=== PATIENT | female | born 1940 | race Caucasian/White ===

== ENCOUNTER 2016-09-26 12:45 | Emergency (ER) | payer MEDICARE, OTHER ==
[~2016-09-26] VITALS: Ht 157.5 cm; Wt 79.5 kg
[~2016-09-26 12:45] MED LIST: ALBU17I INH; ALBU1AER INH; ASPI325T PO; ATOR40TA49 PO; CLOP75 PO; CYMB30CA PO; FAMO20TA2 PO; FENO1TAB76 PO; FERR324T4 PO; FURO80 PO; GABA300C3 PO; LANTINJ SQ; LEVO150T7 PO; MECL-62 PO; METO25TA6 PO; MIRA1TAB PO; NORC7.5T PO; SPIR25TA PO; VALI5TAB PO; VITA500015 PO
[2016-09-26 12:47] VITALS: BP 140/80; PULSE 107; RESP 28; TEMP 98.1; O2SAT 88
[2016-09-26] MEDS ORDERED: MORPHINE SULFATE 4 MG/ML INJ IV PUSH ONE ×2 (14:00→15:30)
[2016-09-26] MEDS ORDERED: KETOROLAC TROMETHAMINE 30 MG/ML (IVP) VIAL IV PUSH ONE (14:00)
--- NOTE | 2016-09-26 14:38 | PD ---
HPI Chief Complaint: Pain: Acute or Chronic Time Seen by Provider: 13:34 Travel History International Travel<30 days: No Contact w/Intl Traveler<30days: No Traveled to known affect area: No History of Present Illness HPI This 76-year-old woman who presents to the emergency department complaining of right leg pain, right ankle pain. She states she is a history of back pain that radiated in her legs before, she also has restless leg syndrome that gives her pains in her legs. She states she woke up this morning with severe pain in her right ankle, right leg, reading all the way up to her hip. No trauma. No recent injury. Feels different than her previous similar symptoms. She otherwise had been feeling generally well and healthy. History Past Medical History Narrative Medical COPD CVA Hypertension Diabetes Hyperlipidemia RLS Hypothyroidism Menopausal: Yes Social History Alcohol Use: No Tobacco Use: Yes (08/08 PPD) Allergies-Medications (Allergen,Severity, Reaction): Coded Allergies: Penicillin (Verified Allergy, Severe, Swelling, 09/26/16) *MDRO Multi-Drug Resistant Organism (Verified Adverse Reaction, Unknown, ) ESBL+E.Coli (urine-03/28/16), 04/2016 Reported Meds & Prescriptions Reported Meds & Active Scripts Active Reported Vitamin D3 (Cholecalciferol) 5,000 Unit Tab 5,000 Units PO WEEKLY Lasix 80 Mg Tab (Furosemide) 80 Mg Tab 80 Mg PO DAILY Ventolin Hfa (Albuterol Sulfate) 108 Mcg/Act Aer 2 Puff INH Q4HR PRN Mirapex (Pramipexole Dihydrochloride) 1 Mg Tab 1 Mg PO Q6HR Tricor (Fenofibrate) 48 Mg Tab 48 Mg PO DAILY Ferrous Sulfate 325 Mg Tab 325 Mg PO DAILY Aspirin 325 mg (Aspirin) 325 Mg Tab 325 Mg PO DAILY Toprol XL (Metoprolol Succinate) 25 Mg Abdoulaye 25 Mg PO DAILY [place]ora 7.5-325 mg (Hydrocodone-Acetaminophen 7.5-325 mg) 1 Tab 1.5 Tab PO Q6H PRN Lipitor 40 Mg Tab (Atorvastatin Calcium) 40 Mg Tab 40 Mg PO DAILY Valium (Diazepam) 5 Mg Tab 5 Mg PO TID Cymbalta (Duloxetine HCl) 30 Mg Cap 30 Mg PO DAILY Proair Hfa (Albuterol Sulfate) 8.5 Gm Aero 2 Puff INH QID * SHAKE WELL BEFORE USE * Levothyroxine 150 mcg (Levothyroxine Sodium) 150 Mcg Tab 150 Mcg PO DAILY Meclizine Hcl (Meclizine HCl) 25 Mg Tab 25 Mg PO DAILY PRN Spironolactone 25 Mg Tab 25 Mg PO DAILY Lantus Solostar Pen (Insulin Glargine) 100 Units/Ml Pen SQ BID PRN Gabapentin 300 Mg Cap 300 Mg PO BID Famotidine 20 Mg Tab 20 Mg PO HS Plavix (Clopidogrel Bisulfate) 75 Mg Tab 75 Mg PO DAILY Review of Systems Except as stated in HPI: all other systems reviewed are Neg Physical Exam Narrative GENERAL: Well-appearing 76-year-old woman, no acute distress. SKIN: Warm and dry. CARDIOVASCULAR: Regular rate and rhythm. No murmur appreciated. RESPIRATORY: No accessory muscle use. Clear to auscultation. Breath sounds equal bilaterally. GASTROINTESTINAL: Abdomen soft, non-tender, nondistended. Hepatic and splenic margins not palpable. MUSCULOSKELETAL: No obvious deformities. No clubbing. There is no edema. There is no calf pain. She is mild diffuse allodynia throughout the bottom leg , especially around the ankle. There is good pulses. The foot is warm and well perfused. Data Data Last Documented VS Vital Signs Date Time Temp Pulse Resp B/P Pulse Ox O2 Delivery O2 Flow Rate FiO2 09/26/16 12:47 98.1 107 28 140/80 88 Nasal Cannula Orders Us Leg Venous Doppler (09/26/16 ) Morphine Inj (Morphine Inj) (09/26/16 14:00) Ketorolac Inj (Toradol Inj) (09/26/16 14:00) [facility] Medical Decision Making Medical Screen Exam Complete: Yes Emergency Medical Condition: Yes Medical Record Reviewed: Yes Interpretation(s) My review of ultrasound: Negative Differential Diagnosis Radiculopathy, vascular occlusion, DVT, shingles, DVT, other Narrative Course Medical decision making INITIAL: This 76-year-old woman presents to the emergency department complaining of right leg pain. Leg is normal appearance. Is no evidence of injury. Appears well perfused without evidence of acute arterial insufficiency. Doubt DVT we will check ultrasound. Suspect due to radiculopathy, early shingles, or pain from her restless leg syndrome. She has a lot of chronic pain syndromes already. We'll recommend outpatient follow-up supportive treatment. FINAL: Ultrasound is negative. Patient has a lot of chronic pain to begin with. I don't see evidence of arterial insufficiency which should be the only other concern. Suspect radiculopathy. Recommend outpatient follow-up. Diagnosis Primary Impression: Right leg pain Additional Instructions: Continue current medications. Albeit primary doctor in the next 2-4 days. Return to the emergency department for any new or worsening symptoms. Disposition: 01 DISCHARGE HOME Condition: Stable Chava Batista MD Sep 26, 2016 14:38
--- NOTE | 2016-09-26 15:17 | RADRPT ---
EXAM DATE/TIME: 09/26/2016 14:14 [facility] COMPARISON: No previous studies available for comparison. INDICATIONS : Right leg pain. MEDICAL HISTORY : Hypercholesterolemia. Hypertension. Chronic obstructive pulmonary disease. Hiatal hernia. CVA. Deg enerative disk disease. GERD. SURGICAL HISTORY : Appendectomy. Cholecystectomy. Hysterectomy. Bladder surgery. Carpal tunnel surgery. ENCOUNTER: Initial ACUITY: 1 day PAIN SCORE: 10/10 LOCATION: Right leg. TECHNIQUE: Venous ultrasound of the leg was performed from the inguinal ligament to the proximal calf. Real-dianna e, color Doppler and spectral tracing, compression and augmentation techniques were used. FINDINGS: There is normal compressibility of the deep venous system from the inguinal region to the proximal ca lf. No echogenic clot is seen in the lumen of the common femoral, femoral, popliteal, and posterior tibial veins. There is a normal response of the venous system to proximal and distal augmentation an d respiration. Iliac vein open and patent CONCLUSION: Normal examination. No evidence DVT Pedro Mayberry MD on September 26, 2016 at 15:15 Board Certified Radiologist. This report was verified electronically.
== END 2016-09-26 17:18 | disposition home or self-care (01) ==
LOC: NEPC 12:45
DX: M79.604 Pain in right leg (principal)
CPT/HCPCS: 93971; 96374; 96375; 96376; 99284; J1885; J2270

== ENCOUNTER 2016-11-26 10:12 | Emergency (ER) | payer MEDICARE, OTHER ==
[~2016-11-26] VITALS: Ht 160 cm; Wt 81.5 kg
[2016-11-26 10:15] VITALS: BP 139/68; PULSE 81; RESP 18; TEMP 97.7; O2SAT 95
[2016-11-26 10:51] VITALS: O2SAT 94
[2016-11-26 11:00] VITALS: BP 134/65; PULSE 77; RESP 16; O2SAT 94
[2016-11-26] MEDS ORDERED: SODIUM CHLORIDE 0.9% FLUSH 10 ML FLUSH IVF PRN (11:15)
[2016-11-26] MEDS: NITROGLYCERIN 0.4 MG SL 25 TABS/BTL SL SCH ×3 (11:17→11:25)
--- NOTE | 2016-11-26 11:17 | PD ---
HPI Chief Complaint: Chest Pain Time Seen by Provider: 11:12 Travel History International Travel<30 days: No Contact w/Intl Traveler<30days: No Traveled to known affect area: No History of Present Illness HPI Patient comes in complaining of substernal chest pain she describes as squeezing like in nature that began this morning. Patient reports associated shortness of breath. Patient states she had similar happen approximately week ago when she was in [place] and signed out from the hospital AMA secondary to having to take care of someone else. Patient states they recommended a stress test at that time however she did not have this done. Patient states she last had a cardiac catheter approximately 2 years ago in [place] and was told everything was cleaned but does not have a nsh teacher here locally. Patient denies any associated nausea, vomiting, numbness or tingling anywhere, headache , or diaphoresis. Patient states she does take a full strength aspirin daily and she took it this morning. Patient reports chest pain began this morning it was coming and going however now it is more constant. Patient also complaining of left knee pain after her leg gave out on her yesterday causing her to land on her left knee. Patient has pain is throbbing aching like in nature without radiation. Pain is worse with palpation and walking. Patient has applied ice to this that helped with the swelling. PFSH Past Medical History Hx Anticoagulant Therapy: Yes Arthritis: Yes Asthma: Yes Heart Rhythm Problems: No Cancer: No Cardiovascular Problems: Yes (A-FIB, HTN ) High Cholesterol: Yes Chest Pain: No Congestive Heart Failure: No COPD: Yes Cerebrovascular Accident: Yes (CVA X 3) Diabetes: Yes Patient Takes Glucophage: Yes Diminished Hearing: No Endocrine: Yes Gastrointestinal Disorders: Yes GERD: Yes Genitourinary: No Hiatal Hernia: Yes Hypertension: Yes Immune Disorder: No Musculoskeletal: Yes (DEGENERATIVE DISK DISEASE, stenosis) Neurologic: Yes Psychiatric: No Reproductive: No Respiratory: Yes (COPD) Migraines: No Seizures: Yes (20 years ago) Sleep Apnea: No Thyroid Disease: Yes Ulcer: No Menopausal: Yes Past Surgical History AICD: No Appendectomy: Yes Arteriovenous Shunt: No Cholecystectomy: Yes Genitourinary Surgery: Yes (BLADDER SURGURY) Hysterectomy: Yes Insulin Pump: No Joint Replacement: Yes (neck ) Neurologic Surgery: Yes (NECK AND BACK FUSIONS) Pacemaker: No Social History Alcohol Use: No Tobacco Use: Yes (08/08 PPD) Substance Use: No Allergies-Medications (Allergen,Severity, Reaction): Coded Allergies: Penicillin (Verified Allergy, Severe, Swelling, 11/26/16) *MDRO Multi-Drug Resistant Organism (Verified Adverse Reaction, Unknown, ) ESBL+E.Coli (urine-03/28/16), 04/2016 Reported Meds & Prescriptions Reported Meds & Active Scripts Active Reported Lantus Inj (Insulin Glargine) 100 Unit/Ml Inj SQ BIDAC PER SLIDING SCALE Aldactone (Spironolactone) 25 Mg Tab 25 Mg PO DAILY Metformin (Metformin HCl) 500 Mg Tab 500 Mg PO BID With meals [place] (Hydrocodone-Acetaminophen) 7.5-325 mg Tab 1.5 Tab PO Q6H PRN Tramadol (Tramadol HCl) 50 Mg Tab 50 Mg PO BID PRN Omeprazole 20 Mg Tab 20 Mg PO DAILY Lasix (Furosemide) 40 Mg Tab 80 Mg PO DAILY PRN Anoro Ellipta Inh (Umeclidinium/Vilanterol) 62.5-25 Mcg/Act Aero 1 Puff INH DAILY Levothyroxine (Levothyroxine Sodium) 150 Mcg Tab 150 Mcg PO DAILY Gabapentin 300 Mg Cap 300 Mg PO BID Mirapex (Pramipexole Dihydrochloride) 1 Mg Tab 1 Mg PO Q6HR Tricor (Fenofibrate) 48 Mg Tab 48 Mg PO DAILY Tke with food. Pepcid (Famotidine) 20 Mg Tab 20 Mg PO HS Valium (Diazepam) 5 Mg Tab 5 Mg PO TID PRN Cymbalta DR (Duloxetine HCl) 60 Mg Capdr 60 Mg PO BID Aspirin 325 Mg Tab 325 Mg PO DAILY Review of Systems Except as stated in HPI: all other systems reviewed are Neg Physical Exam Narrative GENERAL: Well-developed, overly nourished, in no acute distress, and non-ill appearing. SKIN: Focused skin assessment warm and dry. Patient is a contusion noted over the left anterior knee with some soft tissue swelling is tender to palpation. There is no crepitus. HEAD: Atraumatic. Normocephalic. EYES: Pupils equal and round. EOMI. No scleral icterus. No injection or drainage. ENT: No nasal bleeding or discharge. Mucous membranes pink and moist. NECK: Trachea midline. No JVD. Supple. No nuclear rigidity. CARDIOVASCULAR: Regular rate and rhythm. No murmur appreciated. Dorsal pulses 2+, intact, and equal bilaterally. Capillary refill less than 2 seconds. RESPIRATORY: No accessory muscle use. No respiratory distress. Clear to auscultation. Breath sounds equal bilaterally. GASTROINTESTINAL: Abdomen soft, non-tender, nondistended. Hepatic and splenic margins not palpable. Normal bowel sounds 4. No pulsatile mass. MUSCULOSKELETAL: No obvious deformities. No clubbing. No cyanosis. No edema. Full range of motion. Knee: Negative patellar apprehension, varus and valgus maneuvers, anterior draw test, and Mejia test. Pulses equal BL distal to injury. Capillary refill less than 2 seconds distal to injury and equal BL. FROM distal to injury and equal BL. Strength distal to injury equal BL. NV intact distal to injury. Dorsal pulses equal BL. Sensation equal BL 1st web space. Patient reports tenderness to palpation over left anterior knee. NEUROLOGICAL: Awake and alert. No obvious cranial nerve deficits. Motor grossly within normal limits. Normal speech. PSYCHIATRIC: Appropriate mood and affect; insight and judgment normal. Data Data Last Documented VS Vital Signs Date Time Temp Pulse Resp B/P Pulse Ox O2 Delivery O2 Flow Rate FiO2 11/26/16 13:00 72 19 92/55 94 Nasal Cannula 3 11/26/16 10:15 97.7 Orders Electrocardiogram (11/26/16 ) Basic Metabolic Panel (Bmp) (11/26/16 11:11) Ckmb (Isoenzyme) Profile (11/26/16 11:11) Complete Blood Count With Diff (11/26/16 11:11) Magnesium (Mg) (11/26/16 11:11) Prothrombin Time / Inr (Pt) (11/26/16 11:11) Act Partial Throm Time (Ptt) (11/26/16 11:11) Troponin I (11/26/16 11:11) Chest, Single Ap (11/26/16 11:11) Ecg Monitoring (11/26/16 11:11) Bilateral Bp Monitoring (11/26/16 11:11) Iv Access Insert/Monitor (11/26/16 11:11) Oximetry (11/26/16 11:11) Oxygen Administration (11/26/16 11:11) Sodium Chloride 0.9% Flush (Ns Flush) (11/26/16 11:15) Nitroglycerin Sl (Nitrostat Sl) (11/26/16 11:15) Knee, Complete (4vws) (11/26/16 ) Ice/Cold Pack (11/26/16 11:20) CKMB (11/26/16 11:15) CKMB% (11/26/16 11:15) Splint Or Brace Apply/Monitor (11/26/16 12:20) Electrocardiogram (11/26/16 12:43) Ckmb (Isoenzyme) Profile (11/26/16 12:43) Troponin I (11/26/16 12:43) CKMB (11/26/16 14:15) CKMB% (11/26/16 14:15) Labs Laboratory Tests Test 11/26/16 11/26/16 11:15 14:15 White Blood Count 8.4 TH/MM3 Red Blood Count 4.12 MIL/MM3 Hemoglobin 11.4 GM/DL Hematocrit 34.8 % Mean Corpuscular Volume 84.4 FL Mean Corpuscular Hemoglobin 27.8 PG Mean Corpuscular Hemoglobin 32.9 % Concent Red Cell Distribution Width 19.7 % Platelet Count 318 TH/MM3 Mean Platelet Volume 6.9 FL Neutrophils (%) (Auto) 74.2 % Lymphocytes (%) (Auto) 16.1 % Monocytes (%) (Auto) 7.0 % Eosinophils (%) (Auto) 2.2 % Basophils (%) (Auto) 0.5 % Neutrophils # (Auto) 6.2 TH/MM3 Lymphocytes # (Auto) 1.4 TH/MM3 Monocytes # (Auto) 0.6 TH/MM3 Eosinophils # (Auto) 0.2 TH/MM3 Basophils # (Auto) 0.0 TH/MM3 CBC Comment DIFF FINAL Differential Comment Prothrombin Time 10.0 SEC Prothromb Time International 0.9 RATIO Ratio Activated Partial 24.7 SEC Thromboplast Time Sodium Level 134 MEQ/L Potassium Level 4.2 MEQ/L Chloride Level 94 MEQ/L Carbon Dioxide Level 31.7 MEQ/L Anion Gap 8 MEQ/L Blood Urea Nitrogen 15 MG/DL Creatinine 0.77 MG/DL Estimat Glomerular Filtration 73 ML/MIN Rate Random Glucose 152 MG/DL Calcium Level 9.5 MG/DL Magnesium Level 1.9 MG/DL Total Creatine Kinase 340 U/L 274 U/L Creatine Kinase MB 3.2 NG/ML 2.8 NG/ML Creatine Kinase MB % 0.9 % 1.0 % Troponin I LESS THAN 0.02 LESS THAN 0.02 NG/ML NG/ML MDM Medical Decision Making Medical Screen Exam Complete: Yes Emergency Medical Condition: Yes Medical Record Reviewed: Yes Interpretation(s) EKG reviewed by Dr. Cuadra shows normal sinus rhythm with ventricular rate of 83. No STEMI. Repeat EKG reviewed by Dr. Cuadra shows normal sinus rhythm with ventricular rate of 68. No STEMI. Differential Diagnosis Acute coronary syndrome, angina, pneumonia, electrolyte abnormality, fracture, contusion, other Narrative Course 1144 patient reassessed report improvement of chest pain with nitroglycerin. Patient seen and examined. Initial laboratory and radiological studies were obtained and reviewed. EKG was reviewed by Dr. Cuadra. Patient reports taking a full strength aspirin this morning was not given additional emergency department. Patient was given nitroglycerin patient reports improvement of her chest pain. Paul wrap was placed secondary to left knee contusion. Patient instructed to follow up with orthopedics or primary care for this as an outpatient and given warnings for vascular compromise. Discussed patient with Dr. Cuadra, who recommends repeating cardiac enzymes and if remains negative patient can be discharged home for outpatient follow-up this patient has a reported cardiac catheter of approximately 2 years ago that was reportedly clean and was just stressed in May that was negative. The patient appears to have suffered a contusion of the extremity. There is no clinical evidence to suspect bony injury by exam. Radiographic examination revealed no fracture seen at this time. The patient has full range of motion on active and passive motions. There is no significant edema. There is no proximal or distal joint effusion. The distal extremity appears neurovascularly intact, without evidence of neurovascular injury nor compartment syndrome. Tendon exam also was intact. The patient was discharged on pain medication instructions and given warnings for vascular compromise. The patient is to follow up with their regular physician or Orthopedics. The patient agrees with plan. The patients chest pain by history and evaluation appears noncardiac, nor noncardiopulmonary in etiology. Evaluation revealed no evidence of cardiac involvement at this time. There is no clinical evidence to suggest thoracic aortic aneurysm or pathology, nor evidence to suggest pulmonary embolism, pericarditis, pneumothorax, nor pneumonia at this time. The patient has minimal risk factors for cardiac disease, pulmonary embolism or aortic disease. Clinical suspicion was discussed with patient and the patient was referred to and instructed to follow up with Cardiology for potential outpatient evaluation. I discussed this management with the patient and the patient understands the importance or acute follow up with cardiology for outpatient stress testing. The patient was instructed to return at any time if chest pain recurs, persists, changes or worsens in anyway while awaiting follow up. The patient agreed with plan. Patient in no obvious distress upon re-evaluation. All pertinent laboratory/ Radiology result(s) discussed with patient. Discussed patient with Dr. Cuadra prior discharge, who is in agreement with plan of care and disposition. Any questions/concerns in reference to patient diagnosis/ condition discussed and clarified prior to patient's discharge. Reinforced sheer importance of close follow up with patient's primary physician or primary care clinic. Instructed patient to return to ED immediately, if symptoms return/ worsen. Pt showed understanding of above instructions. Further instructions and recommendations were detailed in discharge paperwork. Pt ambulated without difficulty out of ED at discharge. Diagnosis Primary Impression: Chest pain Qualified Code: R07.9 - Chest pain, unspecified type Additional Impression: Contusion of left knee, initial encounter Referrals: Cody Leonardo MD Patient Instructions: Chest Pain (ED), Contusion in Adults (ED), General Instructions Additional Instructions: Follow-up with your primary care physician and/or a nsh teacher this week for reevaluation of your chest pain. Follow-up through primary care doctor and/or an orthopedic for reevaluation of left knee contusion. Apply ice to knee 20 minutes per hour as needed for pain and swelling. Use [id number] Tylenol as needed for pain. Follow instructions on the packing. Wear Paul wrap for comfort. Return to the emergency department if symptoms get worse. Disposition: 01 DISCHARGE HOME Condition: Stable Nikhil Ndiaye Nov 26, 2016 11:17
[2016-11-26 11:43] LABS: AUTOMATED NEUTROPHIL # 6.2 TH/MM3 (1.8-7.7); BASOPHIL % 0.5 % (0.0-2.0); EOSINOPHIL # 0.2 TH/MM3 (0-0.4); EOSINOPHIL % 2.2 % (0.0-4.0); HEMATOCRIT 34.8 % (35.0-46.0); HEMO FLAGS DIFF FINAL; LYMPH % 16.1 % (9.0-44.0); LYMPHOCYTE # 1.4 TH/MM3 (1.0-4.8); MEAN CELL VOLUME 84.4 FL (80.0-100.0); MEAN CORPUSCULAR HEMOGLOBIN 27.8 PG (27.0-34.0); MEAN CORPUSCULAR HGB CONC 32.9 % (32.0-36.0); NEUT % 74.2 % (16.0-70.0); PLATELET COUNT 318 TH/MM3 (150-450); RED BLOOD COUNT 4.12 MIL/MM3 (4.00-5.30); RED CELL DISTRIBUTION WIDTH 19.7 % (11.6-17.2); WHITE BLOOD COUNT 8.4 TH/MM3 (4.0-11.0)
[2016-11-26 11:54] LABS: APTT (PATIENT) 24.7 SEC (24.3-30.1); INTERNATIONAL NORMALIZED RATIO 0.9 RATIO
--- NOTE | 2016-11-26 11:56 | RADRPT ---
EXAM DATE/TIME: 11/26/2016 11:25 [facility] COMPARISON: KNEE LEFT COMPLETE (4VWS), December 22, 2015, 18:23. INDICATIONS : Pain and swelling after fall last night at home. MEDICAL HISTORY : None. SURGICAL HISTORY : None. ENCOUNTER: Initial ACUITY: 1 day PAIN SCORE: 6/10 LOCATION: Left knee FINDINGS: Four view examination of the left knee demonstrates no evidence of fracture or dislocation. There is diffuse osteopenia. The articular surfaces are intact. The suprapatellar soft tissues have a normal configuration. There is soft tissue swelling over the anterior and medial knee. CONCLUSION: Soft tissue swelling with no acute fracture or malalignment. Jim Sierra MD on November 26, 2016 at 11:54 Board Certified Radiologist. This report was verified electronically.
[2016-11-26 12:05] LABS: ANION GAP 8 MEQ/L (5-15); BICARBONATE 31.7 MEQ/L (21.0-32.0); BLOOD UREA NITROGEN 15 MG/DL (7-18); CHLORIDE 94 MEQ/L (98-107); GLOMERULAR FILTRATION RATE 73 ML/MIN (>89); MAGNESIUM 1.9 MG/DL (1.5-2.5); POTASSIUM 4.2 MEQ/L (3.5-5.1); SODIUM (NA) 134 MEQ/L (136-145)
[2016-11-26 12:09] LABS: CREATINE KINASE 340 U/L (26-192)
[2016-11-26] MEDS ORDERED: GABA300C5 PO (12:18)
[2016-11-26] MEDS ORDERED: PRAM1 PO (12:18)
[2016-11-26] MEDS ORDERED: OMEP20TA PO (12:18)
[2016-11-26] MEDS ORDERED: FENO1TAB76 PO (12:18)
[2016-11-26] MEDS ORDERED: FAMO1TAB37 PO (12:18)
[2016-11-26] MEDS ORDERED: CYMB60CA PO (12:18)
[2016-11-26] MEDS ORDERED: ASPI325T PO (12:18)
[2016-11-26] MEDS ORDERED: DIAZ5 PO (12:18)
[2016-11-26] MEDS ORDERED: UMEC1AER INH (12:18)
[2016-11-26] MEDS ORDERED: LEVO150T7 PO (12:18)
[2016-11-26] MEDS ORDERED: FURO1TAB60 PO (12:18)
[2016-11-26 12:21] LABS: CKMB 3.2 NG/ML (0.5-3.6)
[2016-11-26] MEDS ORDERED: HYDR-3288 PO (12:26)
[2016-11-26] MEDS ORDERED: TRAM50TA PO (12:26)
[2016-11-26] MEDS ORDERED: LANTUS2P SQ (12:26)
[2016-11-26] MEDS ORDERED: SPIR25 PO (12:26)
[2016-11-26] MEDS ORDERED: METF500T PO (12:26)
--- NOTE | 2016-11-26 12:36 | RADRPT ---
EXAM DATE/TIME: 11/26/2016 11:30 [facility] COMPARISON: CHEST SINGLE AP, May 22, 2016, 10:58. INDICATIONS : Chest pain. MEDICAL HISTORY : Chronic obstructive pulmonary disease. Myocardial infarction. SURGICAL HISTORY : None. ENCOUNTER: Initial ACUITY: 1 day PAIN SCORE: 7/10 LOCATION: Bilateral chest FINDINGS: A single view of the chest demonstrates cardiomegaly with bibasilar densities. Increase in pulmonary vascularity. No pleural effusions. No pneumothorax Osseous structures are intact. CONCLUSION: Cardiomegaly with bibasilar densities likely atelectasis. Increase in pulmonary vascularity. Darren Omalley MD on November 26, 2016 at 12:33 Board Certified Radiologist. This report was verified electronically.
[2016-11-26 13:00] VITALS: BP 92/55; PULSE 72; RESP 19; O2SAT 94
[2016-11-26 14:48] LABS: CREATINE KINASE 274 U/L (26-192)
[2016-11-26 15:01] LABS: CKMB 2.8 NG/ML (0.5-3.6)
--- NOTE | 2016-11-27 09:02 | EKG ---
Date Performed: 11/26/2016 Time Performed: 14:17:04 PTAGE: 76 years EKG: Sinus rhythm NORMAL ECG PREVIOUS TRACING : 11/26/2016 10.36 No significant change from previous tracing noted. DOCTOR: Nikhil Vicente Interpretating Date/Time 11/27/2016 09:01:14
--- NOTE | 2016-11-27 13:07 | EKG ---
Date Performed: 11/26/2016 Time Performed: 10:36:25 PTAGE: 76 years EKG: Sinus rhythm NORMAL ECG PREVIOUS TRACING : 05/22/2016 23.52 No significant change from previous tracing noted. DOCTOR: Nikhil Vicente Interpretating Date/Time 11/27/2016 13:05:46
== END 2016-11-26 16:56 | disposition home or self-care (01) ==
LOC: NEPC 10:12
DX: R07.9 Chest pain, unspecified (principal); S80.02XA Contusion of left knee, initial encounter; I10 Essential (primary) hypertension; I48.91 Unspecified atrial fibrillation; E11.9 Type 2 diabetes mellitus without complications; J44.9 Chronic obstructive pulmonary disease, unspecified; F17.210 Nicotine dependence, cigarettes, uncomplicated; W18.39XA Other fall on same level, initial encounter; Y93.9 Activity, unspecified; Y92.009 Unspecified place in unspecified non-institutional (private) residence as the place of occurrence of the external cause; Z79.4 Long term (current) use of insulin; I25.2 Old myocardial infarction
CPT/HCPCS: 71010; 73564; 80048; 82550; 82552; 83735; 84484; 85025; 85610; 85730; 93005

== ENCOUNTER 2017-02-28 11:08 | Observation (INO) | payer MEDICARE, OTHER ==
[~2017-02-28] VITALS: Ht 170.2 cm; Wt 84.0 kg
[~2017-02-28 11:08] MED LIST changes: -ALBU17I INH; -ALBU1AER INH; -ATOR40TA49 PO; -CLOP75 PO; -CYMB30CA PO; +CYMB60CA PO; +DIAZ5 PO; +FAMO1TAB37 PO; -FAMO20TA2 PO; -FERR324T4 PO; +FURO1TAB60 PO; -FURO80 PO; -GABA300C3 PO; +GABA300C5 PO; +HYDR-3288 PO; -LANTINJ SQ; +LANTUS2P SQ; -MECL-62 PO; +METF500T PO; -METO25TA6 PO; -MIRA1TAB PO; -NORC7.5T PO; +OMEP20TA PO; +PRAM1 PO; +SPIR25 PO; -SPIR25TA PO; +TRAM50TA PO; +UMEC1AER INH; -VALI5TAB PO; -VITA500015 PO
[2017-02-28 11:15] VITALS: BP 122/56; PULSE 83; RESP 16; TEMP 98; O2SAT 96
[2017-02-28] MEDS ORDERED: SODIUM CHLORIDE 0.9% FLUSH 10 ML FLUSH IVF PRN (11:15)
[2017-02-28] MEDS ORDERED: ASPIRIN 325 MG TAB PO ONE (11:15)
[2017-02-28 11:20] VITALS: O2SAT 96
[2017-02-28 11:27] VITALS: BP 117/59; PULSE 81
--- NOTE | 2017-02-28 12:00 | RADRPT ---
EXAM DATE/TIME: 02/28/2017 11:32 [facility] COMPARISON: CHEST SINGLE AP, November 26, 2016, 11:30. INDICATIONS : Chest pain. Short of breath. MEDICAL HISTORY : Chronic obstructive pulmonary disease. Myocardial infarction. SURGICAL HISTORY : Fusion, cervical. ENCOUNTER: Subsequent ACUITY: 2 days PAIN SCORE: 4/10 LOCATION: Bilateral chest FINDINGS: The heart is stable. Mild increased interstitial markings are noted consistent with acute or chronic interstitial disease. Minimal bibasilar fibrotic scarring and/or atelectasis is also noted. Surgic al clips are noted within the left paratracheal region of the lower neck. Mild degenerative changes are noted throughout the thoracic spine. Hardware is noted within the cervical spine status post fus ion. CONCLUSION: 1. Scattered increased interstitial markings consistent with acute or chronic interstitial disease. 2. Minimal bibasilar atelectasis and/or fibrotic scarring. 3. Mild degenerative changes throughout the thoracic spine. Dilan Loza MD on February 28, 2017 at 11:50 Board Certified Radiologist. This report was verified electronically.
[2017-02-28 12:01] LABS: AUTOMATED NEUTROPHIL # 6.6 TH/MM3 (1.8-7.7); BASOPHIL # 0.1 TH/MM3 (0-0.2); BASOPHIL % 0.9 % (0.0-2.0); EOSINOPHIL # 0.2 TH/MM3 (0-0.4); EOSINOPHIL % 2.3 % (0.0-4.0); HEMATOCRIT 30.4 % (35.0-46.0); HEMO FLAGS DIFF FINAL; LYMPH % 18.2 % (9.0-44.0); LYMPHOCYTE # 1.6 TH/MM3 (1.0-4.8); MEAN CELL VOLUME 86.1 FL (80.0-100.0); MEAN CORPUSCULAR HEMOGLOBIN 28.4 PG (27.0-34.0); MONO % 6.2 % (0.0-8.0); NEUT % 72.4 % (16.0-70.0); PLATELET COUNT 348 TH/MM3 (150-450); RED BLOOD COUNT 3.53 MIL/MM3 (4.00-5.30); RED CELL DISTRIBUTION WIDTH 15.7 % (11.6-17.2); WHITE BLOOD COUNT 9.1 TH/MM3 (4.0-11.0)
[2017-02-28 12:03] LABS: INTERNATIONAL NORMALIZED RATIO 0.9 RATIO; PROTHROMBIN TIME - PATIENT 10.1 SEC (9.8-11.6)
--- NOTE | 2017-02-28 12:06 | PD ---
HPI Chief Complaint: Chest Pain Time Seen by Provider: 12:02 Travel History International Travel<30 days: No Contact w/Intl Traveler<30days: No Traveled to known affect area: No History of Present Illness HPI 76-year-old female that presents to the ED for evaluation of chest pain on the left side. Per patient she's had this since yesterday. Per patient he went away yesterday. Per patient today she was doing physical therapy and before she was about to start she developed this sharp pain that is pressure-like. Per patient she does have a history of heart disease but she's never had any stents or CABG. She does have a history of COPD and a full history of smoking. History of hypertension. Pain per patient is currently 3 out of 10. Initially was 6 out of 10 and she was given nitroglycerin as well as aspirin. No fevers chills or sweats. Per patient she does get short of breath than she usually uses oxygen at home from her COPD. She denies any traumas to the chest. No cough or runny nose. No abdominal pain. No nausea or vomiting. No other medical issues. PFSH Past Medical History Hx Anticoagulant Therapy: Yes Arthritis: Yes Asthma: Yes Heart Rhythm Problems: No Cancer: No Cardiovascular Problems: Yes (HTN) High Cholesterol: Yes Chest Pain: No Congestive Heart Failure: No COPD: Yes Cerebrovascular Accident: Yes (CVA X 3) Diabetes: Yes Patient Takes Glucophage: Yes Diminished Hearing: No Endocrine: Yes Gastrointestinal Disorders: Yes GERD: Yes Genitourinary: No Headaches: No Hiatal Hernia: Yes Hypertension: Yes Immune Disorder: No Musculoskeletal: Yes (DEGENERATIVE DISK DISEASE, stenosis) Neurologic: Yes Psychiatric: No Reproductive: No Respiratory: Yes (COPD) Migraines: No Pneumonia: Yes Seizures: Yes (20 years ago) Sleep Apnea: No Thyroid Disease: Yes Ulcer: No Tetanus Vaccination: < 5 Years Influenza Vaccination: Yes ?: Not Menopausal: Yes Past Surgical History AICD: No Appendectomy: Yes Arteriovenous Shunt: No Cholecystectomy: Yes Genitourinary Surgery: Yes (BLADDER SURGURY) Hysterectomy: Yes Insulin Pump: No Joint Replacement: Yes (neck ) Neurologic Surgery: Yes (NECK AND BACK FUSIONS) Pacemaker: No Social History Alcohol Use: No Tobacco Use: Yes (08/08 PPD) Substance Use: No Allergies-Medications (Allergen,Severity, Reaction): Coded Allergies: Penicillin (Verified Allergy, Severe, Swelling, 02/28/17) *MDRO Multi-Drug Resistant Organism (Verified Adverse Reaction, Unknown, ) ESBL+E.Coli (urine-03/28/16), 04/2016 Reported Meds & Prescriptions Reported Meds & Active Scripts Active Reported Lantus Inj (Insulin Glargine) 100 Unit/Ml Inj SQ BIDAC PER SLIDING SCALE Aldactone (Spironolactone) 25 Mg Tab 25 Mg PO DAILY Metformin (Metformin HCl) 500 Mg Tab 500 Mg PO BID With meals Shell (Hydrocodone-Acetaminophen) 7.5-325 mg Tab 1 Tab PO Q6H PRN Tramadol (Tramadol HCl) 50 Mg Tab 50 Mg PO BID PRN Omeprazole 20 Mg Tab 20 Mg PO DAILY Lasix (Furosemide) 40 Mg Tab 80 Mg PO DAILY PRN Anoro Ellipta Inh (Umeclidinium/Vilanterol) 62.5-25 Mcg/Act Aero 1 Puff INH DAILY Levothyroxine (Levothyroxine Sodium) 150 Mcg Tab 150 Mcg PO DAILY Gabapentin 300 Mg Cap 300 Mg PO BID Mirapex (Pramipexole Dihydrochloride) 1 Mg Tab 1 Mg PO Q6HR Tricor (Fenofibrate) 48 Mg Tab 48 Mg PO DAILY Tke with food. Pepcid (Famotidine) 20 Mg Tab 20 Mg PO HS Valium (Diazepam) 5 Mg Tab 5 Mg PO TID PRN Cymbalta DR (Duloxetine HCl) 60 Mg Capdr 60 Mg PO BID Aspirin 325 Mg Tab 325 Mg PO DAILY Review of Systems Except as stated in HPI: all other systems reviewed are Neg Physical Exam Narrative GENERAL: SKIN: Warm and dry. HEAD: Atraumatic. Normocephalic. EYES: Pupils equal and round. No scleral icterus. No injection or drainage. ENT: No nasal bleeding or discharge. Mucous membranes pink and moist. Tongue is midline. No uvula deviation. NECK: Trachea midline. No JVD. CARDIOVASCULAR: Regular rate and rhythm. No murmurs, S3, S4. RESPIRATORY: No accessory muscle use. Clear to auscultation. Breath sounds equal bilaterally. GASTROINTESTINAL: Abdomen soft, non-tender, nondistended. Hepatic and splenic margins not palpable. MUSCULOSKELETAL: Extremities without clubbing, cyanosis, or edema. No obvious deformities. Full range of motion of the upper and lower extremities bilaterally. 2+ pulses bilaterally. NEUROLOGICAL: Awake and alert. No obvious cranial nerve deficits. Motor grossly within normal limits. Five out of 5 muscle strength in the arms and legs. Normal speech. PSYCHIATRIC: Appropriate mood and affect; insight and judgment normal. Data Data Last Documented VS Vital Signs Date Time Temp Pulse Resp B/P Pulse Ox O2 Delivery O2 Flow Rate FiO2 02/28/17 11:27 81 117/59 02/28/17 11:20 96 Nasal Cannula 2 02/28/17 11:15 98.0 16 Orders Electrocardiogram (02/28/17 11:12) Basic Metabolic Panel (Bmp) (02/28/17 11:12) Ckmb (Isoenzyme) Profile (02/28/17 11:12) Complete Blood Count With Diff (02/28/17 11:12) Magnesium (Mg) (02/28/17 11:12) Prothrombin Time / Inr (Pt) (02/28/17 11:12) Act Partial Throm Time (Ptt) (02/28/17 11:12) Troponin I (02/28/17 11:12) Lipase (02/28/17 11:12) Chest, Single Ap (02/28/17 11:12) Ecg Monitoring (02/28/17 11:12) Bilateral Bp Monitoring (02/28/17 11:12) Iv Access Insert/Monitor (02/28/17 11:12) Oximetry (02/28/17 11:12) Oxygen Administration (02/28/17 11:12) Aspirin (Aspirin) (02/28/17 11:15) Sodium Chloride 0.9% Flush (Ns Flush) (02/28/17 11:15) Thyroid Stimulating Hormone (02/28/17 11:23) B-Type Natriuretic Peptide (02/28/17 11:56) Admit Order (Ed Use Only) (02/28/17 12:47) Labs Laboratory Tests Test 02/28/17 11:23 White Blood Count 9.1 TH/MM3 Red Blood Count 3.53 MIL/MM3 Hemoglobin 10.0 GM/DL Hematocrit 30.4 % Mean Corpuscular Volume 86.1 FL Mean Corpuscular Hemoglobin 28.4 PG Mean Corpuscular Hemoglobin 33.0 % Concent Red Cell Distribution Width 15.7 % Platelet Count 348 TH/MM3 Mean Platelet Volume 6.9 FL Neutrophils (%) (Auto) 72.4 % Lymphocytes (%) (Auto) 18.2 % Monocytes (%) (Auto) 6.2 % Eosinophils (%) (Auto) 2.3 % Basophils (%) (Auto) 0.9 % Neutrophils # (Auto) 6.6 TH/MM3 Lymphocytes # (Auto) 1.6 TH/MM3 Monocytes # (Auto) 0.6 TH/MM3 Eosinophils # (Auto) 0.2 TH/MM3 Basophils # (Auto) 0.1 TH/MM3 CBC Comment DIFF FINAL Differential Comment Prothrombin Time 10.1 SEC Prothromb Time International 0.9 RATIO Ratio Activated Partial 25.0 SEC Thromboplast Time Sodium Level 135 MEQ/L Potassium Level 3.9 MEQ/L Chloride Level 96 MEQ/L Carbon Dioxide Level 30.3 MEQ/L Anion Gap 9 MEQ/L Blood Urea Nitrogen 16 MG/DL Creatinine 0.62 MG/DL Estimat Glomerular Filtration 94 ML/MIN Rate Random Glucose 176 MG/DL Calcium Level 9.3 MG/DL Magnesium Level 1.8 MG/DL Total Creatine Kinase 82 U/L Troponin I LESS THAN 0.02 NG/ML Lipase 121 U/L Thyroid Stimulating Hormone 5.560 uIU/ML 3rd Gen [facility] Medical Decision Making Medical Screen Exam Complete: Yes Emergency Medical Condition: Yes Medical Record Reviewed: Yes Interpretation(s) EKG shows sinus rhythm with no sign of acute ischemia or arrhythmia.Read by me and attending CBC & BMP Diagram 02/28/17 11:23 Troponin and CK-MB negative. CXR negative for acute disease Lipase WNL TSH elevated Differential Diagnosis Chest pain versus ACS versus a typical chest pain versus pneumonia versus CHF versus COPD Narrative Course 76-year-old female that presents to the ED for evaluation of left-sided chest pain. Patient was properly examined and was found to have signs and symptoms consistent with appears to be chest pain. Unclear to this time. She does have risk factors for cardiac disease. Patient has risk factors including diabetes, or history of smoking, hypertension and high cholesterol. At this time I recommend labs and imaging. Labs and imaging showed no sign of acute disease other than slightly elevated TSH. Patient still complains of some chest discomfort. She does have risk factors. I think is reasonable for the patient to be admitted for chest pain center rule out. She agrees with this plan. Patient was admitted to the chest pain center. Case discussed in my attending agrees with plan. Procedures EKG Prior to Arrival: Yes Diagnosis Primary Impression: Chest pain in adult Admitting Information Admitting Physician Requests: Observation Rasta Heath Feb 28, 2017 12:06
[2017-02-28 12:09] LABS: ANION GAP 9 MEQ/L (5-15); BICARBONATE 30.3 MEQ/L (21.0-32.0); BLOOD UREA NITROGEN 16 MG/DL (7-18); CHLORIDE 96 MEQ/L (98-107); GLOMERULAR FILTRATION RATE 94 ML/MIN (>89); MAGNESIUM 1.8 MG/DL (1.5-2.5); POTASSIUM 3.9 MEQ/L (3.5-5.1); SODIUM (NA) 135 MEQ/L (136-145)
[2017-02-28 12:10] LABS: CREATINE KINASE 82 U/L (26-192)
--- NOTE | 2017-02-28 12:35 | EKG ---
Date Performed: 02/28/2017 Time Performed: 11:20:43 PTAGE: 76 years EKG: Sinus rhythm NONSPECIFIC T-WAVE ABNORMALITY BORDERLINE ECG PREVIOUS TRACING : 11/26/2016 14.17 DOCTOR: Keon Givens Interpretating Date/Time 02/28/2017 12:34:36
[2017-02-28 13:00] VITALS: BP 111/55; PULSE 79; RESP 18; O2SAT 97
[2017-02-28] MEDS ORDERED: PRAMIPEXOLE DIHYDROCHLORIDE 0.25 MG TAB PO ONE (13:00)
[2017-02-28] MEDS ORDERED: ACETAMINOPHEN/HYDROcodone 325 MG/7.5 MG TAB PO ONE (13:00)
[2017-02-28] MEDS ORDERED: ACETAMINOPHEN/HYDROcodone 325 MG/7.5 MG TAB PO PRN (13:45)
[2017-02-28] MEDS ORDERED: SODIUM CHLORIDE 0.9% FLUSH 5 ML FLUSH IVF PRN (13:45)
[2017-02-28] MEDS ORDERED: DEXTROSE 50% IN WATER 50 ML VIAL(D50) IV PRN (13:45)
[2017-02-28] MEDS ORDERED: RESP: ALBUTEROL 2.5 MG/IPRATROPIUM 0.5 MG NEB (PRN) INH (13:45)
[2017-02-28] MEDS ORDERED: ONDANSETRON HCL 4 MG/2 ML VIAL IV PRN (13:45)
[2017-02-28] MEDS ORDERED: FENOFIBRATE 48 MG TAB PO SCH (13:45)
[2017-02-28] MEDS ORDERED: SPIRONOLACTONE 25 MG TAB PO SCH (13:45)
[2017-02-28] MEDS ORDERED: GLUCAGON 1 MG/ML VIAL IM/SQ PRN (13:45)
[2017-02-28] MEDS ORDERED: ACETAMINOPHEN 500 MG CPLT PO PRN (13:45)
[2017-02-28] MEDS ORDERED: GABAPENTIN 300 MG CAP PO SCH (13:45)
[2017-02-28] MEDS ORDERED: PANTOPRAZOLE SOD 20 MG DELAYED RELEASE TAB PO SCH (13:45)
[2017-02-28] MEDS ORDERED: DULoxetine HCl DR 60 MG CAP PO SCH (13:45)
[2017-02-28] MEDS ORDERED: DIAZEPAM 5 MG TAB PO PRN (13:45)
[2017-02-28 14:00] VITALS: BP 117/59; PULSE 73; RESP 16; O2SAT 97
[2017-02-28 15:20] LABS: CREATINE KINASE 85 U/L (26-192)
--- NOTE | 2017-02-28 15:31 | HHI.HP ---
HPI Primary Care Physician No Primary Care Physician Chief Complaint Chest pain History of Present Illness This is a 76-year-old female that presents to the ED to evaluate chest discomfort. She has had a chest pressure that she is noticed with movement that began last night. She states that when she lies down it will go away rather quickly but whenever she starts to do anything it will reoccur. She is chronically short of breath with her COPD but notes that has been a little worsened. No nausea or diaphoresis. Patient states that she has had a few cardiac catheterizations. States she was told that she had a vessel with 20% blockage however she was placed on medication when she had a repeat cardiac catheterization 3 years ago in [place] the blockage was no longer present. She states that she was told her arteries were good. Cannot recall recent stress testing but upon reviewing her records she had a nonischemic Lexiscan May 2016. Review of Systems General: Patient denies fevers, chills recent, and recent travel HEENT: Patient denies headache, sore throat, difficulty swallowing. Cardiovascular: Has the chest discomfort as mentioned above. Denies sensation of heart beating rapidly or irregularly. No syncope. Denies diaphoresis. Respiratory: She is chronically short of breath but felt that it was worse. Denies inspirational chest discomfort. Denies coughing wheezing or hemoptysis. GI: Patient denies nausea, vomiting, diarrhea, abdominal pain, bloody stools. Musculoskeletal: Patient denies joint pain or edema. Denies calf pain or edema. Neurovascular: Patient denies numbness, tingling, weakness in extremities. Denies headache. Endocrine: Denies polyuria and polydipsia. Hematologic: Denies easy bruising. Skin: Denies rash or itching. Past Family Social History Allergies: Coded Allergies: Penicillin (Verified Allergy, Severe, Swelling, 02/28/17) *MDRO Multi-Drug Resistant Organism (Verified Adverse Reaction, Unknown, ) ESBL+E.Coli (urine-03/28/16), 04/2016 Past Medical History CAD, hypertension, diabetes, hyperlipidemia, COPD and is O2 dependent. Tobacco abuse. Past Surgical History Heart catheterizations without interventions. Neck and back fusions. Hysterectomy. Bladder suspension. Appendectomy. Reported Medications Reported Meds & Active Scripts Active Reported Lantus Inj (Insulin Glargine) 100 Unit/Ml Inj SQ BIDAC PER SLIDING SCALE Aldactone (Spironolactone) 25 Mg Tab 25 Mg PO DAILY Metformin (Metformin HCl) 500 Mg Tab 500 Mg PO BID With meals Wilbur (Hydrocodone-Acetaminophen) 7.5-325 mg Tab 1 Tab PO Q6H PRN Tramadol (Tramadol HCl) 50 Mg Tab 50 Mg PO BID PRN Omeprazole 20 Mg Tab 20 Mg PO DAILY Lasix (Furosemide) 40 Mg Tab 80 Mg PO DAILY PRN Anoro Ellipta Inh (Umeclidinium/Vilanterol) 62.5-25 Mcg/Act Aero 1 Puff INH DAILY Levothyroxine (Levothyroxine Sodium) 150 Mcg Tab 150 Mcg PO DAILY Gabapentin 300 Mg Cap 300 Mg PO BID Mirapex (Pramipexole Dihydrochloride) 1 Mg Tab 1 Mg PO Q6HR Tricor (Fenofibrate) 48 Mg Tab 48 Mg PO DAILY Tke with food. Valium (Diazepam) 5 Mg Tab 5 Mg PO TID PRN Cymbalta DR (Duloxetine HCl) 60 Mg Capdr 60 Mg PO BID Aspirin 325 Mg Tab 325 Mg PO DAILY Active Ordered Medications Current Medications Medications (Trade) Dose Ordered Sig/Britney Route Start Time Stop Time Status Last Admin (Aspirin) 325 mg DAILY PO 03/01/17 09:00 (Valium) 5 mg TID PRN PO 02/28/17 13:45 (Cymbalta Dr) 60 mg BID PO 02/28/17 13:45 (Tricor) 48 mg DAILY PO 02/28/17 13:45 (Neurontin) 300 mg BID PO 02/28/17 13:45 (Wilbur 7.5-325 Mg) 1 tab Q6H PRN PO 02/28/17 13:45 (Synthroid) 150 mcg DAILY@06 PO 03/01/17 06:00 (Mirapex) 1 mg Q6HR PO 02/28/17 18:00 (Aldactone) 25 mg DAILY PO 02/28/17 13:45 (Protonix) 20 mg DAILY PO 02/28/17 13:45 (NS Flush) 2 ml UNSCH PRN IVF 02/28/17 13:45 (NS Flush) 2 ml BID IVF 02/28/17 21:00 (Tylenol) 500 mg Q4H PRN PO 02/28/17 13:45 (Zofran Inj) 4 mg Q6H PRN IV 7/27/17 13:45 (D50w (Vial) Inj) 25 ml UNSCH PRN IV 02/28/17 13:45 (Glucagon Inj) 1 mg UNSCH PRN IM/SQ 02/28/17 13:45 Family History Denies family history of CAD. Social History Patient continues to smoke one quarter pack of cigarettes daily and has done so for the last 6 months but prior that she smoked between one half to one pack of cigarettes daily for 50 years. Denies alcohol or illicit drugs. Physical Exam Vital Signs Vital Signs Date Time Temp Pulse Resp B/P Pulse Ox O2 Delivery O2 Flow Rate FiO2 02/28/17 14:00 73 16 117/59 97 02/28/17 13:00 79 18 111/55 97 Nasal Cannula 2 02/28/17 11:27 81 117/59 02/28/17 11:20 96 Nasal Cannula 2 02/28/17 11:15 122/56 02/28/17 11:15 98.0 83 16 122/56 96 Physical Exam GENERAL: This is a well-nourished, well-developed patient, in no apparent distress. Patient speaks in clear complete sentences. Patient is pleasant. HEENT: Head is atraumatic and normocephalic. Neck is supple without lymphadenopathy and trachea is midline. No JVD or carotid bruits. CARDIOVASCULAR: Regular rate and rhythm without murmurs, gallops, or rubs. RESPIRATORY: There is some scattered wheezing. Breath sounds equal bilaterally. No rales or rhonchi. Chest wall is tender. No use of accessory muscles. GASTROINTESTINAL: Abdomen is nontender, nondistended. Abdomen soft. No obvious pulsatile mass or bruit. No CVA tenderness. Strong femoral pulses bilaterally. Normal bowel sounds in all quadrants. MUSCULOSKELETAL: Patient is moving upper and lower extremities freely. No calf tenderness or edema, no Homans sign. Strong pulses in upper and lower extremities. NEUROLOGICAL: Patient is alert and oriented. Cranial nerves 2-12 are grossly intact. No focal deficits and speech is clear. SKIN: No rash and turgor is normal. Laboratory Laboratory Tests Test 02/28/17 02/28/17 11:23 14:15 White Blood Count 9.1 Red Blood Count 3.53 Hemoglobin 10.0 Hematocrit 30.4 Mean Corpuscular Volume 86.1 Mean Corpuscular Hemoglobin 28.4 Mean Corpuscular Hemoglobin 33.0 Concent Red Cell Distribution Width 15.7 Platelet Count 348 Mean Platelet Volume 6.9 Neutrophils (%) (Auto) 72.4 Lymphocytes (%) (Auto) 18.2 Monocytes (%) (Auto) 6.2 Eosinophils (%) (Auto) 2.3 Basophils (%) (Auto) 0.9 Neutrophils # (Auto) 6.6 Lymphocytes # (Auto) 1.6 Monocytes # (Auto) 0.6 Eosinophils # (Auto) 0.2 Basophils # (Auto) 0.1 CBC Comment DIFF FINAL Differential Comment Prothrombin Time 10.1 Prothromb Time International 0.9 Ratio Activated Partial 25.0 Thromboplast Time Sodium Level 135 Potassium Level 3.9 Chloride Level 96 Carbon Dioxide Level 30.3 Anion Gap 9 Blood Urea Nitrogen 16 Creatinine 0.62 Estimat Glomerular Filtration 94 Rate Random Glucose 176 Calcium Level 9.3 Magnesium Level 1.8 Total Creatine Kinase 82 85 Troponin I LESS THAN 0.02 LESS THAN 0.02 B-Type Natriuretic Peptide 15 Lipase 121 Thyroid Stimulating Hormone 5.560 3rd Gen Result Diagram: 02/28/17 1123 02/28/17 1123 Imaging Chest x-ray has been read by radiologist as 1 scattered increased interstitial markings consistent with acute or chronic interstitial disease. #2 minimal by basilar atelectasis and/or fibrotic scarring. #3 mild degenerative changes throughout the thoracic spine. Course Initial EKG has sinus rhythm without significant ST segment depressions or elevations. Assessment and Plan Assessment and Plan * Chest pain: Patient will continue to have serial cardiac enzymes and EKGs for ruling out purposes. She will be seen by Dr. Cartagena cardiology in the chest pain center and likely undergo a Lexiscan in the morning if ruled out. She'll be discharged home if stress test is nonischemic. * COPD: Patient needs to quit smoking. Have DuoNeb when necessary. Resume her medication at discharge. * Tobacco abuse: Patient has been counseled on the importance of smoking cessation. * Hypertension: Currently not on medication for hypertension. Will have Catapres when necessary. * Hyperlipidemia: Continue current medication. Diabetes: Patient will be on sliding scale insulin coverage but resume her medication at discharge. * CAD: Patient states that she was told she has coronary disease. This will be reassessed with stress testing. * Hypothyroidism: Continue current medication. * Restless leg syndrome: Continue current medication. Patient is stable at this time. She is agreeable to this plan. Jagdish Gupta Feb 28, 2017 15:30
[2017-02-28] MEDS ORDERED: INSULIN ASPART SUPPLEMENTAL SCALE SQ SCH (16:00)
[2017-02-28 16:18] VITALS: BP 131/65; PULSE 81; RESP 18; TEMP 98; O2SAT 97
--- NOTE | 2017-02-28 17:26 | HHI.DCPOC ---
Discharge Care Plan Diagnosis: (1) Chest pain (2) Hypertension (3) Hyperlipidemia (4) DM (diabetes mellitus) (5) COPD (chronic obstructive pulmonary disease) (6) Tobacco abuse (7) Hypothyroidism (8) GERD (gastroesophageal reflux disease) Goals to Promote Your Health * To prevent worsening of your condition and complications * To maintain your health at the optimal level Directions to Meet Your Goals Take your medications as prescribed Follow your dietary instruction Follow activity as directed Keep your appointments as scheduled Take your immunizations and boosters as scheduled If your symptoms worsen call your PCP, if no PCP go to Urgent Care Center or Emergency Room Smoking is Dangerous to Your Health. Avoid second hand smoke Call the 24-hour hour crisis hotline for domestic abuse at Jagdish Gupta Feb 28, 2017 17:26
--- NOTE | 2017-02-28 17:28 | EKG ---
Date Performed: 02/28/2017 Time Performed: 14:10:15 PTAGE: 76 years EKG: Sinus rhythm NONSPECIFIC T-WAVE ABNORMALITY BORDERLINE ECG Since PREVIOUS TRACING , no significant change noted PREVIOUS TRACIN02/28/2017 11.20 DOCTOR: Julissa Cartagena Interpretating Date/Time 02/28/2017 17:26:39
[2017-02-28] MEDS ORDERED: PRAMIPEXOLE DIHYDROCHLORIDE 1 MG TAB PO SCH (18:00)
[2017-02-28] MEDS ORDERED: SODIUM CHLORIDE 0.9% FLUSH 5 ML FLUSH IVF SCH (21:00)
[2017-03-01] MEDS ORDERED: LEVOTHYROXINE SODIUM 150 MCG TAB PO SCH (06:00)
[2017-03-01] MEDS ORDERED: ASPIRIN 325 MG TAB PO SCH (09:00)
== END 2017-02-28 19:58 | disposition home or self-care (01) ==
LOC: NEPE 11:08 → NEDA 12:48 → NEPHCDU 15:06
PROVIDERS: ADMIT Internal Medicine Interventional Cardiology; ATTEND Internal Medicine Interventional Cardiology
DX: R07.89 Other chest pain (principal); J44.9 Chronic obstructive pulmonary disease, unspecified; I25.10 Atherosclerotic heart disease of native coronary artery without angina pectoris; E11.9 Type 2 diabetes mellitus without complications; E78.5 Hyperlipidemia, unspecified; E03.9 Hypothyroidism, unspecified; G25.81 Restless legs syndrome; I10 Essential (primary) hypertension; K21.9 Gastro-esophageal reflux disease without esophagitis; M19.90 Unspecified osteoarthritis, unspecified site; Z99.81 Dependence on supplemental oxygen; Z79.4 Long term (current) use of insulin; Z79.84 Long term (current) use of oral hypoglycemic drugs; Z79.899 Other long term (current) drug therapy; Z79.82 Long term (current) use of aspirin; F17.200 Nicotine dependence, unspecified, uncomplicated; Z71.6 Tobacco abuse counseling; Z79.01 Long term (current) use of anticoagulants; Z86.73 Personal history of transient ischemic attack (TIA), and cerebral infarction without residual deficits
CPT/HCPCS: 71010; 80048; 82550; 83690; 83735; 83880; 84443; 84484; 85025; 85610; 85730; 93005; 99285; G0378

== ENCOUNTER 2017-04-19 19:51 | Inpatient (IN) | payer MEDICARE, OTHER ==
[~2017-04-19] VITALS: Ht 154.9 cm; Wt 84.1 kg
[~2017-04-19 19:51] MED LIST changes: -FAMO1TAB37 PO
[2017-04-19] MEDS ORDERED: SIMV80TA PO (20:09)
[2017-04-19 20:10] VITALS: BP 119/58; PULSE 71; RESP 18; TEMP 98.2; O2SAT 91
[2017-04-19] MEDS ORDERED: RESP: ALBUTEROL 2.5 MG/IPRATROPIUM 0.5 MG NEB (SCH) NEB ONE (20:30)
[2017-04-19 20:47] VITALS: O2SAT 94
[2017-04-19] MEDS: SODIUM CHLORIDE 0.9% FLUSH 10 ML FLUSH IVF PRN (20:50)
[2017-04-19 21:16] LABS: APTT (PATIENT) 25.2 SEC (24.3-30.1); INTERNATIONAL NORMALIZED RATIO 0.9 RATIO; PROTHROMBIN TIME - PATIENT 10.1 SEC (9.8-11.6)
[2017-04-19 21:18] LABS: ANION GAP 8 MEQ/L (5-15); AST (GOT) 16 U/L (15-37); BICARBONATE 35.9 MEQ/L (21.0-32.0); BLOOD UREA NITROGEN 12 MG/DL (7-18); CHLORIDE 89 MEQ/L (98-107); GLOMERULAR FILTRATION RATE 63 ML/MIN (>89); POTASSIUM 3.3 MEQ/L (3.5-5.1); SODIUM (NA) 133 MEQ/L (136-145)
[2017-04-19 21:19] LABS: ALT (GPT) 24 U/L (10-53)
[2017-04-19 21:23] LABS: ALKALINE PHOSPHATASE 90 U/L (45-117); CREATINE KINASE 168 U/L (26-192); TOTAL BILIRUBIN ADULT 0.2 MG/DL (0.2-1.0)
--- NOTE | 2017-04-19 21:29 | RADRPT ---
EXAM DATE/TIME: 04/19/2017 20:59 [facility] COMPARISON: CHEST SINGLE AP, February 28, 2017, 11:32. INDICATIONS : Shortness of Breath. Midsternal chest pains MEDICAL HISTORY : Chronic obstructive pulmonary disease. Myocardial infarction SURGICAL HISTORY : Cervical Fusion ENCOUNTER: Initial ACUITY: 1 day PAIN SCORE: 0/10 LOCATION: Bilateral chest FINDINGS: There is left base consolidation with a probable small left pleural effusion. Similar findings were s een previously. Trace right base atelectasis noted but the right lung is otherwise clear. No pneumoth orax. Mild cardiomegaly is stable. CONCLUSION: Mild left base consolidation. Mild compensated cardiomegaly. Prosper Sweeney MD on April 19, 2017 at 21:26 Board Certified Radiologist. This report was verified electronically.
[2017-04-19 21:35] LABS: CKMB 1.9 NG/ML (0.5-3.6)
--- NOTE | 2017-04-19 21:40 | PD ---
HPI Chief Complaint: General Weakness Time Seen by Provider: 20:17 Travel History International Travel<30 days: No Contact w/Intl Traveler<30days: No Traveled to known affect area: No History of Present Illness HPI Patient is a 76 year old female with history of COPD, on home oxygen, who comes in complaining of generalized weakness. She says this has been going on for a few days and getting worse to the point where she cannot even walk around her house. She says she feels chest tightness going up into her neck. She denies fever or chills. She reports a 30 pound weight gain in the past 3 weeks and she feels like her abdomen is bloated. She says that her doctor came to her house today and told her that her blood pressure was low. She has been having issues with her BP going up and down. She did take 80mg Lasix today due to the bloating in her stomach. She denies nausea or abdominal pain. PFSH Past Medical History Hx Anticoagulant Therapy: Yes Arthritis: Yes Asthma: Yes Heart Rhythm Problems: No Cancer: No Cardiovascular Problems: Yes High Cholesterol: Yes Chest Pain: No Congestive Heart Failure: No COPD: Yes Cerebrovascular Accident: Yes (CVA X 3) Diabetes: Yes Patient Takes Glucophage: Yes Diminished Hearing: No Endocrine: Yes Gastrointestinal Disorders: Yes GERD: Yes Genitourinary: No Headaches: No Hiatal Hernia: Yes Hypertension: Yes Immune Disorder: No Musculoskeletal: Yes (DEGENERATIVE DISK DISEASE, stenosis) Neurologic: Yes Psychiatric: No Reproductive: No Respiratory: Yes Migraines: No Pneumonia: Yes Seizures: Yes (20 years ago) Sleep Apnea: No Thyroid Disease: Yes Ulcer: No Menopausal: Yes Past Surgical History Abdominal Surgery: Yes (LAP ) AICD: No Appendectomy: Yes Arteriovenous Shunt: No Cholecystectomy: Yes Genitourinary Surgery: Yes (BLADDER SURGERY) Hysterectomy: Yes Insulin Pump: No Joint Replacement: Yes Neurologic Surgery: Yes (NECK AND BACK FUSIONS) Pacemaker: No Social History Alcohol Use: No Tobacco Use: Yes (08/08 PPD) Substance Use: No Allergies-Medications (Allergen,Severity, Reaction): Coded Allergies: penicillin G (Unverified Allergy, Severe, Swelling, 04/19/17) *MDRO Multi-Drug Resistant Organism (Verified Adverse Reaction, Unknown, ) ESBL+E.Coli (urine-03/28/16), 04/2016 Reported Meds & Prescriptions Reported Meds & Active Scripts Active Reported Simvastatin 80 Mg Tab 80 Mg PO DAILY Lantus Inj (Insulin Glargine) 100 Unit/Ml Inj SQ BIDAC PER SLIDING SCALE Aldactone (Spironolactone) 25 Mg Tab 25 Mg PO DAILY Metformin (Metformin HCl) 500 Mg Tab 500 Mg PO BID With meals Keenes (Hydrocodone-Acetaminophen) 7.5-325 mg Tab 1 Tab PO Q6H PRN Tramadol (Tramadol HCl) 50 Mg Tab 50 Mg PO BID PRN Omeprazole 20 Mg Tab 20 Mg PO DAILY Lasix (Furosemide) 40 Mg Tab 80 Mg PO DAILY PRN Anoro Ellipta Inh (Umeclidinium/Vilanterol) 62.5-25 Mcg/Act Aero 1 Puff INH DAILY Levothyroxine (Levothyroxine Sodium) 150 Mcg Tab 180 Mcg PO DAILY Gabapentin 300 Mg Cap 300 Mg PO BID Mirapex (Pramipexole Dihydrochloride) 1 Mg Tab 1 Mg PO Q6HR Tricor (Fenofibrate) 48 Mg Tab 48 Mg PO DAILY Tke with food. Valium (Diazepam) 5 Mg Tab 5 Mg PO TID PRN Cymbalta DR (Duloxetine HCl) 60 Mg Capdr 60 Mg PO BID Aspirin 325 Mg Tab 325 Mg PO DAILY Review of Systems Except as stated in HPI: all other systems reviewed are Neg General / Constitutional: No: Fever, Chills Eyes: No: Blurred Vision HENT: No: Headaches, Lightheadedness Respiratory: Positive: Shortness of Breath Gastrointestinal: No: Nausea, Vomiting Genitourinary: No: Dysuria Musculoskeletal: No: Edema Skin: No Rash, No Change in Pigmentation Neurologic: Positive: Weakness, No: Dizziness Physical Exam Narrative GENERAL: Awake and alert, in no acute distress. SKIN: Focused skin assessment warm/dry. HEAD: Atraumatic. Normocephalic. EYES: Pupils equal and round. No scleral icterus. ENT: No nasal bleeding or discharge. Mucous membranes pink and moist. NECK: Trachea midline. No JVD. CARDIOVASCULAR: Regular rate and rhythm. No murmur appreciated. RESPIRATORY: No accessory muscle use. mild crackles at the left base. Breath sounds equal bilaterally. GASTROINTESTINAL: Abdomen soft, non-tender, nondistended. MUSCULOSKELETAL: No obvious deformities. No clubbing. No cyanosis. No edema. NEUROLOGICAL: Awake and alert. No obvious cranial nerve deficits. Motor grossly within normal limits. Normal speech. PSYCHIATRIC: Appropriate mood and affect; insight and judgment normal. Data Data Last Documented VS Vital Signs Date Time Temp Pulse Resp B/P (MAP) Pulse Ox O2 Delivery O2 Flow Rate FiO2 04/19/17 20:47 94 Nasal Cannula 3.00 04/19/17 20:10 98.2 71 18 119/58 (78) Orders Orders Complete Blood Count With Diff (04/19/17 20:18) Comprehensive Metabolic Panel (04/19/17 20:18) B-Type Natriuretic Peptide (04/19/17 20:18) Act Partial Throm Time (Ptt) (04/19/17 20:18) Prothrombin Time / Inr (Pt) (04/19/17 20:18) Ckmb (Isoenzyme) Profile (04/19/17 20:18) Troponin I (04/19/17 20:18) Urinalysis - C+S If Indicated (04/19/17 20:18) Iv Access Insert/Monitor (04/19/17 20:18) Electrocardiogram (04/19/17 20:18) Ecg Monitoring (04/19/17 20:18) Oximetry (04/19/17 20:18) Oxygen Administration (04/19/17 20:18) Chest, Single Ap (04/19/17 20:18) Sodium Chloride 0.9% Flush (Ns Flush) (04/19/17 20:30) Albuterol-Ipratropium Neb (Duoneb Neb) (04/19/17 20:30) CKMB (04/19/17 20:25) CKMB% (04/19/17 20:25) Cefepime Inj (Maxipime Inj) (04/19/17 23:15) Levofloxacin 750 Mg Premix Inj (Levaquin (04/19/17 23:15) Labs Laboratory Tests Test 04/19/17 20:25 04/19/17 22:30 Prothrombin Time 10.1 SEC Prothromb Time International Ratio 0.9 RATIO Activated Partial Thromboplast Time 25.2 SEC Blood Urea Nitrogen 12 MG/DL Creatinine 0.87 MG/DL Random Glucose 164 MG/DL Total Protein 7.2 GM/DL Albumin 3.4 GM/DL Calcium Level 9.4 MG/DL Alkaline Phosphatase 90 U/L Aspartate Amino Transf (AST/SGOT) 16 U/L Alanine Aminotransferase (ALT/SGPT) 24 U/L Total Bilirubin 0.2 MG/DL Sodium Level 133 MEQ/L Potassium Level 3.3 MEQ/L Chloride Level 89 MEQ/L Carbon Dioxide Level 35.9 MEQ/L Anion Gap 8 MEQ/L Estimat Glomerular Filtration Rate 63 ML/MIN Total Creatine Kinase 168 U/L Creatine Kinase MB 1.9 NG/ML Troponin I LESS THAN 0.02 NG/ML B-Type Natriuretic Peptide 3 PG/ML White Blood Count 7.9 TH/MM3 Red Blood Count 3.72 MIL/MM3 Hemoglobin 10.2 GM/DL Hematocrit 31.3 % Mean Corpuscular Volume 84.1 FL Mean Corpuscular Hemoglobin 27.5 PG Mean Corpuscular Hemoglobin Concent 32.7 % Red Cell Distribution Width 16.2 % Platelet Count 330 TH/MM3 Mean Platelet Volume 6.5 FL Neutrophils (%) (Auto) 66.8 % Lymphocytes (%) (Auto) 21.5 % Monocytes (%) (Auto) 7.9 % Eosinophils (%) (Auto) 3.2 % Basophils (%) (Auto) 0.6 % Neutrophils # (Auto) 5.3 TH/MM3 Lymphocytes # (Auto) 1.7 TH/MM3 Monocytes # (Auto) 0.6 TH/MM3 Eosinophils # (Auto) 0.2 TH/MM3 Basophils # (Auto) 0.0 TH/MM3 CBC Comment DIFF FINAL Differential Comment MDM Medical Decision Making Medical Screen Exam Complete: Yes Emergency Medical Condition: Yes Medical Record Reviewed: Yes Interpretation(s) ECG shows NSR at 68, no ST elevation, normal intervals Differential Diagnosis CHF vs COPD vs ACS vs pneumonia Narrative Course Patient is a 76 year old female who comes in complaining of chest tightness and SOB. Exam shows crackles at the left base of her lung. IV established, labs sent, patient connected to the electronic device monitor. Given one duoneb. CXR obtained shows a left sided opacity. Given Cefepime and Levaquin. Troponin is negative. Patient will be admitted for further management. Diagnosis Primary Impression: Pneumonia Qualified Codes: J18.1 - Lobar pneumonia, unspecified organism Additional Impression: Chest pain in adult Admitting Information Admitting Physician Requests: Admit Condition: Stable Dixie Kim MD Apr 19, 2017 21:40
[2017-04-19 22:00] VITALS: BP 119/63; PULSE 70; RESP 16; O2SAT 93
[2017-04-19 22:52] LABS: AUTOMATED NEUTROPHIL # 5.3 TH/MM3 (1.8-7.7); BASOPHIL % 0.6 % (0.0-2.0); EOSINOPHIL # 0.2 TH/MM3 (0-0.4); EOSINOPHIL % 3.2 % (0.0-4.0); HEMATOCRIT 31.3 % (35.0-46.0); HEMO FLAGS DIFF FINAL; LYMPH % 21.5 % (9.0-44.0); LYMPHOCYTE # 1.7 TH/MM3 (1.0-4.8); MEAN CELL VOLUME 84.1 FL (80.0-100.0); MEAN CORPUSCULAR HEMOGLOBIN 27.5 PG (27.0-34.0); MEAN CORPUSCULAR HGB CONC 32.7 % (32.0-36.0); MONO % 7.9 % (0.0-8.0); NEUT % 66.8 % (16.0-70.0); PLATELET COUNT 330 TH/MM3 (150-450); RED BLOOD COUNT 3.72 MIL/MM3 (4.00-5.30); RED CELL DISTRIBUTION WIDTH 16.2 % (11.6-17.2); WHITE BLOOD COUNT 7.9 TH/MM3 (4.0-11.0)
[2017-04-19 23:00] VITALS: BP 108/52; PULSE 64; RESP 16; O2SAT 92
[2017-04-19] MEDS ORDERED: LEVOFLOXACIN 750 MG PREMIX INJ 150 ML IV SCH (23:15)
[2017-04-19] MEDS ORDERED: CEFEPIME INJ 1,000 MG in SODIUM CHLORIDE 0.9% INJ 100 ML IV ONE (23:15)
--- NOTE | 2017-04-19 23:53 | HHI.HP ---
[facility] Phys[facility] Unknown Admission Diagnosis Pneumonia, Chest Pain Diagnoses: (1) Chest pain Diagnosis: Principal (2) PNA (pneumonia) Diagnosis: Principal (3) COPD (chronic obstructive pulmonary disease) Diagnosis: Principal (4) Generalized weakness Diagnosis: Principal (5) Hypokalemia Diagnosis: Principal (6) DM (diabetes mellitus) Diagnosis: Principal (7) Tobacco abuse Diagnosis: Principal Travel History International Travel<30 Days: No Contact w/Intl Traveler <30 Da: No Traveled to Known Affected Are: No History of Present Illness This is a 76-year-old female with a PMH of HTN, Hyperlipidemia, COPD, O2 Dependent, h/o CVA, DM and Tobacco Abuse who is brought here by EMS secondary to complaints of SOB and generalized weakness x3 days. Denies fever, chills or cough. Reports increasing difficulty w/ ambulation secondary to SOB in addition to intermittent episodes of chest pain. On arrival, BP 119/58, HR 71, O2 sat 91% on 3L NC, Afebrile. CBC essentially unremarkable. K+ 3.3. GFR 63. Trop negative. INR 0.9. CXR with mild left base consolidation. S/p Levaquin /Cefepime and DuoNeb in ER w/ some improvement. Review of Systems Except as stated in HPI: all other systems reviewed are Neg ROS: 14 point review of systems otherwise negative. Past Family Social History Past Medical History PMH: HTN, Hyperlipidemia, COPD, O2 Dependent, h/o CVA, DM and Tobacco Abuse Past Surgical History PAST SURGICAL HISTORY: Cholecystectomy, Appendectomy, Bladder Surgery, Hysterectomy, Joint Replacement, Neck/Back Fusion Allergies: Coded Allergies: penicillin G (Unverified Allergy, Severe, Swelling, 04/19/17) *MDRO Multi-Drug Resistant Organism (Verified Adverse Reaction, Unknown, ) ESBL+E.Coli (urine-03/28/16), 04/2016 Family History PAST FAMILY HISTORY: Reviewed, positive for DM. Social History PAST SOCIAL HISTORY: Negative for alcohol or drugs. Positive for tobacco. Physical Exam Vital Signs Vital Signs Date Time Temp Pulse Resp B/P (MAP) Pulse Ox O2 Delivery O2 Flow Rate FiO2 04/19/17 20:47 94 Nasal Cannula 3.00 04/19/17 20:29 91 Nasal Cannula 3.00 04/19/17 20:28 92 Nasal Cannula 3.00 04/19/17 20:10 98.2 71 18 119/58 (78) 91 Physical Exam PE: GENERAL: Elderly white female in no acute distress. HEENT: PERRLA, EOMI. No scleral icterus or conjunctival pallor. No lid lag or facial droop. CARDIOVASCULAR: Regular rate and rhythm. No obvious murmurs to auscultation. No chest tenderness to palpation. RESPIRATORY: No obvious rhonchi, occasional wheezing. Clear to auscultation. Breath sounds equal bilaterally. GASTROINTESTINAL: Abdomen soft, non-tender, nondistended. BS normal. MUSCULOSKELETAL: Extremities without clubbing, cyanosis, or edema. No obvious deformities. NEUROLOGICAL: Awake, alert and oriented x4. No focal neurologic deficits. Moving both upper and lower extremities spontaneously. Laboratory Laboratory Tests Test 04/19/17 20:25 04/19/17 22:30 Prothrombin Time 10.1 Prothromb Time International Ratio 0.9 Activated Partial Thromboplast Time 25.2 Blood Urea Nitrogen 12 Creatinine 0.87 Random Glucose 164 Total Protein 7.2 Albumin 3.4 Calcium Level 9.4 Alkaline Phosphatase 90 Aspartate Amino Transf (AST/SGOT) 16 Alanine Aminotransferase (ALT/SGPT) 24 Total Bilirubin 0.2 Sodium Level 133 Potassium Level 3.3 Chloride Level 89 Carbon Dioxide Level 35.9 Anion Gap 8 Estimat Glomerular Filtration Rate 63 Total Creatine Kinase 168 Creatine Kinase MB 1.9 Troponin I LESS THAN 0.02 B-Type Natriuretic Peptide 3 White Blood Count 7.9 Red Blood Count 3.72 Hemoglobin 10.2 Hematocrit 31.3 Mean Corpuscular Volume 84.1 Mean Corpuscular Hemoglobin 27.5 Mean Corpuscular Hemoglobin Concent 32.7 Red Cell Distribution Width 16.2 Platelet Count 330 Mean Platelet Volume 6.5 Neutrophils (%) (Auto) 66.8 Lymphocytes (%) (Auto) 21.5 Monocytes (%) (Auto) 7.9 Eosinophils (%) (Auto) 3.2 Basophils (%) (Auto) 0.6 Neutrophils # (Auto) 5.3 Lymphocytes # (Auto) 1.7 Monocytes # (Auto) 0.6 Eosinophils # (Auto) 0.2 Basophils # (Auto) 0.0 CBC Comment DIFF FINAL Differential Comment Result Diagram: 04/19/17222904/19/172024 Caprini VTE Risk Assessment Caprini VTE Risk Assessment: Mod/High Risk (score >= 2) Caprini Risk Assessment Model Point Value = 1 Point Value = 2 Point Value = 3 Point Value = 5 Age 41-60 Minor surgery BMI > 25 kg/m2 Swollen legs Varicose veins or History of unexplained or recurrent spontaneous Oral contraceptives or hormone replacement Sepsis (< 1 month) Serious lung disease, including pneumonia (< 1 month) Abnormal pulmonary function Acute myocardial infarction Congestive heart failure (< 1 month) History of inflammatory bowel disease Medical patient at bed rest Age 61-74 Arthroscopic surgery Major open surgery (> 45 min) Laparoscopic surgery (> 45 min) Malignancy Confined to bed (> 72 hours) Immobilizing plaster cast Central venous access Age >= 75 History of VTE Family history of VTE Factor V Leiden Prothrombin [id number] Lupus anticoagulant Anticardiolipin antibodies Elevated serum homocysteine Heparin-induced thrombocytopenia Other congenital or acquired thrombophilia Stroke (< 1 month) Elective arthroplasty Hip, pelvis, or leg fracture Acute spinal cord injury (< 1 month) Prophylaxis Regimen Total Risk Factor Score Risk Level Prophylaxis Regimen 0-1 Low Early ambulation 2 Moderate Order ONE of the following: *Sequential Compression Device (SCD) *Heparin 5000 units SQ BID 3-4 Higher Order ONE of the following medications: *Heparin 5000 units SQ TID *Enoxaparin/Lovenox 40 mg SQ daily (WT < 150 kg, CrCl > 30 mL/min) *Enoxaparin/Lovenox 30 mg SQ daily (WT < 150 kg, CrCl > 10-29 mL/min) *Enoxaparin/Lovenox 30 mg SQ BID (WT < 150 kg, CrCl > 30 mL/min) AND/OR *Sequential Compression Device (SCD) 5 or more Highest Order ONE of the following medications: *Heparin 5000 units SQ TID (Preferred with Epidurals) *Enoxaparin/Lovenox 40 mg SQ daily (WT < 150 kg, CrCl > 30 mL/min) *Enoxaparin/Lovenox 30 mg SQ daily (WT < 150 kg, CrCl > 10-29 mL/min) *Enoxaparin/Lovenox 30 mg SQ BID (WT < 150 kg, CrCl > 30 mL/min) AND *Sequential Compression Device (SCD) Assessment and Plan Problem List: (1) Chest pain ICD Code: R07.9 - Chest pain, unspecified Status: Acute (2) PNA (pneumonia) ICD Code: J18.9 - Pneumonia, unspecified organism (3) COPD (chronic obstructive pulmonary disease) ICD Code: J44.9 - Chronic obstructive pulmonary disease, unspecified Status: Acute (4) Hypokalemia ICD Code: E87.6 - Hypokalemia Status: Acute (5) Generalized weakness ICD Code: R53.1 - Weakness (6) DM (diabetes mellitus) ICD Code: E11.9 - Type 2 diabetes mellitus without complications Status: Acute (7) Tobacco abuse ICD Code: Z72.0 - Tobacco use Status: Acute Assessment and Plan A/P: 1. Chest Pain: associated w/ SOB. Initial trop negative, EKG w/ no acute changes. Check serial cardiac enzymes, NTG/Morphine prn. Resume home Statin, ASA, hold B-malena in light of COPD. 2. COPD: Chronic Respiratory Failure. Moderate. O2 Dependent, O2 sat 91% on 3L NC, s/p DuoNeb in ER, will continue w/ Solu-Medrol, DuoNeb, resume home MDI. 3. PNA: CXR w/ left base consolidation, images reviewed by me. S/p Cefepime/ Levaquin in ER, will continue w/ IV Abx. 4. Hypokalemia: Mild. K+ 3.3. Will replace and recheck in am. 5. Generalized Weakness: likely secondary to acute respiratory issues/ deconditioning. PT for eval/tx. 6. DM: Sliding scale w/ Accu-Cheks. 7. DVT Prophylaxis: SCD/Teds. 8. Social work for d/c planning as needed. 9. Case discussed w/ ER physician at length. Alexa Acosta MD Apr 19, 2017 23:53
[2017-04-20] VITALS (7 sets, daily range): BP systolic 103–145; BP diastolic 51–68; PULSE 63–84; RESP 16–20; TEMP 97.2–98; O2SAT 90–98
[2017-04-20] MEDS ORDERED: FUROSEMIDE 40 MG TAB PO PRN
[2017-04-20] MEDS ORDERED: DEXTROSE 50% IN WATER 50 ML VIAL(D50) IV PRN
[2017-04-20] MEDS ORDERED: RESP: ALBUTEROL 2.5 MG/IPRATROPIUM 0.5 MG NEB (PRN) NEB
[2017-04-20] MEDS ORDERED: GLUCAGON 1 MG/ML VIAL OTHER PRN
[2017-04-20] MEDS: methylPREDNISolone SOD SUCC 40 MG/1 ML VIAL IV PUSH SCH ×3 (00:11→11:55)
[2017-04-20] MEDS ORDERED: MORPHINE SULFATE 4 MG/ML INJ IV PUSH PRN (01:00)
[2017-04-20] MEDS: PRAMIPEXOLE DIHYDROCHLORIDE 1 MG TAB PO SCH ×4 (01:00→18:42)
[2017-04-20] MEDS: ACETAMINOPHEN/HYDROcodone 325 MG/7.5 MG TAB PO PRN ×5 (01:05→18:42)
[2017-04-20 01:08] LABS: BACTERIA, URINE FEW /hpf; BLOOD, URINE SMALL (NEG); COMMENT (UR) CULTURE INDICATED; CULTURE IF INDICATED CULTURE INDICATED; GLUCOSE,URINE NEG (NEG); KETONE, URINE NEG (NEG); MUCUS URINE FEW /lpf (OCC); NITRITE,URINE POS (NEG); PH, URINE 5.5 (5.0-8.5); SQUAMOUS EPITHELIAL CELL URINE 7 /hpf (0-5); URINE COLOR YELLOW (YELLW/STRAW)
[2017-04-20] MEDS: LEVOTHYROXINE SODIUM 75 MCG TAB PO SCH (06:21)
[2017-04-20] MEDS: LEVOTHYROXINE SODIUM 100 MCG TAB PO SCH (06:21)
[2017-04-20] MEDS: RESP: ALBUTEROL 2.5 MG/IPRATROPIUM 0.5 MG NEB (SCH) NEB ×4 (08:22→19:08)
[2017-04-20] MEDS: UMECLIDINIUM 62.5 MCG/VILANTEROL 25 MCG INHALER INH SCH (09:00)
--- NOTE | 2017-04-20 09:18 | EKG ---
Date Performed: 04/19/2017 Time Performed: 20:32:40 PTAGE: 76 years EKG: Sinus rhythm POSSIBLE RIGHT VENTRICULAR CONDUCTION DELAY Nonspecific T wave changes SEPTAL MYOCARDIAL INFARCTION ABNORMAL ECG Compared to prior electrocardiogram, Nonspecific T wave changes are more marked PREVIOUS TRACING : 02/28/2017 14.10 DOCTOR: Zeke Henderson Interpretating Date/Time 04/20/2017 09:17:17
[2017-04-20] MEDS: INSULIN ASPART SUPPLEMENTAL SCALE SQ SCH ×4 (09:30→20:10)
[2017-04-20] MEDS: GABAPENTIN 300 MG CAP PO SCH ×2 (09:31→20:09)
[2017-04-20] MEDS: DULoxetine HCl DR 60 MG CAP PO SCH ×2 (09:31→20:10)
[2017-04-20] MEDS: ASPIRIN 325 MG TAB PO SCH (09:31)
[2017-04-20] MEDS: PRAVASTATIN SOD 80 MG TAB PO SCH (09:31)
[2017-04-20] MEDS: PANTOPRAZOLE SOD 20 MG DELAYED RELEASE TAB PO SCH (09:31)
[2017-04-20] MEDS: SPIRONOLACTONE 25 MG TAB PO SCH (09:31)
[2017-04-20] MEDS: FENOFIBRATE 48 MG TAB PO SCH (10:21)
--- NOTE | 2017-04-20 15:23 | HHI.PR ---
Subjective Remarks Follow-up on chest pain and pneumonia Patient says she feels somewhat better since admission but not back to baseline. Nursing reports that the patient has been successfully weaned down to her baseline of 3 L. Objective Vital Signs Date Time Temp Pulse Resp B/P (MAP) Pulse Ox O2 Delivery O2 Flow Rate FiO2 04/20/17 12:00 97.8 83 20 145/68 (93) 90 04/20/17 11:37 20 04/20/17 08:24 93 Nasal Cannula 4.00 04/20/17 07:50 98.0 73 20 136/64 (88) 90 04/20/17 04:00 98.0 76 20 132/65 (87) 98 04/20/17 01:25 04/20/17 00:00 63 16 103/51 (68) 92 Room Air 04/19/17 23:00 64 16 108/52 (70) 92 Room Air 04/19/17 22:00 70 16 119/63 (81) 93 Nasal Cannula 3.00 04/19/17 20:47 94 Nasal Cannula 3.00 04/19/17 20:29 91 Nasal Cannula 3.00 04/19/17 20:28 92 Nasal Cannula 3.00 04/19/17 20:10 98.2 71 18 119/58 (78) 91 I/O 04/19/17 04/19/17 04/19/17 04/20/17 04/20/17 04/20/17 07:00 15:00 23:00 07:00 15:00 23:00 Intake Total 100 ml 720 ml Output Total 300 ml Balance -200 ml 720 ml Intake Oral 720 ml IV Total 100 ml Output Urine Total 300 ml # Voids 2 2 # Bowel Movements 1 Result Diagram: 04/19/17222904/19/172024 Imaging Last Impressions Chest X-Ray 04/19/172017 Signed Impressions: Service Date/Time: Wednesday, April 19, 2017 20:59 - CONCLUSION: Mild left base consolidation. Mild compensated cardiomegaly. Prosper Sweeney MD Objective Remarks Minimal distress, no conversive dyspnea heart rate is regular rate rhythm, no murmurs Respiratory: Crackles heard in left anterior lung field, coarse breath sounds on the right side No lower extreme edema Muscular skeletal: Tenderness to palpation over sternum and over right pectoral ribs and left pectoral ribs A/P Assessment and Plan A/P: 1. Chest Pain: improved since admission. Patient clarifies that her chest pain is upon mild palpation only and that I'm able to reproduce it, denies any other true anginal component with it therefore this chest pain is likely musculoskeletal and will not pursue a cardiac workup, patient did have a unremarkable Jennifer scan last year 2. Shortness of breath - likely combination of COPD plus possible PNA 3. Suspected pneumonia - treating with Levaquin, will obtain pro-calcitonin, if negative, will DC antibiotics since the patient seems to be more of a COPD exacerbation clinically with a pleural effusion rather than a true infectious process. 4. COPD: Chronic Respiratory Failure. Moderate. O2 Dependent, transitioned back down to home 3 L. Not improving at expected recovery rate, will increase steroids to Solu-Medrol 125 every 8 DuoNeb, resume home MDI. duonebs 5. Pleural effusion - and I independently reviewed the chest x-ray and this is obvious on the left side, unable to tease out any focal pneumonia infiltrates - likely too small to drain. will start IV diuresis. 4. Hypokalemia: monitor and replace 5. Generalized Weakness: likely secondary to acute respiratory issues/ deconditioning. PT for eval/tx. 6. DM: Sliding scale w/ Accu-Cheks. 7. DVT Prophylaxis: will switch to lovenox given higher risk Minesh Ellis MD Apr 20, 2017 15:23
[2017-04-20] MEDS ORDERED: methylPREDNISolone SOD SUCC 125 MG/2 ML VIAL IV PUSH SCH (15:30)
[2017-04-20] MEDS ORDERED: POTASSIUM CHLORIDE 10 MEQ CONTROLLED RELEASE TAB PO ONE (15:45)
[2017-04-20] MEDS: FUROSEMIDE 40 MG/4 ML VIAL IV PUSH SCH (17:53)
[2017-04-20] MEDS: SODIUM CHLORIDE 0.9% FLUSH 10 ML FLUSH IVF PRN (20:10)
[2017-04-20] MEDS: methylPREDNISolone SOD SUCC 125 MG/2 ML VIAL IV PUSH SCH (20:10)
[2017-04-20] MEDS ORDERED: LEVOFLOXACIN 750 MG PREMIX INJ 150 ML IV SCH (21:00)
[2017-04-20] MEDS ORDERED: ONDANSETRON HCL 4 MG/2 ML VIAL IV PUSH PRN (22:30)
[2017-04-21] VITALS (7 sets, daily range): BP systolic 114–136; BP diastolic 55–67; PULSE 61–87; RESP 18–20; TEMP 97.5–98; O2SAT 86–95
[2017-04-21] MEDS: PRAMIPEXOLE DIHYDROCHLORIDE 1 MG TAB PO SCH ×4 (00:15→18:16)
[2017-04-21] MEDS: ACETAMINOPHEN/HYDROcodone 325 MG/7.5 MG TAB PO PRN ×5 (00:15→18:17)
[2017-04-21] MEDS: methylPREDNISolone SOD SUCC 125 MG/2 ML VIAL IV PUSH SCH ×3 (05:25→20:56)
[2017-04-21] MEDS: LEVOTHYROXINE SODIUM 100 MCG TAB PO SCH (06:20)
[2017-04-21] MEDS: LEVOTHYROXINE SODIUM 75 MCG TAB PO SCH (06:20)
[2017-04-21] MEDS: RESP: ALBUTEROL 2.5 MG/IPRATROPIUM 0.5 MG NEB (SCH) NEB ×4 (08:00→19:23)
[2017-04-21] MEDS: DULoxetine HCl DR 60 MG CAP PO SCH ×2 (08:59→20:56)
[2017-04-21] MEDS: INSULIN ASPART SUPPLEMENTAL SCALE SQ SCH ×4 (08:59→20:56)
[2017-04-21] MEDS: PANTOPRAZOLE SOD 20 MG DELAYED RELEASE TAB PO SCH (08:59)
[2017-04-21] MEDS: GABAPENTIN 300 MG CAP PO SCH ×2 (09:00→20:56)
[2017-04-21] MEDS: SPIRONOLACTONE 25 MG TAB PO SCH (09:00)
[2017-04-21] MEDS: FENOFIBRATE 48 MG TAB PO SCH (09:00)
[2017-04-21] MEDS: PRAVASTATIN SOD 80 MG TAB PO SCH (09:00)
[2017-04-21] MEDS: FUROSEMIDE 40 MG/4 ML VIAL IV PUSH SCH ×2 (09:00→18:28)
[2017-04-21] MEDS: UMECLIDINIUM 62.5 MCG/VILANTEROL 25 MCG INHALER INH SCH (09:00)
[2017-04-21] MEDS: ASPIRIN 325 MG TAB PO SCH (09:01)
[2017-04-21] MEDS ORDERED: INFLUENZA VIRUS VACCINE (QUADRIVALENT) 0.5 ML SYR IM ONE (10:00)
[2017-04-21 11:51] LABS: BICARBONATE 34.7 MEQ/L (21.0-32.0); POTASSIUM 5.3 MEQ/L (3.5-5.1)
--- NOTE | 2017-04-21 13:50 | HHI.PR ---
Subjective Remarks Follow-up on chest pain and pneumonia Patient says she feels even better than yesterday but doesn't feel like she is safe to go home and the condition that she is in (IV steroids were increased to maximum dosing of 125 Solu-Medrol every 8 hours). RN feels pt that felt better after neb tx's. Na noted to drop today to 120s. Objective Vital Signs Date Time Temp Pulse Resp B/P (MAP) Pulse Ox O2 Delivery O2 Flow Rate FiO2 04/21/17 12:00 97.5 81 18 121/58 (79) 91 04/21/17 08:00 97.8 61 18 134/67 (89) 86 04/21/17 04:00 97.9 78 20 136/63 (87) 94 04/21/17 00:00 97.8 78 20 122/58 (79) 92 04/20/17 20:00 97.2 84 20 120/58 (78) 92 04/20/17 15:32 90 Nasal Cannula 4.00 I/O 04/20/17 04/20/17 04/20/17 04/21/17 04/21/17 04/21/17 07:00 15:00 23:00 07:00 15:00 23:00 Intake Total 100 ml 720 ml 240 ml 0 ml Output Total 300 ml Balance -200 ml 720 ml 240 ml 0 ml Intake Oral 720 ml 240 ml IV Total 100 ml 0 ml Output Urine Total 300 ml # Voids 2 2 2 2 # Bowel Movements 1 Result Diagram: 04/19/17 2230 04/21/17 1032 Objective Remarks heart rate is regular rate rhythm, no murmurs Respiratory: Good breath sounds bilaterally, very faint wheezes heard, no obvious crackles , unlabored breathing, no conversive dyspnea , on NC A/P Assessment and Plan A/P: new problem - mild acute asymptomatic hyponatremia and hyperkalemia - repeat BMP in AM. will start fluid restriction to see if this improves 1. Shortness of breath - COPD exacerbation - improving - pro-calcitonin is within normal limits, we'll discontinue Levaquin. 2. MSK CP - pain control 3. COPD: Chronic Respiratory Failure - back to baseline O2 of 3L, solumedrol being transitioned to orals tomorrow. Ofe, home I. nancy 4. Pleural effusion -IV diuresis twice a day, will send for ultrasound guided thoracentesis evaluation today - too little to drain 5. Hypokalemia: monitor and replace 6. Generalized Weakness: likely secondary to acute respiratory issues/ deconditioning. PT for eval/tx. pt willing to go to rehab if necessary 7. DM: Sliding scale w/ Accu-Cheks. 8. DVT Prophylaxis: Lovenox Disposition:- pt has reached maximum benefit from respiratory and steroid treatments. If Na and K levels remain stable then Discharge anticipated tomorrow , may be discharged to rehabilitation facility versus home depending upon PT evaluation - pt is receptive to this. Minesh Ellis MD Apr 21, 2017 13:50
--- NOTE | 2017-04-21 14:53 | RADRPT ---
EXAM DATE/TIME: 04/21/2017 13:59 [facility] COMPARISON: No previous studies available for comparison. INDICATIONS : Left pleural effusion. MEDICAL HISTORY : Hypercholesterolemia. Hypertension. Hernia, hiatal. COPD. Asthma. Seizures. cerebrovascular accident. SURGICAL HISTORY : Cholecystectomy. Hysterectomy. Appendectomy. ENCOUNTER: Initial ACUITY: 3 days PAIN SCORE: 2/10 LOCATION: Left chest MEASUREMENTS: SKIN TO PARIETAL PLEURA: 6.2 cm SKIN TO MAX SAFE DEPTH: 4.0 cm ESTIMATED FLUID VOLUME: 63.7 cc FLUID COMPOSITION: Inadequate fluid FINDINGS: There is a very small left-sided pleural effusion. Volume is estimated at approximate 64 mL. CONCLUSION: Very small left-sided pleural effusion with approximate volume of 64 mL. There is insufficient volume for therapeutic thoracentesis. Jerzy Gonzalez MD on April 21, 2017 at 14:50 Board Certified Radiologist. This report was verified electronically.
[2017-04-22] VITALS (8 sets, daily range): BP systolic 120–143; BP diastolic 55–76; PULSE 73–87; RESP 18–20; TEMP 97.4–98.1; O2SAT 87–97
[2017-04-22] MEDS: PRAMIPEXOLE DIHYDROCHLORIDE 1 MG TAB PO SCH ×5 (00:14→22:04)
[2017-04-22] MEDS: ACETAMINOPHEN/HYDROcodone 325 MG/7.5 MG TAB PO PRN ×5 (00:14→22:02)
[2017-04-22] MEDS: LEVOTHYROXINE SODIUM 75 MCG TAB PO SCH (06:01)
[2017-04-22] MEDS: LEVOTHYROXINE SODIUM 100 MCG TAB PO SCH (06:01)
[2017-04-22] MEDS: RESP: ALBUTEROL 2.5 MG/IPRATROPIUM 0.5 MG NEB (SCH) NEB ×4 (08:07→19:41)
[2017-04-22] MEDS: INSULIN ASPART SUPPLEMENTAL SCALE SQ SCH (08:42)
[2017-04-22] MEDS: SPIRONOLACTONE 25 MG TAB PO SCH (08:43)
[2017-04-22] MEDS: PANTOPRAZOLE SOD 20 MG DELAYED RELEASE TAB PO SCH (08:43)
[2017-04-22] MEDS: UMECLIDINIUM 62.5 MCG/VILANTEROL 25 MCG INHALER INH SCH (08:43)
[2017-04-22] MEDS: ASPIRIN 325 MG TAB PO SCH (08:43)
[2017-04-22] MEDS: DULoxetine HCl DR 60 MG CAP PO SCH ×2 (08:43→22:02)
[2017-04-22] MEDS: PRAVASTATIN SOD 80 MG TAB PO SCH (08:43)
[2017-04-22] MEDS: FENOFIBRATE 48 MG TAB PO SCH (08:43)
[2017-04-22] MEDS: GABAPENTIN 300 MG CAP PO SCH ×2 (08:43→22:01)
[2017-04-22 08:48] LABS: BICARBONATE 34.8 MEQ/L (21.0-32.0); POTASSIUM 4.6 MEQ/L (3.5-5.1)
[2017-04-22] MEDS: FUROSEMIDE 40 MG/4 ML VIAL IV PUSH SCH ×2 (08:48→17:36)
[2017-04-22] MEDS ORDERED: predniSONE 50 MG TAB PO SCH (09:00)
--- NOTE | 2017-04-22 10:27 | HHI.PR ---
Subjective Remarks This is a 76-year-old female with a PMH of HTN, Hyperlipidemia, COPD, O2 Dependent, h/o CVA, DM and Tobacco Abuse who is brought here by EMS secondary to complaints of SOB and generalized weakness x3 days. Denies fever, chills or cough. Reports increasing difficulty w/ ambulation secondary to SOB in addition to intermittent episodes of chest pain. On arrival, BP 119/58, HR 71, O2 sat 91% on 3L NC, Afebrile. CBC essentially unremarkable. K+ 3.3. GFR 63. Trop negative. INR 0.9. CXR with mild left base consolidation. S/p Levaquin /Cefepime and DuoNeb in ER w/ some improvement. 04/22: stable in her bedroom, has elevated blood glucose levels, she is on Prednisone will try to discontinue this medicine and continue Bronchodilators, to improve her blood sugar level. she already received her dose for today. discussed with nurse. Objective Vital Signs Date Time Temp Pulse Resp B/P (MAP) Pulse Ox O2 Delivery O2 Flow Rate FiO2 04/22/17 08:08 93 Nasal Cannula 3.00 04/22/17 05:07 97.8 87 20 143/76 (98) 93 04/22/17 00:16 97.8 73 20 136/66 (89) 96 04/21/17 20:55 97.8 87 20 114/55 (74) 95 04/21/17 16:00 98.0 87 18 128/60 (82) 92 04/21/17 15:09 90 Nasal Cannula 4.00 04/21/17 14:15 18 04/21/17 12:00 97.5 81 18 121/58 (79) 91 I/O 04/21/17 04/21/17 04/21/17 04/22/17 04/22/17 04/22/17 07:00 15:00 23:00 07:00 15:00 23:00 Intake Total 240 ml 0 ml 240 ml Balance 240 ml 0 ml 240 ml Intake Oral 240 ml 240 ml IV Total 0 ml # Voids 2 3 5 # Bowel Movements 1 0 Result Diagram: 04/19/17 2230 04/22/17 0734 Imaging Last Impressions Chest Ultrasound 04/21/17 0000 Signed Impressions: Service Date/Time: Friday, April 21, 2017 13:59 - CONCLUSION: Very small left-sided pleural effusion with approximate volume of 64 mL. There is insufficient volume for therapeutic thoracentesis. Jerzy Gonzalez MD Chest X-Ray 04/19/172017 Signed Impressions: Service Date/Time: Wednesday, April 19, 2017 20:59 - CONCLUSION: Mild left base consolidation. Mild compensated cardiomegaly. Prosper Sweeney MD Procedures None Other Results Laboratory Tests Test 04/19/17 20:25 04/19/17 22:30 04/20/17 00:55 04/20/17 16:51 Prothrombin Time 10.1 SEC Prothromb Time International Ratio 0.9 RATIO Activated Partial Thromboplast Time 25.2 SEC Blood Urea Nitrogen 12 MG/DL Creatinine 0.87 MG/DL Random Glucose 164 MG/DL Total Protein 7.2 GM/DL Albumin 3.4 GM/DL Calcium Level 9.4 MG/DL Alkaline Phosphatase 90 U/L Aspartate Amino Transf (AST/SGOT) 16 U/L Alanine Aminotransferase (ALT/SGPT) 24 U/L Total Bilirubin 0.2 MG/DL Sodium Level 133 MEQ/L Potassium Level 3.3 MEQ/L Chloride Level 89 MEQ/L Carbon Dioxide Level 35.9 MEQ/L Total Creatine Kinase 168 U/L Creatine Kinase MB 1.9 NG/ML Troponin I LESS THAN 0.02 NG/ML B-Type Natriuretic Peptide 3 PG/ML White Blood Count 7.9 TH/MM3 Red Blood Count 3.72 MIL/MM3 Hemoglobin 10.2 GM/DL Hematocrit 31.3 % Mean Corpuscular Volume 84.1 FL Mean Corpuscular Hemoglobin 27.5 PG Mean Corpuscular Hemoglobin Concent 32.7 % Red Cell Distribution Width 16.2 % Platelet Count 330 TH/MM3 Mean Platelet Volume 6.5 FL Neutrophils (%) (Auto) 66.8 % Lymphocytes (%) (Auto) 21.5 % Monocytes (%) (Auto) 7.9 % Eosinophils (%) (Auto) 3.2 % Basophils (%) (Auto) 0.6 % Neutrophils # (Auto) 5.3 TH/MM3 Lymphocytes # (Auto) 1.7 TH/MM3 Monocytes # (Auto) 0.6 TH/MM3 Eosinophils # (Auto) 0.2 TH/MM3 Basophils # (Auto) 0.0 TH/MM3 CBC Comment DIFF FINAL Differential Comment Urine Color YELLOW Urine Turbidity HAZY Urine pH 5.5 Urine Specific [place] 1.018 Urine Protein 30 mg/dL Urine Glucose (UA) NEG mg/dL Urine Ketones NEG mg/dL Urine Occult Blood SMALL Urine Nitrite POS Urine Bilirubin NEG Urine Urobilinogen LESS THAN 2.0 MG/DL Urine Leukocyte Esterase NEG Urine RBC 4 /hpf Urine WBC 2 /hpf Urine Squamous Epithelial Cells 7 /hpf Urine Bacteria FEW /hpf Urine Mucus FEW /lpf Microscopic Urinalysis Comment CULTURE INDICATED Procalcitonin LESS THAN 0.05 ng/mL Test 04/22/17 07:34 Blood Urea Nitrogen 27 MG/DL Creatinine 0.77 MG/DL Random Glucose 275 MG/DL Calcium Level 9.2 MG/DL Sodium Level 126 MEQ/L Potassium Level 4.6 MEQ/L Chloride Level 82 MEQ/L Carbon Dioxide Level 34.8 MEQ/L Anion Gap 9 MEQ/L Estimat Glomerular Filtration Rate 73 ML/MIN Objective Remarks GENERAL: Elderly white female in no acute distress. HEENT: PERRLA, EOMI. No scleral icterus or conjunctival pallor. No lid lag or facial droop. CARDIOVASCULAR: Regular rate and rhythm. No obvious murmurs to auscultation. No chest tenderness to palpation. RESPIRATORY: No obvious rhonchi, occasional wheezing. Clear to auscultation. Breath sounds equal bilaterally. GASTROINTESTINAL: Abdomen soft, non-tender, nondistended. BS normal. MUSCULOSKELETAL: Extremities without clubbing, cyanosis, or edema. No obvious deformities. NEUROLOGICAL: Awake, alert and oriented x4. No focal neurologic deficits. Moving both upper and lower extremities spontaneously. Medications and IVs Current Medications Medications (Trade) Dose Ordered Sig/Britney Route Start Time Stop Time Status Last Admin (NS Flush) 2 ml UNSCH PRN IVF 04/19/17 20:30 04/20/17 20:10 (D50w (Vial) Inj) 50 ml UNSCH PRN IV 04/20/17 00:00 (Glucagon Inj) 1 mg UNSCH PRN OTHER 04/20/17 00:00 (NovoLOG SUPPLEMENTAL SCALE) 1 ACHS SLIDING SCALE SQ 04/20/17 08:00 04/22/17 08:42 (Duoneb Neb) 1 ampule Q4HR WHILE AWAKE NEB NEB 04/20/17 08:00 04/22/17 08:07 (Duoneb Neb) 1 ampule Q2HR NEB PRN NEB 04/20/17 00:00 (Aspirin) 325 mg DAILY PO 04/20/17 09:00 04/22/17 08:43 (Valium) 5 mg TID PRN PO 04/20/17 00:00 (Cymbalta Dr) 60 mg BID PO 04/20/17 09:00 04/22/17 08:43 (Tricor) 48 mg DAILY PO 04/20/17 09:00 04/22/17 08:43 (Lasix) 80 mg DAILY PRN PO 04/20/17 00:00 (Neurontin) 300 mg BID PO 04/20/17 09:00 04/22/17 08:43 (Synthroid) 100 mcg DAILY@0700 PO 04/20/17 07:00 04/22/17 06:01 (Mirapex) 1 mg Q6HR PO 04/20/17 00:00 04/22/17 06:01 (Aldactone) 25 mg DAILY PO 04/20/17 09:00 04/22/17 08:43 (Protonix) 20 mg DAILY PO 04/20/17 09:00 04/22/17 08:43 (Pravachol) 80 mg DAILY PO 04/20/17 09:00 04/22/17 08:43 (Synthroid) 75 mcg DAILY@0700 PO 04/20/17 07:00 04/22/17 06:01 ([place] 7.5-325 Mg) 1 tab Q4H PRN PO 04/20/17 01:00 04/22/17 06:02 (Lasix Inj) 40 mg BID@0900,1800 IV PUSH 04/20/17 18:00 04/22/17 08:48 (Zofran Inj) 4 mg Q6HR PRN IV PUSH 04/20/17 22:30 04/20/17 22:32 (Deltasone) 50 mg DAILY PO 04/22/17 09:00 04/22/17 08:43 A/P Assessment and Plan 1. Shortness of breath - COPD exacerbation - improving - pro-calcitonin is within normal limits, Off antibiotics. continue bronchodilator, Mucolytic and incentive spirometry, on hold Prednisone due to severe uncontrol of Diabetes. 2. MSK CP - pain control 3. COPD: Chronic Respiratory Failure - back to baseline O2 of 3L, continue Bronchodilator, Mucolytic and incentive spirometry she states she uses Oxygen for the last seven years. 4. Pleural effusion -IV diuresis twice a day, will send for ultrasound guided thoracentesis evaluation today - too little to drain 5. Hyponatremia worsening 6. Generalized Weakness: likely secondary to acute respiratory issues/ deconditioning. Physical therapy recommended for Home with [facility]. 7. DM: Uncontrolled giving dosages of Insulin with meals. and increased sliding scale. DVT Prophylaxis: Lovenox Discharge Planning Expected in one to two days. Carlos Mendoza MD Apr 22, 2017 10:27
[2017-04-22] MEDS: NITROFURANTOIN MONOHYD MACROCR 100 MG CAP PO SCH ×2 (12:28→17:36)
[2017-04-22] MEDS: INSULIN HUMAN REGULAR 1,000 UNITS/10 ML VIAL SQ SCH ×2 (12:50→17:39)
[2017-04-22] MEDS: INSULIN NovoLIN REGULAR SUPPLEMENTAL SCALE SQ SCH ×3 (12:50→21:00)
[2017-04-22] MEDS: DIAZEPAM 5 MG TAB PO PRN (22:02)
[2017-04-23] VITALS (8 sets, daily range): BP systolic 104–124; BP diastolic 52–79; PULSE 68–96; RESP 18–20; TEMP 97.3–98.6; O2SAT 70–92
[2017-04-23] MEDS: PRAMIPEXOLE DIHYDROCHLORIDE 1 MG TAB PO SCH ×2 (06:00→14:50)
[2017-04-23] MEDS: ACETAMINOPHEN/HYDROcodone 325 MG/7.5 MG TAB PO PRN ×2 (06:10→21:26)
[2017-04-23] MEDS: LEVOTHYROXINE SODIUM 100 MCG TAB PO SCH (06:10)
[2017-04-23] MEDS: LEVOTHYROXINE SODIUM 75 MCG TAB PO SCH (06:11)
[2017-04-23] MEDS: RESP: ALBUTEROL 2.5 MG/IPRATROPIUM 0.5 MG NEB (SCH) NEB ×4 (07:58→19:39)
[2017-04-23] MEDS: INSULIN NovoLIN REGULAR SUPPLEMENTAL SCALE SQ SCH ×4 (08:00→21:00)
[2017-04-23] MEDS: UMECLIDINIUM 62.5 MCG/VILANTEROL 25 MCG INHALER INH SCH (09:00)
[2017-04-23] MEDS: FENOFIBRATE 48 MG TAB PO SCH (09:32)
[2017-04-23] MEDS: PRAVASTATIN SOD 80 MG TAB PO SCH (09:33)
[2017-04-23] MEDS: SPIRONOLACTONE 25 MG TAB PO SCH (09:33)
[2017-04-23] MEDS: DULoxetine HCl DR 60 MG CAP PO SCH ×2 (09:33→21:23)
[2017-04-23] MEDS: GABAPENTIN 300 MG CAP PO SCH ×2 (09:33→21:22)
[2017-04-23] MEDS: FUROSEMIDE 40 MG/4 ML VIAL IV PUSH SCH (09:34)
[2017-04-23] MEDS: ASPIRIN 325 MG TAB PO SCH (09:34)
[2017-04-23] MEDS: NITROFURANTOIN MONOHYD MACROCR 100 MG CAP PO SCH (09:34)
[2017-04-23] MEDS: PANTOPRAZOLE SOD 20 MG DELAYED RELEASE TAB PO SCH (09:34)
[2017-04-23] MEDS: INSULIN HUMAN REGULAR 1,000 UNITS/10 ML VIAL SQ SCH ×2 (09:38→14:58)
[2017-04-23] MEDS ORDERED: INSULIN DETEMIR 100 UNITS/ML VIAL SQ ONE ×2 (10:00→11:30)
--- NOTE | 2017-04-23 17:58 | HHI.PR ---
Subjective Remarks This is a 76-year-old female with a PMH of HTN, Hyperlipidemia, COPD, O2 Dependent, h/o CVA, DM and Tobacco Abuse who is brought here by EMS secondary to complaints of SOB and generalized weakness x3 days. Denies fever, chills or cough. Reports increasing difficulty w/ ambulation secondary to SOB in addition to intermittent episodes of chest pain. On arrival, BP 119/58, HR 71, O2 sat 91% on 3L NC, Afebrile. CBC essentially unremarkable. K+ 3.3. GFR 63. Trop negative. INR 0.9. CXR with mild left base consolidation. S/p Levaquin /Cefepime and DuoNeb in ER w/ some improvement. 04/22: stable in her bedroom, has elevated blood glucose levels, she is on Prednisone will try to discontinue this medicine and continue Bronchodilators, to improve her blood sugar level. she already received her dose for today. discussed with nurse. 04/23: Seen in her bedroom better Blood glucose level, today will discontinue her Scheduled insulin and Levemir given one dose of 5 units one dose only and follow during the day she is walking in the bedroom, no new complaint. Discussed with nurse Mr. Cullen. No nausea, vomit or diarrhea. Objective Vital Signs Date Time Temp Pulse Resp B/P (MAP) Pulse Ox O2 Delivery O2 Flow Rate FiO2 04/23/17 16:00 98.6 86 20 122/59 (80) 90 04/23/17 12:00 98.0 78 20 115/58 (77) 91 04/23/17 08:00 98.2 76 20 124/79 (94) 88 04/23/17 07:58 90 Nasal Cannula 5.00 04/23/17 04:00 97.3 96 18 120/58 (78) 70 04/23/17 00:00 97.4 68 18 104/52 (69) 92 04/23/17 00:00 97.4 68 18 104/52 (69) 92 04/22/17 20:00 97.8 74 18 120/55 (76) 97 04/22/17 19:41 91 Nasal Cannula 3.00 I/O 04/22/17 04/22/17 04/22/17 04/23/17 04/23/17 04/23/17 07:00 15:00 23:00 07:00 15:00 23:00 Intake Total 240 ml 920 ml 720 ml Output Total 500 ml Balance 240 ml 420 ml 720 ml Intake Oral 240 ml 920 ml 720 ml Output Urine Total 500 ml # Voids 5 3 3 # Bowel Movements 0 1 0 Result Diagram: 04/19/17 2230 04/22/17 0734 Imaging Last Impressions Chest Ultrasound 04/21/17 0000 Signed Impressions: Service Date/Time: Friday, April 21, 2017 13:59 - CONCLUSION: Very small left-sided pleural effusion with approximate volume of 64 mL. There is insufficient volume for therapeutic thoracentesis. Jerzy Gonzalez MD Chest X-Ray 04/19/172017 Signed Impressions: Service Date/Time: Wednesday, April 19, 2017 20:59 - CONCLUSION: Mild left base consolidation. Mild compensated cardiomegaly. Prosper Sweeney MD Procedures None Other Results Laboratory Tests Test 04/19/17 20:25 04/19/17 22:30 04/20/17 00:55 04/20/17 16:51 Prothrombin Time 10.1 SEC Prothromb Time International Ratio 0.9 RATIO Activated Partial Thromboplast Time 25.2 SEC Blood Urea Nitrogen 12 MG/DL Creatinine 0.87 MG/DL Random Glucose 164 MG/DL Total Protein 7.2 GM/DL Albumin 3.4 GM/DL Calcium Level 9.4 MG/DL Alkaline Phosphatase 90 U/L Aspartate Amino Transf (AST/SGOT) 16 U/L Alanine Aminotransferase (ALT/SGPT) 24 U/L Total Bilirubin 0.2 MG/DL Sodium Level 133 MEQ/L Potassium Level 3.3 MEQ/L Chloride Level 89 MEQ/L Carbon Dioxide Level 35.9 MEQ/L Total Creatine Kinase 168 U/L Creatine Kinase MB 1.9 NG/ML Troponin I LESS THAN 0.02 NG/ML B-Type Natriuretic Peptide 3 PG/ML White Blood Count 7.9 TH/MM3 Red Blood Count 3.72 MIL/MM3 Hemoglobin 10.2 GM/DL Hematocrit 31.3 % Mean Corpuscular Volume 84.1 FL Mean Corpuscular Hemoglobin 27.5 PG Mean Corpuscular Hemoglobin Concent 32.7 % Red Cell Distribution Width 16.2 % Platelet Count 330 TH/MM3 Mean Platelet Volume 6.5 FL Neutrophils (%) (Auto) 66.8 % Lymphocytes (%) (Auto) 21.5 % Monocytes (%) (Auto) 7.9 % Eosinophils (%) (Auto) 3.2 % Basophils (%) (Auto) 0.6 % Neutrophils # (Auto) 5.3 TH/MM3 Lymphocytes # (Auto) 1.7 TH/MM3 Monocytes # (Auto) 0.6 TH/MM3 Eosinophils # (Auto) 0.2 TH/MM3 Basophils # (Auto) 0.0 TH/MM3 CBC Comment DIFF FINAL Differential Comment Urine Color YELLOW Urine Turbidity HAZY Urine pH 5.5 Urine Specific [place] 1.018 Urine Protein 30 mg/dL Urine Glucose (UA) NEG mg/dL Urine Ketones NEG mg/dL Urine Occult Blood SMALL Urine Nitrite POS Urine Bilirubin NEG Urine Urobilinogen LESS THAN 2.0 MG/DL Urine Leukocyte Esterase NEG Urine RBC 4 /hpf Urine WBC 2 /hpf Urine Squamous Epithelial Cells 7 /hpf Urine Bacteria FEW /hpf Urine Mucus FEW /lpf Microscopic Urinalysis Comment CULTURE INDICATED Procalcitonin LESS THAN 0.05 ng/mL Test 04/22/17 07:34 Blood Urea Nitrogen 27 MG/DL Creatinine 0.77 MG/DL Random Glucose 275 MG/DL Calcium Level 9.2 MG/DL Sodium Level 126 MEQ/L Potassium Level 4.6 MEQ/L Chloride Level 82 MEQ/L Carbon Dioxide Level 34.8 MEQ/L Anion Gap 9 MEQ/L Estimat Glomerular Filtration Rate 73 ML/MIN Objective Remarks GENERAL: Elderly white female in no acute distress. HEENT: PERRLA, EOMI. No scleral icterus or conjunctival pallor. No lid lag or facial droop. CARDIOVASCULAR: Regular rate and rhythm. No obvious murmurs to auscultation. No chest tenderness to palpation. RESPIRATORY: No obvious rhonchi, occasional wheezing. Clear to auscultation. Breath sounds equal bilaterally. GASTROINTESTINAL: Abdomen soft, non-tender, nondistended. BS normal. MUSCULOSKELETAL: Extremities without clubbing, cyanosis, or edema. No obvious deformities. NEUROLOGICAL: Awake, alert and oriented x4. No focal neurologic deficits. Moving both upper and lower extremities spontaneously. Medications and IVs Current Medications Medications (Trade) Dose Ordered Sig/Britney Route Start Time Stop Time Status Last Admin (NS Flush) 2 ml UNSCH PRN IVF 04/19/17 20:30 04/20/17 20:10 (D50w (Vial) Inj) 50 ml UNSCH PRN IV 04/20/17 00:00 (Glucagon Inj) 1 mg UNSCH PRN OTHER 04/20/17 00:00 (Duoneb Neb) 1 ampule Q4HR WHILE AWAKE NEB NEB 04/20/17 08:00 04/23/17 07:58 (Duoneb Neb) 1 ampule Q2HR NEB PRN NEB 04/20/17 00:00 (Aspirin) 325 mg DAILY PO 04/20/17 09:00 04/23/17 09:34 (Valium) 5 mg TID PRN PO 04/20/17 00:00 04/22/17 22:02 (Cymbalta Dr) 60 mg BID PO 04/20/17 09:00 04/23/17 09:33 (Tricor) 48 mg DAILY PO 04/20/17 09:00 04/23/17 09:32 (Lasix) 80 mg DAILY PRN PO 04/20/17 00:00 (Neurontin) 300 mg BID PO 04/20/17 09:00 04/23/17 09:33 (Synthroid) 100 mcg DAILY@0700 PO 04/20/17 07:00 04/23/17 06:10 (Mirapex) 1 mg Q6HR PO 04/20/17 00:00 04/23/17 14:50 (Aldactone) 25 mg DAILY PO 04/20/17 09:00 04/23/17 09:33 (Protonix) 20 mg DAILY PO 04/20/17 09:00 04/23/17 09:34 (Pravachol) 80 mg DAILY PO 04/20/17 09:00 04/23/17 09:33 (Synthroid) 75 mcg DAILY@0700 PO 04/20/17 07:00 04/23/17 06:11 ([place] 7.5-325 Mg) 1 tab Q4H PRN PO 04/20/17 01:00 04/23/17 06:10 (Lasix Inj) 40 mg BID@0900,1800 IV PUSH 04/20/17 18:00 04/23/17 09:34 (Zofran Inj) 4 mg Q6HR PRN IV PUSH 04/20/17 22:30 04/20/17 22:32 (Macrobid) 100 mg BIDPC PO 04/22/17 11:30 04/23/17 09:34 (NovoLIN R SUPPLEMENTAL SCALE) 1 ACHS SLIDING SCALE SQ 04/22/17 12:00 04/23/17 08:00 (NovoLIN R INJ) 5 units TIDAC SQ 04/22/17 12:00 04/23/17 14:58 (Levemir Inj) 5 units Q12HR SQ 04/23/17 21:00 A/P Assessment and Plan 1. Shortness of breath - COPD exacerbation - improving - pro-calcitonin is within normal limits, Off antibiotics. continue bronchodilator, Mucolytic and incentive spirometry, on hold Prednisone due to severe uncontrol of Diabetes. today improving she is walking in the room, no complaint, wearing no oxygen at this time. 2. MSK CP - pain control 3. COPD: Chronic Respiratory Failure - back to baseline O2 of 3L, continue Bronchodilator, Mucolytic and incentive spirometry she states she uses Oxygen for the last seven years. 4. Pleural effusion -IV diuresis twice a day, will send for ultrasound guided thoracentesis evaluation today - too little to drain 5. Hyponatremia worsening 6. Generalized Weakness: likely secondary to acute respiratory issues/ deconditioning. Physical therapy recommended for Home with [facility]. 7. DM: better control today, discontinued scheduled insulin, given Levemir 5 units and medium sliding scale, off steroids. DVT Prophylaxis: Lovenox Discharge Planning Expected for tomorrow. Carlos Mendoza MD Apr 23, 2017 17:58
[2017-04-23] MEDS ORDERED: INSULIN DETEMIR 100 UNITS/ML VIAL SQ SCH (21:00)
[2017-04-23] MEDS: guaiFENesin E.R. 600 MG TAB PO SCH (21:22)
[2017-04-23] MEDS: DIAZEPAM 5 MG TAB PO PRN (21:22)
[2017-04-24] VITALS (7 sets, daily range): BP systolic 97–119; BP diastolic 56–66; PULSE 77–104; RESP 18–20; TEMP 97.2–98.4; O2SAT 90–96
[2017-04-24] MEDS: RESP: ALBUTEROL 2.5 MG/IPRATROPIUM 0.5 MG NEB (SCH) NEB ×6 (00:20→19:53)
[2017-04-24] MEDS: PRAMIPEXOLE DIHYDROCHLORIDE 1 MG TAB PO SCH ×4 (01:17→17:53)
[2017-04-24] MEDS: LEVOTHYROXINE SODIUM 100 MCG TAB PO SCH (06:53)
[2017-04-24] MEDS: LEVOTHYROXINE SODIUM 75 MCG TAB PO SCH (06:53)
[2017-04-24] MEDS: INSULIN NovoLIN REGULAR SUPPLEMENTAL SCALE SQ SCH ×4 (08:00→23:03)
[2017-04-24] MEDS: UMECLIDINIUM 62.5 MCG/VILANTEROL 25 MCG INHALER INH SCH (09:00)
[2017-04-24] MEDS ORDERED: guaiFENesin ER PO (10:01)
[2017-04-24] MEDS ORDERED: NITR100C4 PO (10:01)
[2017-04-24] MEDS ORDERED: HYDR-3580 PO (10:01)
[2017-04-24] MEDS ORDERED: DIAZ5 PO (10:01)
--- NOTE | 2017-04-24 10:08 | HHI.PR ---
Subjective Remarks This is a 76-year-old female with a PMH of HTN, Hyperlipidemia, COPD, O2 Dependent, h/o CVA, DM and Tobacco Abuse who is brought here by EMS secondary to complaints of SOB and generalized weakness x3 days. Denies fever, chills or cough. Reports increasing difficulty w/ ambulation secondary to SOB in addition to intermittent episodes of chest pain. On arrival, BP 119/58, HR 71, O2 sat 91% on 3L NC, Afebrile. CBC essentially unremarkable. K+ 3.3. GFR 63. Trop negative. INR 0.9. CXR with mild left base consolidation. S/p Levaquin /Cefepime and DuoNeb in ER w/ some improvement. 04/22: stable in her bedroom, has elevated blood glucose levels, she is on Prednisone will try to discontinue this medicine and continue Bronchodilators, to improve her blood sugar level. she already received her dose for today. discussed with nurse. 04/23: Seen in her bedroom better Blood glucose level, today will discontinue her Scheduled insulin and Levemir given one dose of 5 units one dose only and follow during the day she is walking in the bedroom, no new complaint. 04/24: Stable in her bedroom, no nausea, vomit or diarrhea, stable respiratory pruett, okay to discharge to SNF today. Objective Vital Signs Date Time Temp Pulse Resp B/P (MAP) Pulse Ox O2 Delivery O2 Flow Rate FiO2 04/24/17 08:50 96 Nasal Cannula 3.00 04/24/17 08:00 97.2 81 20 109/66 (80) 91 04/24/17 00:00 98.4 77 18 119/60 (79) 91 04/23/17 20:00 97.8 89 20 117/61 (79) 90 04/23/17 19:41 92 Nasal Cannula 4.00 04/23/17 16:00 98.6 86 20 122/59 (80) 90 04/23/17 12:00 98.0 78 20 115/58 (77) 91 I/O 04/23/17 04/23/17 04/23/17 04/24/17 04/24/17 04/24/17 07:00 15:00 23:00 07:00 15:00 23:00 Intake Total 720 ml Balance 720 ml Intake Oral 720 ml # Voids 3 # Bowel Movements 0 Result Diagram: 04/22/17 0734 Imaging Last Impressions Chest Ultrasound 04/21/17 0000 Signed Impressions: Service Date/Time: Friday, April 21, 2017 13:59 - CONCLUSION: Very small left-sided pleural effusion with approximate volume of 64 mL. There is insufficient volume for therapeutic thoracentesis. Jerzy Gonzalez MD Chest X-Ray 04/19/172017 Signed Impressions: Service Date/Time: Wednesday, April 19, 2017 20:59 - CONCLUSION: Mild left base consolidation. Mild compensated cardiomegaly. Prosper Sweeney MD Procedures None Other Results Laboratory Tests Test 04/19/17 20:25 04/19/17 22:30 04/20/17 00:55 04/20/17 16:51 Prothrombin Time 10.1 SEC Prothromb Time International Ratio 0.9 RATIO Activated Partial Thromboplast Time 25.2 SEC Blood Urea Nitrogen 12 MG/DL Creatinine 0.87 MG/DL Random Glucose 164 MG/DL Total Protein 7.2 GM/DL Albumin 3.4 GM/DL Calcium Level 9.4 MG/DL Alkaline Phosphatase 90 U/L Aspartate Amino Transf (AST/SGOT) 16 U/L Alanine Aminotransferase (ALT/SGPT) 24 U/L Total Bilirubin 0.2 MG/DL Sodium Level 133 MEQ/L Potassium Level 3.3 MEQ/L Chloride Level 89 MEQ/L Carbon Dioxide Level 35.9 MEQ/L Total Creatine Kinase 168 U/L Creatine Kinase MB 1.9 NG/ML Troponin I LESS THAN 0.02 NG/ML B-Type Natriuretic Peptide 3 PG/ML White Blood Count 7.9 TH/MM3 Red Blood Count 3.72 MIL/MM3 Hemoglobin 10.2 GM/DL Hematocrit 31.3 % Mean Corpuscular Volume 84.1 FL Mean Corpuscular Hemoglobin 27.5 PG Mean Corpuscular Hemoglobin Concent 32.7 % Red Cell Distribution Width 16.2 % Platelet Count 330 TH/MM3 Mean Platelet Volume 6.5 FL Neutrophils (%) (Auto) 66.8 % Lymphocytes (%) (Auto) 21.5 % Monocytes (%) (Auto) 7.9 % Eosinophils (%) (Auto) 3.2 % Basophils (%) (Auto) 0.6 % Neutrophils # (Auto) 5.3 TH/MM3 Lymphocytes # (Auto) 1.7 TH/MM3 Monocytes # (Auto) 0.6 TH/MM3 Eosinophils # (Auto) 0.2 TH/MM3 Basophils # (Auto) 0.0 TH/MM3 CBC Comment DIFF FINAL Differential Comment Urine Color YELLOW Urine Turbidity HAZY Urine pH 5.5 Urine Specific [place] 1.018 Urine Protein 30 mg/dL Urine Glucose (UA) NEG mg/dL Urine Ketones NEG mg/dL Urine Occult Blood SMALL Urine Nitrite POS Urine Bilirubin NEG Urine Urobilinogen LESS THAN 2.0 MG/DL Urine Leukocyte Esterase NEG Urine RBC 4 /hpf Urine WBC 2 /hpf Urine Squamous Epithelial Cells 7 /hpf Urine Bacteria FEW /hpf Urine Mucus FEW /lpf Microscopic Urinalysis Comment CULTURE INDICATED Procalcitonin LESS THAN 0.05 ng/mL Test 04/22/17 07:34 Blood Urea Nitrogen 27 MG/DL Creatinine 0.77 MG/DL Random Glucose 275 MG/DL Calcium Level 9.2 MG/DL Sodium Level 126 MEQ/L Potassium Level 4.6 MEQ/L Chloride Level 82 MEQ/L Carbon Dioxide Level 34.8 MEQ/L Anion Gap 9 MEQ/L Estimat Glomerular Filtration Rate 73 ML/MIN Objective Remarks GENERAL: Elderly white female in no acute distress. HEENT: PERRLA, EOMI. No scleral icterus or conjunctival pallor. No lid lag or facial droop. CARDIOVASCULAR: Regular rate and rhythm. No obvious murmurs to auscultation. No chest tenderness to palpation. RESPIRATORY: No obvious rhonchi, occasional wheezing. Clear to auscultation. Breath sounds equal bilaterally. GASTROINTESTINAL: Abdomen soft, non-tender, nondistended. BS normal. MUSCULOSKELETAL: Extremities without clubbing, cyanosis, or edema. No obvious deformities. NEUROLOGICAL: Awake, alert and oriented x4. No focal neurologic deficits. Moving both upper and lower extremities spontaneously. Medications and IVs Current Medications Medications (Trade) Dose Ordered Sig/Britney Route Start Time Stop Time Status Last Admin (NS Flush) 2 ml UNSCH PRN IVF 04/19/17 20:30 04/20/17 20:10 (D50w (Vial) Inj) 50 ml UNSCH PRN IV 04/20/17 00:00 (Glucagon Inj) 1 mg UNSCH PRN OTHER 04/20/17 00:00 (Aspirin) 325 mg DAILY PO 04/20/17 09:00 04/23/17 09:34 (Valium) 5 mg TID PRN PO 04/20/17 00:00 04/23/17 21:22 (Cymbalta Dr) 60 mg BID PO 04/20/17 09:00 04/23/17 21:23 (Tricor) 48 mg DAILY PO 04/20/17 09:00 04/23/17 09:32 (Lasix) 80 mg DAILY PRN PO 04/20/17 00:00 (Neurontin) 300 mg BID PO 04/20/17 09:00 04/23/17 21:22 (Synthroid) 100 mcg DAILY@0700 PO 04/20/17 07:00 04/24/17 06:53 (Mirapex) 1 mg Q6HR PO 04/20/17 00:00 04/24/17 06:53 (Aldactone) 25 mg DAILY PO 04/20/17 09:00 04/23/17 09:33 (Protonix) 20 mg DAILY PO 04/20/17 09:00 04/23/17 09:34 (Pravachol) 80 mg DAILY PO 04/20/17 09:00 04/23/17 09:33 (Synthroid) 75 mcg DAILY@0700 PO 04/20/17 07:00 04/24/17 06:53 ([place] 7.5-325 Mg) 1 tab Q4H PRN PO 04/20/17 01:00 04/23/17 21:26 (Lasix Inj) 40 mg BID@0900,1800 IV PUSH 04/20/17 18:00 04/23/17 09:34 (Zofran Inj) 4 mg Q6HR PRN IV PUSH 04/20/17 22:30 04/20/17 22:32 (Macrobid) 100 mg BIDPC PO 04/22/17 11:30 04/23/17 09:34 (NovoLIN R SUPPLEMENTAL SCALE) 1 ACHS SLIDING SCALE SQ 04/22/17 12:00 04/23/17 08:00 (Duoneb Neb) 1 ampule Q4HR NEB NEB 04/23/17 20:00 04/24/17 08:48 (Mucinex Er) 600 mg BID PO 04/23/17 21:00 04/23/17 21:22 A/P Assessment and Plan 1. Shortness of breath - COPD exacerbation - improving - pro-calcitonin is within normal limits, Off antibiotics. continue bronchodilator, Mucolytic and incentive spirometry, on hold Prednisone due to severe uncontrol of Diabetes. today improving she is walking in the room, no complaint, okay to discharge Home. 2. MSK CP - pain control 3. COPD: Chronic Respiratory Failure - back to baseline O2 of 3L, continue Bronchodilator, Mucolytic and incentive spirometry she states she uses Oxygen for the last seven years. 4. Pleural effusion -IV diuresis twice a day, will send for ultrasound guided thoracentesis evaluation today - too little to drain 5. Hyponatremia Improving today 128 started on Sodium chloride low dose and follow by PCP in three to five days. 6. Generalized Weakness: likely secondary to acute respiratory issues/ deconditioning. Physical therapy recommended for Home with [facility]. 7. DM: better control today. DVT Prophylaxis: Lovenox Discharge Planning Expected later today or in am tomorrow. Carlos Mendoza MD Apr 24, 2017 10:08
[2017-04-24] MEDS: FENOFIBRATE 48 MG TAB PO SCH (10:42)
[2017-04-24] MEDS: NITROFURANTOIN MONOHYD MACROCR 100 MG CAP PO SCH ×2 (10:42→17:53)
[2017-04-24] MEDS: SPIRONOLACTONE 25 MG TAB PO SCH (10:42)
[2017-04-24] MEDS: DULoxetine HCl DR 60 MG CAP PO SCH ×2 (10:43→21:39)
[2017-04-24] MEDS: PRAVASTATIN SOD 80 MG TAB PO SCH (10:43)
[2017-04-24] MEDS: guaiFENesin E.R. 600 MG TAB PO SCH ×2 (10:43→21:39)
[2017-04-24] MEDS: GABAPENTIN 300 MG CAP PO SCH ×2 (10:43→21:39)
[2017-04-24] MEDS: PANTOPRAZOLE SOD 20 MG DELAYED RELEASE TAB PO SCH (10:44)
[2017-04-24] MEDS: ASPIRIN 325 MG TAB PO SCH (10:44)
[2017-04-24 14:33] LABS: BICARBONATE 41.6 MEQ/L (21.0-32.0); POTASSIUM 3.8 MEQ/L (3.5-5.1)
[2017-04-24] MEDS: SODIUM CHLORIDE 1 GRAM TAB PO SCH (17:53)
[2017-04-25] MEDS: RESP: ALBUTEROL 2.5 MG/IPRATROPIUM 0.5 MG NEB (SCH) NEB ×5 (00:23→15:53)
[2017-04-25 00:27] VITALS: O2SAT 94
[2017-04-25] MEDS: PRAMIPEXOLE DIHYDROCHLORIDE 1 MG TAB PO SCH ×3 (00:59→13:55)
[2017-04-25 04:00] VITALS: BP 113/69; PULSE 74; RESP 18; TEMP 98; O2SAT 97
[2017-04-25] MEDS: LEVOTHYROXINE SODIUM 75 MCG TAB PO SCH (06:11)
[2017-04-25] MEDS: LEVOTHYROXINE SODIUM 100 MCG TAB PO SCH (06:11)
[2017-04-25] MEDS: INSULIN NovoLIN REGULAR SUPPLEMENTAL SCALE SQ SCH ×2 (08:00→12:00)
[2017-04-25 08:03] VITALS: O2SAT 95
[2017-04-25] MEDS: ASPIRIN 325 MG TAB PO SCH (08:49)
[2017-04-25] MEDS: DULoxetine HCl DR 60 MG CAP PO SCH (08:50)
[2017-04-25] MEDS: FENOFIBRATE 48 MG TAB PO SCH (08:50)
[2017-04-25] MEDS: NITROFURANTOIN MONOHYD MACROCR 100 MG CAP PO SCH (08:50)
[2017-04-25] MEDS: PRAVASTATIN SOD 80 MG TAB PO SCH (08:50)
[2017-04-25] MEDS: PANTOPRAZOLE SOD 20 MG DELAYED RELEASE TAB PO SCH (08:50)
[2017-04-25] MEDS: SPIRONOLACTONE 25 MG TAB PO SCH (08:50)
[2017-04-25] MEDS: SODIUM CHLORIDE 1 GRAM TAB PO SCH ×2 (08:50→13:54)
[2017-04-25] MEDS: GABAPENTIN 300 MG CAP PO SCH (08:50)
[2017-04-25] MEDS: guaiFENesin E.R. 600 MG TAB PO SCH (08:50)
[2017-04-25] MEDS: UMECLIDINIUM 62.5 MCG/VILANTEROL 25 MCG INHALER INH SCH (08:51)
[2017-04-25 09:12] VITALS: BP 119/58; PULSE 88; RESP 20; TEMP 98.6; O2SAT 94
[2017-04-25] MEDS ORDERED: SODI1TAB PO (10:00)
--- NOTE | 2017-04-25 10:02 | HHI.FF ---
Face to Face Verification Diagnosis: (1) COPD (chronic obstructive pulmonary disease) (2) Tobacco abuse (3) History of stroke Physical Therapy Order: Evaluate and Treat, Improve ambulation, Strength and gait training Home Health Nursing Order: Medical education Signs/symptoms of disease process Diabetic education Oxygen administration education Medication education-adverse effect Nursing assessment with vital signs I have seen patient Maisha Morel on 04/25/17. My clinical findings support the need for the requested home health care services because: Ltd mobility - disease progression I certify that my clinical findings support that this patient is homebound because: Unsafe to leave home unassisted Carlos Mendoza MD Apr 25, 2017 10:02
--- NOTE | 2017-04-25 10:03 | HHI.PR ---
Subjective Remarks This is a 76-year-old female with a PMH of HTN, Hyperlipidemia, COPD, O2 Dependent, h/o CVA, DM and Tobacco Abuse who is brought here by EMS secondary to complaints of SOB and generalized weakness x3 days. Denies fever, chills or cough. Reports increasing difficulty w/ ambulation secondary to SOB in addition to intermittent episodes of chest pain. On arrival, BP 119/58, HR 71, O2 sat 91% on 3L NC, Afebrile. CBC essentially unremarkable. K+ 3.3. GFR 63. Trop negative. INR 0.9. CXR with mild left base consolidation. S/p Levaquin /Cefepime and DuoNeb in ER w/ some improvement. 04/22: stable in her bedroom, has elevated blood glucose levels, she is on Prednisone will try to discontinue this medicine and continue Bronchodilators, to improve her blood sugar level. she already received her dose for today. discussed with nurse. 04/23: Seen in her bedroom better Blood glucose level, today will discontinue her Scheduled insulin and Levemir given one dose of 5 units one dose only and follow during the day she is walking in the bedroom, no new complaint. 04/24: Stable in her bedroom, no nausea, vomit or diarrhea, stable respiratory pruett, okay to discharge to SNF today. 04/25: Seen in her bedroom, no nausea, vomit or diarrhea, okay to discharge today. Objective Vital Signs Date Time Temp Pulse Resp B/P (MAP) Pulse Ox O2 Delivery O2 Flow Rate FiO2 04/25/17 09:12 98.6 88 20 119/58 (78) 94 04/25/17 08:03 95 Nasal Cannula 5.00 04/25/17 04:00 98.0 74 18 113/69 (84) 97 04/25/17 00:27 94 Nasal Cannula 5.00 04/24/17 20:00 97.9 84 18 97/56 (70) 95 04/24/17 17:14 98.1 104 20 103/56 (72) 90 04/24/17 16:09 92 Nasal Cannula 4.00 04/24/17 12:00 97.5 97 19 111/60 (77) 92 I/O 04/24/17 04/24/17 04/24/17 04/25/17 04/25/1704/25/17 07:00 15:00 23:00 07:00 15:00 23:00 Intake Total 240 ml Balance 240 ml Intake Oral 240 ml # Voids 2 1 1 # Bowel Movements 2 Result Diagram: 04/24/17 1310 Imaging Last Impressions Chest Ultrasound 04/21/17 0000 Signed Impressions: Service Date/Time: Friday, April 21, 2017 13:59 - CONCLUSION: Very small left-sided pleural effusion with approximate volume of 64 mL. There is insufficient volume for therapeutic thoracentesis. Jerzy Gonzalez MD Chest X-Ray 04/19/172017 Signed Impressions: Service Date/Time: Wednesday, April 19, 2017 20:59 - CONCLUSION: Mild left base consolidation. Mild compensated cardiomegaly. Prosper Sweeney MD Procedures None Other Results Laboratory Tests Test 04/19/17 20:25 04/19/17 22:30 04/20/17 00:55 04/20/17 16:51 Prothrombin Time 10.1 SEC Prothromb Time International Ratio 0.9 RATIO Activated Partial Thromboplast Time 25.2 SEC Blood Urea Nitrogen 12 MG/DL Creatinine 0.87 MG/DL Random Glucose 164 MG/DL Total Protein 7.2 GM/DL Albumin 3.4 GM/DL Calcium Level 9.4 MG/DL Alkaline Phosphatase 90 U/L Aspartate Amino Transf (AST/SGOT) 16 U/L Alanine Aminotransferase (ALT/SGPT) 24 U/L Total Bilirubin 0.2 MG/DL Sodium Level 133 MEQ/L Potassium Level 3.3 MEQ/L Chloride Level 89 MEQ/L Carbon Dioxide Level 35.9 MEQ/L Total Creatine Kinase 168 U/L Creatine Kinase MB 1.9 NG/ML Troponin I LESS THAN 0.02 NG/ML B-Type Natriuretic Peptide 3 PG/ML White Blood Count 7.9 TH/MM3 Red Blood Count 3.72 MIL/MM3 Hemoglobin 10.2 GM/DL Hematocrit 31.3 % Mean Corpuscular Volume 84.1 FL Mean Corpuscular Hemoglobin 27.5 PG Mean Corpuscular Hemoglobin Concent 32.7 % Red Cell Distribution Width 16.2 % Platelet Count 330 TH/MM3 Mean Platelet Volume 6.5 FL Neutrophils (%) (Auto) 66.8 % Lymphocytes (%) (Auto) 21.5 % Monocytes (%) (Auto) 7.9 % Eosinophils (%) (Auto) 3.2 % Basophils (%) (Auto) 0.6 % Neutrophils # (Auto) 5.3 TH/MM3 Lymphocytes # (Auto) 1.7 TH/MM3 Monocytes # (Auto) 0.6 TH/MM3 Eosinophils # (Auto) 0.2 TH/MM3 Basophils # (Auto) 0.0 TH/MM3 CBC Comment DIFF FINAL Differential Comment Urine Color YELLOW Urine Turbidity HAZY Urine pH 5.5 Urine Specific Mathews 1.018 Urine Protein 30 mg/dL Urine Glucose (UA) NEG mg/dL Urine Ketones NEG mg/dL Urine Occult Blood SMALL Urine Nitrite POS Urine Bilirubin NEG Urine Urobilinogen LESS THAN 2.0 MG/DL Urine Leukocyte Esterase NEG Urine RBC 4 /hpf Urine WBC 2 /hpf Urine Squamous Epithelial Cells 7 /hpf Urine Bacteria FEW /hpf Urine Mucus FEW /lpf Microscopic Urinalysis Comment CULTURE INDICATED Procalcitonin LESS THAN 0.05 ng/mL Test 04/24/17 13:10 Blood Urea Nitrogen 39 MG/DL Creatinine 0.94 MG/DL Random Glucose 163 MG/DL Calcium Level 9.8 MG/DL Sodium Level 128 MEQ/L Potassium Level 3.8 MEQ/L Chloride Level 77 MEQ/L Carbon Dioxide Level 41.6 MEQ/L Anion Gap 9 MEQ/L Estimat Glomerular Filtration Rate 58 ML/MIN Objective Remarks GENERAL: Elderly white female in no acute distress. HEENT: PERRLA, EOMI. No scleral icterus or conjunctival pallor. No lid lag or facial droop. CARDIOVASCULAR: Regular rate and rhythm. No obvious murmurs to auscultation. No chest tenderness to palpation. RESPIRATORY: No obvious rhonchi, occasional wheezing. Clear to auscultation. Breath sounds equal bilaterally. GASTROINTESTINAL: Abdomen soft, non-tender, nondistended. BS normal. MUSCULOSKELETAL: Extremities without clubbing, cyanosis, or edema. No obvious deformities. NEUROLOGICAL: Awake, alert and oriented x4. No focal neurologic deficits. Moving both upper and lower extremities spontaneously. Medications and IVs Current Medications Medications (Trade) Dose Ordered Sig/Britney Route Start Time Stop Time Status Last Admin (NS Flush) 2 ml UNSCH PRN IVF 04/19/17 20:30 04/20/17 20:10 (D50w (Vial) Inj) 50 ml UNSCH PRN IV 04/20/17 00:00 (Glucagon Inj) 1 mg UNSCH PRN OTHER 04/20/17 00:00 (Aspirin) 325 mg DAILY PO 04/20/17 09:00 04/25/17 08:49 (Valium) 5 mg TID PRN PO 04/20/17 00:00 04/23/17 21:22 (Cymbalta Dr) 60 mg BID PO 04/20/17 09:00 04/25/17 08:50 (Tricor) 48 mg DAILY PO 04/20/17 09:00 04/25/17 08:50 (Lasix) 80 mg DAILY PRN PO 04/20/17 00:00 (Neurontin) 300 mg BID PO 04/20/17 09:00 04/25/17 08:50 (Synthroid) 100 mcg DAILY@0700 PO 04/20/17 07:00 04/25/17 06:11 (Mirapex) 1 mg Q6HR PO 04/20/17 00:00 04/25/17 05:08 (Aldactone) 25 mg DAILY PO 04/20/17 09:00 04/25/17 08:50 (Protonix) 20 mg DAILY PO 04/20/17 09:00 04/25/17 08:50 (Pravachol) 80 mg DAILY PO 04/20/17 09:00 04/25/17 08:50 (Synthroid) 75 mcg DAILY@0700 PO 04/20/17 07:00 04/25/17 06:11 (Buhl 7.5-325 Mg) 1 tab Q4H PRN PO 04/20/17 01:00 04/23/17 21:26 (Zofran Inj) 4 mg Q6HR PRN IV PUSH 04/20/17 22:30 04/20/17 22:32 (Macrobid) 100 mg BIDPC PO 04/22/17 11:30 04/25/17 08:50 (NovoLIN R SUPPLEMENTAL SCALE) 1 ACHS SLIDING SCALE SQ 04/22/17 12:00 04/25/17 08:00 (Duoneb Neb) 1 ampule Q4HR NEB NEB 04/23/17 20:00 04/25/17 08:01 (Mucinex Er) 600 mg BID PO 04/23/17 21:00 04/25/17 08:50 (Sodium Chloride) 1 gm TID PO 04/24/17 18:00 04/25/17 08:50 A/P Assessment and Plan 1. Shortness of breath - COPD exacerbation - improving - pro-calcitonin is within normal limits, Off antibiotics. continue bronchodilator, Mucolytic and incentive spirometry, on hold Prednisone due to severe uncontrol of Diabetes. today improving she is walking in the room, no complaint, okay to discharge Home. 2. MSK CP - pain control 3. COPD: Chronic Respiratory Failure - back to baseline O2 of 3L, continue Bronchodilator, Mucolytic and incentive spirometry she states she uses Oxygen for the last seven years. 4. Pleural effusion -IV diuresis twice a day, will send for ultrasound guided thoracentesis evaluation today - too little to drain 5. Hyponatremia worsening 6. Generalized Weakness: likely secondary to acute respiratory issues/ deconditioning. Physical therapy recommended for Home with [facility]. 7. DM: better control today, discontinued scheduled insulin, given Levemir 5 units and medium sliding scale, off steroids. DVT Prophylaxis: Lovenox Discharge Planning Discharge to SNF today. Carlos Mendoza MD Apr 25, 2017 10:03
--- NOTE | 2017-04-25 10:04 | HHI.DS ---
Discharge Summary Admission Date Apr 19, 2017 at 23:44 Discharge Date: Apr 25, 2017 Admitting Diagnosis Pneumonia, Chest Pain (1) Chest pain ICD Code: R07.9 - Chest pain, unspecified Diagnosis: Principal Status: Acute (2) COPD (chronic obstructive pulmonary disease) ICD Code: J44.9 - Chronic obstructive pulmonary disease, unspecified Diagnosis: Principal Status: Acute (3) Hypokalemia ICD Code: E87.6 - Hypokalemia Diagnosis: Principal Status: Acute (4) Generalized weakness ICD Code: R53.1 - Weakness Diagnosis: Principal (5) DM (diabetes mellitus) ICD Code: E11.9 - Type 2 diabetes mellitus without complications Diagnosis: Secondary Status: Acute (6) Tobacco abuse ICD Code: Z72.0 - Tobacco use Diagnosis: Principal Status: Acute Procedures None Brief History - From Admission This is a 76-year-old female with a PMH of HTN, Hyperlipidemia, COPD, O2 Dependent, h/o CVA, DM and Tobacco Abuse who is brought here by EMS secondary to complaints of SOB and generalized weakness x3 days. Denies fever, chills or cough. Reports increasing difficulty w/ ambulation secondary to SOB in addition to intermittent episodes of chest pain. On arrival, BP 119/58, HR 71, O2 sat 91% on 3L NC, Afebrile. CBC essentially unremarkable. K+ 3.3. GFR 63. Trop negative. INR 0.9. CXR with mild left base consolidation. S/p Levaquin /Cefepime and DuoNeb in ER w/ some improvement. CBC/BMP: 04/24/17 1310 Significant Findings Laboratory Tests Test 04/24/17 13:10 Blood Urea Nitrogen 39 MG/DL (7-18) Random Glucose 163 MG/DL (74-106) Sodium Level 128 MEQ/L (136-145) Chloride Level 77 MEQ/L (98-107) Carbon Dioxide Level 41.6 MEQ/L (21.0-32.0) Estimat Glomerular Filtration Rate 58 ML/MIN (>89) Imaging Last Impressions Chest Ultrasound 04/21/17 0000 Signed Impressions: Service Date/Time: Friday, April 21, 2017 13:59 - CONCLUSION: Very small left-sided pleural effusion with approximate volume of 64 mL. There is insufficient volume for therapeutic thoracentesis. Jerzy Gonzalez MD Chest X-Ray 04/19/172017 Signed Impressions: Service Date/Time: Wednesday, April 19, 2017 20:59 - CONCLUSION: Mild left base consolidation. Mild compensated cardiomegaly. Prosper Sweeney MD PE at Discharge GENERAL: Elderly white female in no acute distress. HEENT: PERRLA, EOMI. No scleral icterus or conjunctival pallor. No lid lag or facial droop. CARDIOVASCULAR: Regular rate and rhythm. No obvious murmurs to auscultation. No chest tenderness to palpation. RESPIRATORY: Decreased breath sounds bilateral no wheezing or crackles GASTROINTESTINAL: Abdomen soft, non-tender, nondistended. BS normal. MUSCULOSKELETAL: Extremities without clubbing, cyanosis, or edema. No obvious deformities. NEUROLOGICAL: Awake, alert and oriented x4. No focal neurologic deficits. Moving both upper and lower extremities spontaneously. Hospital Course This is a 76-year-old female with a PMH of HTN, Hyperlipidemia, COPD, O2 Dependent, h/o CVA, DM and Tobacco Abuse who is brought here by EMS secondary to complaints of SOB and generalized weakness x3 days. Denies fever, chills or cough. Reports increasing difficulty w/ ambulation secondary to SOB in addition to intermittent episodes of chest pain. On arrival, BP 119/58, HR 71, O2 sat 91% on 3L NC, Afebrile. CBC essentially unremarkable. K+ 3.3. GFR 63. Trop negative. INR 0.9. CXR with mild left base consolidation. S/p Levaquin /Cefepime and DuoNeb in ER w/ some improvement. 04/22: stable in her bedroom, has elevated blood glucose levels, she is on Prednisone will try to discontinue this medicine and continue Bronchodilators, to improve her blood sugar level. she already received her dose for today. discussed with nurse. 04/23: Seen in her bedroom better Blood glucose level, today will discontinue her Scheduled insulin and Levemir given one dose of 5 units one dose only and follow during the day she is walking in the bedroom, no new complaint. 04/24: Stable in her bedroom, no nausea, vomit or diarrhea, stable respiratory pruett, okay to discharge to SNF today. 04/25: Seen in her bedroom, no nausea, vomit or diarrhea, okay to discharge today. Assessment and Plan 1. Shortness of breath - COPD exacerbation - improving - pro-calcitonin is within normal limits, Off antibiotics. continue bronchodilator, Mucolytic and incentive spirometry, on hold Prednisone due to severe uncontrol of Diabetes. today improving she is walking in the room, no complaint, okay to discharge Home. 2. MSK CP - pain control 3. COPD: Chronic Respiratory Failure - back to baseline O2 of 3L, continue Bronchodilator, Mucolytic and incentive spirometry she states she uses Oxygen for the last seven years. 4. Pleural effusion -IV diuresis twice a day, will send for ultrasound guided thoracentesis evaluation today - too little to drain 5. Hyponatremia worsening 6. Generalized Weakness: likely secondary to acute respiratory issues/ deconditioning. Physical therapy recommended for Home with [facility]. 7. DM: better control today, discontinued scheduled insulin, given Levemir 5 units and medium sliding scale, off steroids. DVT Prophylaxis: Lovenox Discharge Planning Discharge to SNF today. Pt Condition on Discharge: Good Discharge Disposition: Disch w/ Home Health Serv Discharge Time: > 30 minutes Discharge Instructions DIET: Follow Instructions for: Heart Healthy Diet Activities you can perform: Regular-No Restrictions Other Activity Instructions: Follow PT recommendations in SNF. Carlos Mendoza MD Apr 25, 2017 10:04
[2017-04-25 11:48] LABS: BICARBONATE 38.8 MEQ/L (21.0-32.0); POTASSIUM 3.1 MEQ/L (3.5-5.1)
[2017-04-25 12:13] VITALS: BP 97/52; PULSE 82; RESP 20; TEMP 97.5; O2SAT 90
== END 2017-04-25 16:00 | DRG 190 ==
LOC: NEPC 19:51 → NEDA 23:44 → N05A 04-20 01:31
PROVIDERS: ADMIT Internal Medicine; ATTEND Internal Medicine
DX: J44.1 Chronic obstructive pulmonary disease with (acute) exacerbation (principal); J18.1 Lobar pneumonia, unspecified organism; J90 Pleural effusion, not elsewhere classified; J96.10 Chronic respiratory failure, unspecified whether with hypoxia or hypercapnia; E11.65 Type 2 diabetes mellitus with hyperglycemia; Z99.81 Dependence on supplemental oxygen; E87.1 Hypo-osmolality and hyponatremia; E78.5 Hyperlipidemia, unspecified; E87.6 Hypokalemia; I10 Essential (primary) hypertension; J44.0 Chronic obstructive pulmonary disease with (acute) lower respiratory infection; K21.9 Gastro-esophageal reflux disease without esophagitis; F17.200 Nicotine dependence, unspecified, uncomplicated; Z79.4 Long term (current) use of insulin; Z86.73 Personal history of transient ischemic attack (TIA), and cerebral infarction without residual deficits
CPT/HCPCS: 71010; 76604; 80048; 80053; 81001; 82550; 82552; 82948; 83880; 84145; 84484; 85025; 85610; 85730; 87077; 87086; 87186; 90471; 90686; 93005; 94150; 94620; 94640; 94664; 99285; G0008; J0692; J1815; J1940; J1956; J2405; J2920; J2930; J7512; Q2038

== ENCOUNTER 2017-10-18 15:57 | Observation (INO) | payer MEDICARE, OTHER ==
[~2017-10-18] VITALS: Ht 167.6 cm; Wt 75.0 kg
[~2017-10-18 15:57] MED LIST changes: +ASPI-183 PO; -ASPI325T PO; -HYDR-3288 PO; +HYDR-3580 PO; +NITR100C4 PO; -OMEP20TA PO; +OMEP20TA93 PO; +SIMV80TA PO; +SODI1TAB PO; -TRAM50TA PO; +guaiFENesin ER PO
[2017-10-18 16:24] VITALS: BP 132/66; PULSE 82; RESP 16; TEMP 98.5; O2SAT 93
[2017-10-18] MEDS ORDERED: SODIUM CHLORIDE 0.9% FLUSH 10 ML FLUSH IVF PRN (18:45)
[2017-10-18] MEDS ORDERED: ACETAMINOPHEN/HYDROcodone 325 MG/5 MG TAB PO ONE (19:45)
[2017-10-18] MEDS ORDERED: LEVOFLOXACIN 750 MG PREMIX INJ 150 ML IV ONE (19:45)
--- NOTE | 2017-10-18 19:56 | PD ---
HPI Chief Complaint: Respiratory Symptoms Time Seen by Provider: 19:40 Travel History International Travel<30 days: No Contact w/Intl Traveler<30days: No Traveled to known affect area: No History of Present Illness HPI Patient is a 77-year-old female with a history of heart disease presents emergency department for evaluation of probable pneumonia. She also has a history of COPD and is on home oxygen. According to her home health nurse her saturations around 70s prior to arrival while she was on oxygen. Patient states she has been cough and congested for the past few days. She went saw her electronic funds transfer coordinator Dr. Wei who stated that she appeared as though she had pneumonia and referred her to the emergency department. Symptoms moderate, context as above, duration as above, associated signs symptoms as above PFSH Past Medical History Hx Anticoagulant Therapy: Yes Arthritis: Yes Asthma: Yes Heart Rhythm Problems: No Cancer: No Cardiovascular Problems: Yes High Cholesterol: Yes Chest Pain: No Congestive Heart Failure: No COPD: Yes Cerebrovascular Accident: Yes (CVA X 3) Diabetes: Yes Patient Takes Glucophage: Yes Diminished Hearing: No Endocrine: Yes Gastrointestinal Disorders: Yes GERD: Yes Genitourinary: No Headaches: No Hiatal Hernia: Yes Hypertension: Yes Immune Disorder: No Musculoskeletal: Yes (DEGENERATIVE DISK DISEASE, stenosis) Neurologic: Yes Psychiatric: No Reproductive: No Respiratory: Yes Migraines: No Pneumonia: Yes Seizures: Yes (20 years ago) Sleep Apnea: No Thyroid Disease: Yes Ulcer: No Tetanus Vaccination: Unknown Influenza Vaccination: No Menopausal: Yes Past Surgical History Abdominal Surgery: Yes (LAP ) AICD: No Appendectomy: Yes Arteriovenous Shunt: No Cholecystectomy: Yes Genitourinary Surgery: Yes (BLADDER SURGERY) Hysterectomy: Yes Insulin Pump: No Joint Replacement: Yes Neurologic Surgery: Yes (NECK AND BACK FUSIONS) Pacemaker: No Social History Alcohol Use: No Tobacco Use: Yes (4 CIGARETTES/DAY) Substance Use: No Allergies-Medications (Allergen,Severity, Reaction): Coded Allergies: penicillin G (Unverified Allergy, Severe, Swelling, 10/18/17) *MDRO Multi-Drug Resistant Organism (Verified Adverse Reaction, Unknown, ) ESBL+E.Coli (urine-03/28/16), 04/2016 Reported Meds & Prescriptions Reported Meds & Active Scripts Active Sodium Chloride 1 Gram Tab 1 Gm PO TID [guaiFENesin ER] 600 MG Tabcr 600 Mg PO BID Valium (Diazepam) 5 Mg Tab 5 Mg PO TID PRN Hydrocodone-Acetaminophen 7.5-325 mg Tab 1 Tab PO Q4H PRN DO NOT USE THIS MEDICINE IF YOU WILL DRIVE A CAR OR USE A MACHINE, ONLY USE IT WHEN RESTING AT HOME. Nitrofurantoin Monohydrate Macrocrystals (Nitrofurantoin Monoh/Nitrofur Macro) 100 Mg Cap 100 Mg PO BIDPC Reported Simvastatin 80 Mg Tab 80 Mg PO DAILY Lantus Inj (Insulin Glargine) 100 Unit/Ml Inj SQ BIDAC PER SLIDING SCALE Aldactone (Spironolactone) 25 Mg Tab 25 Mg PO DAILY Metformin (Metformin HCl) 500 Mg Tab 500 Mg PO BID With meals Omeprazole 20 Mg Tab 20 Mg PO DAILY Lasix (Furosemide) 40 Mg Tab 80 Mg PO DAILY PRN Anoro Ellipta Inh (Umeclidinium/Vilanterol) 62.5-25 Mcg/Act Aero 1 Puff INH DAILY Levothyroxine (Levothyroxine Sodium) 150 Mcg Tab 180 Mcg PO DAILY Gabapentin 300 Mg Cap 300 Mg PO BID Mirapex (Pramipexole Dihydrochloride) 1 Mg Tab 1 Mg PO Q6HR Tricor (Fenofibrate) 48 Mg Tab 48 Mg PO DAILY Tke with food. Cymbalta DR (Duloxetine HCl) 60 Mg Capdr 60 Mg PO BID Aspirin 325 Mg Tab 325 Mg PO DAILY Review of Systems Except as stated in HPI: all other systems reviewed are Neg Physical Exam Narrative GENERAL: Well-developed, elderly female in no obvious distress. SKIN: Focused skin assessment warm/dry. HEAD: Atraumatic. Normocephalic. EYES: Pupils equal and round. No scleral icterus. No injection or drainage. ENT: No nasal bleeding or discharge. Mucous membranes pink and moist. TMs clear bilaterally, oropharynx clear moist per NECK: Trachea midline. No JVD. CARDIOVASCULAR: Regular rate and rhythm. No murmur appreciated. RESPIRATORY: No accessory muscle use. Clear to auscultation. Breath sounds equal bilaterally. Decreased aeration but no wheezes rales or rhonchi heard. Speaks in full sentences, mildly tachypneic GASTROINTESTINAL: Abdomen soft, non-tender, nondistended. Hepatic and splenic margins not palpable. MUSCULOSKELETAL: No obvious deformities. No clubbing. No cyanosis. No edema. NEUROLOGICAL: Awake and alert. No obvious cranial nerve deficits. Motor grossly within normal limits. Normal speech. PSYCHIATRIC: Appropriate mood and affect; insight and judgment normal. Data Data Last Documented VS Vital Signs Date Time Temp Pulse Resp B/P (MAP) Pulse Ox O2 Delivery O2 Flow Rate FiO2 10/18/17 22:21 71 20 142/65 (90) 94 Nasal Cannula 3.00 10/18/17 16:24 98.5 Orders Orders Chest, Pa & Lat (10/18/17 ) Complete Blood Count With Diff (10/18/17 18:35) Comprehensive Metabolic Panel (10/18/17 18:35) B-Type Natriuretic Peptide (10/18/17 18:35) Magnesium (Mg) (10/18/17 18:35) Iv Access Insert/Monitor (10/18/17 18:35) Ecg Monitoring (10/18/17 18:35) Oximetry (10/18/17 18:35) Oxygen Administration (10/18/17 18:35) Sodium Chloride 0.9% Flush (Ns Flush) (10/18/17 18:45) Electrocardiogram (10/18/17 ) Levofloxacin 750 Mg Premix Inj (Levaquin (10/18/17 19:45) Blood Culture (10/18/17 19:41) Acetamin-Hydrocod 325-5 Mg (Howard 5-325 (10/18/17 19:45) Troponin I (10/18/17 19:45) Influenzae A/B Antigen (10/18/17 20:24) Arterial Blood Gas (Abg) (10/18/17 ) Albuterol-Ipratropium Neb (Duoneb Neb) (10/18/17 22:30) Methylprednisolone So Succ Inj (Solumedr (10/18/17 22:30) Admit Order (Ed Use Only) (10/18/17 ) Labs Laboratory Tests Test 10/18/17 19:45 10/18/17 20:35 White Blood Count 8.6 TH/MM3 Red Blood Count 4.13 MIL/MM3 Hemoglobin 11.4 GM/DL Hematocrit 34.2 % Mean Corpuscular Volume 82.8 FL Mean Corpuscular Hemoglobin 27.6 PG Mean Corpuscular Hemoglobin Concent 33.3 % Red Cell Distribution Width 17.1 % Platelet Count 374 TH/MM3 Mean Platelet Volume 6.6 FL Neutrophils (%) (Auto) 65.9 % Lymphocytes (%) (Auto) 23.2 % Monocytes (%) (Auto) 8.0 % Eosinophils (%) (Auto) 2.2 % Basophils (%) (Auto) 0.7 % Neutrophils # (Auto) 5.6 TH/MM3 Lymphocytes # (Auto) 2.0 TH/MM3 Monocytes # (Auto) 0.7 TH/MM3 Eosinophils # (Auto) 0.2 TH/MM3 Basophils # (Auto) 0.1 TH/MM3 CBC Comment DIFF FINAL Differential Comment Blood Urea Nitrogen 18 MG/DL Creatinine 0.83 MG/DL Random Glucose 158 MG/DL Total Protein 7.5 GM/DL Albumin 3.3 GM/DL Calcium Level 9.3 MG/DL Magnesium Level 1.8 MG/DL Alkaline Phosphatase 95 U/L Aspartate Amino Transf (AST/SGOT) 12 U/L Alanine Aminotransferase (ALT/SGPT) 17 U/L Total Bilirubin 0.2 MG/DL Sodium Level 139 MEQ/L Potassium Level 4.2 MEQ/L Chloride Level 101 MEQ/L Carbon Dioxide Level 31.1 MEQ/L Anion Gap 7 MEQ/L Estimat Glomerular Filtration Rate 67 ML/MIN Troponin I LESS THAN 0.02 NG/ML B-Type Natriuretic Peptide 20 PG/ML Blood Gas Puncture Site LT RADIAL Blood Gas Patient Temperature 98.6 Blood Gas HCO3 29 mmol/L Blood Gas Base Excess 4.0 mmol/L Blood Gas Oxygen Saturation 85 % Arterial Blood pH 7.33 Arterial Blood Partial Pressure CO2 57 mmHg Arterial Blood Partial Pressure O2 58 mmHG Arterial Blood Oxygen Content 12.8 Vol % Arterial Blood Carboxyhemoglobin 3.6 % Arterial Blood Methemoglobin 0.6 % Blood Gas Hemoglobin 10.7 G/DL Oxygen Delivery Device NASAL CANNULA Blood Gas Liter Flow 2.5 L/M [facility] Medical Decision Making Medical Screen Exam Complete: Yes Emergency Medical Condition: Yes Differential Diagnosis Pneumonia, COPD exacerbation, hypoxia, hypercapnia. Narrative Course With history suggestive of pneumonia the patient was started on Levaquin shortly after my exam, her chest x-ray showed some fibrosis but no obvious consolidation or effusion. Saturating fairly low on her home 2 L nasal cannula , she was bumped to 3 L and was satting about 91-92. She was ambulated around the emergency department and her sats dropped 79 on the 3 L nasal cannula. She is given steroids, DuoNeb. Discussed with Dr. Mclaughlin for admission for COPD exacerbation. Her ABG showed chronic respiratory acidosis Diagnosis Primary Impression: COPD exacerbation Additional Impression: Chronic respiratory acidosis Admitting Information Admitting Physician Requests: Observation Condition: Stable Dilan Banks MD Oct 18, 2017 19:56
[2017-10-18 20:04] VITALS: BP 113/58; PULSE 82; RESP 24; O2SAT 98
[2017-10-18 20:05] LABS: AUTOMATED NEUTROPHIL # 5.6 TH/MM3 (1.8-7.7); BASOPHIL # 0.1 TH/MM3 (0-0.2); BASOPHIL % 0.7 % (0.0-2.0); EOSINOPHIL # 0.2 TH/MM3 (0-0.4); EOSINOPHIL % 2.2 % (0.0-4.0); HEMATOCRIT 34.2 % (35.0-46.0); HEMOGLOBIN 11.4 GM/DL (11.6-15.3); LYMPH % 23.2 % (9.0-44.0); MEAN CELL VOLUME 82.8 FL (80.0-100.0); MEAN CORPUSCULAR HEMOGLOBIN 27.6 PG (27.0-34.0); MEAN CORPUSCULAR HGB CONC 33.3 % (32.0-36.0); MEAN PLATELET VOLUME 6.6 FL (7.0-11.0); MONOCYTE # 0.7 TH/MM3 (0-0.9); NEUT % 65.9 % (16.0-70.0); PLATELET COUNT 374 TH/MM3 (150-450); RED BLOOD COUNT 4.13 MIL/MM3 (4.00-5.30); RED CELL DISTRIBUTION WIDTH 17.1 % (11.6-17.2); WHITE BLOOD COUNT 8.6 TH/MM3 (4.0-11.0)
--- NOTE | 2017-10-18 20:15 | RADRPT ---
EXAM DATE/TIME: 10/18/2017 19:25 [place] COMPARISON: CHEST SINGLE AP, April 19, 2017, 20:59. CHEST SINGLE AP, February 28, 2017, 11:32. CHEST SINGLE AP, November 26, 2016, 11:30. INDICATIONS : Shortness of breath and chest pain. MEDICAL HISTORY : Hypercholesterolemia. Hypertension. Hernia, hiatal. COPD. Asthma. Seizures. cerebrovascular accident. SURGICAL HISTORY : Cholecystectomy. Hysterectomy. Appendectomy. ENCOUNTER: Initial ACUITY: 1 day PAIN SCORE: 3/10 LOCATION: Bilateral chest FINDINGS: Mild to moderate chronic interstitial changes again seen of both mid and lower lungs. No acute infilt rate demonstrated. No perceptible pleural effusion. No pneumothorax. Heart size stable, upper limits of normal. CONCLUSION: No acute abnormality demonstrated. Chronic interstitial opacities of both lungs. Prosper Sweeney MD on October 18, 2017 at 20:12 Board Certified Radiologist. This report was verified electronically.
[2017-10-18 20:18] VITALS: RESP 18; O2SAT 98
[2017-10-18 20:25] LABS: ALBUMIN 3.3 GM/DL (3.4-5.0); AST (GOT) 12 U/L (15-37); BICARBONATE 31.1 MEQ/L (21.0-32.0); BLOOD UREA NITROGEN 18 MG/DL (7-18); CALCIUM 9.3 MG/DL (8.5-10.1); CHLORIDE 101 MEQ/L (98-107); CREATININE 0.83 MG/DL (0.50-1.00); GLOMERULAR FILTRATION RATE 67 ML/MIN (>89); GLUCOSE,RANDOM 158 MG/DL (74-106); MAGNESIUM 1.8 MG/DL (1.5-2.5); SODIUM (NA) 139 MEQ/L (136-145)
[2017-10-18 20:30] LABS: ALKALINE PHOSPHATASE 95 U/L (45-117); ALT (GPT) 17 U/L (10-53); TOTAL BILIRUBIN ADULT 0.2 MG/DL (0.2-1.0); TOTAL PROTEIN 7.5 GM/DL (6.4-8.2); TROPONIN I LESS THAN 0.02 NG/ML (0.02-0.05)
[2017-10-18 22:21] VITALS: BP 142/65; PULSE 71; RESP 20; O2SAT 79; O2SAT 94
[2017-10-18] MEDS ORDERED: RESP: ALBUTEROL 2.5 MG/IPRATROPIUM 0.5 MG NEB (SCH) NEB ONE (22:30)
[2017-10-18] MEDS ORDERED: methylPREDNISolone SOD SUCC 125 MG/2 ML VIAL IV PUSH ONE (22:30)
[2017-10-18 23:00] VITALS: O2SAT 93
[2017-10-18] MEDS ORDERED: RESP: ALBUTEROL 2.5 MG/IPRATROPIUM 0.5 MG NEB (PRN) NEB (23:00)
[2017-10-18] MEDS ORDERED: NALOXONE HCL 0.4 MG/ML AMP IV PUSH PRN (23:00)
[2017-10-18] MEDS ORDERED: ONDANSETRON HCL 4 MG/2 ML VIAL IVP PRN (23:00)
[2017-10-18] MEDS: HEPARIN SODIUM - SQ 10,000 UNITS/ML VIAL SQ SCH (23:15)
[2017-10-18] MEDS: RESP: ALBUTEROL 2.5 MG/IPRATROPIUM 0.5 MG NEB (SCH) NEB (23:46)
[2017-10-18 23:57] VITALS: BP_SYST 113; BP_SYST 143; BP_DIAS 52; BP_DIAS 61; PULSE 72; PULSE 83; RESP 18; RESP 20; TEMP 97.4; O2SAT 91; O2SAT 95
--- NOTE | 2017-10-19 02:42 | HHI.HP ---
HPI Service [facility] Primary Care Physician Non-Staff Admission Diagnosis Hypoxic respiratory failure, COPD exacerbation. Diagnoses: Travel History International Travel<30 Days: No Contact w/Intl Traveler <30 Da: No Traveled to Known Affected Are: No History of Present Illness 77-year-old female with a past medical history significant for COPD on 3 L nasal cannula at home, type 2 diabetes mellitus, restless leg syndrome, hypertension, hyperlipidemia and hypothyroidism resents to the emergency department with new onset weakness, shortness of breath and cough. The patient reports she has had fever/chills and a cough productive of green sputum. She endorses accompanying weakness and shortness of breath. She was seen by her new psychiatric lpn earlier today and sent to the emergency department for evaluation of possible pneumonia. She denies any chest pain. Her shortness of breath is worse with exertion. Denies any nausea/vomiting/diarrhea. No lateralizing signs/symptoms. Review of Systems Except as stated in HPI: all other systems reviewed are Neg Past Family Social History Past Medical History COPD Diabetes mellitus Restless leg syndrome Hypertension Hyperlipidemia Hypothyroidism Past Surgical History Vasectomy Spinal fusion 7 Right carpal tunnel release 3 Appendectomy Hysterectomy Reported Medications Reported Meds & Active Scripts Active Sodium Chloride 1 Gram Tab 1 Gm PO TID [guaiFENesin ER] 600 MG Tabcr 600 Mg PO BID Valium (Diazepam) 5 Mg Tab 5 Mg PO TID PRN Hydrocodone-Acetaminophen 7.5-325 mg Tab 1 Tab PO Q4H PRN DO NOT USE THIS MEDICINE IF YOU WILL DRIVE A CAR OR USE A MACHINE, ONLY USE IT WHEN RESTING AT HOME. Nitrofurantoin Monohydrate Macrocrystals (Nitrofurantoin Monoh/Nitrofur Macro) 100 Mg Cap 100 Mg PO BIDPC Reported Simvastatin 80 Mg Tab 80 Mg PO DAILY Lantus Inj (Insulin Glargine) 100 Unit/Ml Inj SQ BIDAC PER SLIDING SCALE Aldactone (Spironolactone) 25 Mg Tab 25 Mg PO DAILY Metformin (Metformin HCl) 500 Mg Tab 500 Mg PO BID With meals Omeprazole 20 Mg Tab 20 Mg PO DAILY Lasix (Furosemide) 40 Mg Tab 80 Mg PO DAILY PRN Anoro Ellipta Inh (Umeclidinium/Vilanterol) 62.5-25 Mcg/Act Aero 1 Puff INH DAILY Levothyroxine (Levothyroxine Sodium) 150 Mcg Tab 180 Mcg PO DAILY Gabapentin 300 Mg Cap 300 Mg PO BID Mirapex (Pramipexole Dihydrochloride) 1 Mg Tab 1 Mg PO Q6HR Tricor (Fenofibrate) 48 Mg Tab 48 Mg PO DAILY Tke with food. Cymbalta DR (Duloxetine HCl) 60 Mg Capdr 60 Mg PO BID Aspirin 325 Mg Tab 325 Mg PO DAILY Allergies: Coded Allergies: penicillin G (Unverified Allergy, Severe, Swelling, 10/18/17) *MDRO Multi-Drug Resistant Organism (Verified Adverse Reaction, Unknown, ) ESBL+E.Coli (urine-03/28/16), 04/2016 Family History Negative for CAD/DM Social History Continues to smoke 3-4 cigarettes daily. Denies alcohol, illicit drugs. Physical Exam Vital Signs Vital Signs Date Time Temp Pulse Resp B/P (MAP) Pulse Ox O2 Delivery O2 Flow Rate FiO2 10/18/17 23:57 10/18/17 23:57 72 18 143/61 (88) 95 Nasal Cannula 3.00 10/18/17 23:57 97.4 83 20 113/52 (72) 91 10/18/17 23:00 93 Nasal Cannula 3.00 10/18/17 22:21 71 20 142/65 (90) 94 Nasal Cannula 3.00 10/18/17 22:21 20 79 Nasal Cannula 3.00 10/18/17 20:18 18 98 Nasal Cannula 2.00 10/18/17 20:05 98 Nasal Cannula 2.00 10/18/17 20:04 82 24 113/58 (76) 98 Nasal Cannula 2.00 10/18/17 16:24 98.5 82 16 132/66 (88) 93 Physical Exam GENERAL: female lying in bed SKIN: No rashes, ecchymoses or lesions. Cool and dry. HEAD: Atraumatic. Normocephalic. No temporal or scalp tenderness. EYES: Pupils equal round and reactive. Extraocular motions intact. No scleral icterus. No injection or drainage. ENT: Nose without bleeding, purulent drainage or septal hematoma. Throat without erythema, tonsillar hypertrophy or exudate. Uvula midline. Airway patent. NECK: Trachea midline. No JVD or lymphadenopathy. Supple, nontender, no meningeal signs. CARDIOVASCULAR: Regular rate and rhythm without murmurs, gallops, or rubs. RESPIRATORY: Clear to auscultation. Breath sounds equal bilaterally. No wheezes , rales, or rhonchi. GASTROINTESTINAL: Abdomen soft, non-tender, nondistended. No hepato-splenomegaly , or palpable masses. No guarding. MUSCULOSKELETAL: Extremities without clubbing, cyanosis, or edema. No joint tenderness, effusion, or edema noted. No calf tenderness. NEUROLOGICAL: Awake and alert. Cranial nerves II through XII intact. Motor and sensory grossly within normal limits. Normal speech. Laboratory Laboratory Tests Test 10/18/17 19:45 10/18/17 20:35 White Blood Count 8.6 Red Blood Count 4.13 Hemoglobin 11.4 Hematocrit 34.2 Mean Corpuscular Volume 82.8 Mean Corpuscular Hemoglobin 27.6 Mean Corpuscular Hemoglobin Concent 33.3 Red Cell Distribution Width 17.1 Platelet Count 374 Mean Platelet Volume 6.6 Neutrophils (%) (Auto) 65.9 Lymphocytes (%) (Auto) 23.2 Monocytes (%) (Auto) 8.0 Eosinophils (%) (Auto) 2.2 Basophils (%) (Auto) 0.7 Neutrophils # (Auto) 5.6 Lymphocytes # (Auto) 2.0 Monocytes # (Auto) 0.7 Eosinophils # (Auto) 0.2 Basophils # (Auto) 0.1 CBC Comment DIFF FINAL Differential Comment Blood Urea Nitrogen 18 Creatinine 0.83 Random Glucose 158 Total Protein 7.5 Albumin 3.3 Calcium Level 9.3 Magnesium Level 1.8 Alkaline Phosphatase 95 Aspartate Amino Transf (AST/SGOT) 12 Alanine Aminotransferase (ALT/SGPT) 17 Total Bilirubin 0.2 Sodium Level 139 Potassium Level 4.2 Chloride Level 101 Carbon Dioxide Level 31.1 Anion Gap 7 Estimat Glomerular Filtration Rate 67 Troponin I LESS THAN 0.02 B-Type Natriuretic Peptide 20 Blood Gas Puncture Site LT RADIAL Blood Gas Patient Temperature 98.6 Blood Gas HCO3 29 Blood Gas Base Excess 4.0 Blood Gas Oxygen Saturation 85 Arterial Blood pH 7.33 Arterial Blood Partial Pressure CO2 57 Arterial Blood Partial Pressure O2 58 Arterial Blood Oxygen Content 12.8 Arterial Blood Carboxyhemoglobin 3.6 Arterial Blood Methemoglobin 0.6 Blood Gas Hemoglobin 10.7 Oxygen Delivery Device NASAL CANNULA Blood Gas Liter Flow 2.5 Date/Time Source Procedure Growth Status 10/18/17 19:45 Blood Peripheral Aerobic Blood Culture Pending Received 10/18/17 19:45 Blood Peripheral Anaerobic Blood Culture Pending Received 10/18/17 22:24 Nasal Washing Influenza Types A,B Antigen (CHRIS) - Final NEGATIVE FOR FLU A AND B ANTIGEN.... Complete Result Diagram: 10/18/17194410/18/171944 Caprini VTE Risk Assessment Caprini VTE Risk Assessment: Mod/High Risk (score >= 2) Caprini Risk Assessment Model Point Value = 1 Point Value = 2 Point Value = 3 Point Value = 5 Age 41-60 Minor surgery BMI > 25 kg/m2 Swollen legs Varicose veins or History of unexplained or recurrent spontaneous Oral contraceptives or hormone replacement Sepsis (< 1 month) Serious lung disease, including pneumonia (< 1 month) Abnormal pulmonary function Acute myocardial infarction Congestive heart failure (< 1 month) History of inflammatory bowel disease Medical patient at bed rest Age 61-74 Arthroscopic surgery Major open surgery (> 45 min) Laparoscopic surgery (> 45 min) Malignancy Confined to bed (> 72 hours) Immobilizing plaster cast Central venous access Age >= 75 History of VTE Family history of VTE Factor V Leiden Prothrombin [id number] Lupus anticoagulant Anticardiolipin antibodies Elevated serum homocysteine Heparin-induced thrombocytopenia Other congenital or acquired thrombophilia Stroke (< 1 month) Elective arthroplasty Hip, pelvis, or leg fracture Acute spinal cord injury (< 1 month) Prophylaxis Regimen Total Risk Factor Score Risk Level Prophylaxis Regimen 0-1 Low Early ambulation 2 Moderate Order ONE of the following: *Sequential Compression Device (SCD) *Heparin 5000 units SQ BID 3-4 Higher Order ONE of the following medications: *Heparin 5000 units SQ TID *Enoxaparin/Lovenox 40 mg SQ daily (WT < 150 kg, CrCl > 30 mL/min) *Enoxaparin/Lovenox 30 mg SQ daily (WT < 150 kg, CrCl > 10-29 mL/min) *Enoxaparin/Lovenox 30 mg SQ BID (WT < 150 kg, CrCl > 30 mL/min) AND/OR *Sequential Compression Device (SCD) 5 or more Highest Order ONE of the following medications: *Heparin 5000 units SQ TID (Preferred with Epidurals) *Enoxaparin/Lovenox 40 mg SQ daily (WT < 150 kg, CrCl > 30 mL/min) *Enoxaparin/Lovenox 30 mg SQ daily (WT < 150 kg, CrCl > 10-29 mL/min) *Enoxaparin/Lovenox 30 mg SQ BID (WT < 150 kg, CrCl > 30 mL/min) AND *Sequential Compression Device (SCD) Assessment and Plan Assessment and Plan Assessment/plan: 1. COPD exacerbation Chest x-ray negative for acute disease, chronic interstitial opacities bilaterally, personally reviewed Given increasing cough, shortness of breath, increase in purulent sputum and fevers continue Levaquin IV steroids DuoNeb's Supplemental oxygen Anticipate discharge later today 2. Diabetes mellitus Holding home oral anti-hyperglycemics Sliding scale insulin Monitor blood glucose 3. Hypertension/hyperlipidemia/restless leg/hypothyroidism Continue home medications once reconciled FEN Heart healthy diet Electrolytes: Monitor and replete when necessary Heparin America Mclaughlin MD Oct 19, 2017 02:42
[2017-10-19] MEDS ORDERED: GLUCAGON 1 MG/ML VIAL OTHER PRN (02:45)
[2017-10-19] MEDS ORDERED: DEXTROSE 50% IN WATER 50 ML VIAL(D50) IV PUSH PRN (02:45)
[2017-10-19] MEDS: RESP: ALBUTEROL 2.5 MG/IPRATROPIUM 0.5 MG NEB (SCH) NEB ×3 (03:12→12:00)
[2017-10-19] MEDS ORDERED: ACETAMINOPHEN/HYDROcodone 325 MG/10 MG TAB PO PRN (05:00)
[2017-10-19] MEDS: methylPREDNISolone SOD SUCC 40 MG/1 ML VIAL IV PUSH SCH ×3 (05:00→12:00)
[2017-10-19] MEDS ORDERED: ACETAMINOPHEN/HYDROcodone 325 MG/5 MG TAB PO PRN (05:00)
[2017-10-19] MEDS: HEPARIN SODIUM - SQ 10,000 UNITS/ML VIAL SQ SCH (07:00)
[2017-10-19 07:35] VITALS: O2SAT 94
[2017-10-19 08:00] VITALS: BP 121/77; PULSE 88; RESP 20; TEMP 97.1; O2SAT 93
[2017-10-19] MEDS: INSULIN ASPART SUPPLEMENTAL SCALE SQ SCH ×2 (08:00→12:00)
[2017-10-19] MEDS ORDERED: PANTOPRAZOLE SOD 20 MG DELAYED RELEASE TAB PO SCH (09:00)
[2017-10-19] MEDS ORDERED: LEVA750T9 PO (10:33)
[2017-10-19] MEDS ORDERED: PRED20 PO (10:33)
--- NOTE | 2017-10-19 10:34 | HHI.DCPOC ---
Discharge Care Plan Diagnosis: (1) COPD (chronic obstructive pulmonary disease) (2) Tobacco abuse (3) Hypothyroidism (4) GERD (gastroesophageal reflux disease) (5) DM (diabetes mellitus) (6) Hyperlipidemia (7) Hypertension Your Health Problems Are: Anxiety Inflammation Shortness of Breath Goals to Promote Your Health * To prevent worsening of your condition and complications * To maintain your health at the optimal level Directions to Meet Your Goals Take your medications as prescribed Follow your dietary instruction Follow activity as directed Keep your appointments as scheduled Take your immunizations and boosters as scheduled If your symptoms worsen call your PCP, if no PCP go to Urgent Care Center or Emergency Room Smoking is Dangerous to Your Health. Avoid second hand smoke Call the 24-hour hour crisis hotline for domestic abuse at Dana Mcknight Oct 19, 2017 10:34 am
--- NOTE | 2017-10-19 10:34 | HHI.PR ---
Subjective Remarks Follow-up visit COPD exacerbation, chronic O2 use, DM 2, HTN. Patient seen and examined today sitting in bed. Reports she is doing a lot better. States that her shortness of breath and dyspnea have improved. States that her generalized weakness has improved. She was able to walk with physical therapy in the hallway with oxygen without any problem. States that when she came in yesterday she is unable to even move around but now she is able to dress herself. Requesting to go home. States that she follows up with home MD that visits her at home and the mixing tumbler operator. States that she already has nebulizer , oxygen and other equipment at home that she would need. Denies pain and discomfort. Denies chest pain, palpitations, headaches, dizziness. Denies fevers, chills, n/v/d. Denies dysuria. Objective Vitals Vital Signs Date Time Temp Pulse Resp B/P (MAP) Pulse Ox O2 Delivery O2 Flow Rate FiO2 10/19/17 08:00 97.1 88 20 121/77 (92) 93 10/19/17 07:35 94 Nasal Cannula 3.00 10/18/17 23:57 10/18/17 23:57 72 18 143/61 (88) 95 Nasal Cannula 3.00 10/18/17 23:57 97.4 83 20 113/52 (72) 91 10/18/17 23:00 93 Nasal Cannula 3.00 10/18/17 22:21 71 20 142/65 (90) 94 Nasal Cannula 3.00 10/18/17 22:21 20 79 Nasal Cannula 3.00 10/18/17 20:18 18 98 Nasal Cannula 2.00 10/18/17 20:05 98 Nasal Cannula 2.00 10/18/17 20:04 82 24 113/58 (76) 98 Nasal Cannula 2.00 10/18/17 16:24 98.5 82 16 132/66 (88) 93 I/O 10/18/17 10/18/17 10/18/17 10/19/17 10/19/17 10/19/17 07:00 15:00 23:00 07:00 15:00 23:00 Intake Total 150 ml 480 ml Balance 150 ml 480 ml Intake Oral 480 ml IV Total 150 ml # Voids 2 # Bowel Movements 1 Result Diagram: 10/18/17194410/18/171944 Imaging Last Impressions Chest X-Ray 10/18/17 0000 Signed Impressions: Service Date/Time: Wednesday, October 18, 2017 19:25 - CONCLUSION: No acute abnormality demonstrated. Chronic interstitial opacities of both lungs. Prosper Sweeney MD Objective Remarks GENERAL: This is a well-nourished, well-developed patient, in no apparent distress. SKIN: Warm and dry. HEENT: Normocephalic. Pupils equal round and reactive. Nose without bleeding. Airway patent. NECK: Trachea midline. CARDIOVASCULAR: Regular rate and rhythm without murmurs, gallops, or rubs. RESPIRATORY: Diminished breath sounds, diffuse minimal wheezing. GASTROINTESTINAL: Abdomen soft, non-tender, protuberant. Bowel Sounds normoactive x4. MUSCULOSKELETAL: Extremities without clubbing, cyanosis, or edema. NEUROLOGICAL: Awake and alert. Oriented to time, place, person. No focal neuro deficit. Moves all extremities. Normal speech. A/P Problem List: (1) COPD exacerbation ICD Code: J44.1 - Chronic obstructive pulmonary disease with (acute) exacerbation Status: Acute (2) GERD (gastroesophageal reflux disease) ICD Code: K21.9 - Gastro-esophageal reflux disease without esophagitis Status: Chronic (3) Hypothyroidism ICD Code: E03.9 - Hypothyroidism, unspecified Status: Chronic (4) Tobacco abuse ICD Code: Z72.0 - Tobacco use Status: Chronic (5) COPD (chronic obstructive pulmonary disease) ICD Code: J44.9 - Chronic obstructive pulmonary disease, unspecified Status: Chronic (6) DM (diabetes mellitus) ICD Code: E11.9 - Type 2 diabetes mellitus without complications Status: Chronic (7) Hyperlipidemia ICD Code: E78.5 - Hyperlipidemia, unspecified Status: Chronic (8) Hypertension ICD Code: I10 - Essential (primary) hypertension Status: Chronic Assessment and Plan 77-year-old female with a past medical history significant for COPD on 3 L nasal cannula at home, type 2 diabetes mellitus, restless leg syndrome, hypertension, hyperlipidemia and hypothyroidism resents to the emergency department with new onset weakness, shortness of breath and cough. 1. COPD exacerbation Chest x-ray negative for acute disease, chronic interstitial opacities bilaterally, personally reviewed Given increasing cough, shortness of breath, increase in purulent sputum and fevers continue Levaquin, switch to PO when DC IV steroids, switch to PO when DC DuoNeb's Supplemental oxygen Continues to smoke 1-2 cigarettes per day, counseled regarding exacerbation of COPD with tobacco use even if it is 1-2 cigarettes. Counseled on using E cigarettes. Anticipate discharge later today 2. Diabetes mellitus Resume home oral anti-hyperglycemics when DC Sliding scale insulin Monitor blood glucose 3. Hypertension/hyperlipidemia/restless leg/hypothyroidism Continue home medications once reconciled FEN Heart healthy diet Electrolytes: Monitor and replete when necessary Heparin Discharge patient to home Condition on discharge: Improved Diabetic diet as tolerated Ad Amita activity Rx written: Levaquin 750 mg daily 7 days, prednisone 20 mg daily 7 days Continue all home medications including Mucinex twice daily Follow-up with primary care physician Follow-up with mixing tumbler operator Discharge Planning Plan to discharge home today Dana Mcknight Oct 19, 2017 10:34
[2017-10-19 10:48] LABS: AUTOMATED NEUTROPHIL # 10.1 TH/MM3 (1.8-7.7); BASOPHIL # 0.1 TH/MM3 (0-0.2); BASOPHIL % 0.5 % (0.0-2.0); HEMATOCRIT 36.5 % (35.0-46.0); HEMOGLOBIN 11.9 GM/DL (11.6-15.3); LYMPH % 6.2 % (9.0-44.0); LYMPHOCYTE # 0.7 TH/MM3 (1.0-4.8); MEAN CELL VOLUME 84.3 FL (80.0-100.0); MEAN CORPUSCULAR HEMOGLOBIN 27.4 PG (27.0-34.0); MEAN CORPUSCULAR HGB CONC 32.5 % (32.0-36.0); MEAN PLATELET VOLUME 6.9 FL (7.0-11.0); MONO % 0.8 % (0.0-8.0); MONOCYTE # 0.1 TH/MM3 (0-0.9); NEUT % 92.5 % (16.0-70.0); PLATELET COUNT 373 TH/MM3 (150-450); RED BLOOD COUNT 4.33 MIL/MM3 (4.00-5.30); RED CELL DISTRIBUTION WIDTH 17.1 % (11.6-17.2); WHITE BLOOD COUNT 10.9 TH/MM3 (4.0-11.0)
[2017-10-19 11:22] LABS: BICARBONATE 24.8 MEQ/L (21.0-32.0); CALCIUM 9.4 MG/DL (8.5-10.1); CREATININE 1.74 MG/DL (0.50-1.00)
[2017-10-19 12:00] VITALS: BP 152/69; PULSE 92; RESP 20; TEMP 97.6; O2SAT 96
[2017-10-19] MEDS ORDERED: ACETAMINOPHEN/HYDROcodone 325 MG/5 MG TAB PO ONE (13:45)
--- NOTE | 2017-10-19 16:28 | EKG ---
Date Performed: 10/18/2017 Time Performed: 20:10:17 PTAGE: 77 years EKG: Sinus rhythm NONSPECIFIC T-WAVE ABNORMALITY BORDERLINE ECG Compared to PREVIOUS TRACING , R-wave improved in V2 and T-wave changes have improved. PREVIOUS JESSEE N04/19/2017 20.32 DOCTOR: Corey Mathias Interpretating Date/Time 10/19/2017 16:27:48
[2017-10-19] MEDS ORDERED: LEVOFLOXACIN 750 MG PREMIX INJ 150 ML IV SCH (19:15)
== END 2017-10-19 15:22 | disposition home or self-care (01) ==
LOC: NEPE 15:57 → NEDA 22:37
PROVIDERS: ADMIT Hospitalist; ATTEND Hospitalist
DX: J44.1 Chronic obstructive pulmonary disease with (acute) exacerbation (principal); E87.2 Acidosis; J96.91 Respiratory failure, unspecified with hypoxia; I10 Essential (primary) hypertension; E78.00 Pure hypercholesterolemia, unspecified; E11.9 Type 2 diabetes mellitus without complications; E03.9 Hypothyroidism, unspecified; G25.81 Restless legs syndrome; K21.9 Gastro-esophageal reflux disease without esophagitis; F17.290 Nicotine dependence, other tobacco product, uncomplicated; M19.90 Unspecified osteoarthritis, unspecified site; Z79.899 Other long term (current) drug therapy; Z79.82 Long term (current) use of aspirin; Z79.4 Long term (current) use of insulin; Z99.81 Dependence on supplemental oxygen; Z86.73 Personal history of transient ischemic attack (TIA), and cerebral infarction without residual deficits
CPT/HCPCS: 36600; 71046; 80048; 80053; 82805; 82948; 83735; 83880; 84484; 85025; 87040; 87804; 93005; 94640; 94664; 96365; 96366; 96372; 96375; 96376; 97162; 99285; G0378; G8987; G8988; J1644; J1815; J1956; J2920; J2930

== ENCOUNTER 2017-12-11 09:00 | Emergency (ER) | payer MEDICARE, OTHER ==
[~2017-12-11] VITALS: Ht 165.1 cm; Wt 80.0 kg
[~2017-12-11 09:00] MED LIST changes: +LEVA750T9 PO; -NITR100C4 PO; +PRED20 PO
[2017-12-11 09:06] VITALS: BP 156/72; PULSE 90; RESP 20; TEMP 98.5; O2SAT 90
[2017-12-11] MEDS ORDERED: SODIUM CHLOR 0.9% 1000 ML INJ 1,000 ML IV SCH (09:13)
[2017-12-11 09:15] VITALS: RESP 16; O2SAT 92
[2017-12-11] MEDS ORDERED: MORPHINE SULFATE 4 MG/ML INJ IV PUSH ONE ×2 (09:15→14:45)
[2017-12-11] MEDS ORDERED: ONDANSETRON HCL 4 MG/2 ML VIAL IVP ONE ×2 (09:15→14:45)
[2017-12-11] MEDS ORDERED: metroNIDAZOLE 500 MG INJ 100 ML IV ONE (09:15)
--- NOTE | 2017-12-11 09:22 | PD ---
HPI Chief Complaint: Pain: Acute or Chronic Time Seen by Provider: 09:13 Travel History International Travel<30 days: No Contact w/Intl Traveler<30days: No Traveled to known affect area: No History of Present Illness HPI Patient comes in complaining of generalized body aches, diarrhea, some nausea and occasional vomiting. Abdomen is crampy in nature, nonradiating, 7 out of 10 , relieved with diarrheA. Patient is cared for with a home health nurse who recommended to come in and call 911. Patient denies any associated factors such as fever/rash/chest pain/flank pain, runny nose/cough/sore throat. Patient denies any alleviating or aggravating factors. Allergic to penicillin Patient medical history significant for hypothyroidism, CVA 3, seizure history , neck and back fusions, hypercholesterolemia, hypertension, COPD, appendectomy , cholecystectomy, GERD, hysterectomy, carpal tunnel surgery 3 on the right hand, diabetes, history of resistant E. coli ESBL PFSH Past Medical History Hx Anticoagulant Therapy: Yes Arthritis: Yes Asthma: Yes Depression: Yes Heart Rhythm Problems: No Cancer: No Cardiovascular Problems: Yes High Cholesterol: Yes Chest Pain: No Congestive Heart Failure: No COPD: Yes Cerebrovascular Accident: Yes (CVA X 3) Diabetes: Yes Patient Takes Glucophage: Yes Diminished Hearing: No Endocrine: Yes Gastrointestinal Disorders: Yes GERD: Yes Genitourinary: No Headaches: No Hiatal Hernia: Yes Hypertension: Yes Immune Disorder: No Musculoskeletal: Yes (DEGENERATIVE DISK DISEASE, stenosis) Neurologic: Yes Psychiatric: No Reproductive: No Respiratory: Yes Migraines: No Pneumonia: Yes Seizures: Yes Sleep Apnea: No Thyroid Disease: Yes Ulcer: No Menopausal: Yes Past Surgical History Abdominal Surgery: Yes AICD: No Appendectomy: Yes Arteriovenous Shunt: No Cholecystectomy: Yes Genitourinary Surgery: Yes (BLADDER SURGERY) Hysterectomy: Yes Insulin Pump: No Joint Replacement: Yes Neurologic Surgery: Yes (NECK AND BACK FUSIONS) Pacemaker: No Social History Alcohol Use: No Tobacco Use: Yes (4 CIGARETTES/DAY) Substance Use: No Allergies-Medications (Allergen,Severity, Reaction): Coded Allergies: penicillin G (Unverified Allergy, Severe, Swelling, 12/11/17) *MDRO Multi-Drug Resistant Organism (Verified Adverse Reaction, Unknown, ) ESBL+E.Coli (urine-03/28/16), 04/2016 Reported Meds & Prescriptions Reported Meds & Active Scripts Active Prednisone 20 Mg Tab 20 Mg PO BID 7 Days Levaquin (Levofloxacin) 750 Mg Tablet 750 Mg PO DAILY 7 Days Sodium Chloride 1 Gram Tab 1 Gm PO TID Valium (Diazepam) 5 Mg Tab 5 Mg PO TID PRN Hydrocodone-Acetaminophen 7.5-325 mg Tab 1 Tab PO Q4H PRN DO NOT USE THIS MEDICINE IF YOU WILL DRIVE A CAR OR USE A MACHINE, ONLY USE IT WHEN RESTING AT HOME. Reported Duoneb (Ipratropium-Albuterol Neb) 0.5-2.5 Mg/3 Ml Neb 1 Nebule INH Q4HR NEB Azelastine Nasal [place] (Azelastine HCl) 0.1% [place] 1 [place] EACH NARE BID Potassium Chloride ER (Potassium Chloride) 20 Meq Tab 20 Meq PO DAILY Simvastatin 80 Mg Tab 80 Mg PO DAILY Lantus Inj (Insulin Glargine) 100 Unit/Ml Inj SQ BIDAC PER SLIDING SCALE Aldactone (Spironolactone) 25 Mg Tab 25 Mg PO DAILY Metformin (Metformin HCl) 500 Mg Tab 500 Mg PO BID With meals Lasix (Furosemide) 40 Mg Tab 80 Mg PO DAILY PRN Anoro Ellipta Inh (Umeclidinium/Vilanterol) 62.5-25 Mcg/Act Aero 1 Puff INH DAILY Levothyroxine (Levothyroxine Sodium) 150 Mcg Tab 180 Mcg PO DAILY Gabapentin 300 Mg Cap 300 Mg PO BID Mirapex (Pramipexole Dihydrochloride) 1 Mg Tab 1 Mg PO Q6HR Tricor (Fenofibrate) 48 Mg Tab 48 Mg PO DAILY Tke with food. Cymbalta DR (Duloxetine HCl) 60 Mg Capdr 60 Mg PO BID Aspirin 325 Mg Tab 325 Mg PO DAILY Review of Systems General / Constitutional: No: Fever Eyes: No: Visual changes HENT: No: Headaches Cardiovascular: No: Chest Pain or Discomfort Respiratory: No: Shortness of Breath Gastrointestinal: Positive: Nausea, Diarrhea, Abdominal Pain Genitourinary: No: Dysuria Musculoskeletal: Positive: Myalgias Skin: No Rash Neurologic: No: Weakness Psychiatric: No: Depression Endocrine: No: Polydipsia Hematologic/Lymphatic: No: Easy Bruising Physical Exam Narrative GENERAL: SKIN: Warm and dry. HEAD: Atraumatic. Normocephalic. EYES: Pupils equal and round. No scleral icterus. No injection or drainage. ENT: No nasal bleeding or discharge. Mucous membranes pink and moist. NECK: Trachea midline. No JVD. CARDIOVASCULAR: Regular rate and rhythm. RESPIRATORY: No accessory muscle use. Clear to auscultation. Breath sounds equal bilaterally. GASTROINTESTINAL: Abdomen soft, non-tender, nondistended. MUSCULOSKELETAL: Extremities without clubbing, cyanosis, or edema. No obvious deformities. NEUROLOGICAL: Awake and alert. No obvious cranial nerve deficits. Motor grossly within normal limits. Five out of 5 muscle strength in the arms and legs. Normal speech. PSYCHIATRIC: Appropriate mood and affect; insight and judgment normal. Data Data Last Documented VS Vital Signs Date Time Temp Pulse Resp B/P (MAP) Pulse Ox O2 Delivery O2 Flow Rate FiO2 12/11/17 15:13 81 16 117/56 (76) 93 Room Air 3.00 12/11/17 09:06 98.5 Orders Orders Complete Blood Count With Diff (12/11/17 09:13) Comprehensive Metabolic Panel (12/11/17 09:13) Lipase (12/11/17 09:13) Lactic Acid (12/11/17 09:13) Prothrombin Time / Inr (Pt) (12/11/17 09:13) Act Partial Throm Time (Ptt) (12/11/17 09:13) Urinalysis - C+S If Indicated (12/11/17 09:13) Ct Abd/Pel W/O Iv Contrast (12/11/17 09:13) Iv Access Insert/Monitor (12/11/17 09:13) Ecg Monitoring (12/11/17:13) Oximetry (12/11/17:13) NPO (12/11/17 09:13) Morphine Inj (Morphine Inj) (12/11/17 09:15) Ondansetron Inj (Zofran Inj) (12/11/17 09:15) Sodium Chlor 0.9% 1000 Ml Inj (Ns 1000 M (12/11/17 09:13) Metronidazole 500 Mg Inj (Flagyl 500 Mg (12/11/17 09:15) Enteric Path (Stool) (12/11/17 12:07) C Diff Toxin Pcr (12/11/17 12:07) Giardia Antigen (Stool) (12/11/17 12:07) Stool Wbc (Leukocytes) (12/11/17 12:07) Morphine Inj (Morphine Inj) (12/11/17 14:45) Ondansetron Inj (Zofran Inj) (12/11/17 14:45) Labs Laboratory Tests Test 12/11/17 09:29 White Blood Count 7.9 TH/MM3 Red Blood Count 4.44 MIL/MM3 Hemoglobin 12.3 GM/DL Hematocrit 36.6 % Mean Corpuscular Volume 82.5 FL Mean Corpuscular Hemoglobin 27.7 PG Mean Corpuscular Hemoglobin Concent 33.6 % Red Cell Distribution Width 17.7 % Platelet Count 281 TH/MM3 Mean Platelet Volume 7.0 FL Neutrophils (%) (Auto) 82.3 % Lymphocytes (%) (Auto) 8.8 % Monocytes (%) (Auto) 7.1 % Eosinophils (%) (Auto) 1.5 % Basophils (%) (Auto) 0.3 % Neutrophils # (Auto) 6.5 TH/MM3 Lymphocytes # (Auto) 0.7 TH/MM3 Monocytes # (Auto) 0.6 TH/MM3 Eosinophils # (Auto) 0.1 TH/MM3 Basophils # (Auto) 0.0 TH/MM3 CBC Comment DIFF FINAL Differential Comment Prothrombin Time 10.0 SEC Prothromb Time International Ratio 1.0 RATIO Activated Partial Thromboplast Time 24.4 SEC Blood Urea Nitrogen 10 MG/DL Creatinine 0.62 MG/DL Random Glucose 172 MG/DL Total Protein 7.4 GM/DL Albumin 3.7 GM/DL Calcium Level 9.6 MG/DL Alkaline Phosphatase 95 U/L Aspartate Amino Transf (AST/SGOT) 40 U/L Alanine Aminotransferase (ALT/SGPT) 27 U/L Total Bilirubin 0.3 MG/DL Sodium Level 133 MEQ/L Potassium Level 4.5 MEQ/L Chloride Level 93 MEQ/L Carbon Dioxide Level 31.6 MEQ/L Anion Gap 8 MEQ/L Estimat Glomerular Filtration Rate 93 ML/MIN Lactic Acid Level 2.2 mmol/L Lipase 137 U/L MDM Medical Decision Making Medical Screen Exam Complete: Yes Emergency Medical Condition: Yes Medical Record Reviewed: Yes Differential Diagnosis Gastroenteritis versus colitis versus diverticulitis versus C. difficile colitis versus pseudomembranous colitis versus UTI Narrative Course CBC shows no leukocytosis, no anemia, no evidence of any abnormal platelet count. No left shift Coagulation profile is within normal limits Electrolytes are essentially within normal limits, except for a glucose of 172. Pancreatic enzymes are within normal limits, so is the alk phos and total bilirubin. Lactic acid is 2.2 which is slightly elevated, AST is 40 ALT is 27 which are just mildly elevated however this is not significant elevated. CT abdomen and pelvis per radiologist shows sigmoid diverticuli without diverticulitis. Also shows multiple previous kyphoplasty. As well as bilateral SI joint degenerative changes. Diagnosis Primary Impression: Enteritis Additional Impression: Myalgias Admitting Information Admitting Physician Requests: Observation Patient Instructions: Enteritis (ED), General Instructions Scripts Metronidazole (Flagyl) 500 Mg Tab 500 MG PO TID for Infection for 10 Days, #30 TAB 0 Refills Prov: Ham Keller MD 12/11/17 Ciprofloxacin (Cipro) 500 Mg Tab 500 MG PO BID for Infection for 7 Days, #14 TAB 0 Refills Prov: Ham Keller MD 12/11/17 Disposition: 01 DISCHARGE HOME Condition: Stable Ham Keller MD December 11, 2017 09:22
[2017-12-11 09:40] LABS: AUTOMATED NEUTROPHIL # 6.5 TH/MM3 (1.8-7.7); BASOPHIL % 0.3 % (0.0-2.0); EOSINOPHIL # 0.1 TH/MM3 (0-0.4); EOSINOPHIL % 1.5 % (0.0-4.0); HEMATOCRIT 36.6 % (35.0-46.0); HEMOGLOBIN 12.3 GM/DL (11.6-15.3); LYMPH % 8.8 % (9.0-44.0); LYMPHOCYTE # 0.7 TH/MM3 (1.0-4.8); MEAN CELL VOLUME 82.5 FL (80.0-100.0); MEAN CORPUSCULAR HEMOGLOBIN 27.7 PG (27.0-34.0); MEAN CORPUSCULAR HGB CONC 33.6 % (32.0-36.0); MONO % 7.1 % (0.0-8.0); MONOCYTE # 0.6 TH/MM3 (0-0.9); NEUT % 82.3 % (16.0-70.0); PLATELET COUNT 281 TH/MM3 (150-450); RED BLOOD COUNT 4.44 MIL/MM3 (4.00-5.30); RED CELL DISTRIBUTION WIDTH 17.7 % (11.6-17.2); WHITE BLOOD COUNT 7.9 TH/MM3 (4.0-11.0)
[2017-12-11 09:57] LABS: ALBUMIN 3.7 GM/DL (3.4-5.0); AST (GOT) 40 U/L (15-37); BICARBONATE 31.6 MEQ/L (21.0-32.0); BLOOD UREA NITROGEN 10 MG/DL (7-18); CALCIUM 9.6 MG/DL (8.5-10.1); CHLORIDE 93 MEQ/L (98-107); CREATININE 0.62 MG/DL (0.50-1.00); GLOMERULAR FILTRATION RATE 93 ML/MIN (>89); GLUCOSE,RANDOM 172 MG/DL (74-106); SODIUM (NA) 133 MEQ/L (136-145)
[2017-12-11 09:59] LABS: ALT (GPT) 27 U/L (10-53)
[2017-12-11 10:00] LABS: ALKALINE PHOSPHATASE 95 U/L (45-117); TOTAL BILIRUBIN ADULT 0.3 MG/DL (0.2-1.0); TOTAL PROTEIN 7.4 GM/DL (6.4-8.2)
--- NOTE | 2017-12-11 10:23 | RADRPT ---
EXAM DATE/TIME: 12/11/2017 09:36 [place] COMPARISON: No previous studies available for comparison. INDICATIONS : Left lower quadrant pain that radiates down left leg. ORAL CONTRAST: No oral contrast ingested. RADIATION DOSE: 21.32 CTDIvol (mGy) MEDICAL HISTORY : Chronic obstructive pulmonary disease. Hypertension. Diabetes mellitus type 2. SURGICAL HISTORY : Appendectomy. Cholecystectomy.Hysterectomy. ENCOUNTER: Initial ACUITY: 1 day PAIN SCALE: 5/10 LOCATION: Left lower quadrant TECHNIQUE: Volumetric scanning of the abdomen and pelvis was performed. Using automated exposure control and ad justment of the mA and/or kV according to patient size, radiation dose was kept as low as reasonably achievable to obtain optimal diagnostic quality images. DICOM format image data is available electro nically for review and comparison. FINDINGS: Minimal bibasilar parenchymal changes. Marked fatty replacement of the liver Spleen, pancreas and adrenal glands are unremarkable The colon sits anterior to the liver The adrenal glands appear normal Right and left kidneys are unremarkable without renal mass Cecum and terminal ileum appear unremarkable In the pelvis there are scattered diverticuli in the sigmoid colon without inflammatory changes to duncan ggest diverticulitis. Bladder is prominent. Patient has the fascia fatty replacement catheter flow the bladder on the left, I do not know what th is function is. Evidence for multiple previous kyphoplasty is noted. Bilateral SI joint degenerative changes are not ed. Mild degenerative changes lower lumbar spine. CONCLUSION: Multiple diverticuli sigmoid colon without diverticulitis Multiple previous kyphoplasty's Marked fatty replacement of the liver Catheter pelvic floor left side of uncertain significance. I don't see an etiology for the patient's normal pain Bilateral SI joint degenerative changes. César Perry MD FACR on December 11, 2017 at 10:16 Board Certified Radiologist. This report was verified electronically.
[2017-12-11] MEDS ORDERED: AZEL1SPR2 EACH NARE (10:35)
[2017-12-11] MEDS ORDERED: POTA-163 PO (10:35)
[2017-12-11] MEDS ORDERED: IPRASOL INH (10:35)
[2017-12-11 15:13] VITALS: BP 117/56; PULSE 81; RESP 16; O2SAT 93
[2017-12-11] MEDS ORDERED: CIPR-9 PO (15:36)
[2017-12-11] MEDS ORDERED: METR-1 PO (15:36)
[2017-12-11 18:31] LABS: BACTERIA, URINE RARE /hpf; BILIRUBIN, URINE NEG (NEG); BLOOD, URINE SMALL (NEG); GLUCOSE,URINE NEG (NEG); KETONE, URINE NEG (NEG); NITRITE,URINE NEG (NEG); PH, URINE 5.5 (5.0-8.5); SQUAMOUS EPITHELIAL CELL URINE 4 /hpf (0-5); URINE COLOR YELLOW (YELLW/STRAW); URINE LEUKOCYTE ESTERASE NEG (NEG)
== END 2017-12-11 17:31 | disposition home or self-care (01) ==
LOC: NEPC 09:00
DX: K52.9 Noninfective gastroenteritis and colitis, unspecified (principal); M79.1 Myalgia; E03.9 Hypothyroidism, unspecified; E11.9 Type 2 diabetes mellitus without complications; E78.00 Pure hypercholesterolemia, unspecified; I10 Essential (primary) hypertension; F17.210 Nicotine dependence, cigarettes, uncomplicated; J44.9 Chronic obstructive pulmonary disease, unspecified; Z79.4 Long term (current) use of insulin; Z79.899 Other long term (current) drug therapy
CPT/HCPCS: 74176; 80053; 81001; 83605; 83690; 85025; 85610; 85730; 96365; 96375; 96376; 99284; J2270; J2405; J7030

== ENCOUNTER 2018-05-18 16:44 | Inpatient (IN) ==
[2018-05-18] MEDS ORDERED: Morphine Inj 4 MG/ML Vial IV.PUSH ONE (17:22)
[2018-05-18 17:46] LABS: Baso % (Auto) 0.5 % (0.0-2.0); Eos # (Auto) 0.1 th/mm3 (0.0-0.4); Eos % (Auto) 1.1 % (0.0-4.0); Hemoglobin 10.9 gm/dL (11.6-15.3); Lymph # (Auto) 1.1 th/mm3 (1.0-4.8); Lymph % (Auto) 17.2 % (9.0-44.0); Mean Corpuscular HGB Conc 34.1 % (32.0-36.0); Mean Corpuscular Hemoglobin 30.4 pg (27.0-34.0); Mean Corpuscular Volume 89.1 fL (80.0-100.0); Mono # (Auto) 0.7 th/mm3 (0.0-0.9); Mono % (Auto) 10.3 % (0.0-8.0); Neut # (Auto) 4.5 th/mm3 (1.8-7.7); Neut % (Auto) 70.9 % (16.0-70.0); Platelet Count 296 th/mm3 (150-450); Red Blood Count 3.59 mil/mm3 (4.00-5.30); Red Cell Distribution Width 16.6 % (11.6-17.2); White Blood Count 6.4 th/mm3 (4.0-11.0)
--- NOTE | 2018-05-18 17:48 | XR ---
EXAM DATE: 05/18/2018 5:16 PM EDT AGE/SEX: 77 years / Female INDICATIONS: . Pneumonia CLINICAL DATA: This is the patient's initial encounter. Patient reports that signs and symptoms have been present for 4 - 6 days and indicates a pain score of 6/10. MEDICAL/SURGICAL HISTORY: . Hypertension. Diabetes. Chronic obstructive pulmonary disease. . [place] [facility] [place]. . FINDINGS: Diffuse interstitial prominence with persistent mild right lung base airspace disease. There is more prominent focal airspace consolidation at the left lung base posteriorly. The cardiomediastinal conto urs are unremarkable. Patient is status post lumbar vertebral cement augmentation. Osseous structures are intact. CONCLUSION: 1. Mild increased airspace consolidation at the left lung base posteriorly concerning for pneumonia. Electronically signed by: Jerzy Gonzalez MD 05/18/2018 5:46 PM EDT
[2018-05-18 18:09] LABS: Eosinophils 3 % (0-4); Lymphocytes 18 % (9-44); Monocytes 9 % (0-8)
[2018-05-18 18:11] LABS: Platelet Estimate Normal (Normal); Platelet Morphology Normal (Normal); Stomatocytes 1+
[2018-05-18 18:18] LABS: Albumin 3.3 g/dL (3.4-5.0); Anion Gap 6 meq/L (5-15); Aspartate Aminotransferase 18 U/L (15-37); Blood Urea Nitrogen 13 mg/dL (7-18); Carbon Dioxide 34.4 meq/L (21.0-32.0); Chloride 95 meq/L (98-107); Glomerular Filtration Rate 73 mL/min (>89); Glucose,Random 164 mg/dL (74-106); Potassium 3.9 meq/L (3.5-5.1); Sodium 135 meq/L (136-145)
[2018-05-18 18:19] LABS: Alanine Aminotransferase 22 U/L (10-53)
[2018-05-18 18:21] LABS: Alkaline Phosphatase 76 U/L (45-117); Total Protein 7.3 g/dL (6.4-8.2)
--- NOTE | 2018-05-18 18:34 | ED ---
HPI General Chief complaint: Respiratory Symptoms Stated complaint: SOB Time Seen by Provider: 05/18/18 16:56 History of Present Illness HPI narrative: This is a 77-year-old female with a history of COPD, bilateral rotator cuff injury, diabetes mellitus, hyperlipidemia, hypertension, presents today with complaints of cough and shortness of breath. Patient states that she is had subjective fever and chills at home. She reports coughing up phlegm. She states it is yellow and clear. She is concerned that she may have a pneumonia. She reports that she has pain in her anterior chest when she coughs. Patient also reports dyspnea on exertion. She states that she was seen last week and diagnosed with back pain. She states that at that time she was also having pulmonary symptoms however they have progressively gotten worse. Related Data Home Medications Medication Instructions Recorded Confirmed albuterol sulfate [ProAir HFA] 2 puff INHALATION Q6H PRN 05/13/18 05/18/18 aspirin 325 mg PO DAILY 05/13/18 05/18/18 buspirone 5 mg PO BID 05/13/18 05/18/18 calcium citrate-vitamin D3 2 tab PO QAM 05/13/18 05/18/18 [Calcitrate-Vitamin D] cholecalciferol (vitamin D3) 1,000 unit PO BID 05/13/18 05/18/18 [Vitamin D3] clonazepam 0.5 mg PO BID 05/13/18 05/18/18 clopidogrel [Plavix] 75 mg PO DAILY 05/13/18 05/18/18 dapagliflozin [Farxiga] 5 mg PO DAILY 05/13/18 05/18/18 diazepam 10 mg PO HS PRN 05/13/18 05/18/18 diclofenac sodium 2 g TOPICAL QID 05/13/18 05/18/18 dulaglutide [Trulicity] 0.75 mg SUBCUT QWEEK 05/13/18 05/18/18 duloxetine 60 mg PO BID 05/13/18 05/18/18 ergocalciferol (vitamin D2) 50,000 units WEEKLY 05/13/18 05/18/18 famotidine 20 mg PO DAILY 05/13/18 05/18/18 fenofibrate nanocrystallized 160 mg PO DAILY 05/13/18 05/18/18 [Tricor] furosemide 40 mg PO DAILY 05/13/18 05/18/18 gabapentin 300 mg PO Q6HR 05/13/18 05/18/18 hydrocodone-acetaminophen [Glenoma] 1 tab PO Q6H PRN 05/13/18 05/18/18 insulin glargine [Lantus Solostar 10 unit SUBCUT HS 05/13/18 05/18/18 U-100 Insulin] ipratropium bromide [Atrovent HFA] 1 puff INHALATION Q8HR 05/13/18 05/18/18 isosorbide mononitrate 30 mg PO BID 05/13/18 05/18/18 levothyroxine 300 mcg PO DAILY 05/13/18 05/18/18 metformin 1,000 mg PO BID 05/13/18 05/18/18 metoprolol succinate [Toprol XL] 25 mg PO DAILY 05/13/18 05/18/18 nitroglycerin 0.4 mg SUBLINGUAL Q5-15M PRN 05/13/18 05/18/18 potassium chloride 20 meq PO DAILY 05/13/18 05/18/18 pramipexole [Mirapex] 1 mg PO Q6HR 05/13/18 05/18/18 simvastatin 80 mg PO QPM 05/13/18 05/18/18 umeclidinium-vilanterol [Anoro 1 inh INHALATION Q24H 05/13/18 05/18/18 Ellipta] Allergies Allergy/AdvReac Type Severity Reaction Status Date / Time penicillin G Allergy Severe Swelling Verified 05/13/18 06:12 *MDRO Multi-Drug Resistant Allergy Unknown Wheezing Uncoded 05/13/18 00:48 Organism Review of Systems Constitutional Reports fever(s) Eyes Reports system reviewed and no additional complaints, except as docu ENT Reports system reviewed and no additional complaints, except as docu Cardiovascular Denies chest pain (Chest pain with cough) and Reports dyspnea Respiratory Reports chest congestion, Reports cough and Reports dyspnea Gastrointestinal Denies abdominal pain, Denies nausea and Denies vomiting Genitourinary Reports system reviewed and no additional complaints, except as docu Musculoskeletal Reports back pain (Chronic back pain) and Reports other (Bilateral rotator cuff shoulder pain.) Neurologic Reports system reviewed and no additional complaints, except as docu PMFSH Social History Social History Substance History: No History of Abuse Second Hand Smoke Exposure: Yes Smoking Status: Current every day smoker Tobacco Type: Cigarettes How Often Do You Have a Drink Containing Alcohol: Never Recent Travel in [facility] within the Last 8 Weeks: No Recent Out of Country Travel within the Last 8 Weeks: No Immunization History Tetanus Immunization: <5 Years Exam Narrative Exam Narrative: GENERAL: Well-developed well-nourished female in mild respiratory discomfort SKIN: Focused skin assessment warm/dry. HEAD: Atraumatic. Normocephalic. EYES: No scleral icterus. No injection or drainage. ENT: No nasal bleeding or discharge. Mucous membranes pink and moist. NECK: Trachea midline. Supple. CARDIOVASCULAR: Regular rate and rhythm. No murmur appreciated. RESPIRATORY: No accessory muscle use. Rales appreciated in the left lung base. Bilateral upper extremity wheezes. GASTROINTESTINAL: Abdomen soft, non-tender, nondistended. MUSCULOSKELETAL: No obvious deformities. No clubbing. No cyanosis. No edema. NEUROLOGICAL: Awake and alert. No obvious cranial nerve deficits. Motor grossly within normal limits. Normal speech. Course Initial Documented Vital Signs Temperature 99.7 F H 05/18/18 16:53 Pulse Rate 89 05/18/18 16:53 Respiratory Rate 25 H 05/18/18 16:53 Blood Pressure 143/67 H 05/18/18 16:53 Pulse Oximetry 94 L 05/18/18 16:53 Last Documented Vital Signs Temperature 99.7 F H 05/18/18 16:53 Pulse Rate 99 H 05/18/18 16:58 Respiratory Rate 18 05/18/18 17:45 Blood Pressure 167/67 H 05/18/18 16:58 Pulse Oximetry 94 L 05/18/18 17:29 Medical Decision Making [facility] Narrative Medical decision making narrative: 77-year-old female with history of COPD, diabetes mellitus, hypertension, hyperlipidemia, presents today with complaints of shortness of breath and fever and chills. Patient has a left lower lobe pneumonia. She normally uses home O2 at 3 L. She states that she has had to go up on her oxygen because of the shortness of breath. There is a call out to the [facility] for admission. Medical Screen Exam Complete: Yes Emergency Medical Condition: Yes Differential Diagnosis Differential Diagnosis: Pneumonia versus bronchitis versus COPD exacerbation Lab Data Result diagrams: 05/18/18 17:20 05/18/18 17:20 Lab Results 05/18/18 05/18/18 05/18/18 Range/Units 17:20 17:20 17:20 WBC 6.4 (4.0-11.0) th/mm3 RBC 3.59 L (4.00-5.30) mil/mm3 Hgb 10.9 L (11.6-15.3) gm/dL Hct 32.0 L (35.0-46.0) % MCV 89.1 (80.0-100.0) fL MCH 30.4 (27.0-34.0) pg MCHC 34.1 (32.0-36.0) % RDW 16.6 (11.6-17.2) % Plt Count 296 (150-450) th/mm3 MPV 7.0 (7.0-11.0) fL Prelim Diff (Auto) Slide review pending Neut % (Auto) 70.9 H (16.0-70.0) % Lymph % (Auto) 17.2 (9.0-44.0) % Stark % (Auto) 10.3 H (0.0-8.0) % Eos % (Auto) 1.1 (0.0-4.0) % Baso % (Auto) 0.5 (0.0-2.0) % Neut # (Auto) 4.5 (1.8-7.7) th/mm3 Lymph # (Auto) 1.1 (1.0-4.8) th/mm3 Stark # (Auto) 0.7 (0.0-0.9) th/mm3 Eos # (Auto) 0.1 (0.0-0.4) th/mm3 Baso # (Auto) 0.0 (0.0-0.2) th/mm3 WBC Differential Manual diff final Seg Neuts % (Manual) 70 (16-70) % Lymphocytes % (Manual) 18 (9-44) % Monocytes % (Manual) 9 H (0-8) % Eosinophils % (Manual) 3 (0-4) % Abs Neuts (Manual) 4.5 (1.8-7.7) th/mm3 Differential Comment . Platelet Estimate Normal (Normal) Platelet Morphology Normal (Normal) Stomatocytes 1+ H (None) Sodium 135 L (136-145) meq/L Potassium 3.9 (3.5-5.1) meq/L Chloride 95 L (98-107) meq/L Carbon Dioxide 34.4 H (21.0-32.0) meq/L Anion Gap 6 (5-15) meq/L BUN 13 (7-18) mg/dL Creatinine 0.77 (0.50-1.00) mg/dL Estimated GFR 73 L (>89) mL/min Random Glucose 164 H (74-106) mg/dL Lactic Acid 1.6 (0.4-2.0) mmol/L Calcium 9.0 (8.5-10.1) mg/dL Total Bilirubin 0.3 (0.2-1.0) mg/dL AST 18 (15-37) U/L ALT 22 (10-53) U/L Alkaline Phosphatase 76 (45-117) U/L Total Creatine Kinase (26-192) U/L Troponin I (0.02-0.05) ng/mL Total Protein 7.3 (6.4-8.2) g/dL Albumin 3.3 L (3.4-5.0) g/dL 05/18/18 Range/Units 17:20 WBC (4.0-11.0) th/mm3 RBC (4.00-5.30) mil/mm3 Hgb (11.6-15.3) gm/dL Hct (35.0-46.0) % MCV (80.0-100.0) fL MCH (27.0-34.0) pg MCHC (32.0-36.0) % RDW (11.6-17.2) % Plt Count (150-450) th/mm3 MPV (7.0-11.0) fL Prelim Diff (Auto) Neut % (Auto) (16.0-70.0) % Lymph % (Auto) (9.0-44.0) % Stark % (Auto) (0.0-8.0) % Eos % (Auto) (0.0-4.0) % Baso % (Auto) (0.0-2.0) % Neut # (Auto) (1.8-7.7) th/mm3 Lymph # (Auto) (1.0-4.8) th/mm3 Stark # (Auto) (0.0-0.9) th/mm3 Eos # (Auto) (0.0-0.4) th/mm3 Baso # (Auto) (0.0-0.2) th/mm3 WBC Differential Seg Neuts % (Manual) (16-70) % Lymphocytes % (Manual) (9-44) % Monocytes % (Manual) (0-8) % Eosinophils % (Manual) (0-4) % Abs Neuts (Manual) (1.8-7.7) th/mm3 Differential Comment Platelet Estimate (Normal) Platelet Morphology (Normal) Stomatocytes (None) Sodium (136-145) meq/L Potassium (3.5-5.1) meq/L Chloride (98-107) meq/L Carbon Dioxide (21.0-32.0) meq/L Anion Gap (5-15) meq/L BUN (7-18) mg/dL Creatinine (0.50-1.00) mg/dL Estimated GFR (>89) mL/min Random Glucose (74-106) mg/dL Lactic Acid (0.4-2.0) mmol/L Calcium (8.5-10.1) mg/dL Total Bilirubin (0.2-1.0) mg/dL AST (15-37) U/L ALT (10-53) U/L Alkaline Phosphatase (45-117) U/L Total Creatine Kinase 69 (26-192) U/L Troponin I Less than 0.02 L (0.02-0.05) ng/mL Total Protein (6.4-8.2) g/dL Albumin (3.4-5.0) g/dL Imaging Data Radiologist's impression: Chest X-Ray 05/18/18 17:16 CONCLUSION: 1. Mild increased airspace consolidation at the left lung base posteriorly concerning for pneumonia. Discharge Plan Discharge Disposition Patient Disposition: 30 Still Patient Discharge Details Diagnosis: Pneumonia, Diabetes mellitus, Dyslipidemia Physicians Team ED Provider: Vik Araujo Primary Care Provider: UNKNOWN, Rxs /Orders / Referrals /Forms Prescriptions: No Action pramipexole [Mirapex] 1 mg Tablet 1 mg PO Q6HR RF: 0 furosemide 40 mg Tablet 40 mg PO DAILY RF: 0 buspirone 5 mg Tablet 5 mg PO BID RF: 0 aspirin 325 mg Tablet 325 mg PO DAILY RF: 0 levothyroxine 300 mcg Tablet 300 mcg PO DAILY RF: 0 hydrocodone-acetaminophen [Glenoma] 5-325 mg Tablet 1 tab PO Q6H PRN (Reason: Acute Pain) RF: 0 isosorbide mononitrate 30 mg Tablet Extended Release 24 Hr 30 mg PO BID RF: 0 clonazepam 0.5 mg Tablet 0.5 mg PO BID RF: 0 clopidogrel [Plavix] 75 mg Tablet 75 mg PO DAILY RF: 0 simvastatin 80 mg Tablet 80 mg PO QPM RF: 0 famotidine 20 mg Tablet 20 mg PO DAILY RF: 0 metformin 1,000 mg Tablet 1,000 mg PO BID RF: 0 nitroglycerin 0.4 mg Tablet, Sublingual 0.4 mg SUBLINGUAL Q5-15M PRN (Reason: chest pain) RF: 0 gabapentin 300 mg Capsule 300 mg PO Q6HR RF: 0 metoprolol succinate [Toprol XL] 25 mg Tablet Extended Release 24 Hr 25 mg PO DAILY RF: 0 ergocalciferol (vitamin D2) 50,000 unit Capsule 50,000 units WEEKLY RF: 0 diazepam 10 mg Tablet 10 mg PO HS PRN (Reason: Agitation) RF: 0 albuterol sulfate [ProAir HFA] 90 mcg/actuation Hfa Aerosol Inhaler 2 puff INHALATION Q6H PRN (Reason: Shortness Of Breath) RF: 0 cholecalciferol (vitamin D3) [Vitamin D3] 1,000 unit Capsule 1,000 unit PO BID RF: 0 duloxetine 60 mg Capsule,Delayed Release(Dr/Ec) 60 mg PO BID RF: 0 ipratropium bromide [Atrovent HFA] 17 mcg/actuation Hfa Aerosol Inhaler 1 puff INHALATION Q8HR RF: 0 fenofibrate nanocrystallized [Tricor] 145 mg Tablet 160 mg PO DAILY RF: 0 insulin glargine [Lantus Solostar U-100 Insulin] 100 unit/mL (3 mL) Insulin Pen 10 unit SUBCUT HS RF: 0 diclofenac sodium 1 % Gel 2 g TOPICAL QID RF: 0 calcium citrate-vitamin D3 [Calcitrate-Vitamin D] 315-250 mg-unit Tablet 2 tab PO QAM RF: 0 umeclidinium-vilanterol [Anoro Ellipta] 62.5-25 mcg/actuation Blister With Device 1 inh INHALATION Q24H RF: 0 dapagliflozin [Farxiga] 5 mg Tablet 5 mg PO DAILY RF: 0 potassium chloride 20 mEq Tablet Extended Release 20 meq PO DAILY RF: 0 dulaglutide [Trulicity] 0.75 mg/0.5 mL Pen Injector 0.75 mg SUBCUT QWEEK RF: 0 Status ED Status: With Doctor
[2018-05-18 18:35] LABS: Creatine Kinase 69 U/L (26-192)
[2018-05-18] MEDS ORDERED: Acetaminophen 325 MG Tablet PO PRN (18:38)
[2018-05-18] MEDS ORDERED: clonazePAM 0.5 MG Tablet PO PRN (18:40)
[2018-05-18] MEDS ORDERED: Dextrose 50% in Water 50 ML Vial IV.PUSH PRN (18:41)
[2018-05-18] MEDS ORDERED: Aztreonam Inj 2 GM in Sodium Chloride 0.9% Inj 100 ML IV.SIG SCH (19:00)
--- NOTE | 2018-05-18 19:54 | P.HPIM ---
History of Present Illness Primary Care Physician: PROVIDER NON STAFF History of Present Illness: This is a 77-year-old female with a PMH of HTN, Hyperlipidemia, COPD, O2 Dependent and DM who was brought to the ER by EMS secondary to SOB and cough, noted to have O2 sat 84% on 3L NC, s/p Albuterol by EMS w/ some improvement. Pt reports progressive SOB for few days, associated w/ productive cough w/ yellow-colored sputum. +subjective fever, chills. No c/o chest pain. On arrival, BP 143/67, HR 99, O2 sat 94% on 10 L, Temp 99.7. CBC essentially unremarkable. Chemistry unremarkable. Troponin negative. CXR with consolidation left lung base. S/p Levaquin/Azactam in ER. - Diagnosis (1) SIRS (systemic inflammatory response syndrome) (2) PNA (pneumonia) (3) DM (diabetes mellitus) (4) Hypoxia Inpatient Certification: I certify that the inpatient services were ordered in accordance with Medicare regulations governing the order. This includes certification that hospital inpatient services are reasonable and necessary and in the case of services not specified as inpatient-only under 42 CFR 419.22(n), that they are appropriately provided as inpatient services in accordance to with the 2-midnight benchmark under 43 CFR 412.3(e) Estimated Total Length of Stay (Days): 2 Plans for Post Hospital Care: Home Review of Systems PAST FAMILY HISTORY: Reviewed. 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 - Medical History Medical History: Medical History (Last Reviewed 05/18/18 @ 16:56 by Danitza Berrios) CHF (congestive heart failure) COPD (chronic obstructive pulmonary disease) Cholecystectomy planned Diabetes HTN (hypertension) High cholesterol History of hysterectomy Hypertension Restless leg syndrome Thyroid disease - Surgical History Surgical History: Surgical History (Last Reviewed 05/18/18 @ 16:56 by Danitza Berrios) History of neck surgery Hx of appendectomy Hx of tonsillectomy Previous back surgery - Tobacco History Second Hand Smoke Exposure: Yes Tobacco Use In Past 30 Days: Yes Smoking Status: Current every day smoker Tobacco Type: Cigarettes - Alcohol History How Often Do You Have a Drink Containing Alcohol: Never - Substance Use History Substance History: No History of Abuse - Travel History Recent Travel in the [place] Within the Last 8 Weeks: No Recent Travel Out of the Country Within the Last 8 Weeks: No - Immunization History Tetanus Immunization: <5 Years Medications and Allergies Active Medications: Active Medications Acetaminophen (Tylenol) 650 mg PO Q4H PRN PRN Reason: Temp > 100.4; pain 1-2 Albuterol (Duoneb Neb (Prn)) 1 ampul NEB Q4HR NEB PRN PRN Reason: SOB/WHEEZING Aspirin (Aspirin) 325 mg PO DAILY PETE Atorvastatin Calcium (Lipitor) 40 mg PO QPM PETE Buspirone HCl (Buspar) 5 mg PO BID PETE Clonazepam (Klonopin) 0.5 mg PO BID PRN PRN Reason: ANXIETY Clopidogrel Bisulfate (Plavix) 75 mg PO DAILY PETE Dextrose (D50w Vial) 50 ml IV.PUSH UNSCH PRN PRN Reason: PER HYPOGLYCEMIA PROTOCOL Duloxetine HCl (Cymbalta) 60 mg PO BID PETE Enoxaparin Sodium (Lovenox Inj) 30 mg SQ Q24H PETE Famotidine (Pepcid) 20 mg PO DAILY PETE Furosemide (Lasix) 40 mg PO DAILY PETE Glucagon (Glucagon Inj) 1 mg OTHER PRN PRN PRN Reason: for Hypoglycemia Protocol Sodium Chloride (Ns Inj) 1,000 mls @ 100 mls/hr IV.CONT .Q10H PETE Aztreonam 2 gm/ Sodium (Chloride) 100 mls @ 200 mls/hr IV.SIG Q8H PETE Levofloxacin/Dextrose (Levaquin 750 Mg Premix Inj) 150 mls @ 100 mls/hr IV.SIG Q24H PETE Aztreonam 2 gm/ Sodium (Chloride) 100 mls @ 200 mls/hr IV.SIG Q8H PETE Levofloxacin/Dextrose (Levaquin 750 Mg Premix Inj) 150 mls @ 100 mls/hr IV.SIG Q24H PETE Insulin Aspart (Novolog Insulin Correctional Sugar Inj) 0 unit SQ ACHS PETE; Protocol Insulin Detemir (Levemir Inj) 10 unit SQ HS PETE Isosorbide Mononitrate (Imdur) 30 mg PO BID PETE Metoprolol Succinate (Toprol Xl) 25 mg PO DAILY PETE Pramipexole Dihydrochloride (Mirapex) 1 mg PO Q6HR PETE Senna/Docusate Sodium (Becca-Colace) 1 tab PO BID PETE Allergies Allergy/AdvReac Type Severity Reaction Status Date / Time penicillin G Allergy Severe Swelling Verified 05/13/18 06:12 *MDRO Multi-Drug Resistant Allergy Unknown Wheezing Uncoded 05/13/18 00:48 Organism Home Medications Medication Instructions Recorded Confirmed Type albuterol sulfate [ProAir HFA] 2 puff INHALATION Q6H PRN 05/13/18 05/18/18 History aspirin 325 mg PO DAILY 05/13/18 05/18/18 History buspirone 5 mg PO BID 05/13/18 05/18/18 History calcium citrate-vitamin D3 2 tab PO QAM 05/13/18 05/18/18 History [Calcitrate-Vitamin D] cholecalciferol (vitamin D3) 1,000 unit PO BID 05/13/18 05/18/18 History [Vitamin D3] clonazepam 0.5 mg PO BID 05/13/18 05/18/18 History clopidogrel [Plavix] 75 mg PO DAILY 05/13/18 05/18/18 History dapagliflozin [Farxiga] 5 mg PO DAILY 05/13/18 05/18/18 History diazepam 10 mg PO HS PRN 05/13/18 05/18/18 History diclofenac sodium 2 g TOPICAL QID 05/13/18 05/18/18 History dulaglutide [Trulicity] 0.75 mg SUBCUT QWEEK 05/13/18 05/18/18 History duloxetine 60 mg PO BID 05/13/18 05/18/18 History ergocalciferol (vitamin D2) 50,000 units WEEKLY 05/13/18 05/18/18 History famotidine 20 mg PO DAILY 05/13/18 05/18/18 History fenofibrate nanocrystallized 160 mg PO DAILY 05/13/18 05/18/18 History [Tricor] furosemide 40 mg PO DAILY 05/13/18 05/18/18 History gabapentin 300 mg PO Q6HR 05/13/18 05/18/18 History hydrocodone-acetaminophen [[place]] 1 tab PO Q6H PRN 05/13/18 05/18/18 History insulin glargine [Lantus Solostar 10 unit SUBCUT HS 05/13/18 05/18/18 History U-100 Insulin] ipratropium bromide [Atrovent HFA] 1 puff INHALATION Q8HR 05/13/18 05/18/18 History isosorbide mononitrate 30 mg PO BID 05/13/18 05/18/18 History levothyroxine 300 mcg PO DAILY 05/13/18 05/18/18 History metformin 1,000 mg PO BID 05/13/18 05/18/18 History metoprolol succinate [Toprol XL] 25 mg PO DAILY 05/13/18 05/18/18 History nitroglycerin 0.4 mg SUBLINGUAL Q5-15M PRN 05/13/18 05/18/18 History potassium chloride 20 meq PO DAILY 05/13/18 05/18/18 History pramipexole [Mirapex] 1 mg PO Q6HR 05/13/18 05/18/18 History simvastatin 80 mg PO QPM 05/13/18 05/18/18 History umeclidinium-vilanterol [Anoro 1 inh INHALATION Q24H 05/13/18 05/18/18 History Ellipta] Exam Vital signs: Vital Signs 05/18/18 16:53 05/18/18 16:58 05/18/18 17:29 Temperature 99.7 F H Pulse Rate 89 99 H Respiratory Rate 25 H 25 H Blood Pressure 143/67 H 167/67 H Pulse Oximetry 94 L 99 94 L 05/18/18 17:45 05/18/18 19:40 Temperature Pulse Rate Respiratory Rate 18 Blood Pressure Pulse Oximetry 93 L Intake & Output 05/18/18 05/18/18 05/19/18 06:59 18:59 06:59 Weight 80.286 kg Narrative: PE: GENERAL: Elderly white female in no acute distress. SKIN: Focused skin assessment warm and dry. HEENT: PERRLA, EOMI. No scleral icterus or conjunctival pallor. No lid lag or facial droop. CARDIOVASCULAR: Regular rate and rhythm. No obvious murmurs to auscultation. No chest tenderness to palpation. RESPIRATORY: No obvious rhonchi. Occasional wheezing. Clear to auscultation. Breath sounds equal bilaterally. GASTROINTESTINAL: Abdomen soft, non-tender, nondistended. BS normal. MUSCULOSKELETAL: Extremities without clubbing, cyanosis, or edema. No obvious deformities. NEUROLOGICAL: Awake, alert and oriented x4. No focal neurologic deficits. Moving both upper and lower extremities spontaneously. PSYCHIATRIC: Appropriate mood and affect. Insight and judgment normal. Results - Labs CBC & Chem 7: 05/18/18 17:20 05/18/18 17:20 Labs: Short CBC 05/18/18 Range/Units 17:20 WBC 6.4 (4.0-11.0) th/mm3 Hgb 10.9 L (11.6-15.3) gm/dL Hct 32.0 L (35.0-46.0) % Plt Count 296 (150-450) th/mm3 BMP 05/18/18 17:20 Sodium 135 L Potassium 3.9 Chloride 95 L Carbon Dioxide 34.4 H BUN 13 Creatinine 0.77 Calcium 9.0 Cardiac Enzymes 05/18/18 Range/Units 17:20 Total Creatine Kinase 69 (26-192) U/L Troponin I Less than 0.02 L (0.02-0.05) ng/mL Liver Function 05/18/18 Range/Units 17:20 Total Bilirubin 0.3 (0.2-1.0) mg/dL AST 18 (15-37) U/L ALT 22 (10-53) U/L Alkaline Phosphatase 76 (45-117) U/L Albumin 3.3 L (3.4-5.0) g/dL - Imaging Impressions Chest X-Ray 05/18/18 17:16 CONCLUSION: 1. Mild increased airspace consolidation at the left lung base posteriorly concerning for pneumonia. Caprini VTE Risk Assessment Caprini VTE Risk Assessment: No/Low Risk (score <= 1) Caprini Risk Assessment Model: Point Value = 1 Point Value = 2 Point Value = 3 Point Value = 5 Age 41-60 Minor surgery BMI > 25 kg/m2 Swollen legs Varicose veins or History of unexplained or recurrent spontaneous Oral contraceptives or hormone replacement Sepsis (< 1 month) Serious lung disease, including pneumonia (< 1 month) Abnormal pulmonary function Acute myocardial infarction Congestive heart failure (< 1 month) History of inflammatory bowel disease Medical patient at bed rest Age 61-74 Arthroscopic surgery Major open surgery (> 45 min) Laparoscopic surgery (> 45 min) Malignancy Confined to bed (> 72 hours) Immobilizing plaster cast Central venous access Age >= 75 History of VTE Family history of VTE Factor V Leiden Prothrombin [id number] Lupus anticoagulant Anticardiolipin antibodies Elevated serum homocysteine Heparin-induced thrombocytopenia Other congenital or acquired thrombophilia Stroke (< 1 month) Elective arthroplasty Hip, pelvis, or leg fracture Acute spinal cord injury (< 1 month) Prophylaxis Regimen: Total Risk Factor Score Risk Level Prophylaxis Regimen 0-1 Low Early ambulation 2 Moderate Order ONE of the following: *Sequential Compression Device (SCD) *Heparin 5000 units SQ BID 3-4 Higher Order ONE of the following medications: *Heparin 5000 units SQ TID *Enoxaparin/Lovenox 40 mg SQ daily (WT < 150 kg, CrCl > 30 mL/min) *Enoxaparin/Lovenox 30 mg SQ daily (WT < 150 kg, CrCl > 10-29 mL/min) *Enoxaparin/Lovenox 30 mg SQ BID (WT < 150 kg, CrCl > 30 mL/min) AND/OR *Sequential Compression Device (SCD) 5 or more Highest Order ONE of the following medications: *Heparin 5000 units SQ TID (Preferred with Epidurals) *Enoxaparin/Lovenox 40 mg SQ daily (WT < 150 kg, CrCl > 30 mL/min) *Enoxaparin/Lovenox 30 mg SQ daily (WT < 150 kg, CrCl > 10-29 mL/min) *Enoxaparin/Lovenox 30 mg SQ BID (WT < 150 kg, CrCl > 30 mL/min) AND *Sequential Compression Device (SCD) Assessment and Plan - Assessment (1) SIRS (systemic inflammatory response syndrome) Code(s): R65.10 - Systemic inflammatory response syndrome (SIRS) of non- infectious origin without acute organ dysfunction Status: Acute (2) PNA (pneumonia) Code(s): J18.9 - Pneumonia, unspecified organism Status: Acute (3) DM (diabetes mellitus) Code(s): E11.9 - Type 2 diabetes mellitus without complications Status: Acute (4) Hypoxia Code(s): R09.02 - Hypoxemia Status: Acute - Plan A/P: 1. SIRS: Temp 99.7, HR 99, Source-PNA, S/p Blood Cultures, follow up cultures , continue IV Abx. 2. PNA: CXR w/ LLL consolidation, images reviewed, s/p Levaquin/Azactam in ER , will continue w/ IV Abx, DuoNeb prn. 3. Hypoxia: h/o COPD, O2 Dependent, O2 sat 84% on 3L NC on arrival, s/p DuoNeb w/ improvement, currently 94% on 6L NC, monitor O2 closely. 4. DM: Sliding scale w/ Accu-checks 5. DVT Prophylaxis: Lovenox 6. Social work for d/c planning as needed 7. Case discussed w/ ER physician at length, labs/records/imaging reviewed by me.
[2018-05-18] MEDS: Enoxaparin Inj 30 MG/0.3 ML Syringe SQ SCH (19:58)
[2018-05-18] MEDS ORDERED: clonazePAM 0.5 MG Tablet PO SCH (21:00)
[2018-05-18] MEDS: Sod Chloride 0.9% Inj 1,000 ML IV.CONT SCH (21:14)
[2018-05-18] MEDS: Isosorbide Mononitrate 30 MG ER 24HR Tablet (Imdur) PO SCH (22:10)
[2018-05-18] MEDS: Senna/Docusate Sodium 8.6/50 MG Tablet PO SCH (22:10)
[2018-05-18] MEDS: Insulin Detemir Inj 1,000 UNIT/10 ML Vial SQ SCH (22:11)
[2018-05-18] MEDS: Insulin NovoLOG Aspart Correctional Sugar Inj SQ SCH (22:15)
[2018-05-18] MEDS: Duloxetine 60 MG DR Capsule PO SCH (22:35)
[2018-05-19] MEDS: Aztreonam Inj 2 GM in Sodium Chloride 0.9% Inj 100 ML IV.SIG SCH ×2 (02:42→11:39)
[2018-05-19] MEDS: Sod Chloride 0.9% Inj 1,000 ML IV.CONT SCH ×2 (06:01→15:22)
[2018-05-19 06:55] LABS: Baso # (Auto) 0.1 th/mm3 (0.0-0.2); Baso % (Auto) 1.1 % (0.0-2.0); Eos # (Auto) 0.1 th/mm3 (0.0-0.4); Eos % (Auto) 1.5 % (0.0-4.0); Hematocrit 29.3 % (35.0-46.0); Hemoglobin 9.8 gm/dL (11.6-15.3); Lymph # (Auto) 0.7 th/mm3 (1.0-4.8); Lymph % (Auto) 12.8 % (9.0-44.0); Mean Corpuscular HGB Conc 33.5 % (32.0-36.0); Mean Corpuscular Hemoglobin 30.3 pg (27.0-34.0); Mean Corpuscular Volume 90.5 fL (80.0-100.0); Mean Platelet Volume 6.9 fL (7.0-11.0); Mono # (Auto) 0.7 th/mm3 (0.0-0.9); Mono % (Auto) 11.3 % (0.0-8.0); Neut # (Auto) 4.3 th/mm3 (1.8-7.7); Neut % (Auto) 73.3 % (16.0-70.0); Platelet Count 256 th/mm3 (150-450); Red Blood Count 3.23 mil/mm3 (4.00-5.30); Red Cell Distribution Width 16.9 % (11.6-17.2); White Blood Count 5.8 th/mm3 (4.0-11.0)
[2018-05-19 07:26] LABS: Alanine Aminotransferase 20 U/L (10-53); Albumin 2.9 g/dL (3.4-5.0); Alkaline Phosphatase 66 U/L (45-117); Anion Gap 5 meq/L (5-15); Aspartate Aminotransferase 17 U/L (15-37); Blood Urea Nitrogen 13 mg/dL (7-18); Calcium 7.9 mg/dL (8.5-10.1); Carbon Dioxide 34.5 meq/L (21.0-32.0); Chloride 95 meq/L (98-107); Glomerular Filtration Rate Greater Than 89 mL/min (>89); Glucose,Random 151 mg/dL (74-106); Potassium 3.6 meq/L (3.5-5.1); Sodium 134 meq/L (136-145); Total Protein 6.5 g/dL (6.4-8.2)
[2018-05-19] MEDS: Senna/Docusate Sodium 8.6/50 MG Tablet PO SCH ×2 (09:12→21:22)
[2018-05-19] MEDS: Insulin NovoLOG Aspart Correctional Sugar Inj SQ SCH ×4 (09:13→21:23)
[2018-05-19] MEDS: Famotidine 20 MG Tablet PO SCH (09:15)
[2018-05-19] MEDS: Furosemide 40 MG Tablet PO SCH (09:15)
[2018-05-19] MEDS: Aspirin 325 MG Tablet PO SCH (09:16)
[2018-05-19] MEDS: Isosorbide Mononitrate 30 MG ER 24HR Tablet (Imdur) PO SCH ×2 (09:16→21:21)
[2018-05-19] MEDS: Duloxetine 60 MG DR Capsule PO SCH ×2 (09:20→21:21)
[2018-05-19] MEDS ORDERED: Sodium Chloride 0.9% 2 ML Flush PRN IV.FLUSH (09:56)
--- NOTE | 2018-05-19 11:50 | P.PN ---
Subjective Interval history: Follow up for pneumonia. Ms. Morel is currently resting in bed. She is on 3 L of oxygen via nasal cannula. Denies any chest pain, fever or chills. She had fever at home. Physical Exam Vital signs: Vital Signs 05/18/18 16:53 05/18/18 16:58 05/18/18 17:29 Temperature 99.7 F H Pulse Rate 89 99 H Respiratory Rate 25 H 25 H Blood Pressure 143/67 H 167/67 H Pulse Oximetry 94 L 99 94 L 05/18/18 17:45 05/18/18 19:40 05/18/18 20:00 Temperature 97.4 F L Pulse Rate 83 Respiratory Rate 18 19 Blood Pressure 133/66 Pulse Oximetry 93 L 94 L 05/18/18 21:12 05/19/18 00:00 05/19/18 04:00 Temperature 97.6 F Pulse Rate 79 Respiratory Rate 15 18 18 Blood Pressure 99/56 L Pulse Oximetry 95 05/19/18 08:00 05/19/18 09:25 05/19/18 11:04 Temperature 97.3 F L Pulse Rate 80 85 Respiratory Rate 20 16 Blood Pressure 135/70 Pulse Oximetry 89 L 92 L Intake & Output 05/18/18 05/19/18 05/19/18 18:59 06:59 18:59 Intake Total 340 / 340 100 / 100 Balance 340 / 340 100 / 100 Weight 80.286 kg 86.1 kg Intake: IV 100 / 100 100 / 100 Azactam Inj 2 GM In NS Inj 100 100 / 100 ML @ 200 mls/hr IV.SIG Q8H PETE Rx#:[id number] Levaquin 750 mg Premix Inj 150 100 / 100 ML @ 100 mls/hr IV.SIG Q24H PETE Rx#:[id number] Oral 240 / 240 Other: # Voids 1 Narrative: GENERAL: Alert, oriented x3, NAD SKIN: Warm and dry. HEAD: Normocephalic. EYES: No scleral icterus. No injection or drainage. NECK: Supple, trachea midline. No JVD or lymphadenopathy. CARDIOVASCULAR: Regular rate and rhythm without murmurs, gallops, or rubs. RESPIRATORY: Breath sounds equal bilaterally. No accessory muscle use. GASTROINTESTINAL: Abdomen soft, non-tender, nondistended. MUSCULOSKELETAL: No cyanosis. Trace edema in lower extremities. BACK: Nontender without obvious deformity. No CVA tenderness. Results - Labs CBC & Chem 7: 05/19/18 05:33 05/19/18 05:33 Laboratory Results - last 24 hr 05/18/18 05/18/18 05/18/18 17:20 17:20 17:20 WBC 6.4 RBC 3.59 L Hgb 10.9 L Hct 32.0 L MCV 89.1 MCH 30.4 MCHC 34.1 RDW 16.6 Plt Count 296 MPV 7.0 Prelim Diff (Auto) Slide review pending Neut % (Auto) 70.9 H Lymph % (Auto) 17.2 [place] % (Auto) 10.3 H Eos % (Auto) 1.1 Baso % (Auto) 0.5 Neut # (Auto) 4.5 Lymph # (Auto) 1.1 [place] # (Auto) 0.7 Eos # (Auto) 0.1 Baso # (Auto) 0.0 WBC Differential Manual diff final Seg Neuts % (Manual) 70 Lymphocytes % (Manual) 18 Monocytes % (Manual) 9 H Eosinophils % (Manual) 3 Abs Neuts (Manual) 4.5 Differential Comment . Platelet Estimate Normal Platelet Morphology Normal Stomatocytes 1+ H Sodium 135 L Potassium 3.9 Chloride 95 L Carbon Dioxide 34.4 H Anion Gap 6 BUN 13 Creatinine 0.77 Estimated GFR 73 L POC Glucose Random Glucose 164 H Lactic Acid 1.6 Calcium 9.0 Total Bilirubin 0.3 AST 18 ALT 22 Alkaline Phosphatase 76 Total Creatine Kinase Troponin I Total Protein 7.3 Albumin 3.3 L 05/18/18 05/18/18 05/19/18 17:20 22:14 05:33 WBC 5.8 RBC 3.23 L Hgb 9.8 L Hct 29.3 L MCV 90.5 MCH 30.3 MCHC 33.5 RDW 16.9 Plt Count 256 MPV 6.9 L Prelim Diff (Auto) Neut % (Auto) 73.3 H Lymph % (Auto) 12.8 [place] % (Auto) 11.3 H Eos % (Auto) 1.5 Baso % (Auto) 1.1 Neut # (Auto) 4.3 Lymph # (Auto) 0.7 L [place] # (Auto) 0.7 Eos # (Auto) 0.1 Baso # (Auto) 0.1 WBC Differential . Seg Neuts % (Manual) Lymphocytes % (Manual) Monocytes % (Manual) Eosinophils % (Manual) Abs Neuts (Manual) Differential Comment Auto diff final Platelet Estimate Platelet Morphology Stomatocytes Sodium Potassium Chloride Carbon Dioxide Anion Gap BUN Creatinine Estimated GFR POC Glucose 138 H Random Glucose Lactic Acid Calcium Total Bilirubin AST ALT Alkaline Phosphatase Total Creatine Kinase 69 Troponin I Less than 0.02 L Total Protein Albumin 05/19/18 05/19/18 05:33 07:59 WBC RBC Hgb Hct MCV MCH MCHC RDW Plt Count MPV Prelim Diff (Auto) Neut % (Auto) Lymph % (Auto) [place] % (Auto) Eos % (Auto) Baso % (Auto) Neut # (Auto) Lymph # (Auto) [place] # (Auto) Eos # (Auto) Baso # (Auto) WBC Differential Seg Neuts % (Manual) Lymphocytes % (Manual) Monocytes % (Manual) Eosinophils % (Manual) Abs Neuts (Manual) Differential Comment Platelet Estimate Platelet Morphology Stomatocytes Sodium 134 L Potassium 3.6 Chloride 95 L Carbon Dioxide 34.5 H Anion Gap 5 BUN 13 Creatinine 0.61 Estimated GFR Greater than 89 POC Glucose 165 H Random Glucose 151 H Lactic Acid Calcium 7.9 L D Total Bilirubin 0.3 AST 17 ALT 20 Alkaline Phosphatase 66 Total Creatine Kinase Troponin I Total Protein 6.5 D Albumin 2.9 L Microbiology 05/18/18 17:15 Blood - Peripheral Aerobic Blood Culture - Preliminary No growth in 1 day 05/18/18 17:15 Blood - Peripheral Anaerobic Blood Culture - Preliminary No growth in 1 day 05/18/18 17:20 Blood - Peripheral Aerobic Blood Culture - Preliminary No growth in 1 day 05/18/18 17:20 Blood - Peripheral Anaerobic Blood Culture - Preliminary No growth in 1 day 05/18/18 17:40 Nasal Wash Influenza Types A,B Antigen - Final Negative for FLU A and B antigen Infection due to influenza A or B cannot be ruled out since the antigen present in the sample may be below the detection limit of the test. - Imaging Impressions Chest X-Ray 05/18/18 17:16 CONCLUSION: 1. Mild increased airspace consolidation at the left lung base posteriorly concerning for pneumonia. Assessment and Plan - Assessment (1) SIRS (systemic inflammatory response syndrome) Code(s): R65.10 - Systemic inflammatory response syndrome (SIRS) of non- infectious origin without acute organ dysfunction Status: Acute (2) PNA (pneumonia) Code(s): J18.9 - Pneumonia, unspecified organism Status: Acute (3) DM (diabetes mellitus) Code(s): E11.9 - Type 2 diabetes mellitus without complications Status: Acute (4) Hypoxia Code(s): R09.02 - Hypoxemia Status: Acute - Plan This is a 77-year-old female with a PMH of HTN, Hyperlipidemia, COPD, O2 Dependent and DM who was brought to the ER by EMS secondary to SOB and cough, noted to have O2 sat 84% on 3L NC, s/p Albuterol by EMS w/ some improvement. Patient was seen in the emergency department on 05/13/2018 and was discharged from the ED on oral medications. However due to worsening symptoms she decided to come back to the hospital. Community-acquired pneumonia -Patient was on aztreonam and Levaquin. -We will discontinue aztreonam and continue Levaquin alone. -DuoNeb every 4 hours as needed. Continue home med Ellipta (Umeclidinium/ Vilanterol). Diabetes mellitus - Continue Levemir 10 units nightly, sliding scale insulin. Hyperlipidemia Congestive heart failure, likely systolic -Will check BNP to evaluate if there is acute component of CHF. -Continue aspirin, atorvastatin, metoprolol succinate 25 mg p.o. daily, isosorbide mononitrate. -Continue furosemide 40 mg daily. May switch to IV depending on BNP Full code. Lovenox.
[2018-05-19] MEDS: Umeclindinium 62.5 MCG/Vilanterol 25 MCG Inhaler INH SCH (15:10)
--- NOTE | 2018-05-19 15:54 | ECG ---
Date Performed: 05/18/2018 Time Performed: 17:19:23 PTAGE: 77 years EKG: Sinus rhythm POSSIBLE RIGHT VENTRICULAR CONDUCTION DELAY SEPTAL MYOCARDIAL INFARCTION ABNORMAL ECG PREVIOUS TRACING : 03/13/2018 10.53 Compared to previous tracing,new Q-waves are noted in V2. D iffuse T-wave flattening is also noted. Clinical correlation is recommended DOCTOR: Collins Bull Interpretating Date/Time 05/19/2018 15:52:14
[2018-05-19] MEDS: Enoxaparin Inj 30 MG/0.3 ML Syringe SQ SCH (17:41)
[2018-05-19] MEDS: Sodium Chloride 0.9% 2 ML Flush BID IV.FLUSH SCH (21:22)
[2018-05-19] MEDS: Insulin Detemir Inj 1,000 UNIT/10 ML Vial SQ SCH (21:22)
[2018-05-20] MEDS: Sod Chloride 0.9% Inj 1,000 ML IV.CONT SCH ×3 (05:57→22:48)
[2018-05-20] MEDS: Famotidine 20 MG Tablet PO SCH (08:56)
[2018-05-20] MEDS: Insulin NovoLOG Aspart Correctional Sugar Inj SQ SCH ×4 (08:56→22:46)
[2018-05-20] MEDS: Furosemide 40 MG Tablet PO SCH (08:56)
[2018-05-20] MEDS: Senna/Docusate Sodium 8.6/50 MG Tablet PO SCH ×2 (08:56→22:46)
[2018-05-20] MEDS: Isosorbide Mononitrate 30 MG ER 24HR Tablet (Imdur) PO SCH ×2 (08:56→22:45)
[2018-05-20] MEDS: Aspirin 325 MG Tablet PO SCH (08:56)
[2018-05-20] MEDS: Duloxetine 60 MG DR Capsule PO SCH ×2 (08:56→22:50)
[2018-05-20] MEDS: Sodium Chloride 0.9% 2 ML Flush BID IV.FLUSH SCH ×2 (09:52→22:47)
--- NOTE | 2018-05-20 11:33 | P.PN ---
Subjective Interval history: Follow-up for pneumonia, hemoptysis. She complained of blood-tinged cough today. She denies any fever or chills. She is also requiring significant amount of oxygen to maintain O2 saturation above 90%. Physical Exam Vital signs: Vital Signs 05/19/18 11:51 05/19/18 16:00 05/19/18 19:18 Temperature 97.5 F L 97.3 F L Pulse Rate 74 75 75 Respiratory Rate 18 18 15 Blood Pressure 118/61 121/60 Pulse Oximetry 92 L 92 L 92 L 05/19/18 20:00 05/19/18 23:45 05/20/18 00:00 Temperature 97.3 F L 97.2 F L Pulse Rate 73 85 79 Respiratory Rate 19 22 19 Blood Pressure 115/57 L 101/56 L Pulse Oximetry 92 L 91 L 05/20/18 08:00 05/20/18 10:41 Temperature 97.9 F Pulse Rate 84 Respiratory Rate 20 Blood Pressure 131/66 Pulse Oximetry 92 L 92 L Intake & Output 05/19/18 05/20/18 05/20/18 18:59 06:59 18:59 Intake Total 200 / 200 1680 / 1680 Balance 200 / 200 1680 / 1680 Weight 86 kg Intake: IV 200 / 200 1200 / 1200 NS Inj 1,000 ML @ 100 mls/hr IV 1000 / 1000 .CONT .Q10H PETE Rx#:[id number] Azactam Inj 2 GM In NS Inj 100 200 / 200 ML @ 200 mls/hr IV.SIG Q8H PETE Rx#:[id number] Levaquin 750 mg Premix Inj 150 200 / 200 ML @ 100 mls/hr IV.SIG Q24H PETE Rx#:[id number] Oral 480 / 480 Other: # Voids 6 # Bowel Movements 2 Narrative: GENERAL: Alert, oriented x3, NAD SKIN: Warm and dry. HEAD: Normocephalic. EYES: No scleral icterus. No injection or drainage. NECK: Supple, trachea midline. No JVD or lymphadenopathy. CARDIOVASCULAR: Regular rate and rhythm without murmurs, gallops, or rubs. RESPIRATORY: Moderate air entry, Bibasilar crackles, no appreciable wheezing. GASTROINTESTINAL: Abdomen soft, non-tender, nondistended. MUSCULOSKELETAL: No cyanosis. Trace edema in lower extremities. BACK: Nontender without obvious deformity. No CVA tenderness. Results - Labs CBC & Chem 7: 05/19/18 05:33 05/19/18 05:33 Laboratory Results - last 24 hr 05/19/18 05/19/18 05/19/18 05:33 11:54 16:34 POC Glucose 187 H 151 H B-Natriuretic Peptide 19 05/19/18 05/20/18 05/20/18 21:06 07:56 11:14 POC Glucose 152 H 137 H 158 H B-Natriuretic Peptide Microbiology 05/18/18 17:15 Blood - Peripheral Aerobic Blood Culture - Preliminary No growth in 2 days 05/18/18 17:15 Blood - Peripheral Anaerobic Blood Culture - Preliminary No growth in 2 days 05/18/18 17:20 Blood - Peripheral Aerobic Blood Culture - Preliminary No growth in 2 days 05/18/18 17:20 Blood - Peripheral Anaerobic Blood Culture - Preliminary No growth in 2 days - Imaging Chest X-Ray 05/18/18 17:16 CONCLUSION: 1. Mild increased airspace consolidation at the left lung base posteriorly concerning for pneumonia. Chest CTA 05/20/18 00:00 There is moderate emphysema again noted. Consolidation is seen in the right upper lobe, both lower lobes, and a small right-sided pleural effusion is identified. There is hepatic steatosis and hepatomegaly. In the left hepatic lobe lateral segment a 4.8 cm mass is again seen. There is no evidence for pulmonary embolism. CONCLUSION: 1. Pneumonia, small right effusion. 2. Hepatomegaly and hepatic steatosis with left hepatic indeterminate mass again seen. 3. No evidence for pulmonary embolism. 4. Emphysema. Assessment and Plan - Assessment (1) SIRS (systemic inflammatory response syndrome) Code(s): R65.10 - Systemic inflammatory response syndrome (SIRS) of non- infectious origin without acute organ dysfunction Status: Acute (2) PNA (pneumonia) Code(s): J18.9 - Pneumonia, unspecified organism Status: Acute (3) DM (diabetes mellitus) Code(s): E11.9 - Type 2 diabetes mellitus without complications Status: Acute (4) Hypoxia Code(s): R09.02 - Hypoxemia Status: Acute - Plan This is a 77-year-old female with a PMH of HTN, Hyperlipidemia, COPD, O2 Dependent and DM who was brought to the ER by EMS secondary to SOB and cough, noted to have O2 sat 84% on 3L NC, s/p Albuterol by EMS w/ some improvement. Patient was seen in the emergency department on 05/13/2018 and was discharged from the ED on oral medications. However due to worsening symptoms she decided to come back to the hospital. Community-acquired pneumonia Hemoptysis -Will continue Levaquin 750mg Qday. Will add Doxycycline 100mg IV Q12hrs as well. -DuoNeb scheduled and PRN. Continue home med Ellipta (Umeclidinium/Vilanterol ). -Solu-medrol 40mg Q6hrs. -Pulmonology consult. Diabetes mellitus - Continue Levemir 10 units nightly, sliding scale insulin. Hyperlipidemia Congestive heart failure, likely systolic -BNP was 19. Patient's symptoms are not due to CHF. -Continue aspirin, atorvastatin, metoprolol succinate 25 mg p.o. daily, isosorbide mononitrate. -Continue furosemide 40 mg daily. Full code. Lovenox.
[2018-05-20] MEDS: MethylPREDNISolone Sod Succinate Inj 40 MG/ML Vial IV.PUSH SCH ×2 (12:18→17:26)
--- NOTE | 2018-05-20 14:33 | CT ---
EXAM DATE: 05/20/2018 12:48 PM EDT AGE/SEX: 77 years / Female INDICATIONS: Hypoxia, hemoptysis. CLINICAL DATA: This is the patient's initial encounter. Patient reports that signs and symptoms have been present for 1 day and indicates a pain score of 2/10. MEDICAL/SURGICAL HISTORY: Chronic obstructive pulmonary disease. Congestive heart failure. Diabet es. hypertension None. RADIATION DOSE: 10.58 CTDI (mGy) COMPARISON: [facility] [place], CHEST 2V PA&LAT, 05/18/2018. C, CTA PULMONARY W CONTRAST W 3D, 03/13/2018. [facility], CT ABDOMEN & PELVIS W CONTRAST, 03/13/2018. . TECHNIQUE: Volumetric scanning was performed using a multi-row detector CT scanner during bolus infu kenyatta of 75 ml Omnipaque 350 (iohexol) nonionic water-soluble contrast as a single exam dose. The stephany a was post processed with a variety of visualization algorithms including full volume maximum intensi ty projection and sliding thin slab reformation. Using automated exposure control and adjustment of the mA and/or kV according to patient size, radiation dose was kept as low as reasonably achievable t o obtain optimal diagnostic quality images. DICOM format image data is available electronically for review and comparison. FINDINGS: There is moderate emphysema again noted. Consolidation is seen in the right upper lobe, both lower lo bes, and a small right-sided pleural effusion is identified. There is hepatic steatosis and hepatomeg tamra. In the left hepatic lobe lateral segment a 4.8 cm mass is again seen. There is no evidence for p ulmonary embolism. CONCLUSION: 1. Pneumonia, small right effusion. 2. Hepatomegaly and hepatic steatosis with left hepatic indeterminate mass again seen. 3. No evidence for pulmonary embolism. 4. Emphysema. Electronically signed by: Eamon Davalos MD 05/20/2018 2:32 PM EDT
[2018-05-20] MEDS: Umeclindinium 62.5 MCG/Vilanterol 25 MCG Inhaler INH SCH (15:20)
[2018-05-20] MEDS: Enoxaparin Inj 30 MG/0.3 ML Syringe SQ SCH (18:24)
--- NOTE | 2018-05-20 20:02 | MB ---
cc: Colleen Simms MD DATE: 05/20/2018 REASON FOR CONSULTATION: Hemoptysis and pneumonia. HISTORY OF PRESENT ILLNESS: This is a 77-year-old lady with a history of COPD, diabetes, hypertension and a history of pneumonia in the past, who was admitted via the emergency room with respiratory distress, cough and mild hemoptysis. The patient apparently was in the hospital more than 3 weeks ago with similar symptoms and was treated for pneumonia, but over the past 2 days, she has been running some fevers and she was coughing, and this morning, her sputum was blood streaked. She has been on home oxygen at 2 liters. Following admission, the patient's chest x-ray showed an infiltrate in the left lung base, and she has been started on IV antibiotics including Levaquin and Azactam. A CT chest was obtained which showed no evidence of pulmonary embolism, but had an extensive infiltrate in the right upper lobe and right middle lobe areas with no mass lesions. The patient also had mild effusions on the right. PAST MEDICAL HISTORY: Includes a history of COPD and emphysema, history of CHF and cardiomyopathy, history of diabetes mellitus, history of hypertension and hyperlipidemia. She has a history of hysterectomy in the past, appendectomy and has had surgery on her C-spine. She has had a tonsillectomy remotely and back surgery. She has a history of hypothyroidism. HABITS: The patient smoked 1/2 to 1 pack per day for over 60 years and quit recently. Alcohol use, none recently. ALLERGIES: PENICILLIN. FAMILY HISTORY: Significant for lung disease and malignancy. MEDICATIONS: List was reviewed from the chart, which includes: 1. BuSpar 5 mg b.i.d. 2. Lipitor 40 mg at bedtime. 3. Plavix 75 mg a day. 4. Cymbalta 60 mg b.i.d. 5. Lovenox 30 mg subcutaneous. 6. Pepcid 20 mg daily. 7. Lasix 40 mg a day. 8. Metoprolol 25 mg daily. 9. Mirapex 1 mg q.6 hours. REVIEW OF SYSTEMS: The patient is overweight. She has dizziness, postnasal drip, cough with expectoration and hemoptysis. She has fevers and epigastric distress and reflux. She has urinary frequency and lower abdominal pain. She has joint pains and leg swelling. She has trouble sitting up due to back pain. She also has depression and anxiety. PHYSICAL EXAMINATION: GENERAL: This is an obese, elderly white female who is moderately dyspneic. She is on a simple mask at 50% O2. VITAL SIGNS: Blood pressure 130/70, pulse 85, respirations 18, temperature 97.2. HEENT: Head is normocephalic. Pupils are reactive and equal. Sclerae are clear. Throat is dry. Nasal mucosa is injected. NECK: Supple with no venous distention. No thyromegaly or lymphadenopathy. CHEST: Equal movements with coarse wheezes scattered bilaterally with occasional crackles in the right lung field. HEART: The heart sounds are regular. S1 and S2 with no murmur. No S3. ABDOMEN: Soft, obese without masses. No organomegaly or tenderness. Bowel sounds are active. EXTREMITIES: Varicosities and pigmentation of the skin of the lower extremities, decreased peripheral pulses. NEUROLOGIC: No focal deficits identified. SKIN: Dry and scaly. IMPRESSION: 1. Right lung pneumonia with hypoxemia. 2. Sepsis. 3. Restless leg syndrome. 4. Hypertension. 5. Diabetes mellitus. 6. Chronic obstructive pulmonary disease with emphysema and chronic bronchitis. 7. Hemoptysis, etiology undetermined. PLAN: The patient will be continued on antibiotic coverage including Levaquin 750 mg IV daily and Azactam 1 gram. We will also place her on Solu-Medrol 40 mg IV q.6 hours. Oxygen wean down to nasal cannula at 4 liters to keep sats greater than 92. A bedside pulmonary function study will be obtained. Sputum will be sent for Gram stain and culture. We will also consider doing a bronchoscopy when she is clinically stable. Thank you, Dr. Anais Riddle, for this consultation. MD THEO Lemus/bertin , 07:29 PM , 07:42 PM
[2018-05-20] MEDS: Insulin Detemir Inj 1,000 UNIT/10 ML Vial SQ SCH (22:48)
[2018-05-21] MEDS: MethylPREDNISolone Sod Succinate Inj 40 MG/ML Vial IV.PUSH SCH ×5 (00:04→23:53)
[2018-05-21] MEDS: Sod Chloride 0.9% Inj 1,000 ML IV.CONT SCH ×3 (02:39→17:58)
[2018-05-21] MEDS ORDERED: Sodium Chlor 0.9% Inj 500 ML IV.SIG SCH (04:00)
[2018-05-21 05:38] LABS: Bilirubin,Urine Negative (Negative); Clarity,Urine Hazy (Clear); Color,Urine Yellow (Yellw/Straw); Glucose,Urine (UA) 500 or Greater mg/dL (Negative); Hyaline Casts,Urine 1 /lpf (0-3); Leukocyte Esterase,Urine Negative (Negative); Mucus,Urine Few /lpf (Occasional); Nitrite,Urine Negative (Negative); Specific Gravity,Urine 1.024 (1.002-1.035); Squamous Epithelial Cell,Urine 2 /hpf (0-5)
[2018-05-21] MEDS: Duloxetine 60 MG DR Capsule PO SCH ×2 (09:25→20:46)
[2018-05-21] MEDS: Furosemide 40 MG Tablet PO SCH (09:26)
[2018-05-21] MEDS: Isosorbide Mononitrate 30 MG ER 24HR Tablet (Imdur) PO SCH ×2 (09:26→20:46)
[2018-05-21] MEDS: Famotidine 20 MG Tablet PO SCH (09:26)
[2018-05-21] MEDS: Insulin NovoLOG Aspart Correctional Sugar Inj SQ SCH ×4 (09:27→20:56)
[2018-05-21] MEDS: Sodium Chloride 0.9% 2 ML Flush BID IV.FLUSH SCH ×2 (09:27→20:52)
[2018-05-21] MEDS: Senna/Docusate Sodium 8.6/50 MG Tablet PO SCH ×2 (09:28→20:46)
[2018-05-21 11:21] LABS: INR 1.1 Ratio; Prothrombin Time 10.9 sec (9.8-11.6)
[2018-05-21 13:08] LABS: ABG Base Excess 12.5 mmol/L (-2-2); ABG PCO2 54 mmHg (38-42); ABG PO2 51 mmHg (61-120)
--- NOTE | 2018-05-21 16:29 | P.CONPAL ---
Consult Service: Palliative Care Requesting Physician: Josie Riddle Reason for Consult: a. To assist with evaluation and management of symptoms including: Dyspnea, hallucination, debility b. To assist medical decision maker(s) with: better understanding of current medical conditions; weighing benefits/burdens of medical treatment options; making medical treatment decisions. Primary Care Provider: Dr. Griffith History of Present Illness History of Present Illness: Mrs. Morel is a 77 years old female with a medical history significant for chronic obstructive pulmonary disease, emphysema, tobaccoism, congestive heart failure, pneumonia, diabetes mellitus, hypertension, hypothyroidism, bilateral rotator cuff injury, restless leg syndrome and hyperlipidemia. Patient was brought to the emergency room on 05/18/18 with complaints of worsening shortness of breath, cough and mild hemoptysis in the past 2 days. Patient complained of having fever, chills and coughing up phlegm prior to presenting to the emergency room. Patient was recently in the hospital approximately 3-4 weeks ago and was treated for pneumonia. ER course: * Vital signs: Temperature 99.7F, pulse 89, respirations 25, BP 143/67, O2 saturation 94% * EKG showed sinus rhythm with possible right ventricular conduction delay septal myocardial infarction. * Chest x-ray revealed mild increased airspace consolidation at the left lung base posteriorly concerning for pneumonia. * Laboratory workup revealed WBC 6.4, hemoglobin 10.9, hematocrit 32.0, platelet count 296, PT 10.9, INR 1.1, APTT 27, sodium 135, potassium 3.9, BUN/ creatinine 13/0.77, random glucose 164, lactic acid 1.6, total bilirubin 0.3, AST 18, ALT 22, troponin less than 0.02, total protein 7.3, albumin 3.3 * Urinalysis negative for leukocyte esterase and nitrates. Culture not indicated * Nasal wash negative for influenza types a, B antigen * Blood cultures collected -showing no growth in 3 days * [facility] ABG results on 05/21/18 revealed pH 7.45, PCO2 54, PO2 51, HCO3 37, base excess 12.5, O2 saturation 84% on 9 L simple mask. Patient placed on 100% nonrebreather. Urine collected on 05/21/18 negative for Legionella and Streptococcus pneumoniae. Chest CTA on 05/20/18 revealed pneumonia, small right effusion; emphysema; hepatomegaly and hepatic steatosis with left hepatic indeterminate mass, and no evidence of pulmonary embolism. Pulmonology Dr.D` Myles consulted on 05/20/18 to evaluate and manage a patient with hemoptysis and pneumonia, recommended continuing antibiotic therapy, starting patient on Solu-Medrol, bedside pulmonary function study, sputum culture and weaning oxygen to use O2 saturation greater than 92%. Sputum culture from expectorated sputum positive for heavy growth normal respiratory khloe. Clinical course complicated with worsening dyspnea and hemoptysis. Palliative care consulted to assist with symptom management and establishment of goals of medical treatment. Patient reportedly having worsening dyspnea requiring increase of oxygen need with O2 saturation in the low 90s. ABG results on 05/21 revealed pH 7.5, PCO2 54, PO2 51, HCO3 37, base excess 12.5, O2 saturation 84 L on 9 L simple mask. Patient is now on 100% nonrebreather. Patient seen and examined in her room. Physical therapy currently in the room assisting patient with dressing and going back to bed. Patient is awake, alert , oriented to self, place and situation with some confusion. Patient also exhibiting tactile hallucinations-trying to reach out for invisible objects. Easily redirected. Patient confirming that she is occasionally seeing blurry images of people. Introduced palliative care and its role in symptom management and establishment of goals of medical treatment.Obtained psychosocial history, past medical history and events leading to this hospitalization. Patient was able to answer most of the questions appropriately and provide her medical history as documented in EMR. Patient knows that she has bronchoscopy scheduled for tomorrow. Patient states that she has completed advanced directives and his sister Jose Lunsford is her DURABLE POWER OF SOLO TRUCK DRIVER and her brother Mera Ram is her alternate DURABLE POWER OF SOLO TRUCK DRIVER. Readdressed CODE STATUS, discussed CPR limitations, complications and benefits. Patient elected DO NOT RESUSCITATE/DO NOT INTUBATE. Patient states that she has been intubated before and she does not want to be intubated again. She elaborates to state that she knows she has COPD/ emphysema and would want to be allowed to peacefully without prolonging her suffering. Broached hospice, briefly discussed hospice philosophy and benefits. At this time patient would like to proceed with bronchoscopy. Patient requested that his sister and brother be involved in making medical decisions and updates of her medical status. Conference telephone conversation with patient's brother Mera Ram and patient`s sister Isatu Garcia who both confirmed that they are both patient's DURABLE POWER OF ATTORNEYs. Per family, who arrives on [facility] does have copies of patient's advanced directives. Confirmed patient's psychosocial,and past medical history-which was correct as stated by patient before. Introduced palliative care and its role in patient's care. Updated them on patient's current medical status. Both patient's brother and sister supportive of patient 's decision to make herself DO NOT RESUSCITATE/DO NOT INTUBATE. They are both in agreement of proceeding with bronchoscopy. Introduced hospice philosophy and benefits. Patient's family states that if patient continues to deteriorate after bronchoscopy they would consider transitioning her to comfort care though they repeatedly stated that patient has been very sick before and was able to come out of it. Family appreciative of updates regarding patient`s condition so that they would make informed decisions. Palliative care contact information provided. Case discussed with bedside RN and nurse Sales Technician regarding safety. 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 Nurse assistant housekeeping manager aware and removed back from patient`s close vicinity. Function/Cognitive Trajectory: Patient currently resides at [facility] ([phone]).She is on O2 3 L home oxygen. Patient uses a motorized scooter at facility and can still drive herself short distances. She requires assistance with some of her ADLs like bathing. Patient is able to verbalize and needs. Review of Systems Constitutional: Reports chills, Reports fever(s), Reports malaise, Reports weakness Eyes: Denies blurry vision, Denies double vision Ears, Nose, Mouth, and Throat: Reports nasal congestion, Denies abnormal hearing , Denies headache(s) Cardiovascular: Reports shortness of breath, Reports shortness of breath with activity, Reports shortness of breath when lying down, Denies chest pain Respiratory: Reports chest congestion, Reports cough, Reports coughing up blood , Reports excessive phlegm production, Reports pain with cough, Reports shortness of breath, Reports shortness of breath with activity, Denies wheezing Gastrointestinal: Denies abdominal pain, Denies difficulty swallowing, Denies nausea, Denies vomiting Genitourinary: Denies blood in urine, Denies urinary incontinence Musculoskeletal: Reports back pain, Reports body aches Skin/Breast: Denies skin ulcer, Denies unusual bruising Neurologic: Reports restless legs, Denies abnormal hearing, Denies abnormal speech, Denies frequent falls Psychiatric: Reports anxiety, Reports tactile hallucinations Endocrine: Denies increased urination Hematologic/Lymphatic: Reports easy bruising PMFSH - History History Provided By: Patient, Roofer Metal / EMT - Medical History Medical History: Medical History (Last Updated 05/21/18 @ 16:16 by Keanu Hernandez) Tobacco use CHF (congestive heart failure) COPD (chronic obstructive pulmonary disease) Cholecystectomy planned Diabetes HTN (hypertension) High cholesterol History of hysterectomy Hypertension Restless leg syndrome Thyroid disease - Surgical History Surgical History: Surgical History (Last Updated 05/21/18 @ 16:04 by Keanu Hernandez) Hx of appendectomy Hx of tonsillectomy Previous back surgery History of neck surgery (Resolved) - Tobacco History Second Hand Smoke Exposure: Yes Tobacco Use In Past 30 Days: Yes Smoking Status: Current every day smoker Tobacco Type: Cigarettes - Alcohol History How Often Do You Have a Drink Containing Alcohol: Never - Substance Use History Substance History: No History of Abuse - Travel History Recent Travel in the [place] Within the Last 8 Weeks: No Recent Travel Out of the Country Within the Last 8 Weeks: No - Immunization History Tetanus Immunization: <5 Years Medications and Allergies Active Medications: Active Medications Acetaminophen (Tylenol) 650 mg PO Q4H PRN PRN Reason: Temp > 100.4; pain 1-2 Last Admin: 05/18/18 22:10 Dose: 650 mg Hydrocodone Bitart/Acetaminophen ([place] 5/325) 1 tab PO Q4H PRN PRN Reason: pain 1 to 10 Last Admin: 05/20/18 05:56 Dose: 1 tab Albuterol (Duoneb Neb (Prn)) 1 ampul NEB Q4HR NEB PRN PRN Reason: SOB/WHEEZING Last Admin: 05/19/18 23:45 Dose: 1 ampul Albuterol (Duoneb Neb (Britney)) 1 ampul NEB Q6HR WHILE AWAKE NEB BRITNEY Atorvastatin Calcium (Lipitor) 40 mg PO QPM BRITNEY Last Admin: 05/20/18 17:30 Dose: 40 mg Buspirone HCl (Buspar) 5 mg PO BID BRITNEY Last Admin: 05/21/18 09:26 Dose: 5 mg Clonazepam (Klonopin) 0.5 mg PO BID PRN PRN Reason: ANXIETY Clopidogrel Bisulfate (Plavix) 75 mg PO DAILY [facility] Last Admin: 05/21/18 09:25 Dose: 75 mg Dextrose (D50w Vial) 50 ml IV.PUSH UNSCH PRN PRN Reason: PER HYPOGLYCEMIA PROTOCOL Duloxetine HCl (Cymbalta) 60 mg PO BID [facility] Last Admin: 05/21/18 09:25 Dose: 60 mg Enoxaparin Sodium (Lovenox Inj) 30 mg SQ Q24H [facility] Last Admin: 05/20/18 18:24 Dose: 30 mg Famotidine (Pepcid) 20 mg PO DAILY [facility] Last Admin: 05/21/18 09:26 Dose: 20 mg Furosemide (Lasix) 40 mg PO DAILY [facility] Last Admin: 05/21/18 09:26 Dose: 40 mg Glucagon (Glucagon Inj) 1 mg OTHER PRN PRN PRN Reason: for Hypoglycemia Protocol Sodium Chloride (Ns Inj) 1,000 mls @ 100 mls/hr IV.CONT .Q10H [facility] Last Admin: 05/21/18 09:24 Dose: 100 mls/hr Levofloxacin/Dextrose (Levaquin 750 Mg Premix Inj) 150 mls @ 100 mls/hr IV.SIG Q24H [facility] Last Infusion: 05/21/18 00:20 Dose: Infused Doxycycline Hyclate 100 mg/ (Sodium Chloride) 100 mls @ 100 mls/hr IV.SIG Q12H [facility] Last Infusion: 05/21/18 08:05 Dose: Infused Lactated Ringer's (Lr 1000 Ml Inj) 1,000 mls @ 30 mls/hr IV.SIG .Q24H BRITNEY Stop: 05/22/18 03:14 Last Admin: 05/21/18 09:23 Dose: Not Given Sodium Chloride (Ns Inj) 500 mls @ 30 mls/hr IV.SIG .Q10H [facility] Last Admin: 05/21/18 09:24 Dose: Not Given Insulin Aspart (Novolog Insulin Correctional Sugar Inj) 0 unit SQ ACHS [facility]; Protocol Last Admin: 05/21/18 12:18 Dose: 3 unit Insulin Detemir (Levemir Inj) 10 unit SQ HS [facility] Last Admin: 05/20/18 22:48 Dose: 10 unit Isosorbide Mononitrate (Imdur) 30 mg PO BID [facility] Last Admin: 05/21/18 09:26 Dose: 30 mg Methylprednisolone Sodium Succinate (Solumedrol Inj) 40 mg IV.PUSH Q6H [facility] Last Admin: 05/21/18 11:12 Dose: 40 mg Metoprolol Succinate (Toprol Xl) 25 mg PO DAILY [facility] Last Admin: 05/21/18 09:26 Dose: 25 mg Ondansetron HCl (Zofran Inj) 4 mg IV.PUSH Q6H PRN PRN Reason: NAUSEA OR VOMITING Pramipexole Dihydrochloride (Mirapex) 1 mg PO Q6HR [facility] Last Admin: 05/21/18 11:13 Dose: 1 mg Senna/Docusate Sodium (Becca-Colace) 1 tab PO BID [facility] Last Admin: 05/21/18 09:28 Dose: Not Given Sodium Chloride (Ns Flush) 2 ml IV.FLUSH BID [facility] Last Admin: 05/21/18 09:27 Dose: 2 ml Sodium Chloride (Ns Flush) 2 ml IV.FLUSH PRN PRN PRN Reason: FLUSH AFTER USING IV ACCESS Umeclidinium/Vilanterol (Anoro-Ellipta 62.5/25 Mcg Inh) 1 puff INH Q24H [facility] Last Admin: 05/20/18 15:20 Dose: 1 puff Allergies Allergy/AdvReac Type Severity Reaction Status Date / Time penicillin G Allergy Severe Swelling Verified 05/13/18 06:12 *MDRO Multi-Drug Resistant Allergy Unknown Wheezing Uncoded 05/13/18 00:48 Organism Home Medications Medication Instructions Recorded Confirmed Type albuterol sulfate [ProAir HFA] 2 puff INHALATION Q6H PRN 05/13/18 05/18/18 History aspirin 325 mg PO DAILY 05/13/18 05/18/18 History buspirone 5 mg PO BID 05/13/18 05/18/18 History calcium citrate-vitamin D3 2 tab PO QAM 05/13/18 05/18/18 History [Calcitrate-Vitamin D] cholecalciferol (vitamin D3) 1,000 unit PO BID 05/13/18 05/18/18 History [Vitamin D3] clonazepam 0.5 mg PO BID 05/13/18 05/18/18 History clopidogrel [Plavix] 75 mg PO DAILY 05/13/18 05/18/18 History dapagliflozin [Farxiga] 5 mg PO DAILY 05/13/18 05/18/18 History diazepam 10 mg PO HS PRN 05/13/18 05/18/18 History diclofenac sodium 2 g TOPICAL QID 05/13/18 05/18/18 History dulaglutide [Trulicity] 0.75 mg SUBCUT QWEEK 05/13/18 05/18/18 History duloxetine 60 mg PO BID 05/13/18 05/18/18 History ergocalciferol (vitamin D2) 50,000 units WEEKLY 05/13/18 05/18/18 History famotidine 20 mg PO DAILY 05/13/18 05/18/18 History fenofibrate nanocrystallized 160 mg PO DAILY 05/13/18 05/18/18 History [Tricor] furosemide 40 mg PO DAILY 05/13/18 05/18/18 History gabapentin 300 mg PO Q6HR 05/13/18 05/18/18 History hydrocodone-acetaminophen [[place]] 1 tab PO Q6H PRN 05/13/18 05/18/18 History insulin glargine [Lantus Solostar 10 unit SUBCUT HS 05/13/18 05/18/18 History U-100 Insulin] ipratropium bromide [Atrovent HFA] 1 puff INHALATION Q8HR 05/13/18 05/18/18 History isosorbide mononitrate 30 mg PO BID 05/13/18 05/18/18 History levothyroxine 300 mcg PO DAILY 05/13/18 05/18/18 History metformin 1,000 mg PO BID 05/13/18 05/18/18 History metoprolol succinate [Toprol XL] 25 mg PO DAILY 05/13/18 05/18/18 History nitroglycerin 0.4 mg SUBLINGUAL Q5-15M PRN 05/13/18 05/18/18 History potassium chloride 20 meq PO DAILY 05/13/18 05/18/18 History pramipexole [Mirapex] 1 mg PO Q6HR 05/13/18 05/18/18 History simvastatin 80 mg PO QPM 05/13/18 05/18/18 History umeclidinium-vilanterol [Anoro 1 inh INHALATION Q24H 05/13/18 05/18/18 History Ellipta] Advance Directives Power of Usability Engineer Name: Milena Garcia Power of Usability Engineer and [phone] cell/[phone] Power of Usability Engineer Relationship to Patient: Family (Sister and brother) Today's verbally stated goals: Patient would like to proceed with bronchoscopy scheduled for 05/22/18 Family/friends goals: Family would like to proceed with bronchoscopy. Ethical and Legal Issues: None identified at this time . Physical Exam Vital Signs: Vital Signs - 24 hr 05/20/18 20:00 05/20/18 21:54 05/20/18 22:02 Temperature 98.4 F Pulse Rate 90 85 Respiratory Rate 18 20 Blood Pressure 158/77 H Pulse Oximetry 89 L 91 L 91 L 05/21/18 00:00 05/21/18 04:00 05/21/18 04:28 Temperature 98.1 F 97.9 F Pulse Rate 100 H 90 92 H Respiratory Rate 18 18 20 Blood Pressure 132/71 152/77 H Pulse Oximetry 89 L 87 L 05/21/18 07:17 05/21/18 08:00 05/21/18 11:11 Temperature 98.3 F Pulse Rate 80 83 Respiratory Rate 19 18 Blood Pressure 160/75 H Pulse Oximetry 94 L 92 L 92 L 05/21/18 12:00 Temperature Pulse Rate 85 Respiratory Rate 18 Blood Pressure 168/87 H Pulse Oximetry 92 L I&O: Intake & Output 05/19/18 05/20/18 05/21/18 05/22/18 06:59 06:59 06:59 06:59 Intake Total 340 / 340 1880 / 1880 2250 / 2250 1100 / 1100 Balance 340 / 340 1880 / 1880 2250 / 2250 1100 / 1100 Weight 86.1 kg 86 kg 85.6 kg Physical Exam: CONSTITUTIONAL/GENERAL: This is an adequately nourished patient, in respiratory distress distress. TUBES/LINES/DRAINS: PIV SKIN: No jaundice, rashes, or lesions. Ecchymoses on upper extremities. No wounds seen anteriorly. Skin temperature appropriate. Not diaphoretic. HEAD: Atraumatic. Normocephalic. EYES: Pupils equal and round and reactive. Extraocular motions intact. No scleral icterus. No injection or drainage. Fundi not examined. ENT: Hearing grossly normal. Nose without bleeding or purulent drainage. Moist oral mucosa NECK: Trachea midline. Supple, nontender. No palpable thyroid enlargement or nodularity. CARDIOVASCULAR: Regular rate and rhythm without murmurs, gallops, or rubs. No JVD. Peripheral pulses symmetric. RESPIRATORY/CHEST: Symmetric, labored respirations. Bibasilar crackles, no wheezes. GASTROINTESTINAL: Abdomen soft, non-tender, nondistended. No guarding. Bowel sounds present. GENITOURINARY: Without palpable bladder distension. MUSCULOSKELETAL: Extremities without clubbing, cyanosis, or edema. No joint tenderness or effusion noted. No calf tenderness. No mottling or clubbing. LYMPHATICS: Did not assess NEUROLOGICAL: Alert, oriented to self, place and situation. Motor and sensory grossly within normal limits. Follows commands. Moves all extremities. PSYCHIATRIC: Obvious tactile hallucination. Patient trying to reach out for invisible objects. States that occasionally she is seeing shadows of people Diagnostic Tests Laboratory: Laboratory Results - last 72 hr 05/18/18 05/18/18 05/18/18 17:20 17:20 17:20 WBC 6.4 RBC 3.59 L Hgb 10.9 L Hct 32.0 L MCV 89.1 MCH 30.4 MCHC 34.1 RDW 16.6 Plt Count 296 MPV 7.0 Prelim Diff (Auto) Slide review pending Neut % (Auto) 70.9 H Lymph % (Auto) 17.2 [place] % (Auto) 10.3 H Eos % (Auto) 1.1 Baso % (Auto) 0.5 Neut # (Auto) 4.5 Lymph # (Auto) 1.1 [place] # (Auto) 0.7 Eos # (Auto) 0.1 Baso # (Auto) 0.0 WBC Differential Manual diff final Seg Neuts % (Manual) 70 Lymphocytes % (Manual) 18 Monocytes % (Manual) 9 H Eosinophils % (Manual) 3 Abs Neuts (Manual) 4.5 Differential Comment . Platelet Estimate Normal Platelet Morphology Normal Stomatocytes 1+ H PT INR APTT Puncture Site Patient Temperature O2 Saturation ABG pH ABG pCO2 ABG pO2 ABG HCO3 ABG O2 Content ABG Base Excess ABG Methemoglobin Martín Test Hemoglobin Carboxyhemoglobin O2 Delivery Device Liter Flow Critical Value Sodium 135 L Potassium 3.9 Chloride 95 L Carbon Dioxide 34.4 H Anion Gap 6 BUN 13 Creatinine 0.77 Estimated GFR 73 L POC Glucose Random Glucose 164 H Lactic Acid 1.6 Calcium 9.0 Total Bilirubin 0.3 AST 18 ALT 22 Alkaline Phosphatase 76 Total Creatine Kinase Troponin I B-Natriuretic Peptide Total Protein 7.3 Albumin 3.3 L Urine Color Urine Clarity Urine pH Ur Specific [place] Urine Protein Urine Glucose (UA) Urine Ketones Urine Occult Blood Urine Nitrate Urine Bilirubin Urine Urobilinogen Ur Leukocyte Esterase Urine RBC Urine WBC Ur Squamous Epith Cells Hyaline Casts Granular Casts Urine Mucus Micro UA Comment Ur Microscopic Review Urine Culture Comments 05/18/18 05/18/18 05/19/18 17:20 22:14 05:33 WBC 5.8 RBC 3.23 L Hgb 9.8 L Hct 29.3 L MCV 90.5 MCH 30.3 MCHC 33.5 RDW 16.9 Plt Count 256 MPV 6.9 L Prelim Diff (Auto) Neut % (Auto) 73.3 H Lymph % (Auto) 12.8 [place] % (Auto) 11.3 H Eos % (Auto) 1.5 Baso % (Auto) 1.1 Neut # (Auto) 4.3 Lymph # (Auto) 0.7 L [place] # (Auto) 0.7 Eos # (Auto) 0.1 Baso # (Auto) 0.1 WBC Differential . Seg Neuts % (Manual) Lymphocytes % (Manual) Monocytes % (Manual) Eosinophils % (Manual) Abs Neuts (Manual) Differential Comment Auto diff final Platelet Estimate Platelet Morphology Stomatocytes PT INR APTT Puncture Site Patient Temperature O2 Saturation ABG pH ABG pCO2 ABG pO2 ABG HCO3 ABG O2 Content ABG Base Excess ABG Methemoglobin Martín Test Hemoglobin Carboxyhemoglobin O2 Delivery Device Liter Flow Critical Value Sodium Potassium Chloride Carbon Dioxide Anion Gap BUN Creatinine Estimated GFR POC Glucose 138 H Random Glucose Lactic Acid Calcium Total Bilirubin AST ALT Alkaline Phosphatase Total Creatine Kinase 69 Troponin I Less than 0.02 L B-Natriuretic Peptide Total Protein Albumin Urine Color Urine Clarity Urine pH Ur Specific [place] Urine Protein Urine Glucose (UA) Urine Ketones Urine Occult Blood Urine Nitrate Urine Bilirubin Urine Urobilinogen Ur Leukocyte Esterase Urine RBC Urine WBC Ur Squamous Epith Cells Hyaline Casts Granular Casts Urine Mucus Micro UA Comment Ur Microscopic Review Urine Culture Comments 05/19/18 05/19/18 05/19/18 05:33 05:33 07:59 WBC RBC Hgb Hct MCV MCH MCHC RDW Plt Count MPV Prelim Diff (Auto) Neut % (Auto) Lymph % (Auto) [place] % (Auto) Eos % (Auto) Baso % (Auto) Neut # (Auto) Lymph # (Auto) [place] # (Auto) Eos # (Auto) Baso # (Auto) WBC Differential Seg Neuts % (Manual) Lymphocytes % (Manual) Monocytes % (Manual) Eosinophils % (Manual) Abs Neuts (Manual) Differential Comment Platelet Estimate Platelet Morphology Stomatocytes PT INR APTT Puncture Site Patient Temperature O2 Saturation ABG pH ABG pCO2 ABG pO2 ABG HCO3 ABG O2 Content ABG Base Excess ABG Methemoglobin Martín Test Hemoglobin Carboxyhemoglobin O2 Delivery Device Liter Flow Critical Value Sodium 134 L Potassium 3.6 Chloride 95 L Carbon Dioxide 34.5 H Anion Gap 5 BUN 13 Creatinine 0.61 Estimated GFR Greater than 89 POC Glucose 165 H Random Glucose 151 H Lactic Acid Calcium 7.9 L D Total Bilirubin 0.3 AST 17 ALT 20 Alkaline Phosphatase 66 Total Creatine Kinase Troponin I B-Natriuretic Peptide 19 Total Protein 6.5 D Albumin 2.9 L Urine Color Urine Clarity Urine pH Ur Specific [place] Urine Protein Urine Glucose (UA) Urine Ketones Urine Occult Blood Urine Nitrate Urine Bilirubin Urine Urobilinogen Ur Leukocyte Esterase Urine RBC Urine WBC Ur Squamous Epith Cells Hyaline Casts Granular Casts Urine Mucus Micro UA Comment Ur Microscopic Review Urine Culture Comments 05/19/18 05/19/18 05/19/18 11:54 16:34 21:06 WBC RBC Hgb Hct MCV MCH MCHC RDW Plt Count MPV Prelim Diff (Auto) Neut % (Auto) Lymph % (Auto) [place] % (Auto) Eos % (Auto) Baso % (Auto) Neut # (Auto) Lymph # (Auto) [place] # (Auto) Eos # (Auto) Baso # (Auto) WBC Differential Seg Neuts % (Manual) Lymphocytes % (Manual) Monocytes % (Manual) Eosinophils % (Manual) Abs Neuts (Manual) Differential Comment Platelet Estimate Platelet Morphology Stomatocytes PT INR APTT Puncture Site Patient Temperature O2 Saturation ABG pH ABG pCO2 ABG pO2 ABG HCO3 ABG O2 Content ABG Base Excess ABG Methemoglobin Martín Test Hemoglobin Carboxyhemoglobin O2 Delivery Device Liter Flow Critical Value Sodium Potassium Chloride Carbon Dioxide Anion Gap BUN Creatinine Estimated GFR POC Glucose 187 H 151 H 152 H Random Glucose Lactic Acid Calcium Total Bilirubin AST ALT Alkaline Phosphatase Total Creatine Kinase Troponin I B-Natriuretic Peptide Total Protein Albumin Urine Color Urine Clarity Urine pH Ur Specific [place] Urine Protein Urine Glucose (UA) Urine Ketones Urine Occult Blood Urine Nitrate Urine Bilirubin Urine Urobilinogen Ur Leukocyte Esterase Urine RBC Urine WBC Ur Squamous Epith Cells Hyaline Casts Granular Casts Urine Mucus Micro UA Comment Ur Microscopic Review Urine Culture Comments 05/20/18 05/20/18 05/20/18 07:56 11:14 17:24 WBC RBC Hgb Hct MCV MCH MCHC RDW Plt Count MPV Prelim Diff (Auto) Neut % (Auto) Lymph % (Auto) [place] % (Auto) Eos % (Auto) Baso % (Auto) Neut # (Auto) Lymph # (Auto) [place] # (Auto) Eos # (Auto) Baso # (Auto) WBC Differential Seg Neuts % (Manual) Lymphocytes % (Manual) Monocytes % (Manual) Eosinophils % (Manual) Abs Neuts (Manual) Differential Comment Platelet Estimate Platelet Morphology Stomatocytes PT INR APTT Puncture Site Patient Temperature O2 Saturation ABG pH ABG pCO2 ABG pO2 ABG HCO3 ABG O2 Content ABG Base Excess ABG Methemoglobin Martín Test Hemoglobin Carboxyhemoglobin O2 Delivery Device Liter Flow Critical Value Sodium Potassium Chloride Carbon Dioxide Anion Gap BUN Creatinine Estimated GFR POC Glucose 137 H 158 H 174 H Random Glucose Lactic Acid Calcium Total Bilirubin AST ALT Alkaline Phosphatase Total Creatine Kinase Troponin I B-Natriuretic Peptide Total Protein Albumin Urine Color Urine Clarity Urine pH Ur Specific [place] Urine Protein Urine Glucose (UA) Urine Ketones Urine Occult Blood Urine Nitrate Urine Bilirubin Urine Urobilinogen Ur Leukocyte Esterase Urine RBC Urine WBC Ur Squamous Epith Cells Hyaline Casts Granular Casts Urine Mucus Micro UA Comment Ur Microscopic Review Urine Culture Comments 05/20/18 05/21/18 05/21/18 22:41 04:30 07:46 WBC RBC Hgb Hct MCV MCH MCHC RDW Plt Count MPV Prelim Diff (Auto) Neut % (Auto) Lymph % (Auto) [place] % (Auto) Eos % (Auto) Baso % (Auto) Neut # (Auto) Lymph # (Auto) [place] # (Auto) Eos # (Auto) Baso # (Auto) WBC Differential Seg Neuts % (Manual) Lymphocytes % (Manual) Monocytes % (Manual) Eosinophils % (Manual) Abs Neuts (Manual) Differential Comment Platelet Estimate Platelet Morphology Stomatocytes PT INR APTT Puncture Site Patient Temperature O2 Saturation ABG pH ABG pCO2 ABG pO2 ABG HCO3 ABG O2 Content ABG Base Excess ABG Methemoglobin Martín Test Hemoglobin Carboxyhemoglobin O2 Delivery Device Liter Flow Critical Value Sodium Potassium Chloride Carbon Dioxide Anion Gap BUN Creatinine Estimated GFR POC Glucose 263 H 221 H Random Glucose Lactic Acid Calcium Total Bilirubin AST ALT Alkaline Phosphatase Total Creatine Kinase Troponin I B-Natriuretic Peptide Total Protein Albumin Urine Color Yellow Urine Clarity Hazy H Urine pH 6.0 Ur Specific [place] 1.024 Urine Protein 500 or greater Urine Glucose (UA) 500 or greater Urine Ketones 80 or greater H Urine Occult Blood Small H Urine Nitrate Negative Urine Bilirubin Negative Urine Urobilinogen Less than 2 Ur Leukocyte Esterase Negative Urine RBC 25 H Urine WBC 5 Ur Squamous Epith Cells 2 Hyaline Casts 1 Granular Casts 4 Urine Mucus Few H Micro UA Comment Culture not ind Ur Microscopic Review Not Reportable Urine Culture Comments Culture not ind 05/21/18 05/21/18 05/21/18 10:05 12:11 12:58 WBC RBC Hgb Hct MCV MCH MCHC RDW Plt Count MPV Prelim Diff (Auto) Neut % (Auto) Lymph % (Auto) [place] % (Auto) Eos % (Auto) Baso % (Auto) Neut # (Auto) Lymph # (Auto) [place] # (Auto) Eos # (Auto) Baso # (Auto) WBC Differential Seg Neuts % (Manual) Lymphocytes % (Manual) Monocytes % (Manual) Eosinophils % (Manual) Abs Neuts (Manual) Differential Comment Platelet Estimate Platelet Morphology Stomatocytes PT 10.9 INR 1.1 APTT 27.0 Puncture Site Right radial Patient Temperature 98.6 O2 Saturation 84 L* ABG pH 7.45 H ABG pCO2 54 H* ABG pO2 51 L* ABG HCO3 37 H ABG O2 Content 11.9 L ABG Base Excess 12.5 H ABG Methemoglobin 1.2 Martín Test + Hemoglobin 10.1 L Carboxyhemoglobin 2.2 O2 Delivery Device Simple mask Liter Flow 9.00 Critical Value Yes Sodium Potassium Chloride Carbon Dioxide Anion Gap BUN Creatinine Estimated GFR POC Glucose 235 H Random Glucose Lactic Acid Calcium Total Bilirubin AST ALT Alkaline Phosphatase Total Creatine Kinase Troponin I B-Natriuretic Peptide Total Protein Albumin Urine Color Urine Clarity Urine pH Ur Specific [place] Urine Protein Urine Glucose (UA) Urine Ketones Urine Occult Blood Urine Nitrate Urine Bilirubin Urine Urobilinogen Ur Leukocyte Esterase Urine RBC Urine WBC Ur Squamous Epith Cells Hyaline Casts Granular Casts Urine Mucus Micro UA Comment Ur Microscopic Review Urine Culture Comments Result Diagrams: 05/19/18 05:33 05/19/18 05:33 Microbiology: Microbiology 05/20/18 10:30 Gram Stain - Final Sputum - Expectorated Sputum Sputum Culture - Preliminary Heavy growth normal respiratory khloe at 24 hours 05/21/18 04:30 Streptococcus pneumoniae Antigen (M - Final Urine - Clean Catch Urine Presumptive negative for streptococcus pneumoniae antigen, suggesting no current or recent infection. Infection due to Streptococcus pneumoniae cannot be ruled out since the antigen present in the sample may be below the detection limit of the test. 05/21/18 04:30 Legionella Antigen - Final Urine - Clean Catch Urine Presumptive negative for Legionella pneumophila serogroup 1 antigen in urine, suggesting no recent or recurrent infection. Infection due to Legionella cannot be ruled out since other serogroups and species may cause disease, antigen may not be present in urine in early infection, and the level of antigen present in the urine may be below the detection limit of the test. 05/18/18 17:15 Aerobic Blood Culture - Preliminary Blood - Peripheral No growth in 3 days Anaerobic Blood Culture - Preliminary No growth in 3 days 05/18/18 17:20 Aerobic Blood Culture - Preliminary Blood - Peripheral No growth in 3 days Anaerobic Blood Culture - Preliminary No growth in 3 days 05/18/18 17:40 Influenza Types A,B Antigen - Final Nasal Wash Negative for FLU A and B antigen Infection due to influenza A or B cannot be ruled out since the antigen present in the sample may be below the detection limit of the test. Imaging: Chest X-Ray 05/18/18 17:16 CONCLUSION: 1. Mild increased airspace consolidation at the left lung base posteriorly concerning for pneumonia. Chest CTA 05/20/18 00:00 There is moderate emphysema again noted. Consolidation is seen in the right upper lobe, both lower lobes, and a small right-sided pleural effusion is identified. There is hepatic steatosis and hepatomegaly. In the left hepatic lobe lateral segment a 4.8 cm mass is again seen. There is no evidence for pulmonary embolism. CONCLUSION: 1. Pneumonia, small right effusion. 2. Hepatomegaly and hepatic steatosis with left hepatic indeterminate mass again seen. 3. No evidence for pulmonary embolism. 4. Emphysema. Patient/Family Conference Family Conference Location: Bedside, Telephone Issues Discussed: * Palliative care role, purpose, approach * Additional medical, psychosocial, and spiritual history * Patients general health, functional status, and cognitive changes in the months leading up to the current hospitalization * Patient/family understanding of the current medical problems * Patient/family understanding of prognosis * Patients goals of care as best understood from advance directives and/or conversations and/or values * Current medical treatment options and benefits/burdens of those options * Likely scenarios comparing ongoing aggressive care with a transition to comfort measures only * Questions answered to the best of my ability * Introduced hospice philosophy and benefits * Palliative care contact information provided Assessment and Plan - Disease Oriented Problem List (1) SIRS (systemic inflammatory response syndrome) (2) PNA (pneumonia) (3) DM (diabetes mellitus) (4) Hypoxia - Symptom Scale (1) Dyspnea 0-10 Scale: Unable to quantify Comment: Patient is significant history of COPD and emphysema, O2 dependent. Chest x-ray showing consolidation to left lung. Currently on antibiotics for pneumonia. (2) Hallucination 0-10 Scale: Unable to quantify Comment: Most likely from hypoxia. Worsening respiratory status requiring 100% nonrebreather. O2 saturation on ABG 84% and PCO2 51%. (3) Debility 0-10 Scale: Unable to quantify Pertinent Non-Medical Issues: Psychosocial: Patient is originally from [place]. She moved to [place] in [address]. Patient has been 4 times, once from his first and twice. She has been to her current [facility] for 18 years. Patient's is currently a resident at the [facility]. He has Alzheimer's/dementia. Patient currently resides at [facility]. Patient has 2 adult daughters Whit and Nisha. 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 Ethical issues impacting care: None identified at this time. Important Contacts: [facility]-Brother- Mera [phone] cell/ [id number], [facility]- Daughter- Ruth Chavarria- [phone] . Prognosis: Mrs. Morel is a 77 years old female with a medical history significant for chronic obstructive pulmonary disease, emphysema, tobaccoism, congestive heart failure, pneumonia, diabetes mellitus, hypertension, hypothyroidism, bilateral rotator cuff injury, restless leg syndrome and hyperlipidemia. Patient was brought to the emergency room on 05/18/18 with complaints of worsening shortness of breath, cough and mild hemoptysis in the past 2 days. Clinical course complicated with worsening dyspnea and hemoptysis. Given multiple ongoing comorbidities, patient remains at high risk for further complications, deterioration and decline. Code Status: No Code DNR Plan: PLAN: Legal decision maker: Patient is alert and oriented to self, place and situation with some hallucinations. Patient stated that her sister Isatu Garcia and her brother Yo Tesfaye were her durable power of attorneys and they both acknowledged. Recommending shared medical decision making between patient and her brother and sister. Goals: Aggressive short of no code. Patient with the support of her brother and sister whom patient stated were her DURABLE POWER OF ATTORNEYs and they both acknowledged over the phone, would like to proceed with bronchoscopy scheduled for 05/21/18. Hospice topic broached. Family appeared interested in transitioning patient to comfort care only through hospice if she does not show any improvement status post bronchoscopy, though they repeatedly stated that "patient has been very sick before and was able to come out of it." CODE STATUS: No code DNR/DNI SYMPTOMS: * Dyspnea: Patient is significant history of COPD and emphysema, O2 dependent. Chest x-ray showing consolidation to left lung. Currently on antibiotics for pneumonia. Patient's respiratory status worsening, currently 100% nonrebreather. Patient scheduled for a bronchoscopy tomorrow. * Hallucination: Most likely from hypoxia. Worsening respiratory status requiring 100% nonrebreather. O2 saturation on ABG 84% and PCO2 51%. Continue to monitor. * Debility: Progressive. Patient has history of COPD, emphysema, tobacco use and is O2 dependent. He has had multiple ER visits and hospitalizations in the past few months. Palliative care will continue to follow the patient during hospital course as condition evolves, to assist patient/decision-maker with understanding of their medical conditions, weighing benefits/burdens of treatment options, for clarification of goals of treatment. Additionally will assist with any symptoms of palliative concern Appreciation Thank you for the opportunity to participate in the care of Maisha Morel. Attestation Attestation: To help prompt me to consider important information that might be impacting today's encounter and assessment, information from prior notes written by myself or my colleagues may have been "brought forward" into today's note. My signature on this note, however, is an attestation that I personally performed the exam, history, and/or decision-making noted today, and, unless otherwise indicated, the interactions with patient, family, and staff as well as the review of records all occurred today. I also attest that the listed assessment and stated plan reflect my best clinical judgment today based on the combination of historical information, prior notes, and today's exam/ interactions. When time spent is documented, it refers only to time spent today by the signer, or if indicated, combined time spent today by collaborating physician/nurse practitioner.
[2018-05-21] MEDS: Enoxaparin Inj 30 MG/0.3 ML Syringe SQ SCH (17:57)
--- NOTE | 2018-05-21 18:03 | P.PN ---
Subjective Interval history: Feels congested and has less hemoptysis. Output was good. CT chest Noted. Was advised bronchoscopy to Evaluate Pneumonia. Physical Exam Vital signs: Vital Signs 05/20/18 20:00 05/20/18 21:54 05/20/18 22:02 Temperature 98.4 F Pulse Rate 90 85 Respiratory Rate 18 20 Blood Pressure 158/77 H Pulse Oximetry 89 L 91 L 91 L 05/21/18 00:00 05/21/18 04:00 05/21/18 04:28 Temperature 98.1 F 97.9 F Pulse Rate 100 H 90 92 H Respiratory Rate 18 18 20 Blood Pressure 132/71 152/77 H Pulse Oximetry 89 L 87 L 05/21/18 07:17 05/21/18 08:00 05/21/18 11:11 Temperature 98.3 F Pulse Rate 80 83 Respiratory Rate 19 18 Blood Pressure 160/75 H Pulse Oximetry 94 L 92 L 92 L 05/21/18 12:00 Temperature Pulse Rate 85 Respiratory Rate 18 Blood Pressure 168/87 H Pulse Oximetry 92 L Intake & Output 05/20/18 05/21/18 05/21/18 18:59 06:59 18:59 Intake Total 1100 / 1100 1150 / 1150 1100 / 1100 Balance 1100 / 1100 1150 / 1150 1100 / 1100 Weight 85.6 kg Intake: IV 1100 / 1100 1150 / 1150 1100 / 1100 NS Inj 1,000 ML @ 100 mls/hr IV 1000 / 1000 1000 / 1000 1000 / 1000 .CONT .Q10H PETE Rx#:[id number] Doxy 100 Inj 100 MG In NS Inj 100 / 100 100 / 100 100 ML @ 100 mls/hr IV.SIG Q12H PETE Rx#:[id number] Levaquin 750 mg Premix Inj 150 150 / 150 ML @ 100 mls/hr IV.SIG Q24H PETE Rx#:[id number] Oral 0 / 0 Other: # Voids 2 Date of Last Bowel Movement 05/21/18 # Bowel Movements 1 Narrative: GENERAL: Obese elderly W/F Alert, oriented x3, NAD SKIN: Warm and dry. HEAD: Normocephalic. EYES: No scleral icterus. No injection or drainage. NECK: Supple, trachea midline. No JVD or lymphadenopathy. CARDIOVASCULAR: Regular rate and rhythm without murmurs, gallops, or rubs. RESPIRATORY: Decreased breath sounds, Bibasilar crackles, no appreciable wheezing. GASTROINTESTINAL: Abdomen soft, non-tender, nondistended. MUSCULOSKELETAL: No cyanosis. Trace edema in lower extremities. BACK: Nontender without obvious deformity. No CVA tenderness. Results - Labs CBC & Chem 7: 05/19/18 05:33 05/19/18 05:33 Laboratory Results - last 24 hr 05/20/18 05/21/18 05/21/18 22:41 04:30 07:46 PT INR APTT Puncture Site Patient Temperature O2 Saturation ABG pH ABG pCO2 ABG pO2 ABG HCO3 ABG O2 Content ABG Base Excess ABG Methemoglobin Martín Test Hemoglobin Carboxyhemoglobin O2 Delivery Device Liter Flow Critical Value POC Glucose 263 H 221 H Urine Color Yellow Urine Clarity Hazy H Urine pH 6.0 Ur Specific [place] 1.024 Urine Protein 500 or greater Urine Glucose (UA) 500 or greater Urine Ketones 80 or greater H Urine Occult Blood Small H Urine Nitrate Negative Urine Bilirubin Negative Urine Urobilinogen Less than 2 Ur Leukocyte Esterase Negative Urine RBC 25 H Urine WBC 5 Ur Squamous Epith Cells 2 Hyaline Casts 1 Granular Casts 4 Urine Mucus Few H Micro UA Comment Culture not ind Ur Microscopic Review Not Reportable Urine Culture Comments Culture not ind 05/21/18 05/21/18 05/21/18 10:05 12:11 12:58 PT 10.9 INR 1.1 APTT 27.0 Puncture Site Right radial Patient Temperature 98.6 O2 Saturation 84 L* ABG pH 7.45 H ABG pCO2 54 H* ABG pO2 51 L* ABG HCO3 37 H ABG O2 Content 11.9 L ABG Base Excess 12.5 H ABG Methemoglobin 1.2 Martín Test + Hemoglobin 10.1 L Carboxyhemoglobin 2.2 O2 Delivery Device Simple mask Liter Flow 9.00 Critical Value Yes POC Glucose 235 H Urine Color Urine Clarity Urine pH Ur Specific [place] Urine Protein Urine Glucose (UA) Urine Ketones Urine Occult Blood Urine Nitrate Urine Bilirubin Urine Urobilinogen Ur Leukocyte Esterase Urine RBC Urine WBC Ur Squamous Epith Cells Hyaline Casts Granular Casts Urine Mucus Micro UA Comment Ur Microscopic Review Urine Culture Comments 05/21/18 16:35 PT INR APTT Puncture Site Patient Temperature O2 Saturation ABG pH ABG pCO2 ABG pO2 ABG HCO3 ABG O2 Content ABG Base Excess ABG Methemoglobin Martín Test Hemoglobin Carboxyhemoglobin O2 Delivery Device Liter Flow Critical Value POC Glucose 241 H Urine Color Urine Clarity Urine pH Ur Specific [place] Urine Protein Urine Glucose (UA) Urine Ketones Urine Occult Blood Urine Nitrate Urine Bilirubin Urine Urobilinogen Ur Leukocyte Esterase Urine RBC Urine WBC Ur Squamous Epith Cells Hyaline Casts Granular Casts Urine Mucus Micro UA Comment Ur Microscopic Review Urine Culture Comments Microbiology 05/20/18 10:30 Sputum - Expectorated Sputum Gram Stain - Final 05/20/18 10:30 Sputum - Expectorated Sputum Sputum Culture - Preliminary Heavy growth normal respiratory khloe at 24 hours 05/21/18 04:30 Urine - Clean Catch Urine Streptococcus pneumoniae Antigen ( M - Final Presumptive negative for streptococcus pneumoniae antigen, suggesting no current or recent infection. Infection due to Streptococcus pneumoniae cannot be ruled out since the antigen present in the sample may be below the detection limit of the test. 05/21/18 04:30 Urine - Clean Catch Urine Legionella Antigen - Final Presumptive negative for Legionella pneumophila serogroup 1 antigen in urine, suggesting no recent or recurrent infection. Infection due to Legionella cannot be ruled out since other serogroups and species may cause disease, antigen may not be present in urine in early infection, and the level of antigen present in the urine may be below the detection limit of the test. 05/18/18 17:15 Blood - Peripheral Aerobic Blood Culture - Preliminary No growth in 3 days 05/18/18 17:15 Blood - Peripheral Anaerobic Blood Culture - Preliminary No growth in 3 days 05/18/18 17:20 Blood - Peripheral Aerobic Blood Culture - Preliminary No growth in 3 days 05/18/18 17:20 Blood - Peripheral Anaerobic Blood Culture - Preliminary No growth in 3 days Assessment and Plan - Assessment (1) Hemoptysis Code(s): R04.2 - Hemoptysis Status: Acute (2) Pneumonia Code(s): J18.9 - Pneumonia, unspecified organism Status: Acute (3) Diabetes mellitus Code(s): E11.9 - Type 2 diabetes mellitus without complications Status: Acute (4) Dyslipidemia Code(s): E78.5 - Hyperlipidemia, unspecified Status: Acute (5) SIRS (systemic inflammatory response syndrome) Code(s): R65.10 - Systemic inflammatory response syndrome (SIRS) of non- infectious origin without acute organ dysfunction Status: Acute (6) PNA (pneumonia) Code(s): J18.9 - Pneumonia, unspecified organism Status: Acute (7) DM (diabetes mellitus) Code(s): E11.9 - Type 2 diabetes mellitus without complications Status: Acute (8) Hypoxia Code(s): R09.02 - Hypoxemia Status: Acute (9) Dyspnea Code(s): R06.00 - Dyspnea, unspecified Status: Acute - Plan 1. Continue Antibiotics Levaquin and Doxy. 2. O2 to N/C 4 L. 3. CPAP at HS 10 CM. 4. Will schedule bronchoscopy when stable. 5. Duoneb nebs qid. 6.CXR ,CBC,BMP in am 7. Continue solumedrol 40 mg IV Q8H 8. Breo 100/25 mcg , 1 puff daily. (2) Pneumonia Qualifiers: Pneumonia type: due to unspecified organism Laterality: left Lung location: lower lobe of lung Qualified Code(s): J18.1 - Lobar pneumonia, unspecified organism (3) Diabetes mellitus Qualifiers: Diabetes mellitus type: type 2 Diabetes mellitus snf insulin use: with snf use
--- NOTE | 2018-05-21 18:03 | P.PN ---
Subjective Interval history: Follow-up for pneumonia, hemoptysis. Patient is resting in bed, requiring significant amount of O2 to maintain O2 sat > 88%. ABG confirmed hypoxia. CTA pulmonary did not show any evidence of PE. Patient has a very rational thought process. She understands that she may not be able to undergo bronchoscopy at this point. She also wants to be a DNR. Physical Exam Vital signs: Vital Signs 05/20/18 20:00 05/20/18 21:54 05/20/18 22:02 Temperature 98.4 F Pulse Rate 90 85 Respiratory Rate 18 20 Blood Pressure 158/77 H Pulse Oximetry 89 L 91 L 91 L 05/21/18 00:00 05/21/18 04:00 05/21/18 04:28 Temperature 98.1 F 97.9 F Pulse Rate 100 H 90 92 H Respiratory Rate 18 18 20 Blood Pressure 132/71 152/77 H Pulse Oximetry 89 L 87 L 05/21/18 07:17 05/21/18 08:00 05/21/18 11:11 Temperature 98.3 F Pulse Rate 80 83 Respiratory Rate 19 18 Blood Pressure 160/75 H Pulse Oximetry 94 L 92 L 92 L 05/21/18 12:00 Temperature Pulse Rate 85 Respiratory Rate 18 Blood Pressure 168/87 H Pulse Oximetry 92 L Intake & Output 05/20/18 05/21/18 05/21/18 18:59 06:59 18:59 Intake Total 1100 / 1100 1150 / 1150 2100 / 2100 Balance 1100 / 1100 1150 / 1150 2100 / 2100 Weight 85.6 kg Intake: IV 1100 / 1100 1150 / 1150 2100 / 2100 NS Inj 1,000 ML @ 100 mls/hr IV 1000 / 1000 1000 / 1000 2000 / 2000 .CONT .Q10H PETE Rx#:[id number] Doxy 100 Inj 100 MG In NS Inj 100 / 100 100 / 100 100 ML @ 100 mls/hr IV.SIG Q12H PETE Rx#:[id number] Levaquin 750 mg Premix Inj 150 150 / 150 ML @ 100 mls/hr IV.SIG Q24H PETE Rx#:[id number] Oral 0 / 0 Other: # Voids 2 Date of Last Bowel Movement 05/21/18 # Bowel Movements 1 Narrative: GENERAL: Obese elderly W/F Alert, oriented x3, NAD SKIN: Warm and dry. HEAD: Normocephalic. EYES: No scleral icterus. No injection or drainage. NECK: Supple, trachea midline. No JVD or lymphadenopathy. CARDIOVASCULAR: Regular rate and rhythm without murmurs, gallops, or rubs. RESPIRATORY: Decreased breath sounds, Bibasilar crackles, no appreciable wheezing. GASTROINTESTINAL: Abdomen soft, non-tender, nondistended. MUSCULOSKELETAL: No cyanosis. Trace edema in lower extremities. BACK: Nontender without obvious deformity. No CVA tenderness. Results - Labs CBC & Chem 7: 05/19/18 05:33 05/19/18 05:33 Laboratory Results - last 24 hr 05/20/18 05/21/18 05/21/18 22:41 04:30 07:46 PT INR APTT Puncture Site Patient Temperature O2 Saturation ABG pH ABG pCO2 ABG pO2 ABG HCO3 ABG O2 Content ABG Base Excess ABG Methemoglobin Martín Test Hemoglobin Carboxyhemoglobin O2 Delivery Device Liter Flow Critical Value POC Glucose 263 H 221 H Urine Color Yellow Urine Clarity Hazy H Urine pH 6.0 Ur Specific [place] 1.024 Urine Protein 500 or greater Urine Glucose (UA) 500 or greater Urine Ketones 80 or greater H Urine Occult Blood Small H Urine Nitrate Negative Urine Bilirubin Negative Urine Urobilinogen Less than 2 Ur Leukocyte Esterase Negative Urine RBC 25 H Urine WBC 5 Ur Squamous Epith Cells 2 Hyaline Casts 1 Granular Casts 4 Urine Mucus Few H Micro UA Comment Culture not ind Ur Microscopic Review Not Reportable Urine Culture Comments Culture not ind 05/21/18 05/21/18 05/21/18 10:05 12:11 12:58 PT 10.9 INR 1.1 APTT 27.0 Puncture Site Right radial Patient Temperature 98.6 O2 Saturation 84 L* ABG pH 7.45 H ABG pCO2 54 H* ABG pO2 51 L* ABG HCO3 37 H ABG O2 Content 11.9 L ABG Base Excess 12.5 H ABG Methemoglobin 1.2 Martín Test + Hemoglobin 10.1 L Carboxyhemoglobin 2.2 O2 Delivery Device Simple mask Liter Flow 9.00 Critical Value Yes POC Glucose 235 H Urine Color Urine Clarity Urine pH Ur Specific [place] Urine Protein Urine Glucose (UA) Urine Ketones Urine Occult Blood Urine Nitrate Urine Bilirubin Urine Urobilinogen Ur Leukocyte Esterase Urine RBC Urine WBC Ur Squamous Epith Cells Hyaline Casts Granular Casts Urine Mucus Micro UA Comment Ur Microscopic Review Urine Culture Comments 10/17/18 16:35 PT INR APTT Puncture Site Patient Temperature O2 Saturation ABG pH ABG pCO2 ABG pO2 ABG HCO3 ABG O2 Content ABG Base Excess ABG Methemoglobin Martín Test Hemoglobin Carboxyhemoglobin O2 Delivery Device Liter Flow Critical Value POC Glucose 241 H Urine Color Urine Clarity Urine pH Ur Specific [place] Urine Protein Urine Glucose (UA) Urine Ketones Urine Occult Blood Urine Nitrate Urine Bilirubin Urine Urobilinogen Ur Leukocyte Esterase Urine RBC Urine WBC Ur Squamous Epith Cells Hyaline Casts Granular Casts Urine Mucus Micro UA Comment Ur Microscopic Review Urine Culture Comments Microbiology 05/20/18 10:30 Sputum - Expectorated Sputum Gram Stain - Final 05/20/18 10:30 Sputum - Expectorated Sputum Sputum Culture - Preliminary Heavy growth normal respiratory khloe at 24 hours 05/21/18 04:30 Urine - Clean Catch Urine Streptococcus pneumoniae Antigen ( M - Final Presumptive negative for streptococcus pneumoniae antigen, suggesting no current or recent infection. Infection due to Streptococcus pneumoniae cannot be ruled out since the antigen present in the sample may be below the detection limit of the test. 05/21/18 04:30 Urine - Clean Catch Urine Legionella Antigen - Final Presumptive negative for Legionella pneumophila serogroup 1 antigen in urine, suggesting no recent or recurrent infection. Infection due to Legionella cannot be ruled out since other serogroups and species may cause disease, antigen may not be present in urine in early infection, and the level of antigen present in the urine may be below the detection limit of the test. 05/18/18 17:15 Blood - Peripheral Aerobic Blood Culture - Preliminary No growth in 3 days 05/18/18 17:15 Blood - Peripheral Anaerobic Blood Culture - Preliminary No growth in 3 days 05/18/18 17:20 Blood - Peripheral Aerobic Blood Culture - Preliminary No growth in 3 days 05/18/18 17:20 Blood - Peripheral Anaerobic Blood Culture - Preliminary No growth in 3 days Assessment and Plan - Assessment (1) SIRS (systemic inflammatory response syndrome) Code(s): R65.10 - Systemic inflammatory response syndrome (SIRS) of non- infectious origin without acute organ dysfunction Status: Acute (2) PNA (pneumonia) Code(s): J18.9 - Pneumonia, unspecified organism Status: Acute (3) DM (diabetes mellitus) Code(s): E11.9 - Type 2 diabetes mellitus without complications Status: Acute (4) Hypoxia Code(s): R09.02 - Hypoxemia Status: Acute - Plan This is a 77-year-old female with a PMH of HTN, Hyperlipidemia, COPD, O2 Dependent and DM who was brought to the ER by EMS secondary to SOB and cough, noted to have O2 sat 84% on 3L NC, s/p Albuterol by EMS w/ some improvement. Patient was seen in the emergency department on 05/13/2018 and was discharged from the ED on oral medications. However due to worsening symptoms she decided to come back to the hospital. Community-acquired pneumonia Hemoptysis End stage COPD -Will continue Levaquin 750mg Qday and Doxycycline 100mg IV Q12hrs as well - to cover anaerobes, double strep coverage. -DuoNeb scheduled and PRN. Continue home med Ellipta (Umeclidinium/Vilanterol ). -Solu-medrol 40mg Q6hrs. -Pulmonology consult - Pulm recommends improvement of respiratory status before bronch -Patient is not too enthusiastic about getting bronch done. -Will get palliative care consult. Diabetes mellitus - Continue Levemir 10 units nightly, sliding scale insulin. Hyperlipidemia Congestive heart failure, likely systolic -BNP was 19. Patient's symptoms are not due to CHF. -Continue aspirin, atorvastatin, metoprolol succinate 25 mg p.o. daily, isosorbide mononitrate. -Continue furosemide 40 mg daily. DNR. Lovenox on hold.
[2018-05-21] MEDS: Umeclindinium 62.5 MCG/Vilanterol 25 MCG Inhaler INH SCH (18:08)
[2018-05-21] MEDS: Insulin Detemir Inj 1,000 UNIT/10 ML Vial SQ SCH (20:52)
[2018-05-22] MEDS: Sod Chloride 0.9% Inj 1,000 ML IV.CONT SCH ×2 (05:44→12:44)
[2018-05-22] MEDS: MethylPREDNISolone Sod Succinate Inj 40 MG/ML Vial IV.PUSH SCH ×5 (05:46→22:03)
[2018-05-22] MEDS: Insulin NovoLOG Aspart Correctional Sugar Inj SQ SCH ×4 (08:29→21:54)
[2018-05-22] MEDS: Famotidine 20 MG Tablet PO SCH (08:30)
[2018-05-22] MEDS: Isosorbide Mononitrate 30 MG ER 24HR Tablet (Imdur) PO SCH ×2 (08:30→21:44)
[2018-05-22] MEDS: Furosemide 40 MG Tablet PO SCH (08:30)
[2018-05-22] MEDS: Duloxetine 60 MG DR Capsule PO SCH ×2 (08:30→21:45)
[2018-05-22] MEDS: Senna/Docusate Sodium 8.6/50 MG Tablet PO SCH ×2 (08:31→21:53)
[2018-05-22] MEDS: Sodium Chloride 0.9% 2 ML Flush BID IV.FLUSH SCH ×2 (11:09→21:54)
[2018-05-22 12:31] LABS: ABG Base Excess 13.4 mmol/L (-2-2); ABG PCO2 66 mmHg (38-42); ABG PO2 123 mmHg (61-120)
--- NOTE | 2018-05-22 13:47 | P.PNPAL ---
Reason for Visit Reason for visit: a. To assist with evaluation and management of symptoms including: Dyspnea, hallucination, debility b. To assist medical decision maker(s) with: better understanding of current medical conditions; weighing benefits/burdens of medical treatment options; making medical treatment decisions. Subjective Subjective/Interval History: Follow-up medically necessary for symptom management and further discussion regarding goals. Patient seen and examined in her room in the presence of bedside RN. Patient sitting up at side of bed, awake, alert and oriented to self, place and situation. No tactile hallucinations noted today. Patient has her shoes on and states that she is ready to go home. Remains on a partial nonrebreather. Patient endorsing feeling fatigued, and tired. Assisting patient with repositioning back into bed. Updated patient on conversation held yesterday between palliative care and his sister Radha who is her healthcare surrogate and brother Yo who the alternate healthcare surrogate. Discussed more regarding hospice and patient is amenable to transitioning to hospice though she appears to lack insight regarding her medical condition. Further discussion will be held with her health care surrogates. Pulmonology Dr. Salcido walked in during visit and will not proceed with bronchoscopy since patient is currently unstable- requiring significant amount of oxygen. Updated him discussion with family regarding hospice. Telephone conversation with patient's brother Yo, updated him on patient's current medical status. Notified him that patient is no longer able to undergo bronchoscopy. Reintroduced hospice philosophy and benefits. Patient's brother feels that hospice is most likely appropriate for patient due to end-stage COPD. Patient's brother expressed that he would want patient to complete her antibiotic therapy. Discussed further regarding enrollment into hospice process. His sister Radha has access to internet or fax and will most likely be able to sign hospice consents. Patient`s brother will be discussing further with the rest of the family before making the final decision to have hospice consulted. Family appreciative of any medical updates from the medical team which will help them with making informed decisions regarding the care of their loved one. Contacted [facility]([phone])- Advance directives (POA-Financial, living will and healthcare surrogate forms) received via fax. Case discussed with bedside RN, Dr. Salcido and Dr. Riddle. Family/Friend Interactions: See interval note. . Advance Directives Living Will: Copy in medical record (Standard verbiage-copy on EMR) Health Care Surrogate: Copy in medical record Health Care Surrogate Name and Number: HCS: Radha Lunsford [phone] Alt HCS: Lobo [phone] Objective Vital Signs: Vital Signs 05/21/18 19:04 05/21/18 19:05 05/21/18 20:00 Temperature 98.5 F Pulse Rate 80 76 Respiratory Rate 22 18 Blood Pressure 167/80 H Pulse Oximetry 95 92 L 05/22/18 00:00 05/22/18 01:20 05/22/18 02:22 Temperature 97.5 F L Pulse Rate 68 Respiratory Rate 17 18 Blood Pressure 139/65 Pulse Oximetry 95 93 L 05/22/18 07:41 05/22/18 08:00 05/22/18 12:00 Temperature 97.8 F 97.6 F Pulse Rate 88 91 H 81 Respiratory Rate 15 23 24 Blood Pressure 152/77 H 161/72 H Pulse Oximetry 92 L 97 95 05/22/18 12:15 Temperature Pulse Rate 74 Respiratory Rate 16 Blood Pressure Pulse Oximetry Intake & Output 05/21/18 05/22/18 05/22/18 18:59 06:59 18:59 Intake Total 2099 / 2099 1250 / 1250 1000 / 1000 Balance 2099 / 2099 1250 / 1250 1000 / 1000 Weight 82.7 kg Intake: IV 2099 / 2099 1250 / 1250 1000 / 1000 NS Inj 1,000 ML @ 100 mls/hr IV 2000 / 2000 1000 / 1000 900 / 900 .CONT .Q10H PETE Rx#:[id number] Doxy 100 Inj 100 MG In NS Inj 100 / 100 100 / 100 100 / 100 100 ML @ 100 mls/hr IV.SIG Q12H PETE Rx#:[id number] Levaquin 750 mg Premix Inj 150 150 / 150 ML @ 100 mls/hr IV.SIG Q24H PETE Rx#:[id number] Other: # Voids 3 Date of Last Bowel Movement 05/21/18 05/21/18 05/22/18 # Bowel Movements 2 Physical Exam: CONSTITUTIONAL/GENERAL: This is an adequately nourished patient, in respiratory distress distress. TUBES/LINES/DRAINS: PIV SKIN: No jaundice, rashes, or lesions. Ecchymoses on upper extremities. Skin temperature appropriate. Not diaphoretic. EYES: Pupils equal and round and reactive. Extraocular motions intact. No scleral icterus. No injection or drainage. Fundi not examined. ENT: Hearing grossly normal. Nose without bleeding or purulent drainage. Moist oral mucosa NECK: Trachea midline. Supple, nontender. CARDIOVASCULAR: Regular rate and rhythm without murmurs, gallops, or rubs. No JVD. Peripheral pulses symmetric. RESPIRATORY/CHEST: Symmetric, labored respirations. Bibasilar crackles. Wheezing GASTROINTESTINAL: Abdomen soft, non-tender, nondistended. No guarding. Bowel sounds present. GENITOURINARY: Without palpable bladder distension. MUSCULOSKELETAL: Extremities without clubbing, cyanosis, or edema. No joint tenderness or effusion noted. No calf tenderness. No mottling or clubbing. LYMPHATICS: Did not assess NEUROLOGICAL: Alert, oriented to self, place and situation. Motor and sensory grossly within normal limits. Follows commands. Moves all extremities. PSYCHIATRIC: No anxiety/depression. No hallucinations Diagnostic Tests Laboratory: Laboratory Results - last 72 hr 05/19/18 05/19/18 05/20/18 16:34 21:06 07:56 PT INR APTT Puncture Site Patient Temperature O2 Saturation ABG pH ABG pCO2 ABG pO2 ABG HCO3 ABG O2 Content ABG Base Excess ABG Methemoglobin Martín Test Hemoglobin Carboxyhemoglobin O2 Delivery Device Liter Flow Critical Value POC Glucose 151 H 152 H 137 H Urine Color Urine Clarity Urine pH Ur Specific [place] Urine Protein Urine Glucose (UA) Urine Ketones Urine Occult Blood Urine Nitrate Urine Bilirubin Urine Urobilinogen Ur Leukocyte Esterase Urine RBC Urine WBC Ur Squamous Epith Cells Hyaline Casts Granular Casts Urine Mucus Micro UA Comment Ur Microscopic Review Urine Culture Comments 05/20/18 05/20/18 05/20/18 11:14 17:24 22:41 PT INR APTT Puncture Site Patient Temperature O2 Saturation ABG pH ABG pCO2 ABG pO2 ABG HCO3 ABG O2 Content ABG Base Excess ABG Methemoglobin Martín Test Hemoglobin Carboxyhemoglobin O2 Delivery Device Liter Flow Critical Value POC Glucose 158 H 174 H 263 H Urine Color Urine Clarity Urine pH Ur Specific [place] Urine Protein Urine Glucose (UA) Urine Ketones Urine Occult Blood Urine Nitrate Urine Bilirubin Urine Urobilinogen Ur Leukocyte Esterase Urine RBC Urine WBC Ur Squamous Epith Cells Hyaline Casts Granular Casts Urine Mucus Micro UA Comment Ur Microscopic Review Urine Culture Comments 05/21/18 05/21/18 05/21/18 04:30 07:46 10:05 PT 10.9 INR 1.1 APTT 27.0 Puncture Site Patient Temperature O2 Saturation ABG pH ABG pCO2 ABG pO2 ABG HCO3 ABG O2 Content ABG Base Excess ABG Methemoglobin Martín Test Hemoglobin Carboxyhemoglobin O2 Delivery Device Liter Flow Critical Value POC Glucose 221 H Urine Color Yellow Urine Clarity Hazy H Urine pH 6.0 Ur Specific [place] 1.024 Urine Protein 500 or greater Urine Glucose (UA) 500 or greater Urine Ketones 80 or greater H Urine Occult Blood Small H Urine Nitrate Negative Urine Bilirubin Negative Urine Urobilinogen Less than 2 Ur Leukocyte Esterase Negative Urine RBC 25 H Urine WBC 5 Ur Squamous Epith Cells 2 Hyaline Casts 1 Granular Casts 4 Urine Mucus Few H Micro UA Comment Culture not ind Ur Microscopic Review Not Reportable Urine Culture Comments Culture not ind 05/21/18 05/21/18 05/21/18 12:11 12:58 16:35 PT INR APTT Puncture Site Right radial Patient Temperature 98.6 O2 Saturation 84 L* ABG pH 7.45 H ABG pCO2 54 H* ABG pO2 51 L* ABG HCO3 37 H ABG O2 Content 11.9 L ABG Base Excess 12.5 H ABG Methemoglobin 1.2 Martín Test + Hemoglobin 10.1 L Carboxyhemoglobin 2.2 O2 Delivery Device Simple mask Liter Flow 9.00 Critical Value Yes POC Glucose 235 H 241 H Urine Color Urine Clarity Urine pH Ur Specific [place] Urine Protein Urine Glucose (UA) Urine Ketones Urine Occult Blood Urine Nitrate Urine Bilirubin Urine Urobilinogen Ur Leukocyte Esterase Urine RBC Urine WBC Ur Squamous Epith Cells Hyaline Casts Granular Casts Urine Mucus Micro UA Comment Ur Microscopic Review Urine Culture Comments 05/21/18 05/22/18 05/22/18 20:51 08:25 11:18 PT INR APTT Puncture Site Patient Temperature O2 Saturation ABG pH ABG pCO2 ABG pO2 ABG HCO3 ABG O2 Content ABG Base Excess ABG Methemoglobin Martín Test Hemoglobin Carboxyhemoglobin O2 Delivery Device Liter Flow Critical Value POC Glucose 219 H 223 H 241 H Urine Color Urine Clarity Urine pH Ur Specific [place] Urine Protein Urine Glucose (UA) Urine Ketones Urine Occult Blood Urine Nitrate Urine Bilirubin Urine Urobilinogen Ur Leukocyte Esterase Urine RBC Urine WBC Ur Squamous Epith Cells Hyaline Casts Granular Casts Urine Mucus Micro UA Comment Ur Microscopic Review Urine Culture Comments 05/22/18 12:20 PT INR APTT Puncture Site Right radial Patient Temperature 98.6 O2 Saturation 96 ABG pH 7.39 ABG pCO2 66 H* ABG pO2 123 H ABG HCO3 39 H ABG O2 Content 13.1 ABG Base Excess 13.4 H ABG Methemoglobin 1.4 Martín Test Y Hemoglobin 9.5 L Carboxyhemoglobin 1.7 O2 Delivery Device Prb Liter Flow 10.00 Critical Value Yes POC Glucose Urine Color Urine Clarity Urine pH Ur Specific [place] Urine Protein Urine Glucose (UA) Urine Ketones Urine Occult Blood Urine Nitrate Urine Bilirubin Urine Urobilinogen Ur Leukocyte Esterase Urine RBC Urine WBC Ur Squamous Epith Cells Hyaline Casts Granular Casts Urine Mucus Micro UA Comment Ur Microscopic Review Urine Culture Comments Result Diagrams: 05/19/18 05:33 05/19/18 05:33 Microbiology: Microbiology 05/20/18 10:30 Gram Stain - Final Sputum - Expectorated Sputum Sputum Culture - Final Heavy growth normal respiratory khloe 05/18/18 17:15 Aerobic Blood Culture - Preliminary Blood - Peripheral No growth in 4 days Anaerobic Blood Culture - Preliminary No growth in 4 days 05/18/18 17:20 Aerobic Blood Culture - Preliminary Blood - Peripheral No growth in 4 days Anaerobic Blood Culture - Preliminary No growth in 4 days 05/21/18 04:30 Streptococcus pneumoniae Antigen (M - Final Urine - Clean Catch Urine Presumptive negative for streptococcus pneumoniae antigen, suggesting no current or recent infection. Infection due to Streptococcus pneumoniae cannot be ruled out since the antigen present in the sample may be below the detection limit of the test. 05/21/18 04:30 Legionella Antigen - Final Urine - Clean Catch Urine Presumptive negative for Legionella pneumophila serogroup 1 antigen in urine, suggesting no recent or recurrent infection. Infection due to Legionella cannot be ruled out since other serogroups and species may cause disease, antigen may not be present in urine in early infection, and the level of antigen present in the urine may be below the detection limit of the test. Imaging: Chest X-Ray 05/18/18 17:16 CONCLUSION: 1. Mild increased airspace consolidation at the left lung base posteriorly concerning for pneumonia. Chest CTA 05/20/18 00:00 There is moderate emphysema again noted. Consolidation is seen in the right upper lobe, both lower lobes, and a small right-sided pleural effusion is identified. There is hepatic steatosis and hepatomegaly. In the left hepatic lobe lateral segment a 4.8 cm mass is again seen. There is no evidence for pulmonary embolism. CONCLUSION: 1. Pneumonia, small right effusion. 2. Hepatomegaly and hepatic steatosis with left hepatic indeterminate mass again seen. 3. No evidence for pulmonary embolism. 4. Emphysema. Assessment and Plan - Disease Oriented Problem List (1) SIRS (systemic inflammatory response syndrome) (2) PNA (pneumonia) (3) DM (diabetes mellitus) (4) Hypoxia - Symptom Scale (1) Dyspnea 0-10 Scale: Unable to quantify Comment: Patient is significant history of COPD and emphysema, O2 dependent. Chest x-ray showing consolidation to left lung. Currently on antibiotics for pneumonia. (2) Hallucination 0-10 Scale: Unable to quantify Comment: Most likely from hypoxia. Worsening respiratory status requiring 100% nonrebreather. O2 saturation on ABG 84% and PCO2 51%. (3) Debility 0-10 Scale: Unable to quantify Pertinent Non-Medical Issues: Psychosocial: Patient is originally from [place]. She moved to [place] in [address]. Patient has been 4 times, once from his first and twice. She has been to her current [facility] for 18 years. Patient's is currently a resident at the [facility] care home. He has Alzheimer's/dementia. Patient currently resides at [facility]. Patient has 2 adult daughters Whit and Nisha. 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 Ethical issues impacting care: None identified at this time. Important Contacts: [facility]-Brother- Mera [phone] cell/ [id number], [employer]- Daughter- Ruth Chavarria- [phone] . Prognosis: Mrs. Morel is a 77 years old female with a medical history significant for chronic obstructive pulmonary disease, emphysema, tobaccoism, congestive heart failure, pneumonia, diabetes mellitus, hypertension, hypothyroidism, bilateral rotator cuff injury, restless leg syndrome and hyperlipidemia. Patient was brought to the emergency room on 05/18/18 with complaints of worsening shortness of breath, cough and mild hemoptysis in the past 2 days. Clinical course complicated with worsening dyspnea and hemoptysis. Given multiple ongoing comorbidities, patient remains at high risk for further complications, deterioration and decline. Code Status: No Code DNR Plan: PLAN: Legal decision maker: Patient is alert and oriented to self, place and situation. Patient`s sister Isatu Garcia is her healthcare surrogate and her brother Lobo Tesfaye is here alternate healthcare surrogate. Due to patient` s intermittent confusion/hallucinations recommending shared medical decision making between patient and her healthcare surrogates. Goals: Aggressive short of no code. Bronchoscopy has been cancelled due to patient`s requirement for significant amount of oxygen. Patient`s family ( brother Lobo) leaning towards transitioning patient to comfort care only through hospice services. CODE STATUS: No code DNR/DNI SYMPTOMS: * Dyspnea: Patient is significant history of COPD and emphysema, O2 dependent. Chest x-ray showing consolidation to left lung. Currently on antibiotics for pneumonia. Patient's respiratory status worsening. Patient requiring partial nonrebreather. Bronchoscopy canceled. * Hallucination: Most likely from hypoxia. Worsening respiratory status requiring 100% nonrebreather. O2 saturation on ABG 84% and PCO2 51%. Continue to monitor. No tactile hallucinations noted today. Patient A & O x3 with some confusion. * Debility: Progressive. Patient has history of COPD, emphysema, tobacco use and is O2 dependent. He has had multiple ER visits and hospitalizations in the past few months. Palliative care will continue to follow the patient during hospital course as condition evolves, to assist patient/decision-maker with understanding of their medical conditions, weighing benefits/burdens of treatment options, for clarification of goals of treatment. Additionally will assist with any symptoms of palliative concern Attestation Attestation: To help prompt me to consider important information that might be impacting today's encounter and assessment, information from prior notes written by myself or my colleagues may have been "brought forward" into today's note. My signature on this note, however, is an attestation that I personally performed the exam, history, and/or decision-making noted today, and, unless otherwise indicated, the interactions with patient, family, and staff as well as the review of records all occurred today. I also attest that the listed assessment and stated plan reflect my best clinical judgment today based on the combination of historical information, prior notes, and today's exam/ interactions. When time spent is documented, it refers only to time spent today by the signer, or if indicated, combined time spent today by collaborating physician/nurse practitioner.
[2018-05-22] MEDS: Umeclindinium 62.5 MCG/Vilanterol 25 MCG Inhaler INH SCH (15:20)
--- NOTE | 2018-05-22 18:12 | P.PN ---
Subjective Interval history: Was confused and refused CPAP last Night. Now on a NRB mask. bronch cancelled due to Low O2 sats. Pt is DNR per Family. Physical Exam Vital signs: Vital Signs 05/21/18 19:04 05/21/18 19:05 05/21/18 20:00 Temperature 98.5 F Pulse Rate 80 76 Respiratory Rate 22 18 Blood Pressure 167/80 H Pulse Oximetry 95 92 L 05/22/18 00:00 05/22/18 01:20 05/22/18 02:22 Temperature 97.5 F L Pulse Rate 68 Respiratory Rate 17 18 Blood Pressure 139/65 Pulse Oximetry 95 93 L 05/22/18 07:41 05/22/18 08:00 05/22/18 12:00 Temperature 97.8 F 97.6 F Pulse Rate 88 91 H 81 Respiratory Rate 15 23 24 Blood Pressure 152/77 H 161/72 H Pulse Oximetry 92 L 97 95 05/22/18 12:15 05/22/18 16:00 Temperature 97.6 F Pulse Rate 74 73 Respiratory Rate 16 24 Blood Pressure 152/73 H Pulse Oximetry 94 L Intake & Output 05/21/18 05/22/18 05/22/18 18:59 06:59 18:59 Intake Total 2099 / 2099 1250 / 1250 1000 / 1000 Balance 2099 / 2099 1250 / 1250 1000 / 1000 Weight 82.7 kg Intake: IV 2099 / 2099 1250 / 1250 1000 / 1000 NS Inj 1,000 ML @ 100 mls/hr IV 2000 / 2000 1000 / 1000 900 / 900 .CONT .Q10H PETE Rx#:[id number] Doxy 100 Inj 100 MG In NS Inj 100 / 100 100 / 100 100 / 100 100 ML @ 100 mls/hr IV.SIG Q12H PETE Rx#:[id number] Levaquin 750 mg Premix Inj 150 150 / 150 ML @ 100 mls/hr IV.SIG Q24H PETE Rx#:[id number] Other: # Voids 3 4 Date of Last Bowel Movement 05/21/18 05/21/18 05/22/18 # Bowel Movements 2 1 Narrative: GENERAL: Obese elderly W/F Alert and confused, and in Mild distress SKIN: Warm and dry. HEAD: Normocephalic. EYES: No scleral icterus. No injection or drainage. NECK: Supple, trachea midline. No JVD or lymphadenopathy. CARDIOVASCULAR: Regular rate and rhythm without murmurs, gallops, or rubs. RESPIRATORY: Decreased breath sounds, Bibasilar crackles, and wheezing. GASTROINTESTINAL: Abdomen soft, non-tender, nondistended. MUSCULOSKELETAL: No cyanosis. 1 + edema in lower extremities. BACK: Nontender without obvious deformity. No CVA tenderness. Results - Labs CBC & Chem 7: 05/19/18 05:33 05/19/18 05:33 Laboratory Results - last 24 hr 05/21/18 05/22/18 05/22/18 20:51 08:25 11:18 Puncture Site Patient Temperature O2 Saturation ABG pH ABG pCO2 ABG pO2 ABG HCO3 ABG O2 Content ABG Base Excess ABG Methemoglobin Martín Test Hemoglobin Carboxyhemoglobin O2 Delivery Device Liter Flow Critical Value POC Glucose 219 H 223 H 241 H 05/22/18 05/22/18 12:20 16:54 Puncture Site Right radial Patient Temperature 98.6 O2 Saturation 96 ABG pH 7.39 ABG pCO2 66 H* ABG pO2 123 H ABG HCO3 39 H ABG O2 Content 13.1 ABG Base Excess 13.4 H ABG Methemoglobin 1.4 Martín Test Y Hemoglobin 9.5 L Carboxyhemoglobin 1.7 O2 Delivery Device Prb Liter Flow 10.00 Critical Value Yes POC Glucose 256 H Microbiology 05/20/18 10:30 Sputum - Expectorated Sputum Gram Stain - Final 05/20/18 10:30 Sputum - Expectorated Sputum Sputum Culture - Final Heavy growth normal respiratory khloe 05/18/18 17:15 Blood - Peripheral Aerobic Blood Culture - Preliminary No growth in 4 days 05/18/18 17:15 Blood - Peripheral Anaerobic Blood Culture - Preliminary No growth in 4 days 05/18/18 17:20 Blood - Peripheral Aerobic Blood Culture - Preliminary No growth in 4 days 05/18/18 17:20 Blood - Peripheral Anaerobic Blood Culture - Preliminary No growth in 4 days Assessment and Plan - Assessment (1) Hemoptysis Code(s): R04.2 - Hemoptysis Status: Acute (2) Pneumonia Code(s): J18.9 - Pneumonia, unspecified organism Status: Acute (3) Diabetes mellitus Code(s): E11.9 - Type 2 diabetes mellitus without complications Status: Acute (4) Dyslipidemia Code(s): E78.5 - Hyperlipidemia, unspecified Status: Acute (5) SIRS (systemic inflammatory response syndrome) Code(s): R65.10 - Systemic inflammatory response syndrome (SIRS) of non- infectious origin without acute organ dysfunction Status: Acute (6) PNA (pneumonia) Code(s): J18.9 - Pneumonia, unspecified organism Status: Acute (7) DM (diabetes mellitus) Code(s): E11.9 - Type 2 diabetes mellitus without complications Status: Acute (8) Hypoxia Code(s): R09.02 - Hypoxemia Status: Acute (9) Dyspnea Code(s): R06.00 - Dyspnea, unspecified Status: Acute - Plan 1. Continue Antibiotics Levaquin and Doxy. 2. O2 to N/C High flow at 10 L. 3. BiPAP at HS 12/5 CM.FIo2 35 % 4. Will schedule bronchoscopy when stable. 5. Duoneb nebs qid. 6.CXR ,CBC,BMP in am 7. Continue solumedrol 40 mg IV Q8H 8. Breo 100/25 mcg , 1 puff daily. 9. Palliative care to see. (2) Pneumonia Qualifiers: Pneumonia type: due to unspecified organism Laterality: left Lung location: lower lobe of lung Qualified Code(s): J18.1 - Lobar pneumonia, unspecified organism (3) Diabetes mellitus Qualifiers: Diabetes mellitus type: type 2 Diabetes mellitus lobsterman insulin use: with lobsterman use
--- NOTE | 2018-05-22 19:32 | P.PN ---
Subjective Interval history: Follow-up for pneumonia, hemoptysis, end stage COPD. Patient is resting in bed. Receiving breathing treatments. Remains afebrile. I discussed with palliative care. [employer] will discuss with patient's family members. She will likely qualify for hospice care. Physical Exam Vital signs: Vital Signs 05/21/18 20:00 05/22/18 00:00 05/22/18 01:20 Temperature 98.5 F 97.5 F L Pulse Rate 76 68 Respiratory Rate 18 17 Blood Pressure 167/80 H 139/65 Pulse Oximetry 92 L 95 93 L 05/22/18 02:22 05/22/18 07:41 05/22/18 08:00 Temperature 97.8 F Pulse Rate 88 91 H Respiratory Rate 18 15 23 Blood Pressure 152/77 H Pulse Oximetry 92 L 97 05/22/18 12:00 05/22/18 12:15 05/22/18 16:00 Temperature 97.6 F 97.6 F Pulse Rate 81 74 73 Respiratory Rate 24 16 24 Blood Pressure 161/72 H 152/73 H Pulse Oximetry 95 94 L Intake & Output 05/22/18 05/22/18 05/23/18 06:59 18:59 06:59 Intake Total 1250 / 1250 1000 / 1000 Balance 1250 / 1250 1000 / 1000 Weight 82.7 kg Intake: IV 1250 / 1250 1000 / 1000 NS Inj 1,000 ML @ 100 mls/hr IV 1000 / 1000 900 / 900 .CONT .Q10H PETE Rx#:[id number] Doxy 100 Inj 100 MG In NS Inj 100 / 100 100 / 100 100 ML @ 100 mls/hr IV.SIG Q12H PETE Rx#:[id number] Levaquin 750 mg Premix Inj 150 150 / 150 ML @ 100 mls/hr IV.SIG Q24H PETE Rx#:[id number] Other: # Voids 3 4 Date of Last Bowel Movement 05/21/18 05/22/18 # Bowel Movements 2 1 Narrative: GENERAL: Obese elderly W/F Alert and confused, and in Mild distress SKIN: Warm and dry. HEAD: Normocephalic. EYES: No scleral icterus. No injection or drainage. NECK: Supple, trachea midline. No JVD or lymphadenopathy. CARDIOVASCULAR: Regular rate and rhythm without murmurs, gallops, or rubs. RESPIRATORY: Decreased breath sounds, Bibasilar crackles, and wheezing. GASTROINTESTINAL: Abdomen soft, non-tender, nondistended. MUSCULOSKELETAL: No cyanosis. 1 + edema in lower extremities. BACK: Nontender without obvious deformity. No CVA tenderness. Results - Labs CBC & Chem 7: 05/19/18 05:33 05/19/18 05:33 Laboratory Results - last 24 hr 05/21/18 05/22/18 05/22/18 20:51 08:25 11:18 Puncture Site Patient Temperature O2 Saturation ABG pH ABG pCO2 ABG pO2 ABG HCO3 ABG O2 Content ABG Base Excess ABG Methemoglobin Martín Test Hemoglobin Carboxyhemoglobin O2 Delivery Device Liter Flow Critical Value POC Glucose 219 H 223 H 241 H 05/22/18 05/22/18 12:20 16:54 Puncture Site Right radial Patient Temperature 98.6 O2 Saturation 96 ABG pH 7.39 ABG pCO2 66 H* ABG pO2 123 H ABG HCO3 39 H ABG O2 Content 13.1 ABG Base Excess 13.4 H ABG Methemoglobin 1.4 Martín Test Y Hemoglobin 9.5 L Carboxyhemoglobin 1.7 O2 Delivery Device Prb Liter Flow 10.00 Critical Value Yes POC Glucose 256 H Microbiology 05/20/18 10:30 Sputum - Expectorated Sputum Gram Stain - Final 05/20/18 10:30 Sputum - Expectorated Sputum Sputum Culture - Final Heavy growth normal respiratory khloe 05/18/18 17:15 Blood - Peripheral Aerobic Blood Culture - Preliminary No growth in 4 days 05/18/18 17:15 Blood - Peripheral Anaerobic Blood Culture - Preliminary No growth in 4 days 05/18/18 17:20 Blood - Peripheral Aerobic Blood Culture - Preliminary No growth in 4 days 05/18/18 17:20 Blood - Peripheral Anaerobic Blood Culture - Preliminary No growth in 4 days Assessment and Plan - Assessment (1) SIRS (systemic inflammatory response syndrome) Code(s): R65.10 - Systemic inflammatory response syndrome (SIRS) of non- infectious origin without acute organ dysfunction Status: Acute (2) PNA (pneumonia) Code(s): J18.9 - Pneumonia, unspecified organism Status: Acute (3) DM (diabetes mellitus) Code(s): E11.9 - Type 2 diabetes mellitus without complications Status: Acute (4) Hypoxia Code(s): R09.02 - Hypoxemia Status: Acute - Plan This is a 77-year-old female with a PMH of HTN, Hyperlipidemia, COPD, O2 Dependent and DM who was brought to the ER by EMS secondary to SOB and cough, noted to have O2 sat 84% on 3L NC, s/p Albuterol by EMS w/ some improvement. Patient was seen in the emergency department on 05/13/2018 and was discharged from the ED on oral medications. However due to worsening symptoms she decided to come back to the hospital. Community-acquired pneumonia Hemoptysis End stage COPD -Doxycycline 100mg PO Q12hrs -DuoNeb scheduled and PRN. Continue home med Ellipta (Umeclidinium/Vilanterol ). -Solu-medrol 40mg Q6hrs. -Pulmonology consult -Appreciate palliative care input. Patient will likely qualify for hospice care. Diabetes mellitus - Continue Levemir 10 units nightly, sliding scale insulin. Hyperlipidemia Congestive heart failure, likely systolic -BNP was 19. Patient's symptoms are not due to CHF. -Continue aspirin, atorvastatin, metoprolol succinate 25 mg p.o. daily, isosorbide mononitrate. -Continue furosemide 40 mg daily. DNR. Lovenox on hold.
[2018-05-22] MEDS: Insulin Detemir Inj 1,000 UNIT/10 ML Vial SQ SCH (21:53)
--- NOTE | 2018-05-23 05:12 | XR ---
EXAM DATE: 05/23/2018 12:00 AM EDT AGE/SEX: 77 years / Female INDICATIONS: Infiltrate. CLINICAL DATA: This is the patient's subsequent encounter. Patient reports that signs and symptoms h ave been present for 4 - 6 days and indicates a pain score of Nonresponsive. MEDICAL/SURGICAL HISTORY: Emphysema. Chronic obstructive pulmonary disease. Congestive heart fa ilure. Diabetes. hypertension None. COMPARISON: . FINDINGS: There is patient motion blurring. The heart size is enlarged. The lungs demonstrate diffuse interstit ial markings. Clips are seen in the left neck region. CONCLUSION: Diffuse increased interstitial markings likely related to edema. Cardiomegaly. Electronically signed by: Prosper Light MD 05/23/2018 5:11 AM EDT
[2018-05-23] MEDS: Sod Chloride 0.9% Inj 1,000 ML IV.CONT SCH (06:10)
[2018-05-23] MEDS: MethylPREDNISolone Sod Succinate Inj 40 MG/ML Vial IV.PUSH SCH ×2 (06:12→11:28)
[2018-05-23] MEDS ORDERED: Ketamine Inj 50 MG/5 ML Syringe IV.PUSH ONE (07:24)
[2018-05-23] MEDS ORDERED: Lidocaine 2% 100 MG/5 ML Syringe ONE ×2 (07:54→07:55)
[2018-05-23] MEDS: Insulin NovoLOG Aspart Correctional Sugar Inj SQ SCH ×2 (09:06→12:41)
[2018-05-23] MEDS: Isosorbide Mononitrate 30 MG ER 24HR Tablet (Imdur) PO SCH (09:07)
[2018-05-23] MEDS: Duloxetine 60 MG DR Capsule PO SCH (09:07)
[2018-05-23] MEDS: Famotidine 20 MG Tablet PO SCH (09:07)
[2018-05-23] MEDS: Furosemide 40 MG Tablet PO SCH (09:07)
[2018-05-23] MEDS: Senna/Docusate Sodium 8.6/50 MG Tablet PO SCH (09:07)
[2018-05-23] MEDS: Sodium Chloride 0.9% 2 ML Flush BID IV.FLUSH SCH (09:08)
--- NOTE | 2018-05-23 10:51 | P.PNPAL ---
Reason for Visit Reason for visit: a. To assist with evaluation and management of symptoms including: Dyspnea, hallucination, debility b. To assist medical decision maker(s) with: better understanding of current medical conditions; weighing benefits/burdens of medical treatment options; making medical treatment decisions. Subjective Subjective/Interval History: Follow-up medically necessary for symptom management and further clarification goals of medical treatment. Patient is in bed, awake, alert and oriented to self, place and situation. Patient is short of breath with conversation. Remains on a partial nonrebreather. Patient endorsing pain to the right posterior back and chest wall. Bedside RN notified. Patient has a dry cough today. Patient's requesting for a pain medication to be increased, rating pain 8/10 at this time. Currently his hydrocodone/acetaminophen 5/325 and last dose was administered at 0621 hrs. Patient is more coherent today than the past few days and has some insight regarding her medical condition. She appears to be able to weigh benefits and burdens of treatments. Patient verbalizing that she is tired and she understands that she has end- stage chronic obstructive pulmonary disease and emphysema. Patient states that she has made the decision never to be put on life support and does not want any further aggressive treatment at this time. Patient verbalizing that she is now ready for hospice and would prefer to go to a hospice care center for better symptom management. According to patient she has discussed this with her family and they are supportive though she requested that i speak to her brother Yo and update him on her final decision to forgo aggressive treatment. Patient said that, "we all will one day and i am a believer and am not scared to ". Telephone conversation with patient's sister Isatu Garcia ([facility]) and brother Mera Diamond alternate [facility]. Updated them on patient's current medical status and decision to transition to comfort care through hospice services. Both healthcare surrogate supportive of her decision. Both requested to be updated when patient is transferred to a hospice care center. patients sister requested to have hospice consents copies e-mailed to her after patient signs them for record keeping. Her email address is [email or web address] Case discussed with bedside RN. Family/Friend Interactions: See interval note . Advance Directives Living Will: Copy in medical record (Standard verbiage-copy on EMR) Health Care Surrogate: Copy in medical record Health Care Surrogate Name and Number: HCS: Radha Lunsford [phone] Alt HCS: Lobo [id number] Objective Vital Signs: Vital Signs 05/22/18 12:00 05/22/18 12:15 05/22/18 16:00 Temperature 97.6 F 97.6 F Pulse Rate 81 74 73 Respiratory Rate 24 16 24 Blood Pressure 161/72 H 152/73 H Pulse Oximetry 95 94 L 05/22/18 19:43 05/22/18 19:45 05/22/18 19:53 Temperature Pulse Rate 73 Respiratory Rate 20 Blood Pressure Pulse Oximetry 94 L 93 L 05/22/18 20:00 05/23/18 00:00 05/23/18 00:06 Temperature 97.3 F L 97.7 F Pulse Rate 74 65 Respiratory Rate 18 18 Blood Pressure 148/66 H 136/68 Pulse Oximetry 95 98 94 L 05/23/18 04:24 05/23/18 08:00 05/23/18 08:49 Temperature 97.4 F L Pulse Rate 73 68 Respiratory Rate 17 16 Blood Pressure 152/75 H Pulse Oximetry 94 L 96 Intake & Output 05/22/18 05/23/18 05/23/18 18:59 06:59 18:59 Intake Total 1000 / 1000 820 / 820 300 / 300 Balance 1000 / 1000 820 / 820 300 / 300 Weight 81.9 kg Intake: IV 1000 / 1000 700 / 700 300 / 300 NS Inj 1,000 ML @ 75 mls/hr IV. 900 / 900 700 / 700 300 / 300 CONT .[id number] PETE Rx#:[id number] Doxy 100 Inj 100 MG In NS Inj 100 / 100 100 ML @ 100 mls/hr IV.SIG Q12H PETE Rx#:[id number] Oral 120 / 120 Other: # Voids 4 2 Date of Last Bowel Movement 05/22/18 05/22/18 # Bowel Movements 1 Physical Exam: CONSTITUTIONAL/GENERAL: This is an adequately nourished patient, in respiratory distress distress. TUBES/LINES/DRAINS: PIV SKIN: No jaundice, rashes, or lesions. Ecchymoses on upper extremities. Skin temperature appropriate. Not diaphoretic. EYES: Pupils equal and round and reactive. Extraocular motions intact. No scleral icterus. No injection or drainage. Fundi not examined. ENT: Hearing grossly normal. Nose without bleeding or purulent drainage. Moist oral mucosa CARDIOVASCULAR: Regular rate and rhythm without murmurs, gallops, or rubs. No JVD. Peripheral pulses symmetric. RESPIRATORY/CHEST: Symmetric, mildly labored respirations. Bibasilar crackles. Wheezing GASTROINTESTINAL: Abdomen soft, non-tender, nondistended. No guarding. Bowel sounds present. GENITOURINARY: Without palpable bladder distension. MUSCULOSKELETAL: Extremities without clubbing, cyanosis, or edema. No joint tenderness or effusion noted. No calf tenderness. No mottling or clubbing. LYMPHATICS: Did not assess NEUROLOGICAL: Alert, oriented to self, place and situation. Motor and sensory grossly within normal limits. Follows commands. Moves all extremities. PSYCHIATRIC: No anxiety/depression. No hallucinations Diagnostic Tests Laboratory: Laboratory Results - last 72 hr 05/20/18 05/20/18 05/20/18 11:14 17:24 22:41 PT INR APTT Puncture Site Patient Temperature O2 Saturation ABG pH ABG pCO2 ABG pO2 ABG HCO3 ABG O2 Content ABG Base Excess ABG Methemoglobin Martín Test Hemoglobin Carboxyhemoglobin O2 Delivery Device Liter Flow Critical Value POC Glucose 158 H 174 H 263 H Urine Color Urine Clarity Urine pH Ur Specific Clio Urine Protein Urine Glucose (UA) Urine Ketones Urine Occult Blood Urine Nitrate Urine Bilirubin Urine Urobilinogen Ur Leukocyte Esterase Urine RBC Urine WBC Ur Squamous Epith Cells Hyaline Casts Granular Casts Urine Mucus Micro UA Comment Ur Microscopic Review Urine Culture Comments 05/21/18 05/21/18 05/21/18 04:30 07:46 10:05 PT 10.9 INR 1.1 APTT 27.0 Puncture Site Patient Temperature O2 Saturation ABG pH ABG pCO2 ABG pO2 ABG HCO3 ABG O2 Content ABG Base Excess ABG Methemoglobin Martín Test Hemoglobin Carboxyhemoglobin O2 Delivery Device Liter Flow Critical Value POC Glucose 221 H Urine Color Yellow Urine Clarity Hazy H Urine pH 6.0 Ur Specific Clio 1.024 Urine Protein 500 or greater Urine Glucose (UA) 500 or greater Urine Ketones 80 or greater H Urine Occult Blood Small H Urine Nitrate Negative Urine Bilirubin Negative Urine Urobilinogen Less than 2 Ur Leukocyte Esterase Negative Urine RBC 25 H Urine WBC 5 Ur Squamous Epith Cells 2 Hyaline Casts 1 Granular Casts 4 Urine Mucus Few H Micro UA Comment Culture not ind Ur Microscopic Review Not Reportable Urine Culture Comments Culture not ind 05/21/18 05/21/18 05/21/18 12:11 12:58 16:35 PT INR APTT Puncture Site Right radial Patient Temperature 98.6 O2 Saturation 84 L* ABG pH 7.45 H ABG pCO2 54 H* ABG pO2 51 L* ABG HCO3 37 H ABG O2 Content 11.9 L ABG Base Excess 12.5 H ABG Methemoglobin 1.2 Martín Test + Hemoglobin 10.1 L Carboxyhemoglobin 2.2 O2 Delivery Device Simple mask Liter Flow 9.00 Critical Value Yes POC Glucose 235 H 241 H Urine Color Urine Clarity Urine pH Ur Specific Clio Urine Protein Urine Glucose (UA) Urine Ketones Urine Occult Blood Urine Nitrate Urine Bilirubin Urine Urobilinogen Ur Leukocyte Esterase Urine RBC Urine WBC Ur Squamous Epith Cells Hyaline Casts Granular Casts Urine Mucus Micro UA Comment Ur Microscopic Review Urine Culture Comments 05/21/18 05/22/18 05/22/18 20:51 08:25 11:18 PT INR APTT Puncture Site Patient Temperature O2 Saturation ABG pH ABG pCO2 ABG pO2 ABG HCO3 ABG O2 Content ABG Base Excess ABG Methemoglobin Martín Test Hemoglobin Carboxyhemoglobin O2 Delivery Device Liter Flow Critical Value POC Glucose 219 H 223 H 241 H Urine Color Urine Clarity Urine pH Ur Specific Clio Urine Protein Urine Glucose (UA) Urine Ketones Urine Occult Blood Urine Nitrate Urine Bilirubin Urine Urobilinogen Ur Leukocyte Esterase Urine RBC Urine WBC Ur Squamous Epith Cells Hyaline Casts Granular Casts Urine Mucus Micro UA Comment Ur Microscopic Review Urine Culture Comments 05/22/18 05/22/18 05/22/18 12:20 16:54 21:48 PT INR APTT Puncture Site Right radial Patient Temperature 98.6 O2 Saturation 96 ABG pH 7.39 ABG pCO2 66 H* ABG pO2 123 H ABG HCO3 39 H ABG O2 Content 13.1 ABG Base Excess 13.4 H ABG Methemoglobin 1.4 Martín Test Y Hemoglobin 9.5 L Carboxyhemoglobin 1.7 O2 Delivery Device Prb Liter Flow 10.00 Critical Value Yes POC Glucose 256 H 217 H Urine Color Urine Clarity Urine pH Ur Specific Clio Urine Protein Urine Glucose (UA) Urine Ketones Urine Occult Blood Urine Nitrate Urine Bilirubin Urine Urobilinogen Ur Leukocyte Esterase Urine RBC Urine WBC Ur Squamous Epith Cells Hyaline Casts Granular Casts Urine Mucus Micro UA Comment Ur Microscopic Review Urine Culture Comments 05/23/18 07:56 PT INR APTT Puncture Site Patient Temperature O2 Saturation ABG pH ABG pCO2 ABG pO2 ABG HCO3 ABG O2 Content ABG Base Excess ABG Methemoglobin Martín Test Hemoglobin Carboxyhemoglobin O2 Delivery Device Liter Flow Critical Value POC Glucose 223 H Urine Color Urine Clarity Urine pH Ur Specific Clio Urine Protein Urine Glucose (UA) Urine Ketones Urine Occult Blood Urine Nitrate Urine Bilirubin Urine Urobilinogen Ur Leukocyte Esterase Urine RBC Urine WBC Ur Squamous Epith Cells Hyaline Casts Granular Casts Urine Mucus Micro UA Comment Ur Microscopic Review Urine Culture Comments Result Diagrams: 05/19/18 05:33 05/19/18 05:33 Microbiology: Microbiology 05/20/18 10:30 Gram Stain - Final Sputum - Expectorated Sputum Sputum Culture - Final Heavy growth normal respiratory khloe 05/18/18 17:15 Aerobic Blood Culture - Preliminary Blood - Peripheral No growth in 4 days Anaerobic Blood Culture - Preliminary No growth in 4 days 05/18/18 17:20 Aerobic Blood Culture - Preliminary Blood - Peripheral No growth in 4 days Anaerobic Blood Culture - Preliminary No growth in 4 days 05/21/18 04:30 Streptococcus pneumoniae Antigen (M - Final Urine - Clean Catch Urine Presumptive negative for streptococcus pneumoniae antigen, suggesting no current or recent infection. Infection due to Streptococcus pneumoniae cannot be ruled out since the antigen present in the sample may be below the detection limit of the test. 05/21/18 04:30 Legionella Antigen - Final Urine - Clean Catch Urine Presumptive negative for Legionella pneumophila serogroup 1 antigen in urine, suggesting no recent or recurrent infection. Infection due to Legionella cannot be ruled out since other serogroups and species may cause disease, antigen may not be present in urine in early infection, and the level of antigen present in the urine may be below the detection limit of the test. Imaging: Chest CTA 05/20/18 00:00 There is moderate emphysema again noted. Consolidation is seen in the right upper lobe, both lower lobes, and a small right-sided pleural effusion is identified. There is hepatic steatosis and hepatomegaly. In the left hepatic lobe lateral segment a 4.8 cm mass is again seen. There is no evidence for pulmonary embolism. CONCLUSION: 1. Pneumonia, small right effusion. 2. Hepatomegaly and hepatic steatosis with left hepatic indeterminate mass again seen. 3. No evidence for pulmonary embolism. 4. Emphysema. Chest X-Ray 05/23/18 00:00 CONCLUSION: Diffuse increased interstitial markings likely related to edema. Cardiomegaly. Assessment and Plan - Disease Oriented Problem List (1) SIRS (systemic inflammatory response syndrome) (2) PNA (pneumonia) (3) DM (diabetes mellitus) (4) Hypoxia - Symptom Scale (1) Dyspnea 0-10 Scale: Unable to quantify Comment: Patient is significant history of COPD and emphysema, O2 dependent. Chest x-ray showing consolidation to left lung. Currently on antibiotics for pneumonia. (2) Hallucination 0-10 Scale: Unable to quantify Comment: Most likely from hypoxia. Worsening respiratory status requiring 100% nonrebreather. O2 saturation on ABG 84% and PCO2 51%. (3) Pain 0-10 Scale: 8 Comment: History of back pain. Patient c/o right chest wall pain and right posterior back pain today. Has a dry cough. (4) Debility 0-10 Scale: Unable to quantify Pertinent Non-Medical Issues: Psychosocial: Patient is originally from [place]. She moved to [place] in [address]. Patient has been 4 times, once from his first and twice. She has been to her current [facility] for 18 years. Patient's is currently a resident at the [facility]. He has Alzheimer's/dementia. Patient currently resides at [facility]. Patient has 2 adult daughters Whit and Nisha. 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 Ethical issues impacting care: None identified at this time. Important Contacts: [facility]-Brother- Mera [phone] [facility]/ [facility]Ezmxb[facility], [employer]- [email or web address] Daughter- Ruth Chavarria- [phone] . Prognosis: Mrs. Morel is a 77 years old female with a medical history significant for chronic obstructive pulmonary disease, emphysema, tobaccoism, congestive heart failure, pneumonia, diabetes mellitus, hypertension, hypothyroidism, bilateral rotator cuff injury, restless leg syndrome and hyperlipidemia. Patient was brought to the emergency room on 05/18/18 with complaints of worsening shortness of breath, cough and mild hemoptysis in the past 2 days. Clinical course complicated with worsening dyspnea and hemoptysis. Given multiple ongoing comorbidities, patient remains at high risk for further complications, deterioration and decline. Code Status: No Code DNR Plan: PLAN: Legal decision maker: Patient is alert and oriented to self, place and situation. Patient`s sister Isatu Garcia is her healthcare surrogate and her brother Lobo Tesfaye is her alternate healthcare surrogate. Due to patient`s intermittent confusion/hallucinations recommending shared medical decision making between patient and her healthcare surrogates. Goals: Patient no longer wants to pursue aggressive treatment. She now wants to transition to comfort care only through hospice services. Patient's sister Radha Yoder who is a healthcare surrogate and her brother Lobo Tesfaye who is her alternate healthcare surrogate supportive of patient's decision to transition to comfort care through hospice CODE STATUS: No code DNR/DNI SYMPTOMS: * Dyspnea: Patient is significant history of COPD and emphysema, O2 dependent. Chest x-ray showing consolidation to left lung. Currently on antibiotics for pneumonia. Patient's respiratory status worsening. Patient requiring partial nonrebreather. Bronchoscopy canceled. * Hallucination: Most likely from hypoxia. Worsening respiratory status requiring 100% nonrebreather. O2 saturation on ABG 84% and PCO2 51%. Continue to monitor. No tactile hallucinations noted today. Resolved. * Pain: History of back pain. Patient c/o right chest wall pain and right posterior back pain today. Has a dry cough. Currently has hydrocodone/ acetaminophen 5/325 every 4 hours as needed. Last dose administered 05/23/18 8 0621 hrs. * Debility: Progressive. Patient has history of COPD, emphysema, tobacco use and is O2 dependent. He has had multiple ER visits and hospitalizations in the past few months. Palliative care will continue to follow the patient during hospital course as condition evolves, to assist patient/decision-maker with understanding of their medical conditions, weighing benefits/burdens of treatment options, for clarification of goals of treatment. Additionally will assist with any symptoms of palliative concern Attestation Attestation: To help prompt me to consider important information that might be impacting today's encounter and assessment, information from prior notes written by myself or my colleagues may have been "brought forward" into today's note. My signature on this note, however, is an attestation that I personally performed the exam, history, and/or decision-making noted today, and, unless otherwise indicated, the interactions with patient, family, and staff as well as the review of records all occurred today. I also attest that the listed assessment and stated plan reflect my best clinical judgment today based on the combination of historical information, prior notes, and today's exam/ interactions. When time spent is documented, it refers only to time spent today by the signer, or if indicated, combined time spent today by collaborating physician/nurse practitioner.
[2018-05-23 12:13] VITALS: BP 156/75; PULSE 69; RESP 17; TEMP 97.7; O2SAT 95
--- NOTE | 2018-05-23 12:39 | P.PN ---
Subjective Interval history: More alert and talking and oriented. On a NRB mask still. Seems better. Physical Exam Vital signs: Vital Signs 05/22/18 16:00 05/22/18 19:43 05/22/18 19:45 Temperature 97.6 F Pulse Rate 73 73 Respiratory Rate 24 20 Blood Pressure 152/73 H Pulse Oximetry 94 L 94 L 05/22/18 19:53 05/22/18 20:00 05/23/18 00:00 Temperature 97.3 F L 97.7 F Pulse Rate 74 65 Respiratory Rate 18 18 Blood Pressure 148/66 H 136/68 Pulse Oximetry 93 L 95 98 05/23/18 00:06 05/23/18 04:24 05/23/18 08:00 Temperature 97.4 F L Pulse Rate 73 Respiratory Rate 17 Blood Pressure 152/75 H Pulse Oximetry 94 L 94 L 96 05/23/18 08:49 05/23/18 11:35 05/23/18 12:00 Temperature 97.7 F Pulse Rate 68 79 69 Respiratory Rate 16 16 17 Blood Pressure 156/75 H Pulse Oximetry 95 Intake & Output 05/22/18 05/23/18 05/23/18 18:59 06:59 18:59 Intake Total 1000 / 1000 820 / 820 300 / 300 Balance 1000 / 1000 820 / 820 300 / 300 Weight 81.9 kg Intake: IV 1000 / 1000 700 / 700 300 / 300 NS Inj 1,000 ML @ 75 mls/hr IV. 900 / 900 700 / 700 300 / 300 CONT .[id number] PETE Rx#:[id number] Doxy 100 Inj 100 MG In NS Inj 100 / 100 100 ML @ 100 mls/hr IV.SIG Q12H PETE Rx#:[id number] Oral 120 / 120 Other: # Voids 4 2 Date of Last Bowel Movement 05/22/18 05/22/18 # Bowel Movements 1 Narrative: GENERAL: Obese elderly W/F Alert and in no distress SKIN: Warm and dry. HEAD: Normocephalic. EYES: No scleral icterus. No injection or drainage. NECK: Supple, trachea midline. No JVD or lymphadenopathy. CARDIOVASCULAR: Irregular rate and rhythm without murmurs, gallops, or rubs. RESPIRATORY: Decreased breath sounds, Bibasilar crackles, and scattered wheezing. GASTROINTESTINAL: Abdomen soft, non-tender, nondistended. MUSCULOSKELETAL: No cyanosis. 1 + edema in lower extremities. BACK: Nontender without obvious deformity. No CVA tenderness.Neuro: No focal deficits. Results - Labs CBC & Chem 7: 05/19/18 05:33 05/19/18 05:33 Laboratory Results - last 24 hr 05/22/18 05/22/18 05/23/18 16:54 21:48 07:56 POC Glucose 256 H 217 H 223 H 05/23/18 11:33 POC Glucose 272 H Microbiology 05/18/18 17:15 Blood - Peripheral Aerobic Blood Culture - Final No growth in 5 days 05/18/18 17:15 Blood - Peripheral Anaerobic Blood Culture - Final No growth in 5 days 05/18/18 17:20 Blood - Peripheral Aerobic Blood Culture - Final No growth in 5 days 05/18/18 17:20 Blood - Peripheral Anaerobic Blood Culture - Final No growth in 5 days 05/20/18 10:30 Sputum - Expectorated Sputum Gram Stain - Final 05/20/18 10:30 Sputum - Expectorated Sputum Sputum Culture - Final Heavy growth normal respiratory khloe - Imaging Impressions Chest X-Ray 05/23/18 00:00 CONCLUSION: Diffuse increased interstitial markings likely related to edema. Cardiomegaly. Assessment and Plan - Assessment (1) Hemoptysis Code(s): R04.2 - Hemoptysis Status: Acute (2) Pneumonia Code(s): J18.9 - Pneumonia, unspecified organism Status: Acute (3) Diabetes mellitus Code(s): E11.9 - Type 2 diabetes mellitus without complications Status: Acute (4) Dyslipidemia Code(s): E78.5 - Hyperlipidemia, unspecified Status: Acute (5) SIRS (systemic inflammatory response syndrome) Code(s): R65.10 - Systemic inflammatory response syndrome (SIRS) of non- infectious origin without acute organ dysfunction Status: Acute (6) PNA (pneumonia) Code(s): J18.9 - Pneumonia, unspecified organism Status: Acute (7) DM (diabetes mellitus) Code(s): E11.9 - Type 2 diabetes mellitus without complications Status: Acute (8) Hypoxia Code(s): R09.02 - Hypoxemia Status: Acute (9) Dyspnea Code(s): R06.00 - Dyspnea, unspecified Status: Acute - Plan 1. Continue Antibiotics Levaquin and Doxy. 2. O2 to N/C 5 L 3. BiPAP at HS 12/5 CM.FIo2 35 % 4. Will consult Hospice 5. Duoneb nebs qid. 6.CBC,BMP in am 7. Continue solumedrol 40 mg IV Q8H 8. Breo 100/25 mcg , 1 puff daily. 9. Pain meds PRN with [place] (2) Pneumonia Qualifiers: Pneumonia type: due to unspecified organism Laterality: left Lung location: lower lobe of lung Qualified Code(s): J18.1 - Lobar pneumonia, unspecified organism (3) Diabetes mellitus Qualifiers: Diabetes mellitus type: type 2 Diabetes mellitus detention insulin use: with detention use
[2018-05-23] MEDS: Umeclindinium 62.5 MCG/Vilanterol 25 MCG Inhaler INH SCH (14:15)
--- NOTE | 2018-05-26 21:40 | P.DS ---
Date of admission: 05/18/18 19:30 Primary care physician: PROVIDER NON STAFF Brief History from admission: This is a 77-year-old female with a PMH of HTN, Hyperlipidemia, COPD, O2 Dependent and DM who was brought to the ER by EMS secondary to SOB and cough, noted to have O2 sat 84% on 3L NC, s/p Albuterol by EMS w/ some improvement. Pt reports progressive SOB for few days, associated w/ productive cough w/ yellow-colored sputum. +subjective fever, chills. No c/o chest pain. On arrival, BP 143/67, HR 99, O2 sat 94% on 10 L, Temp 99.7. CBC essentially unremarkable. Chemistry unremarkable. Troponin negative. CXR with consolidation left lung base. S/p Levaquin/Azactam in ER. DS: Diagnosis - Discharge Diagnosis (1) SIRS (systemic inflammatory response syndrome) Status: Acute (2) PNA (pneumonia) Status: Acute (3) DM (diabetes mellitus) Status: Acute (4) Hypoxia Status: Acute DS: Medications - Discharge Medications Prescriptions: doxycycline hyclate 100 mg PO Q12HR #8 cap DS: Summary Hospital Course: This is a 77-year-old female with a PMH of HTN, Hyperlipidemia, COPD, O2 Dependent and DM who was brought to the ER by EMS secondary to SOB and cough, noted to have O2 sat 84% on 3L NC, s/p Albuterol by EMS w/ some improvement. Patient was seen in the emergency department on 05/13/2018 and was discharged from the ED on oral medications. However due to worsening symptoms she decided to come back to the hospital. Community-acquired pneumonia Hemoptysis End stage COPD -Doxycycline 100mg PO Q12hrs -DuoNeb scheduled and PRN. Continue home med Ellipta (Umeclidinium/Vilanterol ). -Solu-medrol 40mg Q6hrs. -Pulmonology consult -Appreciate palliative care input. Patient will likely qualify for hospice care. Diabetes mellitus - Continue Levemir 10 units nightly, sliding scale insulin. Hyperlipidemia Congestive heart failure, likely systolic -BNP was 19. Patient's symptoms are not due to CHF. -Continue aspirin, atorvastatin, metoprolol succinate 25 mg p.o. daily, isosorbide mononitrate. -Continue furosemide 40 mg daily. DNR. Lovenox on hold. Overall, patient was treated for pneumonia. She was evaluated by pulmonary due to hemoptysis as well as end stage COPD. Patient did not want to undergo any procedure and pulmonary agreed due to patient's end stage COPD. Palliative care evaluated and subsequently hospice also evaluated patient. Patient was discharged to hospice care center. - Time Spent with Patient Total time spent providing and/or coordinating discharge services: Less than 30 minutes Results Procedures completed during hospitalization: None. - Impressions ITS Impressions Chest CTA 05/20/18 00:00 There is moderate emphysema again noted. Consolidation is seen in the right upper lobe, both lower lobes, and a small right-sided pleural effusion is identified. There is hepatic steatosis and hepatomegaly. In the left hepatic lobe lateral segment a 4.8 cm mass is again seen. There is no evidence for pulmonary embolism. CONCLUSION: 1. Pneumonia, small right effusion. 2. Hepatomegaly and hepatic steatosis with left hepatic indeterminate mass again seen. 3. No evidence for pulmonary embolism. 4. Emphysema. Chest X-Ray 05/23/18 00:00 CONCLUSION: Diffuse increased interstitial markings likely related to edema. Cardiomegaly. Discharge Plan - Discharge Disposition Patient Disposition: [facility] Hospice/Med Facility - Discharge Condition Condition: Fair - Discharge Order Discharge Orders: Discharge Order (Routine); Ordered 05/23/18 Ordered By: Josie Riddle - Discharge Details Anticipated Discharge Date: 05/23/18 - Physicians Team Primary Care Provider: NON STAFF,PROVIDER Attending Provider: Josie Riddle Other Providers: Prosper Burch MD ; Mai Latham MD
== END 2018-05-23 17:02 | disposition hospice, inpatient (51) ==
LOC: NEPE 16:44 → NEDA 19:30 → N07 20:54
PROVIDERS: ADMIT Hospitalist; ATTEND Hospitalist

== ENCOUNTER 2018-07-15 01:25 | Observation (INO) ==
--- NOTE | 2018-07-15 01:42 | ED ---
HPI General Chief Complaint: Chest Pain Stated Complaint: Chest Pain Time Seen by Provider: 07/15/18 01:26 Source: patient and EMS Mode of arrival: EMS Limitations: no limitations History of Present Illness HPI narrative: 77-year-old female complains of chest pain. Patient resides at a local assisted living. Patient started having chest pain about an hour prior to arrival. Patient stated pain is substernal pressure. Patient states that the pain radiates to her face. Patient denies any shortness of breath. Patient denies palpitation diaphoresis. Patient states that the pain has been constant. EMS was called. Patient was given aspirin 325 mg p.o. and nitro sublingually with some mild relief of the pain. Patient states that she has a history of FL in the past. Patient has history of hypertension, diabetes, hyperlipidemia. Patient has history of COPD. Patient is a smoker. Patient has history of CHF. Patient is on 3 L nasal cannula normally. MD complaint: Reports chest pain STEMI Alert: No Onset (ago): minute(s) Duration: constant Onset: during rest Pain location: Reports substernal Severity: moderate Severity scale (1-10): 6 Quality: Reports heaviness Pain radiation: Reports other (Pain radiates to the face) Relieving factors: nitroglycerin Exacerbating factors: nothing Treatments prior to arrival chest pain: Reports aspirin and nitroglycerin Related Data Home Medications Medication Instructions Recorded Confirmed Remove 07/15/18 07/15/18 ergocalciferol (vitamin D2) 50,000 unit PO QWEEK 07/15/18 07/15/18 [Vitamin D2] lactulose 20 g PO DAILY PRN 07/15/18 07/15/18 lidocaine [Lidocaine Pain Relief] 2 patch TOPICAL HS 07/15/18 07/15/18 oxycodone 10 mg PO Q6H PRN 07/15/18 07/15/18 prednisone 10 mg PO BID 07/15/18 07/15/18 simvastatin 80 mg PO QPM 07/15/18 07/15/18 Previous Rx's Medication Instructions Recorded albuterol sulfate [Ventolin HFA] 2 puff INH Q6H PRN 30 Days g 06/24/18 aspirin 325 mg PO DAILY 30 Days #30 tab 06/24/18 buspirone 5 mg PO BID 30 Days #60 tab 06/24/18 calcium carbonate-vitamin D3 2 tab PO DAILY 30 Days #60 tab 06/24/18 [Oyster Shell Calcium-Vit D3] cholecalciferol (vitamin D3) 1,000 unit PO BID 30 Days #60 tab 06/24/18 [Vitamin D3] clonazepam 0.5 mg PO BID #60 tab 06/24/18 duloxetine 60 mg PO BID 30 Days #60 cap 06/24/18 famotidine 20 mg PO DAILY 30 Days #30 tab 06/24/18 fenofibrate nanocrystallized 145 mg PO DAILY 30 Days #30 tab 06/24/18 furosemide 40 mg PO DAILY 30 Days #30 tab 06/24/18 gabapentin [Neurontin] 300 mg PO Q6HR 30 Days cap 06/24/18 insulin detemir U-100 [Levemir 24 unit SUBCUT HS 30 Days #7.2 ml 06/24/18 U-100 Insulin] levothyroxine [Synthroid] 300 mcg PO DAILY@0600 30 Days tab 06/24/18 lorazepam 0.5 mg PO Q8HR 30 Days #90 tab 06/24/18 metformin [Glucophage] 1,000 mg PO BID 30 Days #120 tab 06/24/18 metoprolol succinate 25 mg PO DAILY 30 Days #30 tab 06/24/18 potassium chloride [Klor-Con 10] 20 meq PO DAILY 30 Days #60 tab 06/24/18 pramipexole [Mirapex] 1 mg PO Q6HR 30 Days tab 06/24/18 sennosides [Senna Lax] 17.2 mg PO Q12H PRN 30 Days tab 06/24/18 sennosides-docusate sodium [Senna 1 tab PO BID 30 Days #60 tab 06/24/18 Plus] umeclidinium-vilanterol [Anoro 1 puff INH DAILY 30 Days each 06/24/18 Ellipta] Allergies Allergy/AdvReac Type Severity Reaction Status Date / Time Penicillins Allergy Wheezing Verified 07/15/18 02:23 Review of Systems ROS: all other systems reviewed are negative PMFSH History History Provided By: Patient Medical History Medical History CHF (congestive heart failure) (Acute) COPD (chronic obstructive pulmonary disease) (Acute) Cholecystectomy planned (Acute) Diabetes (Acute) HTN (hypertension) (Acute) High cholesterol (Acute) History of hysterectomy (Acute) Hypertension (Acute) Overflow incontinence of urine (Acute) Restless leg syndrome (Acute) Thyroid disease (Acute) Tobacco use (Acute) Surgical History Surgical History Hx of appendectomy (Acute) Hx of tonsillectomy (Acute) Previous back surgery (Acute) History of neck surgery (Resolved) Social History Social History Substance History: No History of Abuse Second Hand Smoke Exposure: Yes Smoking Status: Light tobacco smoker Tobacco Type: Cigarettes How Often Do You Have a Drink Containing Alcohol: Never Recent Travel in [facility] within the Last 8 Weeks: No Recent Out of Country Travel within the Last 8 Weeks: No Exam Narrative Exam Narrative: GENERAL: Well-nourished, well-developed patient. SKIN: Focused skin assessment warm/dry. HEAD: Normocephalic. EYES: No scleral icterus. No injection or drainage. NECK: Supple, trachea midline. No JVD or lymphadenopathy. CARDIOVASCULAR: Regular rate and rhythm without murmurs, gallops, or rubs. RESPIRATORY: Breath sounds equal bilaterally. No accessory muscle use. GASTROINTESTINAL: Abdomen soft, non-tender, nondistended. MUSCULOSKELETAL: No cyanosis, or edema. BACK: Nontender without obvious deformity. No CVA tenderness. Neurologic exam normal. Course Initial Documented Vital Signs Temperature 98.5 F 07/15/18 01:30 Pulse Rate 100 H 07/15/18 01:30 Respiratory Rate 20 07/15/18 01:30 Blood Pressure 118/59 L 07/15/18 01:30 Pulse Oximetry 95 07/15/18 01:30 Last Documented Vital Signs Temperature 98.5 F 07/15/18 01:30 Pulse Rate 91 H 07/15/18 02:45 Respiratory Rate 16 07/15/18 02:45 Blood Pressure 113/56 L 07/15/18 02:45 Pulse Oximetry 96 07/15/18 02:45 Medical Decision Making [facility] Narrative Medical decision making narrative: 77-year-old female with chest pain. Patient was given aspirin and nitroglycerin with some relief of the pain. Patient will be admitted to the chest pain center. Medical Screen Exam Complete: Yes Emergency Medical Condition: Yes Differential Diagnosis Differential Diagnosis: Differential diagnosis including angina, FL, PE, pneumothorax, chest wall pain. Lab Data Lab results reviewed: Yes I reviewed the patient's lab results. Result diagrams: 07/15/18 01:35 07/15/18 01:35 Lab Results 07/15/18 07/15/18 07/15/18 Range/Units 01:35 01:35 01:35 WBC 6.6 (4.0-11.0) th/mm3 RBC 2.98 L (4.00-5.30) mil/mm3 Hgb 8.1 L (11.6-15.3) gm/dL Hct 23.6 L (35.0-46.0) % MCV 79.2 L (80.0-100.0) fL MCH 27.0 (27.0-34.0) pg MCHC 34.1 (32.0-36.0) % RDW 18.0 H (11.6-17.2) % Plt Count 419 (150-450) th/mm3 MPV 6.8 L (7.0-11.0) fL Neut % (Auto) 58.4 (16.0-70.0) % Lymph % (Auto) 28.9 (9.0-44.0) % Mckinley % (Auto) 10.4 H (0.0-8.0) % Eos % (Auto) 1.7 (0.0-4.0) % Baso % (Auto) 0.6 (0.0-2.0) % Neut # (Auto) 3.9 (1.8-7.7) th/mm3 Lymph # (Auto) 1.9 (1.0-4.8) th/mm3 Mckinley # (Auto) 0.7 (0.0-0.9) th/mm3 Eos # (Auto) 0.1 (0.0-0.4) th/mm3 Baso # (Auto) 0.0 (0.0-0.2) th/mm3 WBC Differential . Differential Comment Auto diff final PT 10.2 (9.8-11.6) sec INR 1.0 Ratio APTT 23.5 (23.4-31.7) sec D-Dimer Quant (PE/DVT) 2.33 H (0.00-0.50) mg/L FEU Sodium (136-145) meq/L Potassium (3.5-5.1) meq/L Chloride (98-107) meq/L Carbon Dioxide (21.0-32.0) meq/L Anion Gap (5-15) meq/L BUN (7-18) mg/dL Creatinine (0.50-1.00) mg/dL Estimated GFR (>89) mL/min Random Glucose (74-106) mg/dL Calcium (8.5-10.1) mg/dL Total Bilirubin (0.2-1.0) mg/dL AST (15-37) U/L ALT (10-53) U/L Alkaline Phosphatase (45-117) U/L Total Creatine Kinase (26-192) U/L Troponin I (0.02-0.05) ng/mL B-Natriuretic Peptide 76 (0-100) pg/mL Total Protein (6.4-8.2) g/dL Albumin (3.4-5.0) g/dL Lipase (73-393) U/L 07/15/18 Range/Units 01:35 WBC (4.0-11.0) th/mm3 RBC (4.00-5.30) mil/mm3 Hgb (11.6-15.3) gm/dL Hct (35.0-46.0) % MCV (80.0-100.0) fL MCH (27.0-34.0) pg MCHC (32.0-36.0) % RDW (11.6-17.2) % Plt Count (150-450) th/mm3 MPV (7.0-11.0) fL Neut % (Auto) (16.0-70.0) % Lymph % (Auto) (9.0-44.0) % Mckinley % (Auto) (0.0-8.0) % Eos % (Auto) (0.0-4.0) % Baso % (Auto) (0.0-2.0) % Neut # (Auto) (1.8-7.7) th/mm3 Lymph # (Auto) (1.0-4.8) th/mm3 Mckinley # (Auto) (0.0-0.9) th/mm3 Eos # (Auto) (0.0-0.4) th/mm3 Baso # (Auto) (0.0-0.2) th/mm3 WBC Differential Differential Comment PT (9.8-11.6) sec INR Ratio APTT (23.4-31.7) sec D-Dimer Quant (PE/DVT) (0.00-0.50) mg/L FEU Sodium 140 (136-145) meq/L Potassium 3.9 (3.5-5.1) meq/L Chloride 101 (98-107) meq/L Carbon Dioxide 33.1 H (21.0-32.0) meq/L Anion Gap 6 (5-15) meq/L BUN 10 (7-18) mg/dL Creatinine 0.72 (0.50-1.00) mg/dL Estimated GFR 79 L (>89) mL/min Random Glucose 145 H (74-106) mg/dL Calcium 8.5 (8.5-10.1) mg/dL Total Bilirubin 0.1 L (0.2-1.0) mg/dL AST 12 L (15-37) U/L ALT 19 (10-53) U/L Alkaline Phosphatase 62 (45-117) U/L Total Creatine Kinase 21 L (26-192) U/L Troponin I Less than 0.02 L (0.02-0.05) ng/mL B-Natriuretic Peptide (0-100) pg/mL Total Protein 6.4 (6.4-8.2) g/dL Albumin 2.6 L (3.4-5.0) g/dL Lipase 77 (73-393) U/L Imaging Data Attestation: I personally reviewed and interpreted this imaging study as follows : Radiologist's impression: Chest X-Ray 07/15/18 01:36 CONCLUSION: 1. No significant interval change. Mild bilateral diffuse interstitial opacity indicating either chronic lung disease or mild pulmonary edema. 2. Chronic cardiac silhouette enlargement. 3. Chronic scarring or atelectasis at the left lung base. Chest CTA 07/15/18 03:47 CONCLUSION: 1. No evidence of pulmonary was. 2. Moderate pulmonary emphysema. 3. Prominent left lower lobe atelectasis and small left pleural effusion. Recommend six-month follow-up noncontrast chest CT. 4. Mildly prominent mediastinal and bilateral hilar lymph nodes likely reactive. Discharge Plan Discharge Disposition Patient Disposition: ED Admit(ED Internal Use Only) Discharge Order Discharge Orders: ED Use Only Admit Order (Routine); Ordered 07/15/18 Ordered By: Calvin Marlow Discharge Details Diagnosis: Chest pain Physicians Team ED Provider: Calvin Marlow Primary Care Provider: UNKNOWN, Rxs /Orders / Referrals /Forms Prescriptions: No Action pramipexole [Mirapex] 1 mg Tablet 1 mg PO Q6HR 30 Days RF: 0 furosemide 40 mg Tablet 40 mg PO DAILY 30 Days Qty: 30 RF: 0 buspirone 5 mg Tablet 5 mg PO BID 30 Days Qty: 60 RF: 0 metformin [Glucophage] 500 mg Tablet 1,000 mg PO BID 30 Days Qty: 120 RF: 0 sennosides [Senna Lax] 8.6 mg Tablet 17.2 mg PO Q12H PRN (Reason: Moderate Constipation) 30 Days RF: 0 aspirin 325 mg Tablet 325 mg PO DAILY 30 Days Qty: 30 RF: 0 sennosides-docusate sodium [Senna Plus] 8.6-50 mg Tablet 1 tab PO BID 30 Days Qty: 60 RF: 0 potassium chloride [Klor-Con 10] 10 mEq Tablet Extended Release 20 meq PO DAILY 30 Days Qty: 60 RF: 0 famotidine 20 mg Tablet 20 mg PO DAILY 30 Days Qty: 30 RF: 0 levothyroxine [Synthroid] 150 mcg Tablet 300 mcg PO DAILY@0600 30 Days RF: 0 gabapentin [Neurontin] 300 mg Capsule 300 mg PO Q6HR 30 Days RF: 0 metoprolol succinate 25 mg Tablet Extended Release 24 Hr 25 mg PO DAILY 30 Days Qty: 30 RF: 0 albuterol sulfate [Ventolin HFA] 90 mcg/actuation Hfa Aerosol Inhaler 2 puff INH Q6H PRN (Reason: Shortness Of Breath) 30 Days RF: 0 duloxetine 60 mg Capsule,Delayed Release(Dr/Ec) 60 mg PO BID 30 Days Qty: 60 RF: 0 insulin detemir U-100 [Levemir U-100 Insulin] 100 unit/mL Solution 24 unit subcut HS 30 Days Qty: 7.2 RF: 0 calcium carbonate-vitamin D3 [Oyster Shell Calcium-Vit D3] 250-125 mg-unit Tablet 2 tab PO DAILY 30 Days Qty: 60 RF: 0 fenofibrate nanocrystallized 145 mg Tablet 145 mg PO DAILY 30 Days Qty: 30 RF: 0 cholecalciferol (vitamin D3) [Vitamin D3] 1,000 unit Tablet 1,000 unit PO BID 30 Days Qty: 60 RF: 0 umeclidinium-vilanterol [Anoro Ellipta] 62.5-25 mcg/actuation Blister With Device 1 puff INH DAILY 30 Days RF: 0 clonazepam 0.5 mg Tablet 0.5 mg PO BID Qty: 60 RF: 0 lorazepam 0.5 mg Tablet 0.5 mg PO Q8HR 30 Days Qty: 90 RF: 0 prednisone 10 mg Tablet 10 mg PO BID RF: 0 lidocaine [Lidocaine Pain Relief] 4 % Adhesive Patch,Medicated 2 patch TOPICAL HS RF: 0 simvastatin 80 mg Tablet 80 mg PO QPM RF: 0 ergocalciferol (vitamin D2) [Vitamin D2] 50,000 unit Capsule 50,000 unit PO QWEEK RF: 0 lactulose 20 gram/30 mL Solution 20 g PO DAILY PRN (Reason: constipation) RF: 0 Remove RF: 0 oxycodone 10 mg tablet 10 mg PO Q6H PRN (Reason: Breakthrough Pain) RF: 0 Discharge Instructions Patient Printed Instructions: Chest Pain (ED) Status ED Status: With Doctor
[2018-07-15 01:48] LABS: Baso % (Auto) 0.6 % (0.0-2.0); Eos # (Auto) 0.1 th/mm3 (0.0-0.4); Eos % (Auto) 1.7 % (0.0-4.0); Hematocrit 23.6 % (35.0-46.0); Hemoglobin 8.1 gm/dL (11.6-15.3); Lymph # (Auto) 1.9 th/mm3 (1.0-4.8); Lymph % (Auto) 28.9 % (9.0-44.0); Mean Corpuscular HGB Conc 34.1 % (32.0-36.0); Mean Corpuscular Volume 79.2 fL (80.0-100.0); Mean Platelet Volume 6.8 fL (7.0-11.0); Mono # (Auto) 0.7 th/mm3 (0.0-0.9); Mono % (Auto) 10.4 % (0.0-8.0); Neut # (Auto) 3.9 th/mm3 (1.8-7.7); Neut % (Auto) 58.4 % (16.0-70.0); Platelet Count 419 th/mm3 (150-450); Red Blood Count 2.98 mil/mm3 (4.00-5.30); White Blood Count 6.6 th/mm3 (4.0-11.0)
--- NOTE | 2018-07-15 02:01 | XR ---
EXAM DATE: 07/15/2018 1:54 AM EST AGE/SEX: 77 years / Female INDICATIONS: Midsternal chest pain today. CLINICAL DATA: This is the patient's initial encounter. Patient reports that signs and symptoms have been present for 1 day and indicates a pain score of 4/10. MEDICAL/SURGICAL HISTORY: Hypertension. Diabetes. Chronic obstructive pulmonary disease. CHF. Fusion, cervical. COMPARISON: [facility], CHEST 1V SINGLE AP, 05/23/2018. . FINDINGS: Single AP view the chest. Surgical clips in the left side of the neck. Cardiac silhouette is enlarged but unchanged. Mild interstitial opacity in the lungs bilaterally diffusely unchanged. Scarring or a telectasis at the left lung base laterally unchanged. No evidence of pleural effusion or pneumothorax . CONCLUSION: 1. No significant interval change. Mild bilateral diffuse interstitial opacity indicating either chr onic lung disease or mild pulmonary edema. 2. Chronic cardiac silhouette enlargement. 3. Chronic scarring or atelectasis at the left lung base. Electronically signed by: Clif Ayon MD 07/15/2018 1:59 AM EST
[2018-07-15 02:03] LABS: Alanine Aminotransferase 19 U/L (10-53); Albumin 2.6 g/dL (3.4-5.0); Anion Gap 6 meq/L (5-15); Aspartate Aminotransferase 12 U/L (15-37); Blood Urea Nitrogen 10 mg/dL (7-18); Calcium 8.5 mg/dL (8.5-10.1); Carbon Dioxide 33.1 meq/L (21.0-32.0); Chloride 101 meq/L (98-107); Glomerular Filtration Rate 79 mL/min (>89); Glucose,Random 145 mg/dL (74-106); Lipase 77 U/L (73-393); Potassium 3.9 meq/L (3.5-5.1); Sodium 140 meq/L (136-145)
[2018-07-15 02:07] LABS: Alkaline Phosphatase 62 U/L (45-117); Total Protein 6.4 g/dL (6.4-8.2)
[2018-07-15 02:10] LABS: Activated Partial Thrombo Time 23.5 sec (23.4-31.7); Creatine Kinase 21 U/L (26-192); Prothrombin Time 10.2 sec (9.8-11.6)
[2018-07-15 02:13] LABS: D-Dimer 2.33 mg/L FEU (0.00-0.50)
--- NOTE | 2018-07-15 04:34 | CT ---
EXAM DATE: 07/15/2018 4:15 AM EST AGE/SEX: 77 years / Female INDICATIONS: Shortness of breath with elevated D-Dimer. CLINICAL DATA: This is the patient's initial encounter. Patient reports that signs and symptoms have been present for 1 day and indicates a pain score of 0/10. MEDICAL/SURGICAL HISTORY: Cardiovascular disease. Hypertension. Diabetes mellitus type II. COPD Appendectomy. Kyphoplasty. RADIATION DOSE: 10.72 CTDI (mGy) COMPARISON: [facility], CTA PULMONARY W CONTRAST W 3D, 05/20/2018. . TECHNIQUE: Volumetric scanning was performed using a multi-row detector CT scanner during bolus infu kenyatta of 67 ml Omnipaque 350 (iohexol) nonionic water-soluble contrast as a single exam dose. The stephany a was post processed with a variety of visualization algorithms including full volume maximum intensi ty projection and sliding thin slab reformation. Using automated exposure control and adjustment of the mA and/or kV according to patient size, radiation dose was kept as low as reasonably achievable t o obtain optimal diagnostic quality images. DICOM format image data is available electronically for review and comparison. FINDINGS: Pulmonary Arteries: No abnormal filling defects in the pulmonary arteries to suggest pulmonary embol us. Lung: Moderate pulmonary emphysema bilaterally. Scarring at the apices. Prominent atelectasis in the left lower lobe. Effusion: Trace left-sided pleural effusion. Mediastinum: Coronary artery calcification. Thoracic aortic diameter within normal limits. Multiple mildly prominent mediastinal and hilar lymph nodes again seen are very similar to the prior study. Th mynor are likely reactive. Other: The axilla is unremarkable. CONCLUSION: 1. No evidence of pulmonary was. 2. Moderate pulmonary emphysema. 3. Prominent left lower lobe atelectasis and small left pleural effusion. Recommend six-month follow -up noncontrast chest CT. 4. Mildly prominent mediastinal and bilateral hilar lymph nodes likely reactive. Electronically signed by: Clif Ayon MD 07/15/2018 4:33 AM EST
[2018-07-15 05:46] LABS: Creatine Kinase 16 U/L (26-192)
[2018-07-15 06:31] LABS: Bacteria,Urine Moderate /hpf; Bilirubin,Urine Negative (Negative); Clarity,Urine Hazy (Clear); Color,Urine Yellow (Yellw/Straw); Glucose,Urine (UA) Negative (Negative); Hyaline Casts,Urine 4 /lpf (0-3); Leukocyte Esterase,Urine Negative (Negative); Mucus,Urine Few /lpf (Occasional); Nitrite,Urine Positive (Negative); Squamous Epithelial Cell,Urine 5 /hpf (0-5)
[2018-07-15 08:42] LABS: Creatine Kinase 19 U/L (26-192)
[2018-07-15 08:55] LABS: Baso # (Auto) 0.1 th/mm3 (0.0-0.2); Eos # (Auto) 0.1 th/mm3 (0.0-0.4); Eos % (Auto) 1.8 % (0.0-4.0); Hematocrit 24.1 % (35.0-46.0); Lymph # (Auto) 1.3 th/mm3 (1.0-4.8); Lymph % (Auto) 24.1 % (9.0-44.0); Mean Corpuscular HGB Conc 33.1 % (32.0-36.0); Mean Corpuscular Hemoglobin 26.2 pg (27.0-34.0); Mean Corpuscular Volume 79.1 fL (80.0-100.0); Mono # (Auto) 0.5 th/mm3 (0.0-0.9); Mono % (Auto) 9.9 % (0.0-8.0); Neut # (Auto) 3.4 th/mm3 (1.8-7.7); Neut % (Auto) 63.2 % (16.0-70.0); Platelet Count 402 th/mm3 (150-450); Red Blood Count 3.05 mil/mm3 (4.00-5.30); Red Cell Distribution Width 18.1 % (11.6-17.2); White Blood Count 5.4 th/mm3 (4.0-11.0)
--- NOTE | 2018-07-15 09:09 | ECG ---
Date Performed: 07/15/2018 Time Performed: 05:09:48 PTAGE: 77 years EKG: Sinus rhythm NORMAL ECG Since PREVIOUS TRACING , no significant change noted PREVIOUS TRACIN05/18/2018 17.19 DOCTOR: Julissa Cartagena Interpretating Date/Time 07/15/2018 09:09:27
--- NOTE | 2018-07-15 09:10 | ECG ---
Date Performed: 07/15/2018 Time Performed: 01:33:27 PTAGE: 77 years EKG: Sinus rhythm WITH OCCASIONAL SUPRAVENTRICULAR PREMATURE COMPLEXES BORDERLINE ECG Since PREVIOUS TRACING , no significant change noted DOCTOR: Julissa Cartagena Interpretating Date/Time 07/15/2018 09:09:43
--- NOTE | 2018-07-15 09:13 | ECG ---
Date Performed: 07/15/2018 Time Performed: 08:02:21 PTAGE: 77 years EKG: Sinus rhythm NORMAL ECG Since PREVIOUS TRACING , no significant change noted PREVIOUS TRACIN07/15/2018 05.09 DOCTOR: Julissa Cartagena Interpretating Date/Time 07/15/2018 09:12:21
--- NOTE | 2018-07-15 09:32 | P.HPCA ---
History of Present Illness Primary Care Physician: UNKNOWN Chief Complaint: Chest pain and shortness of breath History of Present Illness: This is a 77-year-old female with stated history of COPD, diabetes, hypothyroidism, hyperlipidemia, and anemia with prior transfusion many years ago that presents to ED with complaint of chest discomfort. Began last evening , she was at a local assisted living facility. She describes an ache in the center of her chest lasted 2-3 hours last evening. She was doing nothing strenuous at the time. EVAC was called, was given a little nitroglycerin spray which helped a little bit but again did seem to take about 2-3 hours for to resolve. She was short of breath but states that she has kind of been short of breath but primarily with ambulation over the last 2 weeks. States that if she walks or does any type of activity she gets very weak and short of breath. Has not had chest pain however. Denies dark, black, or tarry stools. Denies blood in stool. Denies emesis. Currently denies chest discomfort. She states that she has had a couple heart catheterizations about 4 years ago in [place]. The first 1 she states showed about a 20% blockage however they went back in and did another heart catheterization and there was no blockage at that time. She does not follow-up with a portable power tool repairer. Patient has COPD and continues to smoke cigarettes at about 1/4 pack a day for the last year. Prior to that she smoked 1/2 pack of cigarettes a day for 50 years and prior to that 1 pack a day for 40 years. She cannot recall anybody her family having heart disease. - Diagnosis (1) Symptomatic anemia (2) Chest pain (3) Diabetes mellitus (4) Dyslipidemia (5) COPD (chronic obstructive pulmonary disease) (6) HTN (hypertension) Review of Systems General: Patient denies fevers, chills, and recent travel. HEENT: Patient denies headache, sore throat, difficulty swallowing. Cardiovascular: Has the chest discomfort as mentioned above. Denies sensation of heart beating rapidly or irregularly. No syncope. Denies diaphoresis. Respiratory: She has been short of breath more so short of breath with activity. Denies inspirational chest discomfort. Denies coughing wheezing or hemoptysis. GI: Patient denies nausea, vomiting, diarrhea, abdominal pain, bloody stools. Musculoskeletal: Patient denies joint pain or edema. Denies calf pain or edema. Neurovascular: Patient denies numbness, tingling, weakness in extremities. Denies headache. Endocrine: Denies polyuria and polydipsia. Hematologic: Denies easy bruising. Skin: Denies rash or itching. PMFSH - History History Provided By: Patient - Medical History Medical History: Medical History (Last Reviewed 07/15/18 @ 01:44 by Valorie Green) CHF (congestive heart failure) COPD (chronic obstructive pulmonary disease) Cholecystectomy planned Diabetes HTN (hypertension) High cholesterol History of hysterectomy Hypertension Overflow incontinence of urine Restless leg syndrome Thyroid disease Tobacco use - Surgical History Surgical History: Surgical History (Last Reviewed 07/15/18 @ 01:44 by Valorie Green) Hx of appendectomy Hx of tonsillectomy Previous back surgery History of neck surgery (Resolved) - Tobacco History Second Hand Smoke Exposure: No Tobacco Use In Past 30 Days: Yes Smoking Status: Light tobacco smoker Tobacco Type: Cigarettes - Alcohol History How Often Do You Have a Drink Containing Alcohol: Never - Substance Use History Substance History: No History of Abuse - Travel History Recent Travel in the [place] Within the Last 8 Weeks: No Recent Travel Out of the Country Within the Last 8 Weeks: No - Immunization History Tetanus Immunization: <5 Years Medications and Allergies Active Medications: Active Medications Sodium Chloride (Ns Flush) 2 ml IV.FLUSH BID PETE Last Admin: 07/15/18 08:48 Dose: 2 ml Sodium Chloride (Ns Flush) 2 ml IV.FLUSH PRN PRN PRN Reason: FLUSH AFTER USING IV ACCESS Allergies Allergy/AdvReac Type Severity Reaction Status Date / Time Penicillins Allergy Wheezing Verified 07/15/18 02:23 Home Medications Medication Instructions Recorded Confirmed Type Remove 07/15/18 07/15/18 History ergocalciferol (vitamin D2) 50,000 unit PO QWEEK 07/15/18 07/15/18 History [Vitamin D2] lactulose 20 g PO DAILY PRN 07/15/18 07/15/18 History lidocaine [Lidocaine Pain Relief] 2 patch TOPICAL HS 07/15/18 07/15/18 History oxycodone 10 mg PO Q6H PRN 07/15/18 07/15/18 History prednisone 10 mg PO BID 07/15/18 07/15/18 History simvastatin 80 mg PO QPM 07/15/18 07/15/18 History Exam Vital signs: Vital Signs 07/15/18 01:30 07/15/18 01:36 07/15/18 02:45 Temperature 98.5 F Pulse Rate 100 H 95 H 91 H Respiratory Rate 20 16 Blood Pressure 118/59 L 113/56 L Pulse Oximetry 95 98 96 07/15/18 04:47 07/15/18 05:00 07/15/18 07:17 Temperature 98.0 F Pulse Rate 86 95 H Respiratory Rate 18 16 Blood Pressure 109/53 L 127/60 Pulse Oximetry 96 96 95 Intake & Output 07/14/18 07/15/18 07/15/18 18:59 06:59 18:59 Weight 74.5 kg Other: Weight On Admission 74.5 kg Narrative: GENERAL: This is a well-nourished, well-developed patient, in no apparent distress. Patient speaks in clear complete sentences. Patient is pleasant. HEENT: Head is atraumatic and normocephalic. Neck is supple without lymphadenopathy and trachea is midline. No JVD or carotid bruits. CARDIOVASCULAR: Regular rate and rhythm without murmurs, gallops, or rubs. RESPIRATORY: Clear to auscultation. Breath sounds equal bilaterally. No wheezes , rales, or rhonchi. Chest wall is nontender. No use of accessory muscles. GASTROINTESTINAL: Abdomen is nontender, nondistended. Abdomen soft. No obvious pulsatile mass or bruit. No CVA tenderness. Strong femoral pulses bilaterally. Normal bowel sounds in all quadrants. MUSCULOSKELETAL: Patient is moving upper and lower extremities freely. No calf tenderness or edema, no Homans sign. Strong pulses in upper and lower extremities. NEUROLOGICAL: Patient is alert and oriented. Cranial nerves 2-12 are grossly intact. No focal deficits and speech is clear. SKIN: No rash and turgor is normal. Results 07/15/18 08:44 07/15/18 01:35 Cardiac Enzymes 07/15/18 07/15/18 07/15/18 Range/Units 01:35 01:35 05:02 AST 12 L (15-37) U/L Troponin I Less than 0.02 L Less than 0.02 L (0.02-0.05) ng/mL B-Natriuretic Peptide 76 (0-100) pg/mL 07/15/18 Range/Units 07:58 AST (15-37) U/L Troponin I Less than 0.02 L (0.02-0.05) ng/mL B-Natriuretic Peptide (0-100) pg/mL Coagulation 07/15/18 07/15/18 Range/Units 01:35 01:35 PT 10.2 (9.8-11.6) sec APTT 23.5 (23.4-31.7) sec B-Natriuretic Peptide 76 (0-100) pg/mL CBC 07/15/18 07/15/18 Range/Units 01:35 08:44 WBC 6.6 5.4 (4.0-11.0) th/mm3 RBC 2.98 L 3.05 L (4.00-5.30) mil/mm3 Hgb 8.1 L 8.0 L (11.6-15.3) gm/dL Hct 23.6 L 24.1 L (35.0-46.0) % Plt Count 419 402 (150-450) th/mm3 Neut # (Auto) 3.9 3.4 (1.8-7.7) th/mm3 Lymph # (Auto) 1.9 1.3 (1.0-4.8) th/mm3 [place] # (Auto) 0.7 0.5 (0.0-0.9) th/mm3 Eos # (Auto) 0.1 0.1 (0.0-0.4) th/mm3 Baso # (Auto) 0.0 0.1 (0.0-0.2) th/mm3 Comprehensive Metabolic Panel 07/15/18 Range/Units 01:35 Sodium 140 (136-145) meq/L Potassium 3.9 (3.5-5.1) meq/L Chloride 101 (98-107) meq/L Carbon Dioxide 33.1 H (21.0-32.0) meq/L BUN 10 (7-18) mg/dL Creatinine 0.72 (0.50-1.00) mg/dL Calcium 8.5 (8.5-10.1) mg/dL AST 12 L (15-37) U/L ALT 19 (10-53) U/L Alkaline Phosphatase 62 (45-117) U/L Total Protein 6.4 (6.4-8.2) g/dL Albumin 2.6 L (3.4-5.0) g/dL Intake and Output 07/14/18 07/15/18 07/15/18 22:59 06:59 14:59 Other: Weight 74.5 kg Weight On Admission 74.5 kg - Imaging and Cardiology Imaging: Impressions Chest X-Ray 07/15/18 01:36 CONCLUSION: 1. No significant interval change. Mild bilateral diffuse interstitial opacity indicating either chronic lung disease or mild pulmonary edema. 2. Chronic cardiac silhouette enlargement. 3. Chronic scarring or atelectasis at the left lung base. Chest CTA 07/15/18 03:47 CONCLUSION: 1. No evidence of pulmonary was. 2. Moderate pulmonary emphysema. 3. Prominent left lower lobe atelectasis and small left pleural effusion. Recommend six-month follow-up noncontrast chest CT. 4. Mildly prominent mediastinal and bilateral hilar lymph nodes likely reactive. EKG interpretations - EKG EKG shows: sinus rhythm (EKGs have been sinus rhythm without significant ST segment depressions or elevations.) Caprini VTE Risk Assessment Caprini VTE Risk Assessment: Moderate/High Risk (score >= 2) Caprini Risk Assessment Model: Point Value = 1 Point Value = 2 Point Value = 3 Point Value = 5 Age 41-60 Minor surgery BMI > 25 kg/m2 Swollen legs Varicose veins or History of unexplained or recurrent spontaneous Oral contraceptives or hormone replacement Sepsis (< 1 month) Serious lung disease, including pneumonia (< 1 month) Abnormal pulmonary function Acute myocardial infarction Congestive heart failure (< 1 month) History of inflammatory bowel disease Medical patient at bed rest Age 61-74 Arthroscopic surgery Major open surgery (> 45 min) Laparoscopic surgery (> 45 min) Malignancy Confined to bed (> 72 hours) Immobilizing plaster cast Central venous access Age >= 75 History of VTE Family history of VTE Factor V Leiden Prothrombin [id number] Lupus anticoagulant Anticardiolipin antibodies Elevated serum homocysteine Heparin-induced thrombocytopenia Other congenital or acquired thrombophilia Stroke (< 1 month) Elective arthroplasty Hip, pelvis, or leg fracture Acute spinal cord injury (< 1 month) Prophylaxis Regimen: Total Risk Factor Score Risk Level Prophylaxis Regimen 0-1 Low Early ambulation 2 Moderate Order ONE of the following: *Sequential Compression Device (SCD) *Heparin 5000 units SQ BID 3-4 Higher Order ONE of the following medications: *Heparin 5000 units SQ TID *Enoxaparin/Lovenox 40 mg SQ daily (WT < 150 kg, CrCl > 30 mL/min) *Enoxaparin/Lovenox 30 mg SQ daily (WT < 150 kg, CrCl > 10-29 mL/min) *Enoxaparin/Lovenox 30 mg SQ BID (WT < 150 kg, CrCl > 30 mL/min) AND/OR *Sequential Compression Device (SCD) 5 or more Highest Order ONE of the following medications: *Heparin 5000 units SQ TID (Preferred with Epidurals) *Enoxaparin/Lovenox 40 mg SQ daily (WT < 150 kg, CrCl > 30 mL/min) *Enoxaparin/Lovenox 30 mg SQ daily (WT < 150 kg, CrCl > 10-29 mL/min) *Enoxaparin/Lovenox 30 mg SQ BID (WT < 150 kg, CrCl > 30 mL/min) AND *Sequential Compression Device (SCD) Assessment and Plan - Assessment (1) Symptomatic anemia Code(s): D64.9 - Anemia, unspecified Status: Acute (2) Chest pain Code(s): R07.9 - Chest pain, unspecified Status: Acute (3) Diabetes mellitus Code(s): E11.9 - Type 2 diabetes mellitus without complications Status: Acute (4) Dyslipidemia Code(s): E78.5 - Hyperlipidemia, unspecified Status: Acute (5) COPD (chronic obstructive pulmonary disease) Code(s): J44.9 - Chronic obstructive pulmonary disease, unspecified Status: Chronic (6) HTN (hypertension) Code(s): I10 - Essential (primary) hypertension Status: Chronic - Plan * Symptomatic anemia: Hemoglobin on presentation to the ED was 8.1, recollected this morning and is 8.0. On review of records hemoglobin was 10.6 last month. Patient is complaining of shortness of breath and weakness with activity over the last 2 to almost 3 weeks. She was seen by Dr. Cartagena of cardiology and the chest pain center. [place] first patient be admitted to hospitalist service for anemia workup with likely transfusion. * Chest pain: Patient has had serial cardiac enzymes and EKGs for ruling out purposes. She was seen by Dr. Cartagena of cardiology and chest pain center. With her anemia as it is patient would not be a good candidate for cardiac procedures. Even upon further questioning, patient would not want to have any stress testing or heart catheterization done at this time. If she still has symptoms after the anemia has resolved and she should follow-up with portable power tool repairer. No further cardiac testing at this time. * Hypertension: Continue medication. * Hyperlipidemia: Continue medication. * COPD: Duo nebs as needed. * Diabetes: Sliding scale insulin coverage. Resume medication at discharge. Follow diabetic diet. Patient is stable at this time. She is agreeable to this plan. H&P: Quality - VTE Deep Vein Thrombosis/Pulmonary Embolism Present on Admission: No (2) Chest pain Qualifiers: Chest pain type: unspecified Qualified Code(s): R07.9 - Chest pain, unspecified (6) HTN (hypertension) Qualifiers:
[2018-07-15] MEDS ORDERED: LORazepam 0.5 MG Tablet PO PRN (10:00)
[2018-07-15] MEDS ORDERED: Sodium Chlor 0.9% Inj 250 ML IV.SIG SCH (11:00)
[2018-07-15 11:57] LABS: Reticulocyte Percent 2.7 % (0.4-3.0)
[2018-07-15 12:18] LABS: Iron 16 mcg/dL (50-170)
[2018-07-15 12:20] LABS: Ferritin 14 ng/mL (8-252)
[2018-07-15 12:27] LABS: Haptoglobin 328 mg/dL (30-200)
[2018-07-15] MEDS: Aspirin 325 MG Tablet PO SCH (12:51)
[2018-07-15] MEDS: Furosemide 40 MG Tablet PO SCH (12:51)
[2018-07-15] MEDS: Calcium/Vitamin D 250/125 MG Tablet PO SCH (12:51)
[2018-07-15] MEDS: Duloxetine 60 MG DR Capsule PO SCH ×2 (12:51→20:13)
[2018-07-15] MEDS: Gabapentin 300 MG Capsule PO SCH ×2 (12:52→19:26)
[2018-07-15] MEDS: Fenofibrate 145 MG Tablet PO SCH (13:57)
[2018-07-15] MEDS: clonazePAM 0.5 MG Tablet PO SCH (20:13)
[2018-07-15 23:19] LABS: Hematocrit 29.8 % (35.0-46.0); Hemoglobin 9.5 gm/dL (11.6-15.3)
[2018-07-16] MEDS: Gabapentin 300 MG Capsule PO SCH ×4 (01:10→18:01)
[2018-07-16] MEDS ORDERED: Levothyroxine 150 MCG Tablet PO SCH (06:00)
[2018-07-16] MEDS: Calcium/Vitamin D 250/125 MG Tablet PO SCH (08:06)
[2018-07-16] MEDS: Fenofibrate 145 MG Tablet PO SCH (08:06)
[2018-07-16] MEDS: Furosemide 40 MG Tablet PO SCH (08:06)
[2018-07-16] MEDS: clonazePAM 0.5 MG Tablet PO SCH (08:06)
[2018-07-16] MEDS: Duloxetine 60 MG DR Capsule PO SCH (08:07)
[2018-07-16] MEDS: Aspirin 325 MG Tablet PO SCH (08:07)
[2018-07-16 12:49] VITALS: BP 95/51; PULSE 80; RESP 18; TEMP 98.6; O2SAT 93
--- NOTE | 2018-07-16 15:44 | P.DS ---
DS: Providers Date of admission: 07/15/18 04:46 Primary care physician: UNKNOWN Patient is a 77-year-old female with past medical history of diverticulosis, external hemorrhoids, depression, reflux disease, COPD and diabetes who presented to emergency department for complaints of shortness of breath. Patient reports at baseline she has shortness of breath secondary to her known history of COPD but says that she also developed chest pain which prompted her to seek medical attention. During evaluation in emergency department patient was found to have low hemoglobin of 8.1 which was repeated and was 8. Patient was then transferred over to medical service for evaluation of anemia. While hospitalized outpatient colonoscopy report obtained showed evidence that patient had diverticulosis and external hemorrhoids. Patient denied noticing recent change in stool including bright red blood per rectum. Patient was transfused 2 units with appropriate response in hemoglobin level and improvement in shortness of breath symptoms back to her baseline. Explained to patient that with diverticulosis it is not uncommon for episodes of bleeding to occur sporadically and stop intermittently. Also explained to patient that upon discharge she should follow-up with gastroenterology outpatient closely as if she continues to bleed intervention may be needed for definitive therapy but at this time is not indicated. During hospitalization patient was evaluated by cardiology service was offered option for possible catheterization. Patient declined this intervention. After discussing case with cardiology it was deemed that she would require optimization before consideration of a catheterization thus procedure was not emergent. Cardiac enzymes negative. BNP level normal. CT angiogram negative for pulmonary embolism. No acute finding on chest x-ray. Patient clinically improved and stable for discharge with outpatient follow-up with mortgage closing clerk and primary physician. Patient with urinalysis concerning for urinary tract infection but patient denies any symptoms of fever, chills, nausea, vomiting, burning with urination, or foul smell. Will defer antibiotics at this time for asymptomatic bacteriuria. Patient to be started on ferrous sulfate supplementation for iron deficiency anemia. Patient should follow-up with repeat CBC testing outpatient. Brief History from admission: This is a 77-year-old female with stated history of COPD, diabetes, hypothyroidism, hyperlipidemia, and anemia with prior transfusion many years ago that presents to ED with complaint of chest discomfort. Began last evening , she was at a local assisted living facility. She describes an ache in the center of her chest lasted 2-3 hours last evening. She was doing nothing strenuous at the time. EVAC was called, was given a little nitroglycerin spray which helped a little bit but again did seem to take about 2-3 hours for to resolve. She was short of breath but states that she has kind of been short of breath but primarily with ambulation over the last 2 weeks. States that if she walks or does any type of activity she gets very weak and short of breath. Has not had chest pain however. Denies dark, black, or tarry stools. Denies blood in stool. Denies emesis. Currently denies chest discomfort. She states that she has had a couple heart catheterizations about 4 years ago in [place]. The first 1 she states showed about a 20% blockage however they went back in and did another heart catheterization and there was no blockage at that time. She does not follow-up with a hot box spotter. Patient has COPD and continues to smoke cigarettes at about 1/4 pack a day for the last year. Prior to that she smoked 1/2 pack of cigarettes a day for 50 years and prior to that 1 pack a day for 40 years. She cannot recall anybody her family having heart disease. DS: Diagnosis Discharge Diagnosis (1) Symptomatic anemia: Status: Acute (2) Chest pain: Status: Acute (3) Diabetes mellitus: Status: Acute (4) Dyslipidemia: Status: Acute (5) COPD (chronic obstructive pulmonary disease): Status: Chronic (6) HTN (hypertension): Status: Chronic DS: Summary Patient is a 77-year-old female with past medical history of diverticulosis, external hemorrhoids, depression, reflux disease, COPD and diabetes who presented to emergency department for complaints of shortness of breath. Patient reports at baseline she has shortness of breath secondary to her known history of COPD but says that she also developed chest pain which prompted her to seek medical attention. During evaluation in emergency department patient was found to have low hemoglobin of 8.1 which was repeated and was 8. Patient was then transferred over to medical service for evaluation of anemia. While hospitalized outpatient colonoscopy report obtained showed evidence that patient had diverticulosis and external hemorrhoids. Patient denied noticing recent change in stool including bright red blood per rectum. Patient was transfused 2 units with appropriate response in hemoglobin level and improvement in shortness of breath symptoms back to her baseline. Explained to patient that with diverticulosis it is not uncommon for episodes of bleeding to occur sporadically and stop intermittently. Also explained to patient that upon discharge she should follow-up with gastroenterology outpatient closely as if she continues to bleed intervention may be needed for definitive therapy but at this time is not indicated. During hospitalization patient was evaluated by cardiology service was offered option for possible catheterization. Patient declined this intervention. After discussing case with cardiology it was deemed that she would require optimization before consideration of a catheterization thus procedure was not emergent. Cardiac enzymes negative. BNP level normal. CT angiogram negative for pulmonary embolism. No acute finding on chest x-ray. Patient clinically improved and stable for discharge with outpatient follow-up with mortgage closing clerk and primary physician. Patient with urinalysis concerning for urinary tract infection but patient denies any symptoms of fever, chills, nausea, vomiting, burning with urination, or foul smell. Will defer antibiotics at this time for asymptomatic bacteriuria. Patient to be started on ferrous sulfate supplementation for iron deficiency anemia. Patient should follow-up with repeat CBC testing outpatient. Time Spent with Patient Total time spent providing and/or coordinating discharge services: > 45 min Quality: VTE Deep Vein Thrombosis/Pulmonary Embolism Present on Admission: No Exam Narrative Exam Narrative: General: No acute distress, conversational Cardiovascular: S1/S2. No tachycardia Respiratory: Clear to auscultation Gastro-intestinal: Soft, nontender, non-distended, no guarding or rebound Urology: No CVA tenderness, no suprapubic tenderness. Results Labs on day of discharge: Labs from last 24 hours 07/15/18 07/15/18 07/15/18 23:10 11:07 06:20 Hgb 9.5 L Hct 29.8 L Urine Color Yellow Urine Clarity Hazy H Urine pH 5.0 Ur Specific [place] Greater than 1.060 H Urine Protein Negative Urine Glucose (UA) Negative Urine Ketones Negative Urine Occult Blood Negative Urine Nitrate Positive H Urine Bilirubin Negative Urine Urobilinogen Less than 2 Ur Leukocyte Esterase Negative Urine RBC 2 Urine WBC 3 Ur Squamous Epith Cells 5 Urine Bacteria Moderate H Hyaline Casts 4 Urine Mucus Few H Micro UA Comment Culture indicated Urine Culture Comments Culture indicated MTS Gel Crossmatch See Detail Preliminary micro results at discharge 07/15/18 06:20 Urine Culture - Preliminary Clean Catch Urine gram negative rods Impressions ITS Impressions Chest X-Ray 07/15/18 01:36 CONCLUSION: 1. No significant interval change. Mild bilateral diffuse interstitial opacity indicating either chronic lung disease or mild pulmonary edema. 2. Chronic cardiac silhouette enlargement. 3. Chronic scarring or atelectasis at the left lung base. Chest CTA 07/15/18 03:47 CONCLUSION: 1. No evidence of pulmonary was. 2. Moderate pulmonary emphysema. 3. Prominent left lower lobe atelectasis and small left pleural effusion. Recommend six-month follow-up noncontrast chest CT. 4. Mildly prominent mediastinal and bilateral hilar lymph nodes likely reactive. Discharge Plan Discharge Disposition Patient Disposition: 01 Discharge Home Discharge Condition Condition: Good Discharge Order Discharge Orders: Discharge Order (Routine); Ordered 07/16/18 Ordered By: Dilan Parada Discharge Details Anticipated Discharge Date: 07/16/18 Discharge Comment: Please follow up outpatient with your mortgage closing clerk and primary medical doctor within 7 days take iron tablets in evening and synthroid in morning to avoid absorption issues Physicians Team Primary Care Provider: UNKNOWN, Attending Provider: Dilan Parada Rxs /Orders / Referrals /Forms Prescriptions: New ferrous sulfate 325 mg (65 mg iron) tablet 325 mg PO DAILY 30 Days Qty: 30 RF: 1 Continue pramipexole [Mirapex] 1 mg Tablet 1 mg PO Q6HR 30 Days RF: 0 furosemide 40 mg Tablet 40 mg PO DAILY 30 Days Qty: 30 RF: 0 buspirone 5 mg Tablet 5 mg PO BID 30 Days Qty: 60 RF: 0 metformin [Glucophage] 500 mg Tablet 1,000 mg PO BID 30 Days Qty: 120 RF: 0 sennosides [Senna Lax] 8.6 mg Tablet 17.2 mg PO Q12H PRN (Reason: Moderate Constipation) 30 Days RF: 0 aspirin 325 mg Tablet 325 mg PO DAILY 30 Days Qty: 30 RF: 0 sennosides-docusate sodium [Senna Plus] 8.6-50 mg Tablet 1 tab PO BID 30 Days Qty: 60 RF: 0 potassium chloride [Klor-Con 10] 10 mEq Tablet Extended Release 20 meq PO DAILY 30 Days Qty: 60 RF: 0 famotidine 20 mg Tablet 20 mg PO DAILY 30 Days Qty: 30 RF: 0 levothyroxine [Synthroid] 150 mcg Tablet 300 mcg PO DAILY@0600 30 Days RF: 0 gabapentin [Neurontin] 300 mg Capsule 300 mg PO Q6HR 30 Days RF: 0 metoprolol succinate 25 mg Tablet Extended Release 24 Hr 25 mg PO DAILY 30 Days Qty: 30 RF: 0 albuterol sulfate [Ventolin HFA] 90 mcg/actuation Hfa Aerosol Inhaler 2 puff INH Q6H PRN (Reason: Shortness Of Breath) 30 Days RF: 0 duloxetine 60 mg Capsule,Delayed Release(Dr/Ec) 60 mg PO BID 30 Days Qty: 60 RF: 0 insulin detemir U-100 [Levemir U-100 Insulin] 100 unit/mL Solution 24 unit subcut HS 30 Days Qty: 7.2 RF: 0 calcium carbonate-vitamin D3 [Oyster Shell Calcium-Vit D3] 250-125 mg-unit Tablet 2 tab PO DAILY 30 Days Qty: 60 RF: 0 fenofibrate nanocrystallized 145 mg Tablet 145 mg PO DAILY 30 Days Qty: 30 RF: 0 cholecalciferol (vitamin D3) [Vitamin D3] 1,000 unit Tablet 1,000 unit PO BID 30 Days Qty: 60 RF: 0 umeclidinium-vilanterol [Anoro Ellipta] 62.5-25 mcg/actuation Blister With Device 1 puff INH DAILY 30 Days RF: 0 clonazepam 0.5 mg Tablet 0.5 mg PO BID Qty: 60 RF: 0 lorazepam 0.5 mg Tablet 0.5 mg PO Q8HR 30 Days Qty: 90 RF: 0 prednisone 10 mg Tablet 10 mg PO BID RF: 0 lidocaine [Lidocaine Pain Relief] 4 % Adhesive Patch,Medicated 2 patch TOPICAL HS RF: 0 simvastatin 80 mg Tablet 80 mg PO QPM RF: 0 ergocalciferol (vitamin D2) [Vitamin D2] 50,000 unit Capsule 50,000 unit PO QWEEK RF: 0 lactulose 20 gram/30 mL Solution 20 g PO DAILY PRN (Reason: constipation) RF: 0 Remove RF: 0 oxycodone 10 mg tablet 10 mg PO Q6H PRN (Reason: Breakthrough Pain) RF: 0 Referrals: UNKNOWN, [Primary Care Provider] - See Instructions (Also follow up Dr. Figueroa outpatient gastroenterology for history of iron deficiency and known diverticulosis and hemorrhoids noted on colonscopy ) Discharge Instructions Patient Printed Instructions: Chest Pain (ED), Diverticulosis (GEN), Iron Deficiency Anemia (GEN) Status ED Status: Left Department
== END 2018-07-16 18:22 | disposition home or self-care (01) ==
LOC: NEPE 01:25 → NEDA 01:25 → NEPGCP 05:38
PROVIDERS: ADMIT Internal Medicine; ATTEND Internal Medicine

== ENCOUNTER 2018-08-15 17:39 | Inpatient (IN) ==
[2018-08-15] MEDS ORDERED: Sodium Chlor 0.9% Inj 500 ML IV.SIG ONE (18:05)
--- NOTE | 2018-08-15 18:27 | XR ---
EXAM DATE: 08/15/2018 6:23 PM EST AGE/SEX: 77 years / Female INDICATIONS: Shortness of breath. CLINICAL DATA: This is the patient's initial encounter. Patient reports that signs and symptoms have been present for 1 day and indicates a pain score of 0/10. MEDICAL/SURGICAL HISTORY: . Hypertension. Diabetes. Chronic obstructive pulmonary disease. CHF. . Fusion, cervical. COMPARISON: [facility] – [place], CHEST 1V SINGLE AP, 07/15/2018. . FINDINGS: Diffuse interstitial prominence with bilateral lower lobe airspace disease similar to previous exam. Cardiac lead is enlarged. Remainder of the exam is unchanged. CONCLUSION: 1. Chronic interstitial changes with persistent left lower lung zone atelectasis/scarring. 2. Progressive mild airspace disease at the right lung base which may reflect atelectasis. 3. Cardiomegaly. Electronically signed by: Jerzy Gonzalez MD Board Certified Radiologist 08/15/2018 6:26 PM EST
--- NOTE | 2018-08-15 18:30 | ED ---
HPI General Chief complaint: Weakness Stated complaint: weakness/evac Time Seen by Provider: 08/15/18 18:12 Source: patient and EMS Mode of arrival: EMS Limitations: no limitations History of Present Illness HPI Narrative: 77-year-old female with PMH of DM, HTN, CHF, CAD, COPD, oxygen dependent, anemia presents to the ED from [facility] for evaluation of 2-day history of weakness. On arrival the patient is somnolent but opens her eyes to voice and is able to follow commands and answer questions appropriately. She endorses generalized weakness. She endorses dizziness. She endorses occasional chest pain but denies any recent episodes. She endorses chronic shortness of breath. She endorses chronic cough occasionally productive of white sputum. She endorses nausea. She denies headaches, vision changes, fever , chills, palpitations, anorexia, abdominal pain, hematochezia, melena, dysuria. She is nonambulatory but normally able to transfer between her bed and a power scooter. She states that she received a blood transfusion approximately 2 weeks ago but does not know the source of bleeding. No treatment attempted prior to arrival. Related Data Home Medications Medication Instructions Recorded Confirmed albuterol sulfate [Ventolin HFA] 2 puff INHALATION QID PRN 08/15/18 08/15/18 aspirin 325 mg PO DAILY 08/15/18 08/15/18 buspirone 5 mg PO BID 08/15/18 08/15/18 cholecalciferol (vitamin D3) 1,000 unit PO DAILY 08/15/18 08/15/18 [Vitamin D3] clonazepam 0.5 mg PO BID 08/15/18 08/15/18 duloxetine 60 mg PO BID 08/15/18 08/15/18 famotidine 20 mg PO DAILY 08/15/18 08/15/18 fenofibrate 145 mg PO DAILY 08/15/18 08/15/18 ferrous sulfate 325 mg PO DAILY 08/15/18 08/15/18 furosemide 40 mg PO DAILY 08/15/18 08/15/18 gabapentin 300 mg PO QID 08/15/18 08/15/18 insulin detemir U-100 [Levemir 24 unit SUBCUT QPM 08/15/18 08/15/18 U-100 Insulin] levothyroxine 300 mcg PO DAILY 08/15/18 08/15/18 lorazepam 0.5 mg PO TID 08/15/18 08/15/18 metformin 500 mg PO BID 08/15/18 08/15/18 metoprolol succinate 25 mg PO DAILY 08/15/18 08/15/18 oxycodone-acetaminophen 1 tab PO Q6H PRN 08/15/18 08/15/18 potassium chloride 20 meq PO DAILY 08/15/18 08/15/18 pramipexole 1 mg PO QID 08/15/18 08/15/18 umeclidinium-vilanterol [Anoro 1 inh INHALATION Q24H 08/15/18 08/15/18 Ellipta] Allergies Allergy/AdvReac Type Severity Reaction Status Date / Time Penicillins Allergy Wheezing Verified 07/15/18 02:23 Review of Systems ROS: all other systems reviewed are negative PMFSH Social History Social History Substance History: No History of Abuse Second Hand Smoke Exposure: No Smoking Status: Former smoker Tobacco Type: Cigarettes How Often Do You Have a Drink Containing Alcohol: Never Immunization History Tetanus Immunization: Unsure Exam Narrative Exam Narrative: GENERAL: Well-nourished, well-developed, chronically ill- appearing white female wearing a nasal cannula, in no acute distress. Somnolent but arouses easily to voice. SKIN: Focused skin assessment warm/dry. HEAD: Atraumatic. Normocephalic. EYES: Pupils equal and round. No scleral icterus. No injection or drainage. ENT: No nasal bleeding or discharge. Mucous membranes pink and moist. NECK: Trachea midline. No JVD. CARDIOVASCULAR: Regular rate and rhythm. No murmur appreciated. RESPIRATORY: No accessory muscle use. Clear to auscultation. Breath sounds equal bilaterally. GASTROINTESTINAL: Abdomen soft, non-tender, nondistended. Hepatic and splenic margins not palpable. RECTAL EXAM: No masses or tenderness, stool is brown. Guaiac negative. MUSCULOSKELETAL: No obvious deformities. No clubbing. No cyanosis. No edema. NEUROLOGICAL: Awake and oriented. No obvious cranial nerve deficits. Motor grossly within normal limits. Normal speech. PSYCHIATRIC: Appropriate mood and affect; insight and judgment normal. Course Initial Documented Vital Signs Temperature 98.3 F 08/15/18 18:05 Pulse Rate 90 01/11/19 18:05 Respiratory Rate 16 08/15/18 18:05 Pulse Oximetry 76 L 08/15/18 18:05 Last Documented Vital Signs Temperature 98.3 F 08/15/18 18:05 Pulse Rate 76 08/15/18 20:20 Respiratory Rate 16 08/15/18 20:20 Blood Pressure 122/56 L 08/15/18 19:07 Pulse Oximetry 92 L 08/15/18 20:59 Medical Decision Making OLGA Attestation OLGA supervised visit: Yes Attestation: I, Dr. Cuadra, have reviewed the advance practice practitioner' s documentation and am in agreement, met with the patient face to face, made the diagnosis, and the medical decision making was done by me. *My assessment and Findings: The patient is a 77-year-old female who presented to the emergency department with weakness, lethargy, and decreased mentation. The patient is arousable, but does fall asleep easily, does become hypoxic. The patient does have a history of COPD with a previous history of tobacco use, but does not currently smoke. The patient is oxygen dependent, 2-3 L at the [facility]. The patient's workup was essentially unremarkable, CT the brain was negative, laboratory evaluation was unremarkable. However, the patient would fall asleep, but, hypoxic, and occasionally hard to arouse. Therefore, ABG was obtained, patient does have an elevated PCO2, in the 60s, may be CO2 narcosis. The patient appears to have sleep apnea, I did awaken the patient, she notes she has a history of sleep apnea but does not have CPAP at home. I believe the patient may be retaining CO2 and becoming hypoxic secondary to sleep apnea when she is sleeping, she may benefit from CPAP placement when she goes back to the [facility]. The patient will be admitted to the hospital, she is currently on BiPAP. MDM Narrative Medical decision making narrative: 77-year-old female with multiple medical comorbidities presents to the ED via EMS from [facility] for evaluation of 2-day history of weakness. Patient is oxygen dependent on 3 L by nasal cannula at all times. On arrival O2 sats are 76% on room air, improved to 94% on 3 L by nasal cannula. On physical exam the patient somnolent, rouses easily to voice and is able to follow commands and give a good history. Lung sounds with mildly diminished air movement but clear overall. Abdomen soft and nontender. No lower extremity edema. No focal neuro deficits. IV was established. Patient was administered half liter normal saline. She was administered DuoNeb's x2. CBC: WBC 10.4, hemoglobin 10.5, improved from hemoglobin of 9.5 on 07/15/18. CMP: BUN 18, creatinine 0.87, GFR 63. Glucose 136. BNP: 62 Lactic acid 2.2. EKG rate 88, sinus rhythm. ID interval 169, QRS 73, QTC 393 ms. Normal axis. No acute ST changes. Reviewed by Dr. Cuadra. Troponin negative x1. CXR: Chronic interstitial changes with persistent left lower lung zone atelectasis/scarring. Progressive mild airspace disease at the right lung base which may reflect atelectasis. cardiomegaly. UA: Trace leukocyte esterase. Occasional bacteria. Few mucous. [address] brain: No acute intracranial abnormality. Guaiac positive on rectal exam. Patient remains somnolent, ABG shows pH of 7.322. PCO2 65.5. Bicarb 32.9. The patient was placed on BiPAP. Plan to admit for CO2 narcosis. I spoke with Dr. Acosta who agrees to accept the patient to the medical service. Please see medicine notes for disposition. Medical Screen Exam Complete: Yes Emergency Medical Condition: Yes Differential Diagnosis Differential Diagnosis: Anemia versus COPD exacerbation versus urosepsis versus ACS versus pneumonia versus other Lab Data Lab results reviewed: Yes I reviewed the patient's lab results. Result diagrams: 08/15/18 18:20 08/15/18 18:20 Lab Results 08/15/18 08/15/18 08/15/18 Range/Units 18:20 18:20 18:20 WBC 10.4 (4.0-11.0) th/mm3 RBC 4.21 (4.00-5.30) mil/mm3 Hgb 10.5 L (11.6-15.3) gm/dL Hct 33.6 L (35.0-46.0) % MCV 79.8 L (80.0-100.0) fL MCH 24.9 L (27.0-34.0) pg MCHC 31.3 L (32.0-36.0) % RDW 19.7 H (11.6-17.2) % Plt Count 425 (150-450) th/mm3 MPV 7.7 (7.0-11.0) fL Neut % (Auto) 64.3 (16.0-70.0) % Lymph % (Auto) 23.1 (9.0-44.0) % [place] % (Auto) 9.1 H (0.0-8.0) % Eos % (Auto) 2.7 (0.0-4.0) % Baso % (Auto) 0.8 (0.0-2.0) % Neut # (Auto) 6.7 (1.8-7.7) th/mm3 Lymph # (Auto) 2.4 (1.0-4.8) th/mm3 [place] # (Auto) 0.9 (0.0-0.9) th/mm3 Eos # (Auto) 0.3 (0.0-0.4) th/mm3 Baso # (Auto) 0.1 (0.0-0.2) th/mm3 WBC Differential . Differential Comment Auto diff final Puncture Site Patient Temperature O2 Saturation (90-100) % ABG pH (7.380-7.420) ABG pCO2 (38-42) mmHg ABG pO2 (61-120) mmHg ABG HCO3 (22-26) mmol/L ABG O2 Content (12.0-20.0) Vol % ABG Base Excess (-2-2) mmol/L ABG Methemoglobin (0-2) % Martín Test Hemoglobin (12.0-16.0) G/DL Carboxyhemoglobin (0-4) % O2 Delivery Device Liter Flow L/M Critical Value Sodium 139 (136-145) meq/L Potassium 4.9 (3.5-5.1) meq/L Chloride 99 (98-107) meq/L Carbon Dioxide 33.1 H (21.0-32.0) meq/L Anion Gap 7 (5-15) meq/L BUN 18 (7-18) mg/dL Creatinine 0.87 (0.50-1.00) mg/dL Estimated GFR 63 L (>89) mL/min Random Glucose 136 H (74-106) mg/dL Lactic Acid (0.4-2.0) mmol/L Calcium 9.6 (8.5-10.1) mg/dL Magnesium 1.7 (1.5-2.5) mg/dL Total Bilirubin 0.2 (0.2-1.0) mg/dL AST 22 (15-37) U/L ALT 23 (10-53) U/L Alkaline Phosphatase 68 (45-117) U/L Troponin I Less than 0.02 L (0.02-0.05) ng/mL B-Natriuretic Peptide 62 (0-100) pg/mL Total Protein 7.1 (6.4-8.2) g/dL Albumin 3.4 (3.4-5.0) g/dL Urine Color (Yellw/Straw) Urine Clarity (Clear) Urine pH (5.0-8.5) Ur Specific [place] (1.002-1.035) Urine Protein (Neg-Trace) mg/dL Urine Glucose (UA) (Negative) mg/dL Urine Ketones (Negative) mg/dL Urine Occult Blood (Negative) Urine Nitrate (Negative) Urine Bilirubin (Negative) Urine Ictotest (Negative) Urine Urobilinogen (Less than 2) mg/dL Ur Leukocyte Esterase (Negative) Urine WBC (0-5) /hpf Urine Bacteria (None) /hpf Hyaline Casts (0-3) /lpf Granular Casts (None) /lpf Urine Mucus (Occasional) /lpf Micro UA Comment Ur Microscopic Review Urine Culture Comments Blood Type Antibody Screen 08/15/18 08/15/18 08/15/18 Range/Units 18:20 18:40 19:16 WBC (4.0-11.0) th/mm3 RBC (4.00-5.30) mil/mm3 Hgb (11.6-15.3) gm/dL Hct (35.0-46.0) % MCV (80.0-100.0) fL MCH (27.0-34.0) pg MCHC (32.0-36.0) % RDW (11.6-17.2) % Plt Count (150-450) th/mm3 MPV (7.0-11.0) fL Neut % (Auto) (16.0-70.0) % Lymph % (Auto) (9.0-44.0) % [place] % (Auto) (0.0-8.0) % Eos % (Auto) (0.0-4.0) % Baso % (Auto) (0.0-2.0) % Neut # (Auto) (1.8-7.7) th/mm3 Lymph # (Auto) (1.0-4.8) th/mm3 [place] # (Auto) (0.0-0.9) th/mm3 Eos # (Auto) (0.0-0.4) th/mm3 Baso # (Auto) (0.0-0.2) th/mm3 WBC Differential Differential Comment Puncture Site Patient Temperature O2 Saturation (90-100) % ABG pH (7.380-7.420) ABG pCO2 (38-42) mmHg ABG pO2 (61-120) mmHg ABG HCO3 (22-26) mmol/L ABG O2 Content (12.0-20.0) Vol % ABG Base Excess (-2-2) mmol/L ABG Methemoglobin (0-2) % Martín Test Hemoglobin (12.0-16.0) G/DL Carboxyhemoglobin (0-4) % O2 Delivery Device Liter Flow L/M Critical Value Sodium (136-145) meq/L Potassium (3.5-5.1) meq/L Chloride (98-107) meq/L Carbon Dioxide (21.0-32.0) meq/L Anion Gap (5-15) meq/L BUN (7-18) mg/dL Creatinine (0.50-1.00) mg/dL Estimated GFR (>89) mL/min Random Glucose (74-106) mg/dL Lactic Acid 2.2 H (0.4-2.0) mmol/L Calcium (8.5-10.1) mg/dL Magnesium (1.5-2.5) mg/dL Total Bilirubin (0.2-1.0) mg/dL AST (15-37) U/L ALT (10-53) U/L Alkaline Phosphatase (45-117) U/L Troponin I (0.02-0.05) ng/mL B-Natriuretic Peptide (0-100) pg/mL Total Protein (6.4-8.2) g/dL Albumin (3.4-5.0) g/dL Urine Color Sara (Yellw/Straw) Urine Clarity Hazy H (Clear) Urine pH 5.0 (5.0-8.5) Ur Specific [place] 1.021 (1.002-1.035) Urine Protein Negative (Neg-Trace) mg/dL Urine Glucose (UA) Negative (Negative) mg/dL Urine Ketones Negative (Negative) mg/dL Urine Occult Blood Negative (Negative) Urine Nitrate Negative (Negative) Urine Bilirubin Negative (Negative) Urine Ictotest Negative (Negative) Urine Urobilinogen Less than 2 (Less than 2) mg/dL Ur Leukocyte Esterase Trace H (Negative) Urine WBC 1 (0-5) /hpf Urine Bacteria Occasional H (None) /hpf Hyaline Casts 55 (0-3) /lpf Granular Casts 13 (None) /lpf Urine Mucus Few H (Occasional) /lpf Micro UA Comment Cath-culture ind Ur Microscopic Review Not Reportable Urine Culture Comments Cath-cult indicated Blood Type A Positive Antibody Screen Negative 08/15/18 Range/Units 20:30 WBC (4.0-11.0) th/mm3 RBC (4.00-5.30) mil/mm3 Hgb (11.6-15.3) gm/dL Hct (35.0-46.0) % MCV (80.0-100.0) fL MCH (27.0-34.0) pg MCHC (32.0-36.0) % RDW (11.6-17.2) % Plt Count (150-450) th/mm3 MPV (7.0-11.0) fL Neut % (Auto) (16.0-70.0) % Lymph % (Auto) (9.0-44.0) % [place] % (Auto) (0.0-8.0) % Eos % (Auto) (0.0-4.0) % Baso % (Auto) (0.0-2.0) % Neut # (Auto) (1.8-7.7) th/mm3 Lymph # (Auto) (1.0-4.8) th/mm3 [place] # (Auto) (0.0-0.9) th/mm3 Eos # (Auto) (0.0-0.4) th/mm3 Baso # (Auto) (0.0-0.2) th/mm3 WBC Differential Differential Comment Puncture Site Right radial Patient Temperature 98.6 O2 Saturation 83 L* (90-100) % ABG pH 7.32 L (7.380-7.420) ABG pCO2 66 H* (38-42) mmHg ABG pO2 57 L* (61-120) mmHg ABG HCO3 33 H (22-26) mmol/L ABG O2 Content 11.6 L (12.0-20.0) Vol % ABG Base Excess 7.0 H (-2-2) mmol/L ABG Methemoglobin 0.6 (0-2) % Martín Test Present Hemoglobin 9.9 L (12.0-16.0) G/DL Carboxyhemoglobin 3.3 (0-4) % O2 Delivery Device Nasal cannula Liter Flow 3.00 L/M Critical Value Yes Sodium (136-145) meq/L Potassium (3.5-5.1) meq/L Chloride (98-107) meq/L Carbon Dioxide (21.0-32.0) meq/L Anion Gap (5-15) meq/L BUN (7-18) mg/dL Creatinine (0.50-1.00) mg/dL Estimated GFR (>89) mL/min Random Glucose (74-106) mg/dL Lactic Acid (0.4-2.0) mmol/L Calcium (8.5-10.1) mg/dL Magnesium (1.5-2.5) mg/dL Total Bilirubin (0.2-1.0) mg/dL AST (15-37) U/L ALT (10-53) U/L Alkaline Phosphatase (45-117) U/L Troponin I (0.02-0.05) ng/mL B-Natriuretic Peptide (0-100) pg/mL Total Protein (6.4-8.2) g/dL Albumin (3.4-5.0) g/dL Urine Color (Yellw/Straw) Urine Clarity (Clear) Urine pH (5.0-8.5) Ur Specific [place] (1.002-1.035) Urine Protein (Neg-Trace) mg/dL Urine Glucose (UA) (Negative) mg/dL Urine Ketones (Negative) mg/dL Urine Occult Blood (Negative) Urine Nitrate (Negative) Urine Bilirubin (Negative) Urine Ictotest (Negative) Urine Urobilinogen (Less than 2) mg/dL Ur Leukocyte Esterase (Negative) Urine WBC (0-5) /hpf Urine Bacteria (None) /hpf Hyaline Casts (0-3) /lpf Granular Casts (None) /lpf Urine Mucus (Occasional) /lpf Micro UA Comment Ur Microscopic Review Urine Culture Comments Blood Type Antibody Screen Imaging Data Radiologist's impression: Chest X-Ray 08/15/18 18:05 CONCLUSION: 1. Chronic interstitial changes with persistent left lower lung zone atelectasis/scarring. 2. Progressive mild airspace disease at the right lung base which may reflect atelectasis. 3. Cardiomegaly. Head CT 08/15/18 18:05 CONCLUSION: 1. No acute intracranial abnormality. . Discharge Plan Discharge Disposition Patient Disposition: ED Admit(ED Internal Use Only) Discharge Order Discharge Orders: ED Use Only Admit Order (Routine); Ordered 08/15/18 Ordered By: Carina Minaya Discharge Details Diagnosis: Hypoxia, Carbon dioxide narcosis Physicians Team ED Provider: Blu Cuadra ED Midlevel Provider: Carina Minaya Primary Care Provider: UNKNOWN, Rxs /Orders / Referrals /Forms Prescriptions: No Action pramipexole 1 mg Tablet 1 mg PO QID RF: 0 furosemide 40 mg Tablet 40 mg PO DAILY RF: 0 buspirone 5 mg Tablet 5 mg PO BID RF: 0 aspirin 325 mg Tablet 325 mg PO DAILY RF: 0 levothyroxine 300 mcg Tablet 300 mcg PO DAILY RF: 0 clonazepam 0.5 mg Tablet 0.5 mg PO BID RF: 0 famotidine 20 mg Tablet 20 mg PO DAILY RF: 0 lorazepam 0.5 mg Tablet 0.5 mg PO TID RF: 0 oxycodone-acetaminophen 10-325 mg Tablet 1 tab PO Q6H PRN (Reason: Pain) RF: 0 ferrous sulfate 325 mg (65 mg iron) Tablet 325 mg PO DAILY RF: 0 metformin 1,000 mg Tablet 500 mg PO BID RF: 0 gabapentin 300 mg Capsule 300 mg PO QID RF: 0 metoprolol succinate 25 mg Tablet Extended Release 24 Hr 25 mg PO DAILY RF: 0 albuterol sulfate [Ventolin HFA] 90 mcg/actuation Hfa Aerosol Inhaler 2 puff INHALATION QID PRN (Reason: Shortness Of Breath) RF: 0 cholecalciferol (vitamin D3) [Vitamin D3] 1,000 unit Capsule 1,000 unit PO DAILY RF: 0 duloxetine 60 mg Capsule,Delayed Release(Dr/Ec) 60 mg PO BID RF: 0 insulin detemir U-100 [Levemir U-100 Insulin] 100 unit/mL Solution 24 unit SUBCUT QPM RF: 0 fenofibrate 150 mg Capsule 145 mg PO DAILY RF: 0 umeclidinium-vilanterol [Anoro Ellipta] 62.5-25 mcg/actuation Blister With Device 1 inh INHALATION Q24H RF: 0 potassium chloride 20 mEq Tablet Extended Release 20 meq PO DAILY RF: 0 Discharge Interventions Interventions: Vital Signs Last Done: 08/15/18 20:20 Status ED Status: Pending Admission
--- NOTE | 2018-08-15 18:39 | CT ---
EXAM DATE: 08/15/2018 6:31 PM EST AGE/SEX: 77 years / Female INDICATIONS: Weakness. CLINICAL DATA: This is the patient's initial encounter. Patient reports that signs and symptoms have been present for 1 day and indicates a pain score of Nonresponsive. MEDICAL/SURGICAL HISTORY: Congestive heart failure. Chronic obstructive pulmonary disease. Hypert ension. Cholecystectomy. Hysterectomy. RADIATION DOSE: 34.26 CTDI (mGy) COMPARISON: [facility] [place] HEAD W/O CONTRAST, 07/08/2018. . TECHNIQUE: CT of the head without contrast. Using automated exposure control and adjustment of the mA and/or kV according to patient size, radiation dose was kept as low as reasonably achievable to ob tain optimal diagnostic quality images. DICOM format image data is available electronically for revi ew and comparison. FINDINGS: Cerebrum: The ventricles are normal for age. No evidence of midline shift, mass lesion, hemorrhage o r acute infarction. No extraaxial fluid collections are seen. Posterior Fossa: The cerebellum and brainstem are intact. The 4th ventricle is midline. The cerebe llopontine angle is unremarkable. Extracranial: The visualized portion of the orbits is intact. Skull: The calvaria is intact. No evidence of skull fracture. CONCLUSION: 1. No acute intracranial abnormality. . Electronically signed by: Jerzy Gonzalez MD Board Certified Radiologist 08/15/2018 6:37 PM EST
[2018-08-15 18:41] LABS: Baso # (Auto) 0.1 th/mm3 (0.0-0.2); Baso % (Auto) 0.8 % (0.0-2.0); Eos # (Auto) 0.3 th/mm3 (0.0-0.4); Eos % (Auto) 2.7 % (0.0-4.0); Hematocrit 33.6 % (35.0-46.0); Hemoglobin 10.5 gm/dL (11.6-15.3); Lymph # (Auto) 2.4 th/mm3 (1.0-4.8); Lymph % (Auto) 23.1 % (9.0-44.0); Mean Corpuscular HGB Conc 31.3 % (32.0-36.0); Mean Corpuscular Hemoglobin 24.9 pg (27.0-34.0); Mean Corpuscular Volume 79.8 fL (80.0-100.0); Mean Platelet Volume 7.7 fL (7.0-11.0); Mono # (Auto) 0.9 th/mm3 (0.0-0.9); Mono % (Auto) 9.1 % (0.0-8.0); Neut # (Auto) 6.7 th/mm3 (1.8-7.7); Neut % (Auto) 64.3 % (16.0-70.0); Platelet Count 425 th/mm3 (150-450); Red Blood Count 4.21 mil/mm3 (4.00-5.30); Red Cell Distribution Width 19.7 % (11.6-17.2); White Blood Count 10.4 th/mm3 (4.0-11.0)
[2018-08-15 19:12] LABS: Albumin 3.4 g/dL (3.4-5.0); Anion Gap 7 meq/L (5-15); Aspartate Aminotransferase 22 U/L (15-37); Blood Urea Nitrogen 18 mg/dL (7-18); Calcium 9.6 mg/dL (8.5-10.1); Carbon Dioxide 33.1 meq/L (21.0-32.0); Chloride 99 meq/L (98-107); Glomerular Filtration Rate 63 mL/min (>89); Glucose,Random 136 mg/dL (74-106); Magnesium 1.7 mg/dL (1.5-2.5); Potassium 4.9 meq/L (3.5-5.1); Sodium 139 meq/L (136-145)
[2018-08-15 19:14] LABS: Alanine Aminotransferase 23 U/L (10-53)
[2018-08-15 19:17] LABS: Alkaline Phosphatase 68 U/L (45-117); Total Protein 7.1 g/dL (6.4-8.2)
[2018-08-15 20:08] LABS: Bacteria,Urine Occasional /hpf; Clarity,Urine Hazy (Clear); Color,Urine Amber (Yellw/Straw); Glucose,Urine (UA) Negative (Negative); Hyaline Casts,Urine 55 /lpf (0-3); Leukocyte Esterase,Urine Trace (Negative); Mucus,Urine Few /lpf (Occasional); Nitrite,Urine Negative (Negative); Specific Gravity,Urine 1.021 (1.002-1.035)
[2018-08-15 20:13] LABS: Bilirubin,Urine Negative (Negative); Ictotest,Urine Negative (Negative)
[2018-08-15 21:02] LABS: ABG PCO2 66 mmHg (38-42); ABG PO2 57 mmHg (61-120)
[2018-08-15] MEDS ORDERED: Bisacodyl 10 MG Supp RECTAL PRN (21:02)
[2018-08-15] MEDS ORDERED: Dextrose 50% in Water 50 ML Vial IV.PUSH PRN (21:02)
[2018-08-15] MEDS ORDERED: Acetaminophen 325 MG Tablet PO PRN (21:02)
[2018-08-15] MEDS ORDERED: Sod Chloride 0.9% Inj 1,000 ML IV.CONT ONE (21:06)
--- NOTE | 2018-08-15 21:44 | P.HPIM ---
History of Present Illness Primary Care Physician: UNKNOWN History of Present Illness: This is a 77-year-old female with a PMH of HTN, DM, COPD, O2 Dependent, CHF (Unknown EF) and h/o GI Bleed/Anemia who was sent to the ER from SNF for increased lethargy x2 days. Pt unable to provide significant history due to lethargy, but opens eyes to name and follows simple commands. Per report, pt w/ SOB, now w/ increased somnolence, pt also noted to have recent transfusion 2wks ago for anemia, on ASA per review of medication list. On arrival, pt w/ O2 sat 76% on RA, currently on BIPBP. ABG w/ pH 7.32, PCO2 66, PO2 57. BP 122/56, HR 89, Afebrile. CBC unremarkable, hemoglobin 10.5 , previously 8.0 on 07/15/2018, 9.5 after transfusion 07/15/18. Chemistry essentially unremarkable. Lactic Acid 2.2. Troponin negative. CXR with chronic interstitial changes/atelectasis. CT Head with no acute findings. Hemoccult + on exam. Diagnosis (1) COPD (chronic obstructive pulmonary disease): (2) Acute hypercapnic respiratory failure: (3) Hypoxia: (4) DM (diabetes mellitus): (5) GI bleed: Inpatient Certification Inpatient Certification: I certify that the inpatient services were ordered in accordance with Medicare regulations governing the order. This includes certification that hospital inpatient services are reasonable and necessary and in the case of services not specified as inpatient-only under 42 CFR 419.22(n), that they are appropriately provided as inpatient services in accordance to with the 2-midnight benchmark under 43 CFR 412.3(e) Estimated Total Length of Stay (Days): 2 Plans for Post Hospital Care: Not yet determined Review of Systems PAST FAMILY HISTORY: Unknown ROS Unobtainable: unobtainable due to mental condition PMFSH Social History Social History Substance History: No History of Abuse Second Hand Smoke Exposure: No Smoking Status: Former smoker Tobacco Type: Cigarettes How Often Do You Have a Drink Containing Alcohol: Never Immunization History Tetanus Immunization: Unsure Medications and Allergies Allergies Allergy/AdvReac Type Severity Reaction Status Date / Time Penicillins Allergy Wheezing Verified 07/15/18 02:23 Home Medications Medication Instructions Recorded Confirmed Type albuterol sulfate [Ventolin HFA] 2 puff INHALATION QID PRN 08/15/18 08/15/18 History aspirin 325 mg PO DAILY 08/15/18 08/15/18 History buspirone 5 mg PO BID 08/15/18 08/15/18 History cholecalciferol (vitamin D3) 1,000 unit PO DAILY 08/15/18 08/15/18 History [Vitamin D3] clonazepam 0.5 mg PO BID 08/15/18 08/15/18 History duloxetine 60 mg PO BID 08/15/18 08/15/18 History famotidine 20 mg PO DAILY 08/15/18 08/15/18 History fenofibrate 145 mg PO DAILY 08/15/18 08/15/18 History ferrous sulfate 325 mg PO DAILY 08/15/18 08/15/18 History furosemide 40 mg PO DAILY 08/15/18 08/15/18 History gabapentin 300 mg PO QID 08/15/18 08/15/18 History insulin detemir U-100 [Levemir 24 unit SUBCUT QPM 08/15/18 08/15/18 History U-100 Insulin] levothyroxine 300 mcg PO DAILY 08/15/18 08/15/18 History lorazepam 0.5 mg PO TID 08/15/18 08/15/18 History metformin 500 mg PO BID 08/15/18 08/15/18 History metoprolol succinate 25 mg PO DAILY 08/15/18 08/15/18 History oxycodone-acetaminophen 1 tab PO Q6H PRN 08/15/18 08/15/18 History potassium chloride 20 meq PO DAILY 08/15/18 08/15/18 History pramipexole 1 mg PO QID 08/15/18 08/15/18 History umeclidinium-vilanterol [Anoro 1 inh INHALATION Q24H 08/15/18 08/15/18 History Ellipta] Active Medications: Active Medications Acetaminophen (Tylenol) 650 mg PO Q4H PRN PRN Reason: Temp > 100.4 Al Hydroxide/Mg Hydroxide (Milk Of Magnesia Liq) 30 ml PO Q12H PRN PRN Reason: Mild Constipation Albuterol (Duoneb Neb (Prn)) 1 ampul NEB Q4HR NEB PRN PRN Reason: SOB/WHEEZING Bisacodyl (Dulcolax Supp) 10 mg RECTAL DAILY PRN PRN Reason: SEVERE CONSITIPATION Dextrose (D50w Vial) 50 ml IV.PUSH UNSCH PRN PRN Reason: PER HYPOGLYCEMIA PROTOCOL Glucagon (Glucagon Inj) 1 mg OTHER PRN PRN PRN Reason: for Hypoglycemia Protocol Sodium Chloride (Ns Inj) 1,000 mls @ 100 mls/hr IV.CONT .Q10H ONE Stop: 08/16/18 07:05 Insulin Aspart (Novolog Insulin Correctional Sugar Inj) 0 unit SQ ACHS PETE; Protocol Lactulose (Lactulose Liq) 30 ml PO DAILY PRN PRN Reason: SEVERE CONSITIPATION Ondansetron HCl (Zofran Inj) 4 mg IV.PUSH Q6H PRN PRN Reason: NAUSEA OR VOMITING Pantoprazole Sodium (Protonix Inj) 40 mg IV.PUSH Q12H PETE Senna/Docusate Sodium (Becca-Colace) 1 tab PO BID PETE Sennosides (Senokot) 17.2 mg PO Q12H PRN PRN Reason: Moderate Constipation Sodium Chloride (Ns Flush) 2 ml IV.FLUSH PRN PRN PRN Reason: FLUSH AFTER USING IV ACCESS Sodium Chloride (Ns Flush) 2 ml IV.FLUSH BID PETE Sodium Chloride (Ns Flush) 2 ml IV.FLUSH PRN PRN PRN Reason: FLUSH AFTER USING IV ACCESS Physical Exam Vital signs: Vital Signs 08/15/18 18:05 08/15/18 18:08 08/15/18 18:24 Temperature 98.3 F Pulse Rate 90 86 Respiratory Rate 16 16 Blood Pressure Pulse Oximetry 93 L 94 L 94 L 08/15/18 19:07 08/15/18 20:05 08/15/18 20:20 Temperature Pulse Rate 89 79 76 Respiratory Rate 14 18 16 Blood Pressure 122/56 L Pulse Oximetry 90 L 92 L 90 L 08/15/18 20:45 08/15/18 20:59 Temperature Pulse Rate Respiratory Rate Blood Pressure Pulse Oximetry 91 L 92 L Intake & Output 08/15/18 08/15/18 08/16/18 06:59 18:59 06:59 Intake Total 500 / 500 Balance 500 / 500 Weight 79 kg Intake: IV 500 / 500 NS Inj 500 ML @ Wide Open IV. 500 / 500 SIG BOLUS ONE Rx#:[id number] Narrative: PE: GENERAL: Elderly white female in no acute distress. On BiPAP, somnolent, minimally conversive, but able to answer questions. SKIN: Focused skin assessment warm and dry. HEENT: PERRLA, EOMI. No scleral icterus or conjunctival pallor. No lid lag or facial droop. CARDIOVASCULAR: Regular rate and rhythm. No obvious murmurs to auscultation. No chest tenderness to palpation. RESPIRATORY: No obvious rhonchi. +wheezing. Clear to auscultation. Breath sounds equal bilaterally. GASTROINTESTINAL: Abdomen soft, non-tender, nondistended. BS normal. MUSCULOSKELETAL: Extremities without clubbing, cyanosis, or edema. No obvious deformities. NEUROLOGICAL: Lethargic. No focal neurologic deficits. Moving both upper and lower extremities spontaneously. PSYCHIATRIC: Appropriate mood and affect. Insight and judgment normal. Urinary Catheter Management Straight: Cath placed during this visit: yes Reason for continuing: Not indwelling catheter Insertion date: 08/15/18 Insertion time: 20:01 Results Labs CBC & Chem 7: 08/15/18 18:20 08/15/18 18:20 Imaging Impressions Chest X-Ray 08/15/18 18:05 CONCLUSION: 1. Chronic interstitial changes with persistent left lower lung zone atelectasis/scarring. 2. Progressive mild airspace disease at the right lung base which may reflect atelectasis. 3. Cardiomegaly. Head CT 08/15/18 18:05 CONCLUSION: 1. No acute intracranial abnormality. . Caprini VTE Risk Assessment Caprini VTE Risk Assessment: No/Low Risk (score <= 1) VTE Pharmacological Exception Reason: Active bleeding Caprini Risk Assessment Model: Point Value = 1 Point Value = 2 Point Value = 3 Point Value = 5 Age 41-60 Minor surgery BMI > 25 kg/m2 Swollen legs Varicose veins or History of unexplained or recurrent spontaneous Oral contraceptives or hormone replacement Sepsis (< 1 month) Serious lung disease, including pneumonia (< 1 month) Abnormal pulmonary function Acute myocardial infarction Congestive heart failure (< 1 month) History of inflammatory bowel disease Medical patient at bed rest Age 61-74 Arthroscopic surgery Major open surgery (> 45 min) Laparoscopic surgery (> 45 min) Malignancy Confined to bed (> 72 hours) Immobilizing plaster cast Central venous access Age >= 75 History of VTE Family history of VTE Factor V Leiden Prothrombin [id number] Lupus anticoagulant Anticardiolipin antibodies Elevated serum homocysteine Heparin-induced thrombocytopenia Other congenital or acquired thrombophilia Stroke (< 1 month) Elective arthroplasty Hip, pelvis, or leg fracture Acute spinal cord injury (< 1 month) Prophylaxis Regimen: Total Risk Factor Score Risk Level Prophylaxis Regimen 0-1 Low Early ambulation 2 Moderate Order ONE of the following: *Sequential Compression Device (SCD) *Heparin 5000 units SQ BID 3-4 Higher Order ONE of the following medications: *Heparin 5000 units SQ TID *Enoxaparin/Lovenox 40 mg SQ daily (WT < 150 kg, CrCl > 30 mL/min) *Enoxaparin/Lovenox 30 mg SQ daily (WT < 150 kg, CrCl > 10-29 mL/min) *Enoxaparin/Lovenox 30 mg SQ BID (WT < 150 kg, CrCl > 30 mL/min) AND/OR *Sequential Compression Device (SCD) 5 or more Highest Order ONE of the following medications: *Heparin 5000 units SQ TID (Preferred with Epidurals) *Enoxaparin/Lovenox 40 mg SQ daily (WT < 150 kg, CrCl > 30 mL/min) *Enoxaparin/Lovenox 30 mg SQ daily (WT < 150 kg, CrCl > 10-29 mL/min) *Enoxaparin/Lovenox 30 mg SQ BID (WT < 150 kg, CrCl > 30 mL/min) AND *Sequential Compression Device (SCD) Assessment and Plan (1) COPD (chronic obstructive pulmonary disease): Code(s): J44.9 - Chronic obstructive pulmonary disease, unspecified Status: Chronic (2) Acute hypercapnic respiratory failure: Code(s): J96.02 - Acute respiratory failure with hypercapnia Status: Acute (3) Hypoxia: Code(s): R09.02 - Hypoxemia Status: Acute (4) DM (diabetes mellitus): Code(s): E11.9 - Type 2 diabetes mellitus without complications Status: Chronic (5) GI bleed: Code(s): K92.2 - Gastrointestinal hemorrhage, unspecified Status: Acute Plan A/P: 1. Hypercapnic Respiratory Failure: Acute. +somnolent/lethargic x2 days per SNF, ABG w/ pH 7.31, pCO2 66, PO2 57, currently on BIPAP, will continue BIPAP, wean as tolerated, recheck ABG in 2hrs to re-evaluate. 2. Hypoxia: O2 sat 76% on RA, currently on 80% FIO2 on BIPAP, will repeat ABG as above, monitor O2, wean as tolerated. 3. COPD: Chronic Respiratory Failure w/ Acute Exacerbation. Severe. On BIPAP. CXR w/ no acute findings, images reviewed. +wheezing on exam. Solu- Medrol, DuoNeb, Mucinex, Symbicort. 4. GI Bleed: h/o Anemia/GI Bleed, recent transfusion 2wks ago per report, unclear if source found, Hemoccult + on exam, Hgb 10.5, previously 9.5 after transfusion 07/15/18, 8.0 before transfusion. Start Protonix IV, Consult GI for further eval/intervention. 5. DM: Hold Metformin/Insulin for now as NPO while on BIPAP, Sliding scale w/ Accu-Cheks 6. DVT Prophylaxis: Pharmacologic contraindication due to active bleeding 7. Social work for d/c planning as needed. 8. Case discussed w/ ER physician at length, labs/records/imaging reviewed by me. _ (1) COPD (chronic obstructive pulmonary disease) Qualifiers: COPD type: Chronic bronchitis type: Emphysema type: (2) DM (diabetes mellitus) Qualifiers: Diabetes mellitus type: type 2 Diabetes mellitus chcf insulin use: with intermediate teacher use Diabetes mellitus complication status: without complication Diabetes mellitus complication detail: Diabetic retinopathy severity: Proliferative retinopathy type: Diabetes mellitus macular edema: Laterality : Chronic kidney disease stage: Qualified Code(s): E11.9 - Type 2 diabetes mellitus without complications; Z79.4 - senior care (current) use of insulin
[2018-08-15] MEDS: Pantoprazole Inj 40 MG Vial IV.PUSH SCH (22:50)
[2018-08-15] MEDS: MethylPREDNISolone Sod Succinate Inj 40 MG/ML Vial IV.PUSH SCH (22:57)
[2018-08-16 00:15] LABS: ABG Base Excess 7.1 mmol/L (-2-2); ABG PCO2 63 mmHg (38-42); ABG PO2 76 mmHg (61-120)
[2018-08-16 05:06] LABS: Baso % (Auto) 0.5 % (0.0-2.0); Eos % (Auto) 0.2 % (0.0-4.0); Hematocrit 29.9 % (35.0-46.0); Hemoglobin 9.6 gm/dL (11.6-15.3); Lymph # (Auto) 0.8 th/mm3 (1.0-4.8); Lymph % (Auto) 9.4 % (9.0-44.0); Mean Corpuscular HGB Conc 32.1 % (32.0-36.0); Mean Corpuscular Hemoglobin 25.4 pg (27.0-34.0); Mean Corpuscular Volume 79.1 fL (80.0-100.0); Mean Platelet Volume 7.9 fL (7.0-11.0); Mono # (Auto) 0.1 th/mm3 (0.0-0.9); Mono % (Auto) 1.1 % (0.0-8.0); Neut # (Auto) 7.2 th/mm3 (1.8-7.7); Neut % (Auto) 88.8 % (16.0-70.0); Platelet Count 349 th/mm3 (150-450); Red Blood Count 3.79 mil/mm3 (4.00-5.30); Red Cell Distribution Width 19.7 % (11.6-17.2); White Blood Count 8.1 th/mm3 (4.0-11.0)
[2018-08-16 05:09] LABS: Alanine Aminotransferase 21 U/L (10-53); Anion Gap 4 meq/L (5-15); Aspartate Aminotransferase 17 U/L (15-37); Blood Urea Nitrogen 18 mg/dL (7-18); Calcium 8.9 mg/dL (8.5-10.1); Carbon Dioxide 33.8 meq/L (21.0-32.0); Chloride 102 meq/L (98-107); Glomerular Filtration Rate Greater Than 89 mL/min (>89); Glucose,Random 204 mg/dL (74-106); Sodium 140 meq/L (136-145)
[2018-08-16 05:11] LABS: Alkaline Phosphatase 66 U/L (45-117); Total Protein 6.7 g/dL (6.4-8.2)
[2018-08-16] MEDS: MethylPREDNISolone Sod Succinate Inj 40 MG/ML Vial IV.PUSH SCH ×4 (05:46→21:59)
[2018-08-16 05:57] LABS: ABG Base Excess 6.3 mmol/L (-2-2); ABG PCO2 60 mmHg (38-42); ABG PO2 128 mmHG (61-120)
[2018-08-16] MEDS: Insulin NovoLOG Aspart Correctional Sugar Inj SQ SCH ×4 (09:08→22:00)
[2018-08-16] MEDS: Senna/Docusate Sodium 8.6/50 MG Tablet PO SCH ×2 (09:10→21:59)
[2018-08-16] MEDS: Budesonide-Formoterol 160/4.5 MCG 6 GM Inhaler INH SCH ×2 (09:10→22:00)
[2018-08-16] MEDS: Pantoprazole Inj 40 MG Vial IV.PUSH SCH ×2 (09:20→21:59)
--- NOTE | 2018-08-16 10:48 | P.CONGI ---
History of Present Illness Consult date: 08/16/99 Consult reason: GI bleed Chief complaint: Hypoxia/Hypercapnic Resp Failure/GI Bleed History of Present Illness: This is an obese 77-year-old female who came into the hospital on 08/15/2018 with a 2-day history of weakness and mild somnolence according to the record. She also noted some dizziness on admission and also states that she does have some loose diarrheal stools after eating at times. Patient notes recent EGD colonoscopy with Dr. Stover, noted polyps and some mild dysphasia causing vomiting acute on chronic. Patient also notes recent hospital stay which she received transfusion for her anemia. Current labs reviewed which show hemoglobin 9.6, platelets 349, WBC count 8.1, bilirubin and LFTs are normal. During physical exam patient also had some mid abdominal discomfort to light palpation. Gastroenterology was consulted to assist with her GI symptoms during this hospital stay and plan of care. Currently patient denies any nausea no vomiting no diarrhea no constipation and no obvious bleeding. No family history of colon cancer <Alexa Matos - Last Filed: 08/16/18 10:38> Review of Systems All other systems reviewed negative except as stated in HPI <Alexa Matos - Last Filed: 08/16/18 10:38> PMFSH - History History Provided By: Patient - Medical History Medical History: Medical History (Last Reviewed 08/16/18 @ 08:32 by James Bob) CHF (congestive heart failure) COPD (chronic obstructive pulmonary disease) Cholecystectomy planned Diabetes HTN (hypertension) High cholesterol History of hysterectomy Hypertension Overflow incontinence of urine Restless leg syndrome Thyroid disease Tobacco use - Surgical History Surgical History: Surgical History (Last Reviewed 08/16/18 @ 08:32 by James Bob) Hx of appendectomy Hx of tonsillectomy Previous back surgery History of neck surgery (Resolved) - Tobacco History Second Hand Smoke Exposure: No Smoking Status: Former smoker Tobacco Type: Cigarettes - Alcohol History How Often Do You Have a Drink Containing Alcohol: Never - Substance Use History Substance History: No History of Abuse - Immunization History Tetanus Immunization: Unsure <Alexa Matos - Last Filed: 08/16/18 10:38> - Medical History Medical History: Medical History (Last Reviewed 08/16/18 @ 08:32 by James Bob) CHF (congestive heart failure) COPD (chronic obstructive pulmonary disease) Cholecystectomy planned Diabetes HTN (hypertension) High cholesterol History of hysterectomy Hypertension Overflow incontinence of urine Restless leg syndrome Thyroid disease Tobacco use - Surgical History Surgical History: Surgical History (Last Reviewed 08/16/18 @ 08:32 by James Bob) Hx of appendectomy Hx of tonsillectomy Previous back surgery History of neck surgery (Resolved) <Jesus Montemayor - Last Filed: 08/16/18 10:57> Medications and Allergies Active Medications: Active Medications Acetaminophen (Tylenol) 650 mg PO Q4H PRN PRN Reason: Temp > 100.4 Al Hydroxide/Mg Hydroxide (Milk Of Magnesia Liq) 30 ml PO Q12H PRN PRN Reason: Mild Constipation Albuterol (Duoneb Neb (Prn)) 1 ampul NEB Q4HR NEB PRN PRN Reason: SOB/WHEEZING Bisacodyl (Dulcolax Supp) 10 mg RECTAL DAILY PRN PRN Reason: SEVERE CONSITIPATION Budesonide/Formoterol Fumarate (Symbicort 160/4.5 Mcg Inh) 1 puff INH BID [facility] Last Admin: 08/16/18 09:10 Dose: 1 puff Dextrose (D50w Vial) 50 ml IV.PUSH UNSCH PRN PRN Reason: PER HYPOGLYCEMIA PROTOCOL Glucagon (Glucagon Inj) 1 mg OTHER PRN PRN PRN Reason: for Hypoglycemia Protocol Insulin Aspart (Novolog Insulin Correctional Sugar Inj) 0 unit SQ [facility]; Protocol Last Admin: 08/16/18 09:08 Dose: 5 unit Lactulose (Lactulose Liq) 30 ml PO DAILY PRN PRN Reason: SEVERE CONSITIPATION Methylprednisolone Sodium Succinate (Solumedrol Inj) 40 mg IV.PUSH Q6H [facility] Last Admin: 08/16/18 05:46 Dose: 40 mg Ondansetron HCl (Zofran Inj) 4 mg IV.PUSH Q6H PRN PRN Reason: NAUSEA OR VOMITING Pantoprazole Sodium (Protonix Inj) 40 mg IV.PUSH Q12H [facility] Last Admin: 08/16/18 09:20 Dose: 40 mg Senna/Docusate Sodium (Becca-Colace) 1 tab PO BID [facility] Last Admin: 08/16/18 09:10 Dose: 1 tab Sennosides (Senokot) 17.2 mg PO Q12H PRN PRN Reason: Moderate Constipation Sodium Chloride (Ns Flush) 2 ml IV.FLUSH BID [facility] Last Admin: 08/16/18 09:10 Dose: 2 ml Sodium Chloride (Ns Flush) 2 ml IV.FLUSH PRN PRN PRN Reason: FLUSH AFTER USING IV ACCESS <Alexa Matos M - Last Filed: 08/16/18 10:38> Active Medications: Active Medications Acetaminophen (Tylenol) 650 mg PO Q4H PRN PRN Reason: Temp > 100.4 Al Hydroxide/Mg Hydroxide (Milk Of Magnesia Liq) 30 ml PO Q12H PRN PRN Reason: Mild Constipation Albuterol (Duoneb Neb (Prn)) 1 ampul NEB Q4HR NEB PRN PRN Reason: SOB/WHEEZING Bisacodyl (Dulcolax Supp) 10 mg RECTAL DAILY PRN PRN Reason: SEVERE CONSITIPATION Budesonide/Formoterol Fumarate (Symbicort 160/4.5 Mcg Inh) 1 puff INH BID [facility] Last Admin: 08/16/18 09:10 Dose: 1 puff Cholestyramine Resin (Questran Light 4 Gm Pkt) 0 gm PO BID [facility] Dextrose (D50w Vial) 50 ml IV.PUSH UNSCH PRN PRN Reason: PER HYPOGLYCEMIA PROTOCOL Glucagon (Glucagon Inj) 1 mg OTHER PRN PRN PRN Reason: for Hypoglycemia Protocol Insulin Aspart (Novolog Insulin Correctional Sugar Inj) 0 unit SQ [facility]; Protocol Last Admin: 08/16/18 09:08 Dose: 5 unit Lactulose (Lactulose Liq) 30 ml PO DAILY PRN PRN Reason: SEVERE CONSITIPATION Methylprednisolone Sodium Succinate (Solumedrol Inj) 40 mg IV.PUSH Q6H [facility] Last Admin: 08/16/18 10:54 Dose: 40 mg Ondansetron HCl (Zofran Inj) 4 mg IV.PUSH Q6H PRN PRN Reason: NAUSEA OR VOMITING Pantoprazole Sodium (Protonix Inj) 40 mg IV.PUSH Q12H [facility] Last Admin: 08/16/18 09:20 Dose: 40 mg Senna/Docusate Sodium (Becca-Colace) 1 tab PO BID [facility] Last Admin: 08/16/18 09:10 Dose: 1 tab Sennosides (Senokot) 17.2 mg PO Q12H PRN PRN Reason: Moderate Constipation Sodium Chloride (Ns Flush) 2 ml IV.FLUSH BID [facility] Last Admin: 08/16/18 09:10 Dose: 2 ml Sodium Chloride (Ns Flush) 2 ml IV.FLUSH PRN PRN PRN Reason: FLUSH AFTER USING IV ACCESS <Jesus Montemayor - Last Filed: 08/16/18 10:57> Allergies Allergy/AdvReac Type Severity Reaction Status Date / Time Penicillins Allergy Wheezing Verified 07/15/18 02:23 Home Medications Medication Instructions Recorded Confirmed Type albuterol sulfate [Ventolin HFA] 2 puff INHALATION QID PRN 08/15/18 08/15/18 History aspirin 325 mg PO DAILY 08/15/18 08/15/18 History buspirone 5 mg PO BID 08/15/18 08/15/18 History cholecalciferol (vitamin D3) 1,000 unit PO DAILY 08/15/18 08/15/18 History [Vitamin D3] clonazepam 0.5 mg PO BID 08/15/18 08/15/18 History duloxetine 60 mg PO BID 08/15/18 08/15/18 History famotidine 20 mg PO DAILY 08/15/18 08/15/18 History fenofibrate 145 mg PO DAILY 08/15/18 08/15/18 History ferrous sulfate 325 mg PO DAILY 08/15/18 08/15/18 History furosemide 40 mg PO DAILY 08/15/18 08/15/18 History gabapentin 300 mg PO QID 08/15/18 08/15/18 History insulin detemir U-100 [Levemir 24 unit SUBCUT QPM 08/15/18 08/15/18 History U-100 Insulin] levothyroxine 300 mcg PO DAILY 08/15/18 08/15/18 History lorazepam 0.5 mg PO TID 08/15/18 08/15/18 History metformin 500 mg PO BID 08/15/18 08/15/18 History metoprolol succinate 25 mg PO DAILY 08/15/18 08/15/18 History oxycodone-acetaminophen 1 tab PO Q6H PRN 08/15/18 08/15/18 History potassium chloride 20 meq PO DAILY 08/15/18 08/15/18 History pramipexole 1 mg PO QID 08/15/18 08/15/18 History umeclidinium-vilanterol [Anoro 1 inh INHALATION Q24H 08/15/18 08/15/18 History Ellipta] Exam Vital signs: Vital Signs 08/15/18 18:05 08/15/18 18:08 08/15/18 18:24 Temperature 98.3 F Pulse Rate 90 86 Respiratory Rate 16 16 Blood Pressure Pulse Oximetry 93 L 94 L 94 L 08/15/18 19:07 08/15/18 20:05 08/15/18 20:20 Temperature Pulse Rate 89 79 76 Respiratory Rate 14 18 16 Blood Pressure 122/56 L Pulse Oximetry 90 L 92 L 90 L 08/15/18 20:45 08/15/18 20:59 08/15/18 22:50 Temperature Pulse Rate 87 Respiratory Rate 20 Blood Pressure 112/56 L Pulse Oximetry 91 L 92 L 97 08/15/18 23:29 08/16/18 00:00 08/16/18 01:00 Temperature 97.8 F Pulse Rate 89 78 Respiratory Rate 18 Blood Pressure 119/58 L Pulse Oximetry 99 100 08/16/18 02:00 08/16/18 03:00 08/16/18 04:00 Temperature 98.2 F Pulse Rate 81 87 96 H Respiratory Rate 18 Blood Pressure 127/60 Pulse Oximetry 100 08/16/18 05:00 08/16/18 06:00 08/16/18 07:00 Temperature Pulse Rate 96 H 96 H 91 H Respiratory Rate Blood Pressure Pulse Oximetry 08/16/18 08:00 08/16/18 09:00 08/16/18 10:00 Temperature 97.5 F L Pulse Rate 103 H 96 H 93 H Respiratory Rate 22 Blood Pressure 124/59 L Pulse Oximetry 94 L Intake & Output 08/15/18 08/16/18 08/16/18 18:59 06:59 18:59 Intake Total 980 / 980 1000 / 1000 Output Total 500 / 500 Balance 480 / 480 1000 / 1000 Weight 79 kg 71 kg Intake: IV 500 / 500 1000 / 1000 NS Inj 1,000 ML @ 100 mls/hr IV 1000 / 1000 .CONT .Q10H ONE Rx#:[id number] NS Inj 500 ML @ Wide Open IV. 500 / 500 SIG BOLUS ONE Rx#:[id number] Oral 480 / 480 Output: Urine 500 / 500 Other: Date of Last Bowel Movement 08/16/18 08/16/18 - Constitutional morbidly obese, cooperative (History of CVA with right eye blindness, fair to poor historian) - Routine HEENT Exam Head: Present: normocephalic ENT: Present: mucous membranes moist - Routine Neck Exam Present: supple - Routine Respiratory Exam Present: decreased breath sounds, diminished air movement (Mild dyspnea noted even at rest using O2 per nasal cannula) - Routine Cardiovascular Exam Present: S1, S2 - Routine Abdominal Exam Present: soft, normoactive bowel sounds, tenderness (Pinpoint mid abdomen) <Alexa Matos - Last Filed: 08/16/18 10:38> Vital signs: Vital Signs 08/15/18 18:05 08/15/18 18:08 08/15/18 18:24 Temperature 98.3 F Pulse Rate 90 86 Respiratory Rate 16 16 Blood Pressure Pulse Oximetry 93 L 94 L 94 L 08/15/18 19:07 08/15/18 20:05 08/15/18 20:20 Temperature Pulse Rate 89 79 76 Respiratory Rate 14 18 16 Blood Pressure 122/56 L Pulse Oximetry 90 L 92 L 90 L 08/15/18 20:45 08/15/18 20:59 08/15/18 22:50 Temperature Pulse Rate 87 Respiratory Rate 20 Blood Pressure 112/56 L Pulse Oximetry 91 L 92 L 97 08/15/18 23:29 08/16/18 00:00 08/16/18 01:00 Temperature 97.8 F Pulse Rate 89 78 Respiratory Rate 18 Blood Pressure 119/58 L Pulse Oximetry 99 100 08/16/18 02:00 08/16/18 03:00 08/16/18 04:00 Temperature 98.2 F Pulse Rate 81 87 96 H Respiratory Rate 18 Blood Pressure 127/60 Pulse Oximetry 100 08/16/18 05:00 08/16/18 06:00 08/16/18 07:00 Temperature Pulse Rate 96 H 96 H 91 H Respiratory Rate Blood Pressure Pulse Oximetry 08/16/18 08:00 08/16/18 09:00 08/16/18 10:00 Temperature 97.5 F L Pulse Rate 103 H 96 H 93 H Respiratory Rate 22 Blood Pressure 124/59 L Pulse Oximetry 94 L Intake & Output 08/15/18 08/16/18 08/16/18 18:59 06:59 18:59 Intake Total 980 / 980 1000 / 1000 Output Total 500 / 500 Balance 480 / 480 1000 / 1000 Weight 79 kg 71 kg Intake: IV 500 / 500 1000 / 1000 NS Inj 1,000 ML @ 100 mls/hr IV 1000 / 1000 .CONT .Q10H ONE Rx#:[id number] NS Inj 500 ML @ Wide Open IV. 500 / 500 SIG BOLUS ONE Rx#:[id number] Oral 480 / 480 Output: Urine 500 / 500 Other: Date of Last Bowel Movement 08/16/18 08/16/18 <Jesus Montemayor A - Last Filed: 08/16/18 10:57> Results - Labs CBC & Chem 7: 08/16/18 04:16 08/16/18 04:16 Labs: Laboratory Results - last 24 hr 08/15/18 08/15/18 08/15/18 18:20 18:20 18:20 WBC 10.4 RBC 4.21 Hgb 10.5 L Hct 33.6 L MCV 79.8 L MCH 24.9 L MCHC 31.3 L RDW 19.7 H Plt Count 425 MPV 7.7 Neut % (Auto) 64.3 Lymph % (Auto) 23.1 [place] % (Auto) 9.1 H Eos % (Auto) 2.7 Baso % (Auto) 0.8 Neut # (Auto) 6.7 Lymph # (Auto) 2.4 [place] # (Auto) 0.9 Eos # (Auto) 0.3 Baso # (Auto) 0.1 WBC Differential . Differential Comment Auto diff final Puncture Site Patient Temperature O2 Saturation ABG pH ABG pCO2 ABG pO2 ABG HCO3 ABG O2 Content ABG Base Excess ABG Methemoglobin Martín Test Hemoglobin Carboxyhemoglobin O2 Delivery Device Liter Flow Vent Setting Inspired O2 Critical Value Sodium 139 Potassium 4.9 Chloride 99 Carbon Dioxide 33.1 H Anion Gap 7 BUN 18 Creatinine 0.87 Estimated GFR 63 L POC Glucose Random Glucose 136 H Lactic Acid Calcium 9.6 Magnesium 1.7 Total Bilirubin 0.2 AST 22 ALT 23 Alkaline Phosphatase 68 Troponin I Less than 0.02 L B-Natriuretic Peptide 62 Total Protein 7.1 Albumin 3.4 Urine Color Urine Clarity Urine pH Ur Specific [place] Urine Protein Urine Glucose (UA) Urine Ketones Urine Occult Blood Urine Nitrate Urine Bilirubin Urine Ictotest Urine Urobilinogen Ur Leukocyte Esterase Urine WBC Urine Bacteria Hyaline Casts Granular Casts Urine Mucus Micro UA Comment Ur Microscopic Review Urine Culture Comments Blood Type Antibody Screen 08/15/18 08/15/18 08/15/18 18:20 18:40 19:16 WBC RBC Hgb Hct MCV MCH MCHC RDW Plt Count MPV Neut % (Auto) Lymph % (Auto) [place] % (Auto) Eos % (Auto) Baso % (Auto) Neut # (Auto) Lymph # (Auto) [place] # (Auto) Eos # (Auto) Baso # (Auto) WBC Differential Differential Comment Puncture Site Patient Temperature O2 Saturation ABG pH ABG pCO2 ABG pO2 ABG HCO3 ABG O2 Content ABG Base Excess ABG Methemoglobin Martín Test Hemoglobin Carboxyhemoglobin O2 Delivery Device Liter Flow Vent Setting Inspired O2 Critical Value Sodium Potassium Chloride Carbon Dioxide Anion Gap BUN Creatinine Estimated GFR POC Glucose Random Glucose Lactic Acid 2.2 H Calcium Magnesium Total Bilirubin AST ALT Alkaline Phosphatase Troponin I B-Natriuretic Peptide Total Protein Albumin Urine Color Sara Urine Clarity Hazy H Urine pH 5.0 Ur Specific [place] 1.021 Urine Protein Negative Urine Glucose (UA) Negative Urine Ketones Negative Urine Occult Blood Negative Urine Nitrate Negative Urine Bilirubin Negative Urine Ictotest Negative Urine Urobilinogen Less than 2 Ur Leukocyte Esterase Trace H Urine WBC 1 Urine Bacteria Occasional H Hyaline Casts 55 Granular Casts 13 Urine Mucus Few H Micro UA Comment Cath-culture ind Ur Microscopic Review Not Reportable Urine Culture Comments Cath-cult indicated Blood Type A Positive Antibody Screen Negative 08/15/18 08/15/18 08/16/18 20:30 22:55 00:58 WBC RBC Hgb Hct MCV MCH MCHC RDW Plt Count MPV Neut % (Auto) Lymph % (Auto) [place] % (Auto) Eos % (Auto) Baso % (Auto) Neut # (Auto) Lymph # (Auto) [place] # (Auto) Eos # (Auto) Baso # (Auto) WBC Differential Differential Comment Puncture Site Right radial Right radial Patient Temperature 98.6 98.6 O2 Saturation 83 L* 91 ABG pH 7.32 L 7.34 L ABG pCO2 66 H* 63 H* ABG pO2 57 L* 76 ABG HCO3 33 H 33 H ABG O2 Content 11.6 L 12.2 ABG Base Excess 7.0 H 7.1 H ABG Methemoglobin 0.6 0.6 Martín Test Present Present Hemoglobin 9.9 L 9.5 L Carboxyhemoglobin 3.3 3.2 O2 Delivery Device Nasal cannula Bipap Liter Flow 3.00 Vent Setting Ipap=14 epap=6 Inspired O2 80 Critical Value Yes Yes Sodium Potassium Chloride Carbon Dioxide Anion Gap BUN Creatinine Estimated GFR POC Glucose Random Glucose Lactic Acid Calcium Magnesium Total Bilirubin AST ALT Alkaline Phosphatase Troponin I Less than 0.02 L B-Natriuretic Peptide Total Protein Albumin Urine Color Urine Clarity Urine pH Ur Specific [place] Urine Protein Urine Glucose (UA) Urine Ketones Urine Occult Blood Urine Nitrate Urine Bilirubin Urine Ictotest Urine Urobilinogen Ur Leukocyte Esterase Urine WBC Urine Bacteria Hyaline Casts Granular Casts Urine Mucus Micro UA Comment Ur Microscopic Review Urine Culture Comments Blood Type Antibody Screen 08/16/18 08/16/18 08/16/18 04:16 04:16 04:16 WBC 8.1 RBC 3.79 L Hgb 9.6 L Hct 29.9 L MCV 79.1 L MCH 25.4 L MCHC 32.1 RDW 19.7 H Plt Count 349 MPV 7.9 Neut % (Auto) 88.8 H Lymph % (Auto) 9.4 [place] % (Auto) 1.1 Eos % (Auto) 0.2 Baso % (Auto) 0.5 Neut # (Auto) 7.2 Lymph # (Auto) 0.8 L [place] # (Auto) 0.1 Eos # (Auto) 0.0 Baso # (Auto) 0.0 WBC Differential . Differential Comment Auto diff final Puncture Site Patient Temperature O2 Saturation ABG pH ABG pCO2 ABG pO2 ABG HCO3 ABG O2 Content ABG Base Excess ABG Methemoglobin Martín Test Hemoglobin Carboxyhemoglobin O2 Delivery Device Liter Flow Vent Setting Inspired O2 Critical Value Sodium 140 Potassium 5.0 Chloride 102 Carbon Dioxide 33.8 H Anion Gap 4 L BUN 18 Creatinine 0.58 Estimated GFR Greater than 89 POC Glucose Random Glucose 204 H Lactic Acid Calcium 8.9 Magnesium Total Bilirubin 0.2 AST 17 ALT 21 Alkaline Phosphatase 66 Troponin I Less than 0.02 L B-Natriuretic Peptide Total Protein 6.7 Albumin 3.0 L Urine Color Urine Clarity Urine pH Ur Specific [place] Urine Protein Urine Glucose (UA) Urine Ketones Urine Occult Blood Urine Nitrate Urine Bilirubin Urine Ictotest Urine Urobilinogen Ur Leukocyte Esterase Urine WBC Urine Bacteria Hyaline Casts Granular Casts Urine Mucus Micro UA Comment Ur Microscopic Review Urine Culture Comments Blood Type Antibody Screen 08/16/18 08/16/18 05:46 07:27 WBC RBC Hgb Hct MCV MCH MCHC RDW Plt Count MPV Neut % (Auto) Lymph % (Auto) [place] % (Auto) Eos % (Auto) Baso % (Auto) Neut # (Auto) Lymph # (Auto) [place] # (Auto) Eos # (Auto) Baso # (Auto) WBC Differential Differential Comment Puncture Site Left radial Patient Temperature 98.6 O2 Saturation 96 ABG pH 7.35 L ABG pCO2 60 H* ABG pO2 128 H ABG HCO3 32 H ABG O2 Content 14.5 ABG Base Excess 6.3 H ABG Methemoglobin 1.6 Martín Test Present Hemoglobin 10.6 L Carboxyhemoglobin 1.6 O2 Delivery Device Bipap Liter Flow Vent Setting Ipap14/epap6/70% Inspired O2 70 Critical Value Yes Sodium Potassium Chloride Carbon Dioxide Anion Gap BUN Creatinine Estimated GFR POC Glucose 288 H Random Glucose Lactic Acid Calcium Magnesium Total Bilirubin AST ALT Alkaline Phosphatase Troponin I B-Natriuretic Peptide Total Protein Albumin Urine Color Urine Clarity Urine pH Ur Specific [place] Urine Protein Urine Glucose (UA) Urine Ketones Urine Occult Blood Urine Nitrate Urine Bilirubin Urine Ictotest Urine Urobilinogen Ur Leukocyte Esterase Urine WBC Urine Bacteria Hyaline Casts Granular Casts Urine Mucus Micro UA Comment Ur Microscopic Review Urine Culture Comments Blood Type Antibody Screen - Imaging Impressions Chest X-Ray 08/15/18 18:05 CONCLUSION: 1. Chronic interstitial changes with persistent left lower lung zone atelectasis/scarring. 2. Progressive mild airspace disease at the right lung base which may reflect atelectasis. 3. Cardiomegaly. Head CT 08/15/18 18:05 CONCLUSION: 1. No acute intracranial abnormality. . <Alexa Matos - Last Filed: 08/16/18 10:38> - Labs CBC & Chem 7: 08/16/18 04:16 08/16/18 04:16 Labs: Laboratory Results - last 24 hr 08/15/18 08/15/18 08/15/18 18:20 18:20 18:20 WBC 10.4 RBC 4.21 Hgb 10.5 L Hct 33.6 L MCV 79.8 L MCH 24.9 L MCHC 31.3 L RDW 19.7 H Plt Count 425 MPV 7.7 Neut % (Auto) 64.3 Lymph % (Auto) 23.1 [place] % (Auto) 9.1 H Eos % (Auto) 2.7 Baso % (Auto) 0.8 Neut # (Auto) 6.7 Lymph # (Auto) 2.4 [place] # (Auto) 0.9 Eos # (Auto) 0.3 Baso # (Auto) 0.1 WBC Differential . Differential Comment Auto diff final Puncture Site Patient Temperature O2 Saturation ABG pH ABG pCO2 ABG pO2 ABG HCO3 ABG O2 Content ABG Base Excess ABG Methemoglobin Martín Test Hemoglobin Carboxyhemoglobin O2 Delivery Device Liter Flow Vent Setting Inspired O2 Critical Value Sodium 139 Potassium 4.9 Chloride 99 Carbon Dioxide 33.1 H Anion Gap 7 BUN 18 Creatinine 0.87 Estimated GFR 63 L POC Glucose Random Glucose 136 H Lactic Acid Calcium 9.6 Magnesium 1.7 Total Bilirubin 0.2 AST 22 ALT 23 Alkaline Phosphatase 68 Troponin I Less than 0.02 L B-Natriuretic Peptide 62 Total Protein 7.1 Albumin 3.4 Urine Color Urine Clarity Urine pH Ur Specific [place] Urine Protein Urine Glucose (UA) Urine Ketones Urine Occult Blood Urine Nitrate Urine Bilirubin Urine Ictotest Urine Urobilinogen Ur Leukocyte Esterase Urine WBC Urine Bacteria Hyaline Casts Granular Casts Urine Mucus Micro UA Comment Ur Microscopic Review Urine Culture Comments Blood Type Antibody Screen 08/15/18 08/15/18 08/15/18 18:20 18:40 19:16 WBC RBC Hgb Hct MCV MCH MCHC RDW Plt Count MPV Neut % (Auto) Lymph % (Auto) [place] % (Auto) Eos % (Auto) Baso % (Auto) Neut # (Auto) Lymph # (Auto) [place] # (Auto) Eos # (Auto) Baso # (Auto) WBC Differential Differential Comment Puncture Site Patient Temperature O2 Saturation ABG pH ABG pCO2 ABG pO2 ABG HCO3 ABG O2 Content ABG Base Excess ABG Methemoglobin Martín Test Hemoglobin Carboxyhemoglobin O2 Delivery Device Liter Flow Vent Setting Inspired O2 Critical Value Sodium Potassium Chloride Carbon Dioxide Anion Gap BUN Creatinine Estimated GFR POC Glucose Random Glucose Lactic Acid 2.2 H Calcium Magnesium Total Bilirubin AST ALT Alkaline Phosphatase Troponin I B-Natriuretic Peptide Total Protein Albumin Urine Color Sara Urine Clarity Hazy H Urine pH 5.0 Ur Specific [place] 1.021 Urine Protein Negative Urine Glucose (UA) Negative Urine Ketones Negative Urine Occult Blood Negative Urine Nitrate Negative Urine Bilirubin Negative Urine Ictotest Negative Urine Urobilinogen Less than 2 Ur Leukocyte Esterase Trace H Urine WBC 1 Urine Bacteria Occasional H Hyaline Casts 55 Granular Casts 13 Urine Mucus Few H Micro UA Comment Cath-culture ind Ur Microscopic Review Not Reportable Urine Culture Comments Cath-cult indicated Blood Type A Positive Antibody Screen Negative 08/15/18 08/15/18 08/16/18 20:30 22:55 00:58 WBC RBC Hgb Hct MCV MCH MCHC RDW Plt Count MPV Neut % (Auto) Lymph % (Auto) [place] % (Auto) Eos % (Auto) Baso % (Auto) Neut # (Auto) Lymph # (Auto) [place] # (Auto) Eos # (Auto) Baso # (Auto) WBC Differential Differential Comment Puncture Site Right radial Right radial Patient Temperature 98.6 98.6 O2 Saturation 83 L* 91 ABG pH 7.32 L 7.34 L ABG pCO2 66 H* 63 H* ABG pO2 57 L* 76 ABG HCO3 33 H 33 H ABG O2 Content 11.6 L 12.2 ABG Base Excess 7.0 H 7.1 H ABG Methemoglobin 0.6 0.6 Martín Test Present Present Hemoglobin 9.9 L 9.5 L Carboxyhemoglobin 3.3 3.2 O2 Delivery Device Nasal cannula Bipap Liter Flow 3.00 Vent Setting Ipap=14 epap=6 Inspired O2 80 Critical Value Yes Yes Sodium Potassium Chloride Carbon Dioxide Anion Gap BUN Creatinine Estimated GFR POC Glucose Random Glucose Lactic Acid Calcium Magnesium Total Bilirubin AST ALT Alkaline Phosphatase Troponin I Less than 0.02 L B-Natriuretic Peptide Total Protein Albumin Urine Color Urine Clarity Urine pH Ur Specific [place] Urine Protein Urine Glucose (UA) Urine Ketones Urine Occult Blood Urine Nitrate Urine Bilirubin Urine Ictotest Urine Urobilinogen Ur Leukocyte Esterase Urine WBC Urine Bacteria Hyaline Casts Granular Casts Urine Mucus Micro UA Comment Ur Microscopic Review Urine Culture Comments Blood Type Antibody Screen 08/16/18 08/16/18 08/16/18 04:16 04:16 04:16 WBC 8.1 RBC 3.79 L Hgb 9.6 L Hct 29.9 L MCV 79.1 L MCH 25.4 L MCHC 32.1 RDW 19.7 H Plt Count 349 MPV 7.9 Neut % (Auto) 88.8 H Lymph % (Auto) 9.4 [place] % (Auto) 1.1 Eos % (Auto) 0.2 Baso % (Auto) 0.5 Neut # (Auto) 7.2 Lymph # (Auto) 0.8 L [place] # (Auto) 0.1 Eos # (Auto) 0.0 Baso # (Auto) 0.0 WBC Differential . Differential Comment Auto diff final Puncture Site Patient Temperature O2 Saturation ABG pH ABG pCO2 ABG pO2 ABG HCO3 ABG O2 Content ABG Base Excess ABG Methemoglobin Martín Test Hemoglobin Carboxyhemoglobin O2 Delivery Device Liter Flow Vent Setting Inspired O2 Critical Value Sodium 140 Potassium 5.0 Chloride 102 Carbon Dioxide 33.8 H Anion Gap 4 L BUN 18 Creatinine 0.58 Estimated GFR Greater than 89 POC Glucose Random Glucose 204 H Lactic Acid Calcium 8.9 Magnesium Total Bilirubin 0.2 AST 17 ALT 21 Alkaline Phosphatase 66 Troponin I Less than 0.02 L B-Natriuretic Peptide Total Protein 6.7 Albumin 3.0 L Urine Color Urine Clarity Urine pH Ur Specific [place] Urine Protein Urine Glucose (UA) Urine Ketones Urine Occult Blood Urine Nitrate Urine Bilirubin Urine Ictotest Urine Urobilinogen Ur Leukocyte Esterase Urine WBC Urine Bacteria Hyaline Casts Granular Casts Urine Mucus Micro UA Comment Ur Microscopic Review Urine Culture Comments Blood Type Antibody Screen 08/16/18 08/16/18 05:46 07:27 WBC RBC Hgb Hct MCV MCH MCHC RDW Plt Count MPV Neut % (Auto) Lymph % (Auto) [place] % (Auto) Eos % (Auto) Baso % (Auto) Neut # (Auto) Lymph # (Auto) [place] # (Auto) Eos # (Auto) Baso # (Auto) WBC Differential Differential Comment Puncture Site Left radial Patient Temperature 98.6 O2 Saturation 96 ABG pH 7.35 L ABG pCO2 60 H* ABG pO2 128 H ABG HCO3 32 H ABG O2 Content 14.5 ABG Base Excess 6.3 H ABG Methemoglobin 1.6 Martín Test Present Hemoglobin 10.6 L Carboxyhemoglobin 1.6 O2 Delivery Device Bipap Liter Flow Vent Setting Ipap14/epap6/70% Inspired O2 70 Critical Value Yes Sodium Potassium Chloride Carbon Dioxide Anion Gap BUN Creatinine Estimated GFR POC Glucose 288 H Random Glucose Lactic Acid Calcium Magnesium Total Bilirubin AST ALT Alkaline Phosphatase Troponin I B-Natriuretic Peptide Total Protein Albumin Urine Color Urine Clarity Urine pH Ur Specific [place] Urine Protein Urine Glucose (UA) Urine Ketones Urine Occult Blood Urine Nitrate Urine Bilirubin Urine Ictotest Urine Urobilinogen Ur Leukocyte Esterase Urine WBC Urine Bacteria Hyaline Casts Granular Casts Urine Mucus Micro UA Comment Ur Microscopic Review Urine Culture Comments Blood Type Antibody Screen - Imaging Impressions Chest X-Ray 08/15/18 18:05 CONCLUSION: 1. Chronic interstitial changes with persistent left lower lung zone atelectasis/scarring. 2. Progressive mild airspace disease at the right lung base which may reflect atelectasis. 3. Cardiomegaly. Head CT 08/15/18 18:05 CONCLUSION: 1. No acute intracranial abnormality. . <Jesus Montemayor A - Last Filed: 08/16/18 10:57> Assessment and Plan - Plan 77-year-old female who came into the hospital on 08/15/2018 with a 2-day history of weakness and mild somnolence according to the record. She also noted some dizziness on admission and also states that she does have some loose diarrheal stools after eating at times. Patient notes recent EGD colonoscopy with Dr. Stover, noted polyps and some mild dysphasia causing vomiting acute on chronic. Patient also notes recent hospital stay which she received transfusion for her anemia. Current labs reviewed which show hemoglobin 9.6, platelets 349, WBC count 8.1, bilirubin and LFTs are normal. During physical exam patient also had some mid abdominal discomfort to light palpation. Gastroenterology was consulted to assist with her GI symptoms during this hospital stay and plan of care. Currently patient denies any nausea no vomiting no diarrhea no constipation and no obvious bleeding Symptomatic anemia, with some shortness of breath and dizziness, generalized weakness. Transfusion according to patient approximately 3 weeks ago and previous hospital stay. Recent EGD colonoscopy with history of polyp Dysphasia acute on chronic patient had recent EGD, unknown if she had dilatation or not. Symptoms still currently persist Diarrhea, history of cholecystectomy approximately 3 years ago, symptoms could be related Generalized weakness, unspecified but could be related to patient's multiple comorbidities such as COPD, CAD, CHF, and any GI bleed Plan Diet as tolerated, reflux precautions discussed with patient Monitor labs special attention hemoglobin, transfuse as needed Old records ordered from Dr. Stover. Patient had recent EGD colonoscopy Check occult stool Questran, evaluate effectiveness for diarrhea stools, history of cholecystectomy Will consider EGD with dilatation if patient's dysphasia persistence continue further recommendations to follow Patient was seen per myself and Dr. Montemayor, note was written on his behalf <Alexa Matos - Last Filed: 08/16/18 10:38> - Attending Attestation Seen and examined, plan as above. Will follow up with you. Thank you for the consult. <Jesus Montemayor - Last Filed: 08/16/18 10:57>
[2018-08-16] MEDS ORDERED: Cholestyramine Light 4 GM Packet PO SCH (12:00)
[2018-08-16] MEDS: Cholestyramine Light 4 GM Packet PO SCH ×2 (13:39→21:59)
--- NOTE | 2018-08-16 15:01 | ECG ---
Date Performed: 08/15/2018 Time Performed: 19:18:07 PTAGE: 77 years EKG: Sinus rhythm NORMAL ECG PREVIOUS TRACING : 07/15/2018 08.02 Since the previous tracing, no significant change noted DOCTOR: Demarcus Barragan Interpretating Date/Time 08/16/2018 15:01:26
--- NOTE | 2018-08-16 16:06 | P.PNIM ---
Subjective Interval history: Patient says she is feeling much better than when she arrived. Complains of pain all over her body. Physical Exam Vital signs: Vital Signs 08/15/18 18:05 08/15/18 18:08 08/15/18 18:24 Temperature 98.3 F Pulse Rate 90 86 Respiratory Rate 16 16 Blood Pressure Pulse Oximetry 93 L 94 L 94 L 08/15/18 19:07 08/15/18 20:05 08/15/18 20:20 Temperature Pulse Rate 89 79 76 Respiratory Rate 14 18 16 Blood Pressure 122/56 L Pulse Oximetry 90 L 92 L 90 L 08/15/18 20:45 08/15/18 20:59 08/15/18 22:50 Temperature Pulse Rate 87 Respiratory Rate 20 Blood Pressure 112/56 L Pulse Oximetry 91 L 92 L 97 08/15/18 23:29 08/16/18 00:00 08/16/18 01:00 Temperature 97.8 F Pulse Rate 89 78 Respiratory Rate 18 Blood Pressure 119/58 L Pulse Oximetry 99 100 08/16/18 02:00 08/16/18 03:00 08/16/18 04:00 Temperature 98.2 F Pulse Rate 81 87 96 H Respiratory Rate 18 Blood Pressure 127/60 Pulse Oximetry 100 08/16/18 05:00 08/16/18 06:00 08/16/18 07:00 Temperature Pulse Rate 96 H 96 H 91 H Respiratory Rate Blood Pressure Pulse Oximetry 08/16/18 08:00 08/16/18 09:00 08/16/18 10:00 Temperature 97.5 F L Pulse Rate 103 H 96 H 93 H Respiratory Rate 22 Blood Pressure 124/59 L Pulse Oximetry 94 L 08/16/18 11:00 08/16/18 12:00 08/16/18 13:00 Temperature 98.7 F Pulse Rate 103 H 106 H 105 H Respiratory Rate 22 Blood Pressure 132/59 L Pulse Oximetry 95 08/16/18 14:00 08/16/18 15:00 08/16/18 15:29 Temperature 98.2 F Pulse Rate 112 H 109 H 112 H Respiratory Rate 20 Blood Pressure 124/58 L Pulse Oximetry 94 L Intake & Output 08/15/18 08/16/18 08/16/18 18:59 06:59 18:59 Intake Total 980 / 980 1000 / 1000 Output Total 500 / 500 Balance 480 / 480 1000 / 1000 Weight 79 kg 71 kg Intake: IV 500 / 500 1000 / 1000 NS Inj 1,000 ML @ 100 mls/hr IV 1000 / 1000 .CONT .Q10H ONE Rx#:[id number] NS Inj 500 ML @ Wide Open IV. 500 / 500 SIG BOLUS ONE Rx#:[id number] Oral 480 / 480 Output: Urine 500 / 500 Other: Date of Last Bowel Movement 08/16/18 08/16/18 Narrative: Alert and oriented x 3 S1 S2 tachycardic Bi basilar crackles abd soft, nontender, normal bowel sounds. No edema of the lower exts No focal neurological deficits. - Urinary Catheter Management Straight Cath placed during this visit: yes Reason for continuing: Not indwelling catheter Insertion date: 08/15/18 Insertion time: 20:01 Results - Labs CBC & Chem 7: 08/16/18 04:16 08/16/18 04:16 Laboratory Results - last 24 hr 08/15/18 08/15/18 08/15/18 18:20 18:20 18:20 WBC 10.4 RBC 4.21 Hgb 10.5 L Hct 33.6 L MCV 79.8 L MCH 24.9 L MCHC 31.3 L RDW 19.7 H Plt Count 425 MPV 7.7 Neut % (Auto) 64.3 Lymph % (Auto) 23.1 [place] % (Auto) 9.1 H Eos % (Auto) 2.7 Baso % (Auto) 0.8 Neut # (Auto) 6.7 Lymph # (Auto) 2.4 [place] # (Auto) 0.9 Eos # (Auto) 0.3 Baso # (Auto) 0.1 WBC Differential . Differential Comment Auto diff final Puncture Site Patient Temperature O2 Saturation ABG pH ABG pCO2 ABG pO2 ABG HCO3 ABG O2 Content ABG Base Excess ABG Methemoglobin Martín Test Hemoglobin Carboxyhemoglobin O2 Delivery Device Liter Flow Vent Setting Inspired O2 Critical Value Sodium 139 Potassium 4.9 Chloride 99 Carbon Dioxide 33.1 H Anion Gap 7 BUN 18 Creatinine 0.87 Estimated GFR 63 L POC Glucose Random Glucose 136 H Lactic Acid Calcium 9.6 Magnesium 1.7 Total Bilirubin 0.2 AST 22 ALT 23 Alkaline Phosphatase 68 Troponin I Less than 0.02 L B-Natriuretic Peptide 62 Total Protein 7.1 Albumin 3.4 Urine Color Urine Clarity Urine pH Ur Specific [place] Urine Protein Urine Glucose (UA) Urine Ketones Urine Occult Blood Urine Nitrate Urine Bilirubin Urine Ictotest Urine Urobilinogen Ur Leukocyte Esterase Urine WBC Urine Bacteria Hyaline Casts Granular Casts Urine Mucus Micro UA Comment Ur Microscopic Review Urine Culture Comments Blood Type Antibody Screen 08/15/18 08/15/18 08/15/18 18:20 18:40 19:16 WBC RBC Hgb Hct MCV MCH MCHC RDW Plt Count MPV Neut % (Auto) Lymph % (Auto) [place] % (Auto) Eos % (Auto) Baso % (Auto) Neut # (Auto) Lymph # (Auto) [place] # (Auto) Eos # (Auto) Baso # (Auto) WBC Differential Differential Comment Puncture Site Patient Temperature O2 Saturation ABG pH ABG pCO2 ABG pO2 ABG HCO3 ABG O2 Content ABG Base Excess ABG Methemoglobin Martín Test Hemoglobin Carboxyhemoglobin O2 Delivery Device Liter Flow Vent Setting Inspired O2 Critical Value Sodium Potassium Chloride Carbon Dioxide Anion Gap BUN Creatinine Estimated GFR POC Glucose Random Glucose Lactic Acid 2.2 H Calcium Magnesium Total Bilirubin AST ALT Alkaline Phosphatase Troponin I B-Natriuretic Peptide Total Protein Albumin Urine Color Sara Urine Clarity Hazy H Urine pH 5.0 Ur Specific [place] 1.021 Urine Protein Negative Urine Glucose (UA) Negative Urine Ketones Negative Urine Occult Blood Negative Urine Nitrate Negative Urine Bilirubin Negative Urine Ictotest Negative Urine Urobilinogen Less than 2 Ur Leukocyte Esterase Trace H Urine WBC 1 Urine Bacteria Occasional H Hyaline Casts 55 Granular Casts 13 Urine Mucus Few H Micro UA Comment Cath-culture ind Ur Microscopic Review Not Reportable Urine Culture Comments Cath-cult indicated Blood Type A Positive Antibody Screen Negative 08/15/18 08/15/18 08/16/18 20:30 22:55 00:58 WBC RBC Hgb Hct MCV MCH MCHC RDW Plt Count MPV Neut % (Auto) Lymph % (Auto) [place] % (Auto) Eos % (Auto) Baso % (Auto) Neut # (Auto) Lymph # (Auto) [place] # (Auto) Eos # (Auto) Baso # (Auto) WBC Differential Differential Comment Puncture Site Right radial Right radial Patient Temperature 98.6 98.6 O2 Saturation 83 L* 91 ABG pH 7.32 L 7.34 L ABG pCO2 66 H* 63 H* ABG pO2 57 L* 76 ABG HCO3 33 H 33 H ABG O2 Content 11.6 L 12.2 ABG Base Excess 7.0 H 7.1 H ABG Methemoglobin 0.6 0.6 Martín Test Present Present Hemoglobin 9.9 L 9.5 L Carboxyhemoglobin 3.3 3.2 O2 Delivery Device Nasal cannula Bipap Liter Flow 3.00 Vent Setting Ipap=14 epap=6 Inspired O2 80 Critical Value Yes Yes Sodium Potassium Chloride Carbon Dioxide Anion Gap BUN Creatinine Estimated GFR POC Glucose Random Glucose Lactic Acid Calcium Magnesium Total Bilirubin AST ALT Alkaline Phosphatase Troponin I Less than 0.02 L B-Natriuretic Peptide Total Protein Albumin Urine Color Urine Clarity Urine pH Ur Specific [place] Urine Protein Urine Glucose (UA) Urine Ketones Urine Occult Blood Urine Nitrate Urine Bilirubin Urine Ictotest Urine Urobilinogen Ur Leukocyte Esterase Urine WBC Urine Bacteria Hyaline Casts Granular Casts Urine Mucus Micro UA Comment Ur Microscopic Review Urine Culture Comments Blood Type Antibody Screen 08/16/18 08/16/18 08/16/18 04:16 04:16 04:16 WBC 8.1 RBC 3.79 L Hgb 9.6 L Hct 29.9 L MCV 79.1 L MCH 25.4 L MCHC 32.1 RDW 19.7 H Plt Count 349 MPV 7.9 Neut % (Auto) 88.8 H Lymph % (Auto) 9.4 [place] % (Auto) 1.1 Eos % (Auto) 0.2 Baso % (Auto) 0.5 Neut # (Auto) 7.2 Lymph # (Auto) 0.8 L [place] # (Auto) 0.1 Eos # (Auto) 0.0 Baso # (Auto) 0.0 WBC Differential . Differential Comment Auto diff final Puncture Site Patient Temperature O2 Saturation ABG pH ABG pCO2 ABG pO2 ABG HCO3 ABG O2 Content ABG Base Excess ABG Methemoglobin Martín Test Hemoglobin Carboxyhemoglobin O2 Delivery Device Liter Flow Vent Setting Inspired O2 Critical Value Sodium 140 Potassium 5.0 Chloride 102 Carbon Dioxide 33.8 H Anion Gap 4 L BUN 18 Creatinine 0.58 Estimated GFR Greater than 89 POC Glucose Random Glucose 204 H Lactic Acid Calcium 8.9 Magnesium Total Bilirubin 0.2 AST 17 ALT 21 Alkaline Phosphatase 66 Troponin I Less than 0.02 L B-Natriuretic Peptide Total Protein 6.7 Albumin 3.0 L Urine Color Urine Clarity Urine pH Ur Specific [place] Urine Protein Urine Glucose (UA) Urine Ketones Urine Occult Blood Urine Nitrate Urine Bilirubin Urine Ictotest Urine Urobilinogen Ur Leukocyte Esterase Urine WBC Urine Bacteria Hyaline Casts Granular Casts Urine Mucus Micro UA Comment Ur Microscopic Review Urine Culture Comments Blood Type Antibody Screen 08/16/18 08/16/18 08/16/18 05:46 07:27 11:31 WBC RBC Hgb Hct MCV MCH MCHC RDW Plt Count MPV Neut % (Auto) Lymph % (Auto) [place] % (Auto) Eos % (Auto) Baso % (Auto) Neut # (Auto) Lymph # (Auto) [place] # (Auto) Eos # (Auto) Baso # (Auto) WBC Differential Differential Comment Puncture Site Left radial Patient Temperature 98.6 O2 Saturation 96 ABG pH 7.35 L ABG pCO2 60 H* ABG pO2 128 H ABG HCO3 32 H ABG O2 Content 14.5 ABG Base Excess 6.3 H ABG Methemoglobin 1.6 Martín Test Present Hemoglobin 10.6 L Carboxyhemoglobin 1.6 O2 Delivery Device Bipap Liter Flow Vent Setting Ipap14/epap6/70% Inspired O2 70 Critical Value Yes Sodium Potassium Chloride Carbon Dioxide Anion Gap BUN Creatinine Estimated GFR POC Glucose 288 H 291 H Random Glucose Lactic Acid Calcium Magnesium Total Bilirubin AST ALT Alkaline Phosphatase Troponin I B-Natriuretic Peptide Total Protein Albumin Urine Color Urine Clarity Urine pH Ur Specific [place] Urine Protein Urine Glucose (UA) Urine Ketones Urine Occult Blood Urine Nitrate Urine Bilirubin Urine Ictotest Urine Urobilinogen Ur Leukocyte Esterase Urine WBC Urine Bacteria Hyaline Casts Granular Casts Urine Mucus Micro UA Comment Ur Microscopic Review Urine Culture Comments Blood Type Antibody Screen Microbiology 08/16/18 10:54 Stool Stool Occult Blood (CHRIS) - Final Hemoccult negative 08/15/18 18:25 Blood - Line Aerobic Blood Culture - Preliminary No growth in 1 day 08/15/18 18:25 Blood - Line Anaerobic Blood Culture - Preliminary No growth in 1 day 08/15/18 18:20 Blood - Line Aerobic Blood Culture - Preliminary No growth in 1 day 08/15/18 18:20 Blood - Line Anaerobic Blood Culture - Preliminary No growth in 1 day 08/15/18 19:16 Clean Catch Urine Urine Culture - Preliminary Immature growth - reincubate 08/15/18 19:16 Nasal Wash Influenza Types A,B Antigen - Final Negative for FLU A and B antigen Infection due to influenza A or B cannot be ruled out since the antigen present in the sample may be below the detection limit of the test. - Imaging Impressions Chest X-Ray 08/15/18 18:05 CONCLUSION: 1. Chronic interstitial changes with persistent left lower lung zone atelectasis/scarring. 2. Progressive mild airspace disease at the right lung base which may reflect atelectasis. 3. Cardiomegaly. Head CT 08/15/18 18:05 CONCLUSION: 1. No acute intracranial abnormality. . Assessment and Plan - Assessment (1) COPD (chronic obstructive pulmonary disease) Code(s): J44.9 - Chronic obstructive pulmonary disease, unspecified Status: Chronic (2) Acute hypercapnic respiratory failure Code(s): J96.02 - Acute respiratory failure with hypercapnia Status: Acute (3) Hypoxia Code(s): R09.02 - Hypoxemia Status: Acute (4) DM (diabetes mellitus) Code(s): E11.9 - Type 2 diabetes mellitus without complications Status: Chronic (5) GI bleed Code(s): K92.2 - Gastrointestinal hemorrhage, unspecified Status: Acute - Plan This patient is a 77-year-old female with a diagnosis of hypertension, diabetes , COPD oxygen dependent, congestive heart failure unknown EF, history of GI bleed in the past. The patient was brought into the emergency department from a halfway facility with increased weakness for approximately 2 days. On initial evaluation the patient was lethargic and per the report she was short of breath and hypoxic on room air. 1. Acute hypoxic hypercapnic respiratory failure possibly copd exacerbation. 2. COPD on home O2 2-3 L Patient presented hypoxic and lethargic. Her CO2 was elevated on abg. Patient placed on supplemental oxygen and bipap. Continue bipap intermittently. Reviewed recent CTA chest from approx one month ago and it appears patient has chronic changes on CTA and small left sided pleural effusion. She is currently tachycardic and on 5 L. She is in pain, will be given pain meds. If patient remains hypoxic and tachycardic we may repeat cta chest to rule out PE. Continue breathing txs, continue iv steroids. Monitor on telemetry. 3. Questionable GI bleed No significant drop in hgb, slightly decreased from admission but this is likely dilutional, patient on protonix. GI following F/u am hgb 4. Diabetes mellitus Patient started on levemir continue low dose insulin sliding scale. Will adjust as needed. 5. Chronic pain Patient says she has chronic pain and is on norco. Continue norco as needed for pain. Currently she is tachycardic, possibly pain related. No pharmacotherapy for dvt prophylaxis, will follow up am labs and if no drop in hgb then we will start pharmacotherapy for dvt prophylaxis. (4) DM (diabetes mellitus) Qualifiers: Diabetes mellitus type: type 2 Diabetes mellitus halfway insulin use: with halfway use Diabetes mellitus complication status: without complication Qualified Code(s): E11.9 - Type 2 diabetes mellitus without complications; Z79.4 - watermaster (current) use of insulin
[2018-08-16] MEDS ORDERED: Insulin Detemir Inj 1,000 UNIT/10 ML Vial SQ SCH (21:00)
[2018-08-16] MEDS ORDERED: Heparin - SQ 10,000 UNITS/ML Vial SQ SCH (21:00)
[2018-08-17 04:53] LABS: Anion Gap 5 meq/L (5-15); Blood Urea Nitrogen 20 mg/dL (7-18); Calcium 9.3 mg/dL (8.5-10.1); Carbon Dioxide 31.9 meq/L (21.0-32.0); Chloride 100 meq/L (98-107); Glomerular Filtration Rate Greater Than 89 mL/min (>89); Glucose,Random 248 mg/dL (74-106); Magnesium 1.7 mg/dL (1.5-2.5); Sodium 137 meq/L (136-145)
[2018-08-17] MEDS: MethylPREDNISolone Sod Succinate Inj 40 MG/ML Vial IV.PUSH SCH ×3 (06:01→21:34)
[2018-08-17] MEDS: Budesonide-Formoterol 160/4.5 MCG 6 GM Inhaler INH SCH ×2 (09:59→21:33)
[2018-08-17] MEDS: Senna/Docusate Sodium 8.6/50 MG Tablet PO SCH ×2 (09:59→21:33)
[2018-08-17] MEDS: Cholestyramine Light 4 GM Packet PO SCH ×2 (09:59→21:34)
[2018-08-17] MEDS: Insulin NovoLOG Aspart Correctional Sugar Inj SQ SCH ×4 (09:59→21:34)
--- NOTE | 2018-08-17 10:27 | ECHRPT ---
Indication: SYNCOPE CONCLUSIONS Normal left ventricular size. Wall thickness is normal. The left ventricular systolic function is hyperdynamic with an estimated ejection fraction in the ra nge of 65- 70%. Thickened atrial septum is noted with morphological features most consistent with a lipomatous atria l septum. [id number] mitral valve regurgitation. There is mild tricuspid valve regurgitation. The estimated pulmonary arterial pressure is 42.5 mmHg. Dilated IVC but with inspiration the IVC collapses more than 50%.A prominent epicardial fat pad is p resent. BP: / HR: Rhythm: Sinus MEASUREMENTS (Male / Female) Normal Values Technical Quality:Fair 2D ECHO LV Diastolic Diameter PLAX 4.6 cm 4.2 - 5.9 / 3.9 - 5.3 cm LV Systolic Diameter PLAX 3.2 cm IVS Diastolic Thickness 1.0 cm 0.6 - 1.0 / 0.6 - 0.9 cm LVPW Diastolic Thickness 1.0 cm 0.6 - 1.0 / 0.6 - 0.9 cm LV Relative Wall Thickness 0.4 RV Internal Dim ED PLAX 2.7 cm LVOT Diameter 1.6 cm Aortic Root Diameter 2.8 cm LA Systolic Diameter LX 3.8 cm 3.0 - 4.0 / 2.7 - 3.8 cm M-MODE AV Cusp Separation MM 2.0 cm DOPPLER AV Peak Velocity 149.0 cm/s AV Peak Gradient 8.9 mmHg AV Mean Gradient 5.0 mmHg AV Velocity Time Integral 29.7 cm LVOT Peak Velocity 111.0 cm/s LVOT Peak Gradient 4.9 mmHg LVOT Velocity Time Integral 21.3 cm AV Area Cont Eq vti 1.4 cm AV Area Cont Eq pk 1.5 cm Mitral E Point Velocity 107.0 cm/s Mitral A Point Velocity 123.0 cm/s Mitral E to A Ratio 0.9 LV E' Lateral Velocity 8.2 cm/s Mitral E to LV E' Lateral Ratio 13.1 LV E' Septal Velocity 7.1 cm/s Mitral E to LV E' Septal Ratio 15.0 TR Peak Velocity 285.0 cm/s TR Peak Gradient 32.5 mmHg Right Atrial Pressure 10.0 mmHg Pulmonary Artery Systolic Pressu 42.5 mmHg Right Ventricular Systolic Press 42.5 mmHg PV Peak Velocity 79.0 cm/s PV Peak Gradient 2.5 mmHg FINDINGS LEFT VENTRICLE Normal left ventricular size. Wall thickness is normal. The left ventricular systolic function is hyperdynamic with an estimated ejection fraction in the ra nge of 65- 70%. RIGHT VENTRICLE Normal right ventricular size and systolic function. LEFT ATRIUM The left atrial size is normal. RIGHT ATRIUM The right atrial size is normal. ATRIAL SEPTUM Thickened atrial septum is noted with morphological features most consistent with a lipomatous atria l septum. No atrial level shunt is demonstrated by color flow Doppler interrogation. AORTA The aortic root and proximal ascending aorta are normal in size on limited imaging. MITRAL VALVE [id number] mitral valve regurgitation. AORTIC VALVE Trileaflet aortic valve. No aortic valve stenosis or regurgitation. TRICUSPID VALVE There is mild tricuspid valve regurgitation. The estimated pulmonary arterial pressure is 42.5 mmHg. PULMONARY VALVE No pulmonary valve regurgitation or stenosis. VESSELS Dilated IVC but with inspiration the IVC collapses more than 50%. PERICARDIUM A prominent epicardial fat pad is present. Gloria Castillo MD (Electronically Signed) Final Date:17 August 2018 10:27
[2018-08-17] MEDS: Pantoprazole Inj 40 MG Vial IV.PUSH SCH ×2 (11:59→21:34)
[2018-08-17] MEDS ORDERED: Insulin Detemir Inj 1,000 UNIT/10 ML Vial SQ SCH (13:46)
--- NOTE | 2018-08-17 14:04 | P.PNIM ---
Subjective Interval history: Patient in no acute distress, she says she is improving. Feels a little better than admission. Physical Exam Vital signs: Vital Signs 08/16/18 14:00 08/16/18 15:00 08/16/18 15:29 Temperature 98.2 F Pulse Rate 112 H 109 H 112 H Respiratory Rate 20 Blood Pressure 124/58 L Pulse Oximetry 94 L 08/16/18 16:00 08/16/18 17:00 08/16/18 18:00 Temperature Pulse Rate 108 H 104 H 101 H Respiratory Rate Blood Pressure Pulse Oximetry 08/16/18 19:00 08/16/18 20:00 08/16/18 21:00 Temperature 98.2 F Pulse Rate 97 H 94 H 85 Respiratory Rate 20 Blood Pressure 115/56 L Pulse Oximetry 95 08/16/18 21:15 08/16/18 22:00 08/16/18 22:34 Temperature 98.5 F Pulse Rate 95 H 88 Respiratory Rate 22 Blood Pressure 137/62 Pulse Oximetry 95 97 08/16/18 23:00 08/17/18 00:00 08/17/18 01:00 Temperature Pulse Rate 82 83 82 Respiratory Rate Blood Pressure Pulse Oximetry 08/17/18 02:00 08/17/18 03:00 08/17/18 04:00 Temperature 97.8 F Pulse Rate 68 67 67 Respiratory Rate 22 Blood Pressure 132/63 Pulse Oximetry 96 08/17/18 05:00 08/17/18 06:00 08/17/18 07:00 Temperature 97.8 F Pulse Rate 68 82 78 Respiratory Rate 20 Blood Pressure 146/63 H Pulse Oximetry 08/17/18 08:00 08/17/18 09:00 08/17/18 10:00 Temperature Pulse Rate 88 92 H 80 Respiratory Rate Blood Pressure Pulse Oximetry 95 95 08/17/18 11:00 08/17/18 12:00 08/17/18 13:00 Temperature 98 F Pulse Rate 80 79 87 Respiratory Rate 20 Blood Pressure 136/68 Pulse Oximetry 98 Intake & Output 08/16/18 08/17/18 08/17/18 18:59 06:59 18:59 Intake Total 1720 / 1720 480 / 480 Output Total 1100 / 1100 800 / 800 Balance 620 / 620 -320 / -320 Weight 71.5 kg Intake: IV 1000 / 1000 NS Inj 1,000 ML @ 100 mls/hr IV 1000 / 1000 .CONT .Q10H ONE Rx#:[id number] Oral 720 / 720 480 / 480 Output: Urine 1100 / 1100 800 / 800 Other: Date of Last Bowel Movement 08/16/18 08/16/18 # Bowel Movements 3 Narrative: Alert and oriented x 3 S1 S2 tachycardic Bi basilar crackles, minimal wheezing. abd soft, nontender, normal bowel sounds. No edema of the lower exts No focal neurological deficits. - Urinary Catheter Management Straight Cath placed during this visit: yes Reason for continuing: Not indwelling catheter Insertion date: 08/15/18 Insertion time: 20:01 Results - Labs CBC & Chem 7: 08/16/18 04:16 08/17/18 04:05 Laboratory Results - last 24 hr 08/15/18 08/16/18 08/16/18 19:16 16:34 21:59 Sodium Potassium Chloride Carbon Dioxide Anion Gap BUN Creatinine Estimated GFR POC Glucose 261 H 288 H Random Glucose Calcium Magnesium Urine Color Sara Urine Clarity Hazy H Urine pH 5.0 Ur Specific [place] 1.021 Urine Protein Negative Urine Glucose (UA) Negative Urine Ketones Negative Urine Occult Blood Negative Urine Nitrate Negative Urine Bilirubin Negative Urine Ictotest Negative Urine Urobilinogen Less than 2 Ur Leukocyte Esterase Trace H Urine WBC 1 Urine Bacteria Occasional H Hyaline Casts 55 Granular Casts 13 Urine Mucus Few H Micro UA Comment Cath-culture ind Urine Culture Comments Cath-cult indicated 08/17/18 08/17/18 08/17/18 04:05 07:12 11:09 Sodium 137 Potassium 5.0 Chloride 100 Carbon Dioxide 31.9 Anion Gap 5 BUN 20 H Creatinine 0.62 Estimated GFR Greater than 89 POC Glucose 245 H 298 H Random Glucose 248 H Calcium 9.3 Magnesium 1.7 Urine Color Urine Clarity Urine pH Ur Specific [place] Urine Protein Urine Glucose (UA) Urine Ketones Urine Occult Blood Urine Nitrate Urine Bilirubin Urine Ictotest Urine Urobilinogen Ur Leukocyte Esterase Urine WBC Urine Bacteria Hyaline Casts Granular Casts Urine Mucus Micro UA Comment Urine Culture Comments Microbiology 08/15/18 18:25 Blood - Line Aerobic Blood Culture - Preliminary No growth in 2 days 08/15/18 18:25 Blood - Line Anaerobic Blood Culture - Preliminary No growth in 2 days 08/15/18 18:20 Blood - Line Aerobic Blood Culture - Preliminary No growth in 2 days 08/15/18 18:20 Blood - Line Anaerobic Blood Culture - Preliminary No growth in 2 days 08/15/18 19:16 Clean Catch Urine Urine Culture - Preliminary gram negative rods 08/16/18 10:54 Stool Stool Occult Blood ([facility]) - Final Hemoccult negative Assessment and Plan - Assessment (1) COPD (chronic obstructive pulmonary disease) Code(s): J44.9 - Chronic obstructive pulmonary disease, unspecified Status: Chronic (2) Acute hypercapnic respiratory failure Code(s): J96.02 - Acute respiratory failure with hypercapnia Status: Acute (3) Hypoxia Code(s): R09.02 - Hypoxemia Status: Acute (4) DM (diabetes mellitus) Code(s): E11.9 - Type 2 diabetes mellitus without complications Status: Chronic (5) GI bleed Code(s): K92.2 - Gastrointestinal hemorrhage, unspecified Status: Acute - Plan This patient is a 77-year-old female with a diagnosis of hypertension, diabetes , COPD oxygen dependent, congestive heart failure unknown EF, history of GI bleed in the past. The patient was brought into the emergency department from a detention facility with increased weakness for approximately 2 days. On initial evaluation the patient was lethargic and per the report she was short of breath and hypoxic on room air. 1. Acute hypoxic hypercapnic respiratory failure possibly copd exacerbation. 2. Acute COPD exacerbation on home O2 2-3 L Patient presented hypoxic and lethargic. Her CO2 was elevated on abg. Patient placed on supplemental oxygen and bipap. Currently she is on 5L of supplemental oxygen. Showing some improvement. Continue bipap intermittently. Continue iv steroids, frquency changed to q8hrs. Continue breathing txs. Reviewed recent CTA chest from approx one month ago and it appears patient has chronic changes on CTA and small left sided pleural effusion. Her Tachycardia from yesterday has now improved. Monitor on telemetry. 3. Questionable GI bleed No significant drop in hgb, slightly decreased from admission but this is likely dilutional, patient on protonix. GI following F/u am hgb 4. Diabetes mellitus Patient started on levemir dose increased to 8 units subq hs. continue low dose insulin sliding scale. Will adjust as needed. 5. Chronic pain Patient says she has chronic pain and is on norco. Continue norco as needed for pain. Currently she is tachycardic, possibly pain related. Hgb level ordered. If no drop in hgb will order pharmacotherapy for dvt prophylaxis. Discharge planning. Will continue to titrate the patient off of supplemental oxygen. Keep oxygenation at or above 92%. 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
[2018-08-17 14:53] LABS: Hematocrit 28.6 % (35.0-46.0); Hemoglobin 9.3 gm/dL (11.6-15.3)
--- NOTE | 2018-08-17 17:36 | P.PNGI ---
Subjective Interval history: Patient smiling resting in the bed feeling much better today denies any nausea or vomiting. Abdominal pain is improved and no obvious bleeding <Alexa Mtaos - Last Filed: 08/17/18 17:31> Physical Exam Vital signs: Vital Signs 08/16/18 18:00 08/16/18 19:00 08/16/18 20:00 Temperature 98.2 F Pulse Rate 101 H 97 H 94 H Respiratory Rate 20 Blood Pressure 115/56 L Pulse Oximetry 95 08/16/18 21:00 08/16/18 21:15 08/16/18 22:00 Temperature Pulse Rate 85 95 H Respiratory Rate Blood Pressure Pulse Oximetry 95 08/16/18 22:34 08/16/18 23:00 08/17/18 00:00 Temperature 98.5 F Pulse Rate 88 82 83 Respiratory Rate 22 Blood Pressure 137/62 Pulse Oximetry 97 08/17/18 01:00 08/17/18 02:00 08/17/18 03:00 Temperature 97.8 F Pulse Rate 82 68 67 Respiratory Rate 22 Blood Pressure 132/63 Pulse Oximetry 96 08/17/18 04:00 08/17/18 05:00 08/17/18 06:00 Temperature Pulse Rate 67 68 82 Respiratory Rate Blood Pressure Pulse Oximetry 08/17/18 07:00 08/17/18 08:00 08/17/18 09:00 Temperature 97.8 F Pulse Rate 78 88 92 H Respiratory Rate 20 Blood Pressure 146/63 H Pulse Oximetry 95 08/17/18 10:00 08/17/18 11:00 08/17/18 12:00 Temperature 98 F Pulse Rate 80 80 79 Respiratory Rate 20 Blood Pressure 136/68 Pulse Oximetry 95 98 08/17/18 13:00 08/17/18 14:00 08/17/18 15:00 Temperature 97.8 F Pulse Rate 87 82 73 Respiratory Rate 20 Blood Pressure 152/66 H Pulse Oximetry 96 08/17/18 16:00 08/17/18 17:00 08/17/18 17:15 Temperature Pulse Rate 80 70 Respiratory Rate Blood Pressure Pulse Oximetry 95 Intake & Output 08/16/18 08/17/18 08/17/18 18:59 06:59 18:59 Intake Total 1720 / 1720 480 / 480 720 / 720 Output Total 1100 / 1100 800 / 800 350 / 350 Balance 620 / 620 -320 / -320 370 / 370 Weight 71.5 kg Intake: IV 1000 / 1000 NS Inj 1,000 ML @ 100 mls/hr IV 1000 / 1000 .CONT .Q10H ONE Rx#:[id number] Oral 720 / 720 480 / 480 720 / 720 Output: Urine 1100 / 1100 800 / 800 350 / 350 Other: Date of Last Bowel Movement 08/16/18 08/16/18 # Bowel Movements 3 0 - Constitutional no acute distress, obese, cooperative - Routine HEENT Exam Head: Present: normocephalic ENT: Present: mucous membranes moist - Routine Neck Exam Present: supple - Routine Respiratory Exam Present: CTA bilaterally - Routine Cardiovascular Exam Present: S1, S2 - Routine Abdominal Exam Present: soft ([place], active bowel sounds, occasional gastric pain after eating) - Routine Skin Exam Present: intact - Urinary Catheter Management Straight Cath placed during this visit: yes Reason for continuing: Not indwelling catheter Insertion date: 08/15/18 Insertion time: 20:01 <Alexa Matos - Last Filed: 08/17/18 17:31> Vital signs: Vital Signs 08/16/18 20:00 08/16/18 21:00 08/16/18 21:15 Temperature 98.2 F Pulse Rate 94 H 85 Respiratory Rate 20 Blood Pressure 115/56 L Pulse Oximetry 95 95 08/16/18 22:00 08/16/18 22:34 08/16/18 23:00 Temperature 98.5 F Pulse Rate 95 H 88 82 Respiratory Rate 22 Blood Pressure 137/62 Pulse Oximetry 97 08/17/18 00:00 08/17/18 01:00 08/17/18 02:00 Temperature Pulse Rate 83 82 68 Respiratory Rate Blood Pressure Pulse Oximetry 08/17/18 03:00 08/17/18 04:00 08/17/18 05:00 Temperature 97.8 F Pulse Rate 67 67 68 Respiratory Rate 22 Blood Pressure 132/63 Pulse Oximetry 96 08/17/18 06:00 08/17/18 07:00 08/17/18 08:00 Temperature 97.8 F Pulse Rate 82 78 88 Respiratory Rate 20 Blood Pressure 146/63 H Pulse Oximetry 95 08/17/18 09:00 08/17/18 10:00 08/17/18 11:00 Temperature 98 F Pulse Rate 92 H 80 80 Respiratory Rate 20 Blood Pressure 136/68 Pulse Oximetry 95 98 08/17/18 12:00 08/17/18 13:00 08/17/18 14:00 Temperature Pulse Rate 79 87 82 Respiratory Rate Blood Pressure Pulse Oximetry 08/17/18 15:00 08/17/18 16:00 08/17/18 17:00 Temperature 97.8 F Pulse Rate 73 80 70 Respiratory Rate 20 Blood Pressure 152/66 H Pulse Oximetry 96 08/17/18 17:15 08/17/18 18:00 Temperature Pulse Rate 80 Respiratory Rate Blood Pressure Pulse Oximetry 95 Intake & Output 08/17/18 08/17/18 08/18/18 06:59 18:59 06:59 Intake Total 480 / 480 720 / 720 Output Total 800 / 800 350 / 350 Balance -320 / -320 370 / 370 Weight 71.5 kg Intake: Oral 480 / 480 720 / 720 Output: Urine 800 / 800 350 / 350 Other: Date of Last Bowel Movement 08/16/18 # Bowel Movements 0 - Urinary Catheter Management Straight Cath placed during this visit: no <Jesus Montemayor A - Last Filed: 08/17/18 19:11> Results - Labs CBC & Chem 7: 08/17/18 14:34 08/17/18 04:05 Laboratory Results - last 24 hr 08/15/18 08/16/18 08/17/18 19:16 21:59 04:05 Hgb Hct Sodium 137 Potassium 5.0 Chloride 100 Carbon Dioxide 31.9 Anion Gap 5 BUN 20 H Creatinine 0.62 Estimated GFR Greater than 89 POC Glucose 288 H Random Glucose 248 H Calcium 9.3 Magnesium 1.7 Urine Color Sara Urine Clarity Hazy H Urine pH 5.0 Ur Specific [place] 1.021 Urine Protein Negative Urine Glucose (UA) Negative Urine Ketones Negative Urine Occult Blood Negative Urine Nitrate Negative Urine Bilirubin Negative Urine Ictotest Negative Urine Urobilinogen Less than 2 Ur Leukocyte Esterase Trace H Urine WBC 1 Urine Bacteria Occasional H Hyaline Casts 55 Granular Casts 13 Urine Mucus Few H Micro UA Comment Cath-culture ind Urine Culture Comments Cath-cult indicated 08/17/18 08/17/18 08/17/18 07:12 11:09 14:34 Hgb 9.3 L Hct 28.6 L Sodium Potassium Chloride Carbon Dioxide Anion Gap BUN Creatinine Estimated GFR POC Glucose 245 H 298 H Random Glucose Calcium Magnesium Urine Color Urine Clarity Urine pH Ur Specific [place] Urine Protein Urine Glucose (UA) Urine Ketones Urine Occult Blood Urine Nitrate Urine Bilirubin Urine Ictotest Urine Urobilinogen Ur Leukocyte Esterase Urine WBC Urine Bacteria Hyaline Casts Granular Casts Urine Mucus Micro UA Comment Urine Culture Comments 08/17/18 16:18 Hgb Hct Sodium Potassium Chloride Carbon Dioxide Anion Gap BUN Creatinine Estimated GFR POC Glucose 232 H Random Glucose Calcium Magnesium Urine Color Urine Clarity Urine pH Ur Specific [place] Urine Protein Urine Glucose (UA) Urine Ketones Urine Occult Blood Urine Nitrate Urine Bilirubin Urine Ictotest Urine Urobilinogen Ur Leukocyte Esterase Urine WBC Urine Bacteria Hyaline Casts Granular Casts Urine Mucus Micro UA Comment Urine Culture Comments Microbiology 08/15/18 18:25 Blood - Line Aerobic Blood Culture - Preliminary No growth in 2 days 08/15/18 18:25 Blood - Line Anaerobic Blood Culture - Preliminary No growth in 2 days 08/15/18 18:20 Blood - Line Aerobic Blood Culture - Preliminary No growth in 2 days 08/15/18 18:20 Blood - Line Anaerobic Blood Culture - Preliminary No growth in 2 days 08/15/18 19:16 Clean Catch Urine Urine Culture - Preliminary gram negative rods 08/16/18 10:54 Stool Stool Occult Blood ([facility]) - Final Hemoccult negative <Alexa Matos M - Last Filed: 08/17/18 17:31> - Labs CBC & Chem 7: 08/17/18 14:34 08/17/18 04:05 Laboratory Results - last 24 hr 08/15/18 08/16/18 08/17/18 19:16 21:59 04:05 Hgb Hct Sodium 137 Potassium 5.0 Chloride 100 Carbon Dioxide 31.9 Anion Gap 5 BUN 20 H Creatinine 0.62 Estimated GFR Greater than 89 POC Glucose 288 H Random Glucose 248 H Calcium 9.3 Magnesium 1.7 Urine Color Sara Urine Clarity Hazy H Urine pH 5.0 Ur Specific [place] 1.021 Urine Protein Negative Urine Glucose (UA) Negative Urine Ketones Negative Urine Occult Blood Negative Urine Nitrate Negative Urine Bilirubin Negative Urine Ictotest Negative Urine Urobilinogen Less than 2 Ur Leukocyte Esterase Trace H Urine WBC 1 Urine Bacteria Occasional H Hyaline Casts 55 Granular Casts 13 Urine Mucus Few H Micro UA Comment Cath-culture ind Urine Culture Comments Cath-cult indicated 08/17/18 08/17/18 08/17/18 07:12 11:09 14:34 Hgb 9.3 L Hct 28.6 L Sodium Potassium Chloride Carbon Dioxide Anion Gap BUN Creatinine Estimated GFR POC Glucose 245 H 298 H Random Glucose Calcium Magnesium Urine Color Urine Clarity Urine pH Ur Specific [place] Urine Protein Urine Glucose (UA) Urine Ketones Urine Occult Blood Urine Nitrate Urine Bilirubin Urine Ictotest Urine Urobilinogen Ur Leukocyte Esterase Urine WBC Urine Bacteria Hyaline Casts Granular Casts Urine Mucus Micro UA Comment Urine Culture Comments 08/17/18 16:18 Hgb Hct Sodium Potassium Chloride Carbon Dioxide Anion Gap BUN Creatinine Estimated GFR POC Glucose 232 H Random Glucose Calcium Magnesium Urine Color Urine Clarity Urine pH Ur Specific [place] Urine Protein Urine Glucose (UA) Urine Ketones Urine Occult Blood Urine Nitrate Urine Bilirubin Urine Ictotest Urine Urobilinogen Ur Leukocyte Esterase Urine WBC Urine Bacteria Hyaline Casts Granular Casts Urine Mucus Micro UA Comment Urine Culture Comments Microbiology 08/15/18 18:25 Blood - Line Aerobic Blood Culture - Preliminary No growth in 2 days 08/15/18 18:25 Blood - Line Anaerobic Blood Culture - Preliminary No growth in 2 days 08/15/18 18:20 Blood - Line Aerobic Blood Culture - Preliminary No growth in 2 days 08/15/18 18:20 Blood - Line Anaerobic Blood Culture - Preliminary No growth in 2 days 08/15/18 19:16 Clean Catch Urine Urine Culture - Preliminary gram negative rods <Jesus Montemayor - Last Filed: 08/17/18 19:11> Assessment and Plan - Plan 77-year-old female who came into the hospital on 08/15/2018 with a 2-day history of weakness and mild somnolence according to the record. She also noted some dizziness on admission and also states that she does have some loose diarrheal stools after eating at times. Patient notes recent EGD colonoscopy with Dr. Ramon, noted polyps and some mild dysphasia causing vomiting acute on chronic. Patient also notes recent hospital stay which she received transfusion for her anemia. Current labs reviewed which show hemoglobin 9.6, platelets 349, WBC count 8.1, bilirubin and LFTs are normal. During physical exam patient also had some mid abdominal discomfort to light palpation. Gastroenterology was consulted to assist with her GI symptoms during this hospital stay and plan of care. Currently patient denies any nausea no vomiting no diarrhea no constipation and no obvious bleeding Symptomatic anemia, with some shortness of breath and dizziness, generalized weakness. Transfusion according to patient approximately 3 weeks ago and previous hospital stay. Recent EGD colonoscopy with history of polyp Dysphasia acute on chronic patient had recent EGD, unknown if she had dilatation or not. Symptoms still currently persist Diarrhea, history of cholecystectomy approximately 3 years ago, symptoms could be related Generalized weakness, unspecified but could be related to patient's multiple comorbidities such as COPD, CAD, CHF, and any GI bleed 08/17/2018 patient's feeling much better today. Denies any further dizziness or shortness of breath. Does note some gastric discomfort. Labs reviewed current hemoglobin 9.3 no obvious bleed. Patient is diabetic and appears to be describing possible gastroparesis symptoms with nausea and gastric pain. Discussed with her small frequent feedings 4-6 times a day chewing her food well using hydration and monitoring any foods which aggravate her symptoms such as spicy greasy foods. Patient agrees and stated that she is hoping to go home tomorrow. Denies any current dysphasia today. Plan Diet as tolerated, reflux precautions discussed with patient, and small meals 4- 6 times a day Monitor labs special attention hemoglobin, transfuse as needed Old records ordered from Dr. Ramon. Patient had recent EGD colonoscopy, possibly will receive tomorrow Quest[facility], evaluate effectiveness for diarrhea stools, history of cholecystectomy If patient discharges, plans to follow-up with her GI doctor for any further needs Patient was seen per myself and Dr. Montemayor, note was written on his behalf <Alexa Matos - Last Filed: 08/17/18 17:31> - Attending Attestation Agree with above assessment and plan. <Jesus Montemayor - Last Filed: 08/17/18 19:11>
[2018-08-18] MEDS: MethylPREDNISolone Sod Succinate Inj 40 MG/ML Vial IV.PUSH SCH ×2 (05:14→12:28)
[2018-08-18 07:11] LABS: Anion Gap 6 meq/L (5-15); Blood Urea Nitrogen 19 mg/dL (7-18); Calcium 9.7 mg/dL (8.5-10.1); Carbon Dioxide 28.6 meq/L (21.0-32.0); Chloride 101 meq/L (98-107); Glomerular Filtration Rate Greater Than 89 mL/min (>89); Glucose,Random 176 mg/dL (74-106); Magnesium 1.7 mg/dL (1.5-2.5); Potassium 4.6 meq/L (3.5-5.1); Sodium 136 meq/L (136-145)
[2018-08-18] MEDS: Insulin NovoLOG Aspart Correctional Sugar Inj SQ SCH ×2 (07:52→11:57)
[2018-08-18] MEDS ORDERED: Enoxaparin Inj 40 MG/0.4 ML Syringe SQ SCH (09:00)
[2018-08-18] MEDS: Senna/Docusate Sodium 8.6/50 MG Tablet PO SCH (09:05)
[2018-08-18] MEDS: Cholestyramine Light 4 GM Packet PO SCH (09:05)
[2018-08-18] MEDS: Budesonide-Formoterol 160/4.5 MCG 6 GM Inhaler INH SCH (09:06)
--- NOTE | 2018-08-18 09:13 | P.DS ---
Date of admission: 08/15/18 21:02 Primary care physician: UNKNOWN Brief History from admission: This is a 77-year-old female with a PMH of HTN, DM, COPD, O2 Dependent, CHF ( Unknown EF) and h/o GI Bleed/Anemia who was sent to the ER from SNF for increased lethargy x2 days. Pt unable to provide significant history due to lethargy, but opens eyes to name and follows simple commands. Patient was found to be hypoxic, hypercapnic and was subsequently admitted for a copd exacerbation. DS: Diagnosis - Discharge Diagnosis (1) COPD (chronic obstructive pulmonary disease) Status: Chronic (2) Acute hypercapnic respiratory failure Status: Acute (3) Hypoxia Status: Acute (4) DM (diabetes mellitus) Status: Chronic (5) GI bleed Status: Acute DS: Medications - Discharge Medications Prescriptions: prednisone 10 mg PO DAILY #17 tab DS: Summary Hospital Course: This patient is a 77-year-old female with a diagnosis of hypertension, diabetes , COPD oxygen dependent, congestive heart failure unknown EF, history of GI bleed in the past. The patient was brought into the emergency department from a [facility] facility with increased weakness for approximately 2 days. On initial evaluation the patient was lethargic and per the report she was short of breath and hypoxic on room air. 1. Acute hypoxic hypercapnic respiratory failure possibly copd exacerbation. 2. Acute COPD exacerbation on home O2 2-3 L Patient presented hypoxic and lethargic. Her CO2 was elevated on abg. Patient placed on supplemental oxygen and bipap. Patient was requiring 5-6 L of supplemental oxygen. Now she is back on 3 L of oxygen which is her baseline with an oxygen sat of around 95%. Continue PO steroid tapering dose. Continue to use inhalers after discharge. Reviewed recent CTA chest from approx one month ago and it appears patient has chronic changes on CTA and small left sided pleural effusion. Patients initial tachycardia on admission likely due to hypoxia, improved after treatment. 3. Questionable GI bleed No significant drop in hgb while she was in the hospital, slightly decreased from admission but this is likely dilutional. GI evaluated the patient while in the hospital. No findings suggestive of GI bleed. 4. Diabetes mellitus Continue home medications for DM. Patient can follow up with her primary care doctor after discharge. 5. Tobacco smoking Approximately 5 minutes was spent counseling the patient is cessation techniques. Understands continuing to smoke could lead to stroke and , worsening of COPD. Benefits of stopping also presented to the patient. Patient verbalized desire to "give it a try" regarding smoking cessation and its benefits. Nicotine patch recommended. 6. CHF preserved EF Continue lasix po. Patient not in exacerbation. Appears euvolemic. - Time Spent with Patient Total time spent providing and/or coordinating discharge services: Greater than 30 minutes Exam Vital signs: Vital Signs 08/17/18 10:00 08/17/18 11:00 08/17/18 12:00 Temperature 98 F Pulse Rate 80 80 79 Respiratory Rate 20 Blood Pressure 136/68 Pulse Oximetry 95 98 08/17/18 13:00 08/17/18 14:00 08/17/18 15:00 Temperature 97.8 F Pulse Rate 87 82 73 Respiratory Rate 20 Blood Pressure 152/66 H Pulse Oximetry 96 08/17/18 16:00 08/17/18 17:00 08/17/18 17:15 Temperature Pulse Rate 80 70 Respiratory Rate Blood Pressure Pulse Oximetry 95 08/17/18 18:00 08/17/18 19:00 08/17/18 19:57 Temperature 97.9 F Pulse Rate 80 73 Respiratory Rate 20 Blood Pressure 155/64 H Pulse Oximetry 95 95 08/17/18 19:59 08/17/18 20:00 08/17/18 21:00 Temperature Pulse Rate 74 73 Respiratory Rate Blood Pressure Pulse Oximetry 95 08/17/18 22:00 08/17/18 23:00 08/18/18 00:00 Temperature 98.2 F Pulse Rate 78 75 72 Respiratory Rate 18 Blood Pressure 152/67 H Pulse Oximetry 97 08/18/18 01:00 08/18/18 02:00 08/18/18 03:00 Temperature 98.6 F Pulse Rate 75 98 H 95 H Respiratory Rate 18 Blood Pressure 158/81 H Pulse Oximetry 97 08/18/18 04:00 08/18/18 05:00 08/18/18 05:48 Temperature Pulse Rate 58 L 61 65 Respiratory Rate Blood Pressure Pulse Oximetry 08/18/18 07:00 08/18/18 08:00 Temperature 98.0 F Pulse Rate 83 80 Respiratory Rate 18 Blood Pressure 161/76 H Pulse Oximetry 100 100 Intake & Output 08/17/18 08/18/18 08/18/18 18:59 06:59 18:59 Intake Total 720 / 720 480 / 480 Output Total 350 / 350 600 / 600 Balance 370 / 370 -120 / -120 Weight 71 kg Intake: Oral 720 / 720 480 / 480 Output: Urine 350 / 350 600 / 600 Other: Date of Last Bowel Movement 08/16/18 08/16/18 # Bowel Movements 0 Narrative: alert and oriented S1S2 CTA b/l abd soft, nontender, nondistended, normal bowel sounds. no edema of the exts. No focal neurological deficits. Patient moves all 4 exts, sensation intact b/l Results Procedures completed during hospitalization: None. Labs on day of discharge: Labs from last 24 hours 08/18/18 08/18/18 08/17/18 07:26 06:11 19:37 Hgb Hct Sodium 136 Potassium 4.6 Chloride 101 Carbon Dioxide 28.6 Anion Gap 6 BUN 19 H Creatinine 0.57 Estimated GFR Greater than 89 POC Glucose 271 H 238 H Random Glucose 176 H Calcium 9.7 Magnesium 1.7 08/17/18 08/17/18 08/17/18 16:18 14:34 11:09 Hgb 9.3 L Hct 28.6 L Sodium Potassium Chloride Carbon Dioxide Anion Gap BUN Creatinine Estimated GFR POC Glucose 232 H 298 H Random Glucose Calcium Magnesium Preliminary micro results at discharge 08/15/18 18:25 Aerobic Blood Culture - Preliminary Blood - Line No growth in 2 days Anaerobic Blood Culture - Preliminary No growth in 2 days 08/15/18 18:20 Aerobic Blood Culture - Preliminary Blood - Line No growth in 2 days Anaerobic Blood Culture - Preliminary No growth in 2 days - Impressions ITS Impressions Chest X-Ray 08/15/18 18:05 CONCLUSION: 1. Chronic interstitial changes with persistent left lower lung zone atelectasis/scarring. 2. Progressive mild airspace disease at the right lung base which may reflect atelectasis. 3. Cardiomegaly. Head CT 08/15/18 18:05 CONCLUSION: 1. No acute intracranial abnormality. . Discharge Plan - Discharge Disposition Patient Disposition: Discharge to SNF - Discharge Condition Condition: Stable - Discharge Order Discharge Orders: Discharge Order (Routine); Ordered 08/18/18 Ordered By: Nelly Holbrook ED Use Only Admit Order (Routine); Ordered 08/15/18 Ordered By: Carina Minaya - Physicians Team Primary Care Provider: UNKNOWN, Attending Provider: Nelly Holbrook Other Providers: Jesus Montemayor MD
[2018-08-18] MEDS: Pantoprazole Inj 40 MG Vial IV.PUSH SCH (11:57)
== END 2018-08-18 14:00 | DRG 190 ==
LOC: NEPE 17:39 → NEDA 21:02 → HCPC 23:25 → NEDA 23:30
PROVIDERS: ADMIT Hospitalist; ATTEND Hospitalist
DX: G25.81 Restless legs syndrome; J96.21 Acute and chronic respiratory failure with hypoxia; R10.9 Unspecified abdominal pain; J96.22 Acute and chronic respiratory failure with hypercapnia; I50.32 Chronic diastolic (congestive) heart failure; Z87.891 Personal history of nicotine dependence; E11.3599 Type 2 diabetes mellitus with proliferative diabetic retinopathy without macular edema, unspecified eye; Z88.0 Allergy status to penicillin; R53.1 Weakness; R47.02 Dysphasia; I11.0 Hypertensive heart disease with heart failure; R00.0 Tachycardia, unspecified; G89.29 Other chronic pain; E07.9 Disorder of thyroid, unspecified; K92.2 Gastrointestinal hemorrhage, unspecified; E66.9 Obesity, unspecified; I25.10 Atherosclerotic heart disease of native coronary artery without angina pectoris; Z90.49 Acquired absence of other specified parts of digestive tract; Z79.4 Long term (current) use of insulin; Z90.710 Acquired absence of both cervix and uterus; Z99.81 Dependence on supplemental oxygen; Z68.28 Body mass index [BMI] 28.0-28.9, adult; Z79.82 Long term (current) use of aspirin; J98.11 Atelectasis; D64.9 Anemia, unspecified; J44.1 Chronic obstructive pulmonary disease with (acute) exacerbation
CPT/HCPCS: 36600; 70450; 71010; 71045; 76937; 80048; 80053; 81001; 82272; 82805; 82948; 82962; 83520; 83605; 83735; 83880; 84484; 85014; 85018; 85025; 86850; 86900; 86901; 87040; 87077; 87086; 87186; 87275; 87276; 87804; 93005; 93306; 94002; 94656; 94664; 97162; 99285; C9113; J1650; J1815; J2920; J7030; J7040; P9612